=== PATIENT | male | born 1950 | race Caucasian/White ===

== ENCOUNTER 2019-06-19 12:19 | Emergency (ER) | payer OTHER, SELFPAY ==
--- NOTE | ~2019-06-19 | CT_ITS ---
EXAMINATION: CT abdomen pelvis w con EXAM DATE: 06/19/2019 13:40 INDICATION: Abdominal pain and distention. TECHNIQUE: Spiral CT of the abdomen and pelvis was performed following intravenous injection of 100 m L Omnipaque 350. Axial, coronal and sagittal images were reviewed. The dose-length product (DLP) fo r this examination was 519.70 mGy-cm. The exposure was tailored according to patient size (auto mA e xposure control), and iterative reconstruction (ASIR) was used as additional dose reduction technique . Comparison is made to prior examination from 12/04/2014. FINDINGS: The liver, spleen, adrenal glands and pancreas are unremarkable. Gallbladder is unremarkab le. No biliary obstruction. Portal and splenic veins are patent. Kidneys enhance symmetrically. T here is no hydronephrosis. The prostate is unremarkable. The bladder is unremarkable. There is no retroperitoneal or pelvic lymphadenopathy. Left inguinal reservoir for corpora implants. There is mild to moderate scattered arteriosclerotic disease. Ascending colon has relatively small amount of stool compared to the more moderate amount of stool th roughout the rest of the colon, which may account for the apparent mild colonic wall thickening. Has patient had any recent colonoscopy? The appendix is normal. The stomach and small bowel are unremark able. There is mild scattered colonic diverticulosis. There is no adjacent inflammatory change to s uggest diverticulitis. The heart is normal in size. There are no pericardial or pleural effusions. There are bibasilar linear opacities, subsegmental atelectasis. There are no osteoblastic or osteoly tic lesions identified. IMPRESSION: 1. Moderate amount of colonic stool, consider constipation. 2. Relatively undistended and ascending colon, with apparent wall thickening which could be from the under distention but difficult to exclude underlying adenocarcinoma. If patient has not had recent c olonoscopy or enema, consider referral. 3. No acute intra-abdominal findings. Reviewed, dictated and finalized at location A. 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 Moderate amount of colonic stool, consider constipation. 2. Relatively undistended and ascending colon, with apparent wall thickening w hich could be from the under distention but difficult to exclude underlying maria del carmen nocarcinoma. If patient has not had recent colonoscopy or enema, consider refer ral. 3. No acute intra-abdominal findings.
[2019-06-19 12:45] VITALS: BP 152/67; PULSE 71; RESP 16; TEMP 36.9; O2SAT 99
--- NOTE | 2019-06-19 12:49 | ED.ABDPAIN ---
HPI - Abdominal Pain General Chief Complaint: Abdominal Pain Stated Complaint: Abd Pain Time Seen by Provider: 06/19/19 12:44 Source: patient Mode of arrival: ambulatory Limitations: no limitations History of Present Illness HPI narrative: The pt is a 68 y/o male who presents to the ED with c/o diffuse ABD pain that began 5 days ago and has been worsening since. The pt states that he was able to have a small bowel movement this morning but, before this, he has not had one in the past 5 days. He states that his ABD feels very hard and sore. The pt reports constipation, but denies CP, fever, or N/V/D. He states he has had pain with constipation before, but never this bad. The pt has a SHx of TKR and shoulder surgery, but denies any ABD surgery history. He has a PMHx of DM. MD elicited complaint: abdominal pain Onset (ago): day(s) (5) Pain Consistency: other (worsening) Location: diffuse Associated symptoms: constipation Related Data Home Medications Medication Instructions Recorded Confirmed allopurinol 06/19/19 alprazolam 06/19/19 glipizide mg 06/19/19 hydrocodone-acetaminophen 06/19/19 metformin mg 06/19/19 prednisone 06/19/19 tamsulosin mg PO 06/19/19 Allergies Allergy/AdvReac Type Severity Reaction Status Date / Time No Known Allergies Allergy Unverified 01/20/15 12:33 Review of Systems Review of Systems: Narrative: CONSTITUTIONAL: Denies fever. CARDIOVASCULAR: Denies chest pain. GASTROINTESTINAL: Reports abdominal pain and constipation. Denies N/V/D. : Denies dysuria or hematuria SKIN: No redness or rash All systems reviewed & are unremarkable except as noted in HPI and below PMFSH Past Medical History Medical History (Updated 06/19/19 @ 14:08 by Jessica Mckeon MD) A-fib Arthritis Diabetes Gout Herpes Type 2 History of rectal polyps Hyperlipidemia Hypertension Kidney stones Shingles Ureteral stone Surgical History Surgical History (Updated 06/19/19 @ 14:03 by Kady Durham) H/O arthroscopy lt shoulder H/O cystoscopy H/O repair of rotator cuff bilateral History of bilateral carpal tunnel release History of penile implant History of renal stent History of total knee replacement (TKR) rt Hx of tonsillectomy Social History Social History (Updated 06/19/19 @ 14:03 by Kady Durham) Years smoked: 28 Smoking status: Current every day smoker Exam Narrative: Exam Narrative: GENERAL: Well-appearing, well-nourished, and in no acute distress. HEAD: Normocephalic, atraumatic. EYES: PERRLA and EOMI. ENT: Nares clear, no rhinorrhea or epistaxis. Mucous membranes moist. NECK: Supple. CHEST: Clear to auscultation. No respiratory distress. HEART: Regular rate and rhythm. No murmur heard. Normal peripheral pulses. ABDOMEN: ABD mildly distended. Diffuse mild ABD tenderness. Normoactive bowel sounds. No guarding and not rigid. EXTREMITIES: Normal range of motion. No edema. SKIN: Warm, dry, no rash. NEURO: No focal deficits. Alert and oriented X3. Course Course Emergency Course: The patient presented for evaluation of abdominal pain and distention. At the time of initial assessment, ABCs are intact and vital signs are stable. Physical exam is notable for a mildly distended abdomen which is tender throughout without rebound or rigidity. Differential includes partial versus complete bowel obstruction, volvulus, mass, perforation. Patient without urinary symptoms. Laboratory results are largely unremarkable; he has a mild leukocytosis. No severe electrolyte derangement or acute kidney injury. Patient has elevated glucose readings consistent with his history of diabetes. CT scan is concerning for constipation. There is no extra intestinal mass, but there is concern for inflammation and wall thickening in the ascending colon, and radiology is recommending a repeat colonoscopy. 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
[2019-06-19 13:21] LABS: Basophils Absolute Auto 0.1 K/mm3 (0.0-0.1); Basophils Percent Auto 0.6 % (0.2-1.2); Eosinophils Absolute Auto 0.3 K/mm3 (0-0.3); Eosinophils Percent Auto 1.9 % (0-4.4); Hematocrit 45.8 % (42.0-52.0); Immature Granulocyte Absolute 0.23 K/mm3 (0.00-0.031); Immature Granulocyte Percent A 1.8 % (0-0.5); Lymphocytes Absolute Auto 1.17 K/mm3 (0.9-3.2); Lymphocytes Percent Auto 9.1 % (18.3-44.2); Mean Corpuscular HGB Conc 34.9 g/dl (32-36); Mean Corpuscular Hemoglobin 31.1 pg (26-34); Mean Corpuscular Volume 89.1 fl (80-100); Monocytes Absolute Auto 1.4 K/mm3 (0.1-0.6); Monocytes Percent Auto 10.5 % (2.6-8.5); Neutrophils Absolute Auto 9.8 K/mm3 (1.3-6.7); Neutrophils Percent Auto 76.1 % (45.5-73.1); Platelet Count Result 216 k/mm3 (150-375); Red Blood Count 5.14 M/mm3 (4.6-6.20); Red Cell Distribution Width 13.2 % (11.5-14.5); White Blood Count 12.8 K/mm3 (4.5-10.0)
[2019-06-19 13:33] LABS: Add Urine Microscopic? YES; Appearance Urine Clear (Clear); Bilirubin Urine Negative (Negative); Blood Urine Negative (Negative); Color Urine Yellow (Yellow); Glucose Urine UA 3+ mg/dL (Negative); Ketones Urine Trace mg/dL (Negative); Leukocyte Esterase Ur Negative LEU/UL (Negative); Nitrate Urine Negative (Negative); Protein Urine 1+ mg/dL (Negative); Specific Grav Ur 1.027 (1.001-1.035)
[2019-06-19 13:34] LABS: Blood Urea Nitrogen 19 mg/dL (8-26); Estimated CRCL calculation 87 ml/min; Estimated Glomerular Filt Rate > 60
[2019-06-19 13:35] LABS: Alanine Aminotransferase 16 U/L (4-50); Albumin Level 3.9 g/dL (3.5-5.1); Alkaline Phosphatase 75 U/L (38-126); Aspartate Amino Transferase 20 U/L (17-59); Bilirubin,Total 0.8 mg/dL (0.2-1.3); Blood Urea Nitrogen 21 mg/dL (9-20); Calcium 9.5 mg/dL (8.4-10.2); Carbon Dioxide 27 mmol/L (22-30); Chloride 93 mmol/L (98-107); Estimated CRCL calculation 98 ml/min; Estimated Glomerular Filt Rate > 60; Glucose 271 mg/dL (75-110); Lipase 97 U/L (23-300); Potassium 4.1 mmol/L (3.4-5.0); Sodium 132 mmol/L (137-145)
[2019-06-19] MEDS: SODIUM CHLORIDE 0.9% IV 1,000 ML 999 ML IV CONT (13:52)
[2019-06-19] MEDS: ONDANSETRON INJ 4 MG/2 ML VIAL IV PUSH (13:53)
[2019-06-19] MEDS: MORPHINE SULFATE 4 MG/ML INJ IV PUSH (13:53)
[2019-06-19 14:17] VITALS: BP 130/61; PULSE 73; RESP 16; O2SAT 98
--- NOTE | 2019-06-24 08:04 | PC.NURSE ---
LATE ENTRY This note is being entered to document information to the patient's record. The following information was omitted on [06/19/2019], by [Tarun Ewing]. IV Ofirmev infused at 1321, Normal Saline infused at 1407
--- NOTE | 2019-09-11 15:47 | CONS_ITS ---
DATE OF CONSULTATION: 06/19/2019 REASON FOR CONSULTATION: Bacteremia. HISTORY OF PRESENT ILLNESS: The patient is a 68-year-old male who was in his usual state of good health until 2 weeks prior to admission. At that time, he developed diffuse abdominal pain, all 4 quadrants, without aggravating or relieving factors, rapidly progressive to a plateau and persistent at same level in the subsequent 2 weeks. However, he reported to other physicians that the pain was left-sided only. Beginning on the day of admission, he had new onset of confusion, decreased level of consciousness, inability to have a bowel movement as well as fever over 39. He presented to the emergency room on the evening of the and was admitted. He was started on piperacillin early yesterday and remains on that now. He had a CT scan performed yesterday and underwent a short time ago percutaneous drainage and CT scan of a fluid collection. His pain persists unfortunately despite drainage. He now feels he is able to urinate well. He has been on no antibiotics for any purpose in the last 6 weeks for any reason and on no immunosuppressants. He denies any previous such episodes. There is no radiation nor aggravating factors. He has been nauseated today. ALLERGIES: NONE KNOWN. PRESENT MEDICATIONS: List reviewed. No immunosuppressants. HABITS: Ex-smoker, ex alcohol. PAST MEDICAL HISTORY: Type 2 diabetes mellitus. No other chronic illnesses. FAMILY HISTORY: Not pertinent to his present illness. SOCIAL HISTORY: He is single. Does not work outside the home. He lives locally. REVIEW OF SYSTEMS: Poor appetite, 12 pounds weight loss in 2 weeks. 14-point review otherwise negative. PHYSICAL EXAMINATION: GENERAL: This is a middle-aged male who appears younger than his actual age, in discomfort, no respiratory distress. VITAL SIGNS: Temperature on admission was 39.4 and has since defervesced 3 or 6 hours +, 115/62, 67, 16, 98% room air. SKIN: Warm and dry. No generalized rashes. EENT: The conjunctivae are normal. Pupils equal, round. The oral mucosa is dry, otherwise normal. No paranasal sinus erythema, edema, tenderness. NECK: Without mass, tenderness, distention. LUNGS: Clear to auscultation and percussion. CHEST: Equal expansion with normal AP diameter. CARDIAC: Regular rate and rhythm. No murmur, gallop, or rub. ABDOMEN: Quite bowel sounds. Abdomen is distended, diffusely tender. No guarding. No masses. No bruits. He has no flank tenderness. Straight leg test is negative. No fluid wave. EXTREMITIES: Well perfused. No clubbing, cyanosis, edema. IV catheter is without phlebitis. LABORATORY DATA: Blood cultures 1 of 2 sets Streptococcus constellatus. Fluid was sent from his aspirate today, results pending. White blood cell count normal on admission, 17.0 yesterday, 13.9 today, hemoglobin 12.0, platelets are 295. He has a left shift seen on differential yesterday, not repeated today. He has mild hyponatremia. Accu-Cheks variable, 183 up to 336. Lactate initially 2.9, normal. Liver function tests normal. Albumin 3.2. His urinalysis, multiple abnormalities, not suggestive of infection. Urine drug screen positive for opiates. His COVID was nonreactive. RADIOLOGY DATA: CT of the abdomen and pelvis, 7 cm left mid abdomen, suspected small bowel origin, penile implant, atherosclerosis, otherwise no abnormalities. Chest x-ray, degenerative changes, otherwise normal. ASSESSMENT: 1. Streptococcus species bacteremia with infection, suspected abscess source. This is normal jg of the GI and oral mucosa. 2. Fever because of the above. Other sources are unlikely including primary bloodstream infection like endocarditis as well as upper lower respiratory tract,
== END 2019-06-19 14:25 | disposition home or self-care (01) ==
PROVIDERS: Emergency Provider Emergency Medicine; PCP Internal Medicine Geriatric Medicine
DX: K59.09 Other constipation (principal); R10.84 Generalized abdominal pain; I48.91 Unspecified atrial fibrillation; M19.90 Unspecified osteoarthritis, unspecified site; E11.9 Type 2 diabetes mellitus without complications; Z79.84 Long term (current) use of oral hypoglycemic drugs; E78.5 Hyperlipidemia, unspecified; I10 Essential (primary) hypertension; M10.9 Gout, unspecified; Z87.442 Personal history of urinary calculi; Z96.651 Presence of right artificial knee joint; F17.200 Nicotine dependence, unspecified, uncomplicated
CPT/HCPCS: 36415; 74177; 80053; 81001; 83690; 85025; 96374; 96375; 99284; J0131; J2270; J2405; J7030; Q9967

== ENCOUNTER 2019-09-09 20:16 | Inpatient (IN) | payer OTHER, MEDICARE, SELFPAY ==
--- NOTE | 2019-06-19 15:07 | CONS_ITS ---
This report was moved to the correct visit, [id number], on October 02, 2019. Original report was signed by Dr. Manfred English on September 12, 2019 at 1336. DATE OF CONSULTATION: 06/19/2019 REASON FOR CONSULTATION: Bacteremia. HISTORY OF PRESENT ILLNESS: The patient is a 68-year-old male who was in his usual state of good health until 2 weeks prior to admission. At that time, he developed diffuse abdominal pain, all 4 quadrants, without aggravating or relieving factors, rapidly progressive to a plateau and persistent at same level in the subsequent 2 weeks. However, he reported to other physicians that the pain was left-sided only. Beginning on the day of admission, he had new onset of confusion, decreased level of consciousness, inability to have a bowel movement as well as fever over 39. He presented to the emergency room on the evening of the and was admitted. He was started on piperacillin early yesterday and remains on that now. He had a CT scan performed yesterday and underwent a short time ago percutaneous drainage and CT scan of a fluid collection. His pain persists unfortunately despite drainage. He now feels he is able to urinate well. He has been on no antibiotics for any purpose in the last 6 weeks for any reason and on no immunosuppressants. He denies any previous such episodes. There is no radiation nor aggravating factors. He has been nauseated today. ALLERGIES: NONE KNOWN. PRESENT MEDICATIONS: List reviewed. No immunosuppressants. HABITS: Ex-smoker, ex alcohol. PAST MEDICAL HISTORY: Type 2 diabetes mellitus. No other chronic illnesses. FAMILY HISTORY: Not pertinent to his present illness. SOCIAL HISTORY: He is single. Does not work outside the home. He lives locally. REVIEW OF SYSTEMS: Poor appetite, 12 pounds weight loss in 2 weeks. 14-point review otherwise negative. PHYSICAL EXAMINATION: GENERAL: This is a middle-aged male who appears younger than his actual age, in discomfort, no respiratory distress. VITAL SIGNS: Temperature on admission was 39.4 and has since defervesced 3 or 6 hours +, 115/62, 67, 16, 98% room air. SKIN: Warm and dry. No generalized rashes. EENT: The conjunctivae are normal. Pupils equal, round. The oral mucosa is dry, otherwise normal. No paranasal sinus erythema, edema, tenderness. NECK: Without mass, tenderness, distention. LUNGS: Clear to auscultation and percussion. CHEST: Equal expansion with normal AP diameter. CARDIAC: Regular rate and rhythm. No murmur, gallop, or rub. ABDOMEN: Quite bowel sounds. Abdomen is distended, diffusely tender. No guarding. No masses. No bruits. He has no flank tenderness. Straight leg test is negative. No fluid wave. EXTREMITIES: Well perfused. No clubbing, cyanosis, edema. IV catheter is without phlebitis. LABORATORY DATA: Blood cultures 1 of 2 sets Streptococcus constellatus. Fluid was sent from his aspirate today, results pending. White blood cell count normal on admission, 17.0 yesterday, 13.9 today, hemoglobin 12.0, platelets are 295. He has a left shift seen on differential yesterday, not repeated today. He has mild hyponatremia. Accu-Cheks variable, 183 up to 336. Lactate initially 2.9, normal. Liver function tests normal. Albumin 3.2. His urinalysis, multiple abnormalities, not suggestive of infection. Urine drug screen positive for opiates. His COVID was nonreactive. RADIOLOGY DATA: CT of the abdomen and pelvis, 7 cm left mid abdomen, suspected small bowel origin, penile implant, atherosclerosis, otherwise no abnormalities. Chest x-ray, degenerative changes, otherwise normal. ASSESSMENT: 1. Streptococcus species bacteremia with infection, suspected abscess source. This is normal jg of the GI and oral mucosa. 2.
--- NOTE | 2019-09-09 | ECG_ITS ---
Measurements Intervals Hilliard Rate: 81 P: 60 LA: 146 QRS: 1 QRSD: 86 T: 32 QT: 343 QTc: 400 Interpretive Statements SINUS RHYTHM ATRIAL PREMATURE COMPLEXES DELAYED PRECORDIAL R/S TRANSITION NONSPECIFIC T-WAVE ABNORMALITY- INF/LAT LEADS BASELINE ARTIFACT- I, II, AVR BORDERLINE ECG Electronically Signed On 09-10-2019 7:02:50 CDT by Scot Armenta D.O.
--- NOTE | ~2019-09-09 | CT_ITS ---
EXAMINATION: CT brain wo con EXAM DATE: 09/09/2019 21:00 INDICATION: Confusion. Fever. Transient alteration of awareness. TECHNIQUE: Spiral CT of the head was performed without contrast. Axial, coronal and sagittal images were reviewed. The dose-length product (DLP) for this examination was 605.33 mGy-cm. The exposure w as tailored according to patient size, and iterative reconstruction (ASIR) was used as additional dos e reduction technique. There is no prior study for comparison. FINDINGS: There is no acute intraparenchymal hemorrhage. No evidence of intraparenchymal brain mass lesion. No evidence of acute infarction. Please note that initial head CT has limited sensitivity f or small or acute infarctions. There is mild periventricular and subcortical hypodensity, nonspecific but probably related to small vessel ischemic disease. There is mild prominence of the sulci and v entricles related to cerebral atrophy. There is intracranial carotid arteriosclerosis. There are n o extra-axial collections. There is no mass effect or midline shift. The orbits are unremarkable. Soft tissue is unremarkable. The visualized sinuses and mastoid air cells are well aerated. IMPRESSION: 1. No acute intracranial findings. 2. Chronic age related findings. Reviewed, dictated and finalized at location A.
--- NOTE | ~2019-09-09 | CT_ITS ---
EXAMINATION: CT abdomen pelvis w con DATE: 09/17/2019 08:44 INDICATION: Intra-abdominal abscess TECHNIQUE: Computed tomography (CT) of the abdomen and pelvis was performed with 100 cc Omnipaque 350 intravenous contrast. The dose-length product was 568.57 mGy-cm. Automated exposure control and iter ative reconstruction technique were employed. COMPARISON: CT dated 09/10/2019 FINDINGS: There is bibasilar atelectasis. No significant pleural or pericardial effusion. Small amoun t of free air noted anterior to the liver, likely secondary to previous percutaneous drain placement. There has been resolution of large abscess in the left upper abdomen where the percutaneous drain is present. There has been interval development of multiple loculated walled off fluid collections in t he pelvis anterior and medial to the psoas muscle and centered in the pelvis posterior to the bladder . The largest posterior to the bladder measures 9.3 x 5.5 cm. There is a penile prosthesis with reser voir in the left inguinal region. There is mild thickening of the small bowel and the left mid abdomen adjacent to the drain, suspiciou s for enteritis. There is mild bladder wall thickening. Normal appendix. No bowel obstruction. Fatty infiltration of the liver. The spleen is enlarged. Gallbladder is present. There are mildly enl arged mesenteric lymph nodes, largest measuring 2.2 cm, axial image 107, likely reactive. There is at herosclerosis of the aorta. Colonic diverticulosis. There is mild thickening of the descending and si gmoid colon. Cannot exclude colitis. IMPRESSION: 1. Interval resolution of abscess in the left upper abdominal mesentery status post drain placement. Interval development of multiple walled off fluid collections in the pelvis, likely abscesses. 2: Small amount of free air in the upper abdomen, likely related to previous drain placement. 3: Mild thickening of the small bowel left mid abdomen and the distal colon, suspicious for enteroco litis. 4: Mild bladder wall thickening. Consider correlation with urinalysis if there is clinical concern f or cystitis. Reviewed, dictated and finalized at location A. IMPRESSION: 1. Interval resolution of abscess in the left upper abdominal mesentery status post drain placement. Interval development of multiple walled off fluid collect ions in the pelvis, likely abscesses. 2: Small amount of free air in the upper abdomen, likely related to previous d rain placement. 3: Mild thickening of the small bowel left mid abdomen and the distal colon, s uspicious for enterocolitis. 4: Mild bladder wall thickening. Consider correlation with urinalysis if there is clinical concern for cystitis.
--- NOTE | ~2019-09-09 | CT_ITS ---
EXAMINATION: CT guide absc cath placement DATE: 09/17/2019 15:11 INDICATION: Pelvic abscess TECHNIQUE: The procedure including the risks and benefits was discussed with the patient. Risks discu ssed included bleeding, infection, injury to adjacent organs or nerves and allergic reaction. The pat ient understood the risks and benefits and agreed to proceed. The patient was confirmed to be receivi ng appropriate antibiotic coverage. The skin overlying the posterior left parasacral pelvis was prep ped and draped in usual sterile fashion. Anesthetic was administered with 1% lidocaine subcutaneousl y. The patient also received 50 mcg fentanyl for conscious sedation. A 18-gauge trocar needle was ins erted into the deep pelvic fluid collection via transgluteal approach utilizing CT guidance. The inne r stylette was removed with spontaneous reflux of slightly turbid yellowish fluid. A wire is advanced through the needle into the fluid collection with positioning confirmed by CT. Utilizing Seldinger t echnique the needle was removed and the tract serially dilated over the wire to 9 Marshallese. Subsequentl y an 8.5 Marshallese drainage catheter was advanced over the wire into the fluid collection, positioning c onfirmed by CT and the pigtail tip was locked. The catheter was stitched to the skin with suture. Ant ibiotic appointment and a sterile dressing were applied. There were no immediate complications. 10 mm of fluid was aspirated and sent to the lab for Gram stain and cultures. The catheter was then attach ed to suction drainage and was draining additional fluid at the conclusion of the procedure. There ar e no immediate competitions. The dose-length product was 158.74 mGy-cm. FINDINGS: CT images demonstrate the catheter within the pelvic abscess cavity situated between the re ctum and the bladder which is opacified with contrast from an earlier contrast-enhanced CT. 10 mL flu id was aspirated for testing. IMPRESSION: 1. Successful CT-guided transgluteal percutaneous drainage catheter placement into a deep pelvic absc ess. 2. 10 mL fluid was sent for aerobic and anaerobic cultures. 3. The catheter will be managed by Dr. Khalil. Reviewed, dictated and finalized at location A. IMPRESSION: 1. Successful CT-guided transgluteal percutaneous drainage catheter placement i nto a deep pelvic abscess. 2. 10 mL fluid was sent for aerobic and anaerobic cultures. 3. The catheter will be managed by Dr. Khalil.
--- NOTE | ~2019-09-09 | XR_ITS ---
EXAMINATION: XR chest 1V portable EXAM DATE: 09/09/2019 21:07 INDICATION: Fever, transient alteration of awareness. TECHNIQUE: Portable AP frontal chest x-ray was obtained. There is no prior study for comparison. FINDINGS: The lungs are clear. There are no pleural effusions. Cardiac silhouette is prominent but magnified on this AP technique. There is no pneumothorax suspected. There are mild bony degenerati ve changes. IMPRESSION: No acute cardiopulmonary findings. Reviewed, dictated and finalized at location A.
--- NOTE | ~2019-09-09 | XR_ITS ---
EXAMINATION: XR sm bowel follow through DATE: 09/13/2019 11:52 INDICATION: Abdominal abscess. Fever. TECHNIQUE: Razor Sharpener radiograph(s) of the abdomen was/were obtained. Oral contrast was administered, and sequential radiographs of the abdomen were obtained until oral contrast was noted to be in the proxi mal colon. Spot fluoroscopic images of the small bowel were obtained. Fluoroscopy exposure time was 2 .3 minutes. Total of 131 fluoroscopic images and 8 radiographs were obtained. COMPARISON: CT dated 09/10/2019 FINDINGS: Razor Sharpener image demonstrates a percutaneous abscess drain with formed loop projecting over the left abdom en. No dilated bowel to suggest obstruction. Transit time from the stomach to proximal colon was appr oximately 5 minutes. There is normal caliber and mucosal fold pattern throughout the small bowel. Inc identally noted is gas and intermittent contrast filling of a prominent jejunal diverticulum in the l eft upper quadrant. There is no mass effect upon the bowel surrounding the abscess drain suggesting i nterval decompression of the abscess cavity. No evident extraluminal leakage of contrast with no accu mulation of contrast either surrounding or within the drainage catheter tube. On crosstable lateral i mages at the conclusion of the procedure, there is a persistent small amount of free intraperitoneal gas or peripheral to the gas-filled bowel along the anterior abdominal wall. IMPRESSION: 1. Persistent small amount of free intraperitoneal gas along the anterior abdominal wall with no evid ent extraluminal leakage of contrast to suggest a site of the suspected perforated viscus. 2. Left percutaneous abscess drain with no residual mass effect upon the surrounding bowel suggesting interval decompression. Reviewed, dictated and finalized at location A. IMPRESSION: 1. Persistent small amount of free intraperitoneal gas along the anterior abdom inal wall with no evident extraluminal leakage of contrast to suggest a site of the suspected perforated viscus. 2. Left percutaneous abscess drain with no residual mass effect upon the surrou nding bowel suggesting interval decompression.
--- NOTE | ~2019-09-09 | US_ITS ---
EXAMINATION: US venous doppler LE EXAM DATE: 09/10/2019 16:21 INDICATION: Elevated d-dimer. Fever, transient alteration of awareness. TECHNIQUE: Multiple grayscale, color flow and Doppler images of the lower extremity deep venous syste ms bilaterally were obtained and reviewed. There is no prior study for comparison. FINDINGS: Right side: The right common femoral, femoral and profunda veins demonstrate normal color flow, respi ratory variation, augmentation and compressibility. Compressibility, color flow confirmed within the right popliteal, posterior tibial, peroneal, and greater saphenous veins. Left side: The left common femoral, femoral and profunda veins demonstrate normal color flow, respira tory variation, augmentation and compressibility. Compressibility, color flow confirmed within the l eft popliteal, posterior tibial, peroneal, and greater saphenous veins. IMPRESSION: 1. No lower extremity deep venous thrombosis bilaterally. Reviewed, dictated and finalized at location A.
--- NOTE | ~2019-09-09 | CT_ITS ---
EXAMINATION: CT guide absc cath placement DATE: 09/11/2019 13:22 INDICATION: Intra-abdominal abscess. TECHNIQUE: The procedure including the risks, benefits, and alternatives was discussed with the patie nt. Risks discussed included bleeding and infection. The patient understood the risks and benefits an d agreed to proceed. The patient was confirmed to be receiving appropriate antibiotic coverage. The skin overlying the abdomen was prepped and draped in usual sterile fashion. Anesthetic was administe red with 1% lidocaine subcutaneously. An 18 gauge trochar needle was inserted into the left upper salvatore drant abscess with CT guidance. The needle was exchanged over a wire for 6 Ukrainian, 8 Ukrainian, and 10 F rench dilators and then for a 10 Ukrainian pigtail catheter. The catheter was stitched to the skin, and a sterile dressing was applied. The mA was adjusted according to patient size. Iterative reconstructi on technique was employed. The dose-length product was 140.79 mGy-cm. There were no immediate complic ations. FINDINGS: CT images demonstrate the catheter within the fluid collection. 20 mL fluid was aspirated f or testing. IMPRESSION: 1. Successful CT-guided left upper quadrant abscess drainage. 2. 20 mL opaque, faust, foul-smelling fluid was sent for aerobic and anaerobic cultures. Reviewed, dictated and finalized at location A. IMPRESSION: 1. Successful CT-guided left upper quadrant abscess drainage. 2. 20 mL opaque, faust, foul-smelling fluid was sent for aerobic and anaerobic cu ltures.
--- NOTE | ~2019-09-09 | CT_ITS ---
EXAMINATION: CT abdomen pelvis wo con EXAM DATE: 09/10/2019 16:25 INDICATION: Weight loss, chronic nausea, anorexia. TECHNIQUE: Spiral CT of the abdomen and pelvis was performed without contrast. Axial, coronal and s agittal images were reviewed. The dose-length product (DLP) for this examination was 523.75 mGy-cm. The exposure was tailored according to patient size (auto mA exposure control), and iterative recons truction (ASIR) was used as additional dose reduction technique. Comparison is made to prior examinat ion from 06/19/2019. FINDINGS: There is an abscess with air-fluid level in the left mid abdomen measuring about 7 cm in di ameter. There are several loops of small bowel contiguous to this. Probably from underlying small rupinder wel pathology given central mesenteric location and contiguous small bowel loops. Would be amenable to percutaneous drainage with pigtail catheter. Several reactive mesenteric lymph nodes. No free int raperitoneal air. Colonic fluid, correlate for diarrhea. Normal appendix. The liver, spleen, adrenal glands and pancreas are unremarkable. Gallbladder is unremarkable. No bi liary obstruction. There is no nephrolithiasis or hydronephrosis. The prostate is unremarkable. Th ere is penile implant with left inguinal reservoir. The bladder is unremarkable. There is no retrop eritoneal or pelvic lymphadenopathy. There is mild to moderate scattered arteriosclerotic disease. There are no osteoblastic or osteolytic lesions identified. IMPRESSION: Large abscess in mid mesentery left of midline, probably from underlying small bowel path ology given location. Would be amenable to CT-guided percutaneous drainage. Reviewed, dictated and finalized at location A. IMPRESSION: Large abscess in mid mesentery left of midline, probably from under lying small bowel pathology given location. Would be amenable to CT-guided perc utaneous drainage.
[2019-09-09 20:17] VITALS: BP 141/78; PULSE 54; RESP 18; TEMP 39.4
--- NOTE | 2019-09-09 20:23 | ED.FEVER ---
HPI - Fever General Chief Complaint: Fever Stated Complaint: fever Time Seen by Provider: 09/09/19 20:17 History of Present Illness HPI Narrative: Patient presents via EMS from home. We do not have his name, he was not obtained when he was picked up. He is confused and does not give accurate information. He does deny pain, but does not know why he is here. He is diaphoretic with a temperature of 103. His family would not come because they think it is COVID. elicited complaint: fever Related Data Home Medications Medication Instructions Recorded Confirmed glipizide 10 mg PO BID 09/09/19 09/09/19 metformin 2,000 mg PO DAILY 09/09/19 09/09/19 metformin 3,000 mg PO DAILY 09/09/19 09/09/19 Allergies Allergy/AdvReac Type Severity Reaction Status Date / Time No Known Allergies Allergy Verified 09/09/19 21:24 Review of Systems Review of Systems: ROS unobtainable: Yes unobtainable due to mental status Exam Narrative: Exam Narrative: GENERAL: Well-nourished elderly man, completely diaphoretic, and confused. HEAD: Normocephalic, atraumatic. EYES: PERRLA and EOMI. ENT: Nares clear, no rhinorrhea or epistaxis. Mucous membranes moist. NECK: Supple. CHEST: Clear to auscultation. No respiratory distress. HEART: Regular rate and rhythm. No murmur heard. Normal peripheral pulses. ABDOMEN: Soft, nontender, nondistended, normal active bowel sounds. EXTREMITIES: Normal range of motion. No edema. SKIN: Warm, dry, no rash. NEURO: No focal deficits. Alert . PSYCH: Flat affect and poor eye contact Course Reevaluation(s) Reevaluation #1: Taken to check on the patient, and he is sitting up in much more lucid. I asked him how he felt and he said not so good. Still waiting for his urine results before admission. Date: 09/09/19 Time: 22:20 Consultations Consultation #1: The patient's brother Brenden Chawla called. Told him he thought it was COVID, but the test will not be done until tomorrow. We will be admitting him here at [facility]. The brother would like to leave his phone number. It is [phone]. He will call again for an update tomorrow Date: 09/09/19 Time: 21:57 Consultation #2: Call Dr. Anne at 11:30 PM, and he accepts the patient for observation. The patient is much improved since his IV fluids, and Tylenol, but was still confused he did not even know his name when he arrived. I suspect he has COVID. Date: 09/09/19 Time: 23:33 Vital Signs Vital signs: Vital Signs Temperature 103.0 F H 09/09/19 20:17 Pulse Rate 54 L 09/09/19 20:17 Respiratory Rate 18 09/09/19 20:17 Blood Pressure 141/78 H 09/09/19 20:17 Temperature 99.8 F H 09/09/19 21:22 Pulse Rate 69 09/09/19 23:02 Respiratory Rate 18 09/09/19 23:02 Blood Pressure 117/70 09/09/19 23:02 Pulse Oximetry 94 09/09/19 23:02 MDM - Fever Differential Diagnosis Differential diagnosis: Likely fever of unknown origin, community acquired pneumonia, pyelonephritis, viral infection, sepsis and influenza Lab Data Attestation: I reviewed the patient's lab results. Result diagrams: 09/09/19 20:36 09/09/19 20:36 Labs: Lab Results 09/09/19 09/09/19 09/09/19 Range/Units 20:36 20:36 20:36 WBC 9.5 (4.5-10.0) K/mm3 RBC 4.92 (4.6-6.20) M/mm3 Hgb 14.8 (14.0-18.0) g/dL Hct 42.9 (42.0-52.0) % MCV 87.2 (80-100) fl MCH 30.1 (26-34) pg MCHC 34.5 (32-36) g/dl RDW 12.9 (11.5-14.5) % Plt Count 317 (150-375) k/mm3 MPV 10.9 H (7.4-10.4) fl Immature Gran % (Auto) Not Reportable Neut % (Auto) Not Reportable Lymph % (Auto) Not Reportable Tompkins % (Auto) Not Reportable Eos % (Auto) Not Reportable Baso % (Auto) Not Reportable Lymph # (Auto) Not Reportable Tompkins # (Auto) Not Reportable Eos # (Auto) Not Reportable Baso # (Auto) Not Reportable Abs Immat Gran (auto) Not Reportable Absolute Neuts (auto) Not Reportable
[2019-09-09] MEDS: SODIUM CHLORIDE 0.9% IV 1,000 ML 999 ML IV CONT ×2 (20:47→22:12)
[2019-09-09 21:07] LABS: Hematocrit 42.9 % (42.0-52.0); Hemoglobin 14.8 g/dL (14.0-18.0); Mean Corpuscular HGB Conc 34.5 g/dl (32-36); Mean Corpuscular Hemoglobin 30.1 pg (26-34); Mean Corpuscular Volume 87.2 fl (80-100); Mean Platelet Volume 10.9 fl (7.4-10.4); Platelet Count Result 317 k/mm3 (150-375); Red Blood Count 4.92 M/mm3 (4.6-6.20); Red Cell Distribution Width 12.9 % (11.5-14.5); White Blood Count 9.5 K/mm3 (4.5-10.0)
[2019-09-09 21:15] LABS: Lactic Acid Reflex 2.9 mmol/L (0.7-2.1)
[2019-09-09 21:16] LABS: Ethanol < 10 mg/dL (<10)
[2019-09-09 21:22] VITALS: BP 147/56; PULSE 80; RESP 18; TEMP 37.7; O2SAT 96
[2019-09-09 21:22] LABS: Band Neutrophils Percent 15 % (0-6); Lymphocytes Absolute Manual 1.23 K/mm3 (1.1-4.5); Lymphocytes Percent Manual 13 % (18-44); Metamyelocytes Percent 1 %; Monocytes Absolute Manual 0.09 K/mm3 (0.1-0.90); Monocytes Percent Manual 1 % (3-9); Neutrophils Absolute Manual 8.07 K/mm3 (1.3-6.7); Neutrophils Percent Manual 70 % (46-73); Total Cells Counted 100
[2019-09-09 21:23] LABS: Ovalocytes 1+ (NORMAL); Platelet Estimate Adequate (Adequate)
[2019-09-09 21:24] LABS: Burr Cells 1+ (NORMAL)
[2019-09-09 21:27] LABS: Alanine Aminotransferase 21 U/L (4-50); Albumin Level 4.1 g/dL (3.5-5.1); Alkaline Phosphatase 160 U/L (38-126); Aspartate Amino Transferase 26 U/L (17-59); Bilirubin,Total 1.2 mg/dL (0.2-1.3); Blood Urea Nitrogen 17 mg/dL (9-20); Calcium 9.6 mg/dL (8.4-10.2); Carbon Dioxide 20 mmol/L (22-30); Chloride 99 mmol/L (98-107); Estimated CRCL calculation 70 ml/min; Estimated Glomerular Filt Rate > 60; Glucose 211 mg/dL (75-110); Potassium 3.7 mmol/L (3.4-5.0); Sodium 133 mmol/L (137-145)
[2019-09-09 21:32] LABS: INR 1.1; Prothrombin Time 13.9 Seconds (11.1-14.7)
[2019-09-09 22:07] LABS: CRP 20.4 mg/dL (<1.0)
[2019-09-09 22:31] LABS: Add Urine Microscopic? YES; Appearance Urine Clear (Clear); Bacteria Urine 1+ /hpf; Bilirubin Urine Negative (Negative); Blood Urine Negative (Negative); Color Urine Yellow (Yellow); Glucose Urine UA 2+ mg/dL (Negative); Ketones Urine 1+ mg/dL (Negative); Leukocyte Esterase Ur Negative LEU/UL (Negative); Mucus Urine Rare /lpf; Nitrate Urine Negative (Negative); Protein Urine 3+ mg/dL (Negative); RBC Urine 0-2 /hpf (0-2); Specific Grav Ur 1.027 (1.001-1.035); WBC Urine 0-3 /hpf
[2019-09-09 22:48] LABS: Amphetamine Screen Urine Negative (Negative); Barbiturate Screen Urine Negative (Negative); Benzodiazepines Screen Urine Negative (Negative); Cannabinoid Screen Urine Negative (Negative); Cocaine Screen Urine Negative (Negative); Methadone Screen Urine Negative (Negative); Opiate Screen Urine Positive (Negative); Phencyclidine Screen Urine Negative (Negative)
[2019-09-09 23:02] VITALS: BP 117/70; PULSE 69; RESP 18; O2SAT 94
--- NOTE | 2019-09-09 23:11 | PC.NURSE ---
REPORT TAKEN FROM KAILA CHARLTON AT THIS TIME .
[2019-09-09] MEDS: ACETAMINOPHEN 325 MG TABLET 650 MG PO (23:38)
[2019-09-09 23:58] LABS: Reflex Lactic Acid Yes or No Add Lactic
[2019-09-10] VITALS (10 sets, daily range): BP systolic 100–132; BP diastolic 50–76; PULSE 48–65; RESP 18–20; TEMP 36.3–37.6; O2SAT 95–100; BMI 24.7
[2019-09-10 00:52] LABS: Lactic Acid 1.2 mmol/L (0.7-2.1)
--- NOTE | 2019-09-10 01:12 | ADMGEN ---
This patient, Houston Chawla, was admitted to [facility] Surg Room 332-01. Patient/family oriented to hospital policies and general routines including ID bracelet, bed and alarms, visiting hours, pain management, procedures, bathroom and other care routines, personal items, smoking policy, room service/diet, and visiting hours. Valuables list has been completed. Information on how to activate the Rapid Response Team has been discussed. Patient/Family are encouraged to report perceived risks to care and to ask questions if they do not understand what they are told or what they should do.
--- NOTE | 2019-09-10 03:13 | PM.IMHP ---
H&P: HPI History of Present Illness Chief complaint: fever, covid Narrative: This is a 69 year old Diabetic male who presented to the hospital health system with complaints of generalized weakness and confusion. He was found to have a fever of 103 degrees F. The patient was initially disoriented in the ER although his mental status improved significantly with IV fluids and after his fever subsided. He was also initially found to have an elevated lactic acid of 2.9. ER provider reported to me that the patient appears to be back to his baseline but wanted to admit the patient for observation since he had weakness and his lactic acid was elevated. The patient was tested for novel COVID-19 viral infection in the ER and placed on contact isolation. On my encounter with the patient estrella he is alert and oriented and answering all my questions appropriately. 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 He has not been feeling well over the past few days and reports about a 10 pound weight loss. He also reports poor PO intake recently. He denies any previous fevers, chills. He has not had any coughing, sore throat, chest pain, wheezing, difficulty breathing, abdominal pain, dysuria, hematuria, diarrhea, nausea, vomiting, headache, neck stiffness, or rectal bleeding. Nursing alerted me that the patient is getting up on his own and ambulating to the bathroom without any difficulty. He has no other complaints. Review of Systems Review of Systems: All systems reviewed & are unremarkable except as noted in HPI and below PMFSH Past Medical History Medical History Diabetes mellitus Social History Social History Smoking status: Former smoker Tobacco type: cigarettes Alcohol intake: never Substance use: never Gender identity (if verbalized by the patient): Male Spiritual care concerns: No Agree to blood products: Yes Comments Surgical and family history is unknown to the patient. Meds Home Medications and Allergies Home Medications Medication Instructions Recorded Confirmed Type glipizide 10 mg PO BID 09/09/19 09/09/19 History allopurinol 80 mg PO DAILY 09/10/19 09/10/19 History aspirin [Adult Aspirin Regimen] 81 mg PO DAILY 09/10/19 09/10/19 History cholecalciferol (vitamin D3) 25 mcg PO DAILY 09/10/19 09/10/19 History [Vitamin D3] metformin 500 mg PO BID 09/10/19 09/10/19 History pantoprazole 40 mg PO QAM 09/10/19 09/10/19 History Allergies Allergy/AdvReac Type Severity Reaction Status Date / Time No Known Allergies Allergy Verified 09/09/19 21:24 Vital Signs Vital Signs - 24 hr 09/09/19 20:17 09/09/19 21:22 09/09/19 23:02 Temperature 39.4 C H 37.7 C H Pulse Rate 54 L 80 69 Respiratory Rate 18 18 18 Blood Pressure 141/78 H 147/56 H 117/70 Pulse Oximetry 96 94 09/10/19 00:13 09/10/19 00:48 Temperature 37.2 C 37.1 C Pulse Rate 63 61 Respiratory Rate 19 18 Blood Pressure 121/76 105/71 Pulse Oximetry 95 100 Exam Const: General: cooperative, no acute distress, alert and awake Nutritional Appearance: well nourished Orientation/consciousness: patient oriented x3 HENMT: Head: normal to inspection General nose exam: Normal external nose present Face and sinus: normal facial exam Mouth: Yes Normal oral and palatal mucosa present and Yes oropharynx normal Eyes: Pupils: Equal, round and reactive pupils present EOM: EOMs intact bilaterally Neck: Neck: supple and no JVD Thyroid: thyroid normal Lymphatic: lymphadenopathy not noted Resp: Effort & Inspection: normal respiratory effort Auscultation: clear to auscultation bilaterally Cardio: Rate: regular rate Rhythm: regular rhythm Heart sounds: no murmurs GI: Inspection: normal to inspection Auscultation: normal bowel sounds Skin: General skin exam: normal color and no rashes or lesions noted Neuro
[2019-09-10] MEDS: SODIUM CHLORIDE 0.9% IV 1,000 ML 100 ML IV CONT (03:33)
--- NOTE | 2019-09-10 04:32 | PC.NURSE ---
pt was unable to provide a complete medication record. I will call son/POA morning of 09/09 to obtain medication list.
[2019-09-10 06:06] LABS: Hematocrit 37.3 % (42.0-52.0); Hemoglobin 12.3 g/dL (14.0-18.0); Mean Corpuscular Hemoglobin 29.7 pg (26-34); Mean Corpuscular Volume 90.1 fl (80-100); Mean Platelet Volume 10.3 fl (7.4-10.4); Platelet Count Result 275 k/mm3 (150-375); Red Blood Count 4.14 M/mm3 (4.6-6.20); White Blood Count 16.7 K/mm3 (4.5-10.0)
[2019-09-10 06:24] LABS: Blood Urea Nitrogen 13 mg/dL (9-20); Calcium 8.3 mg/dL (8.4-10.2); Carbon Dioxide 25 mmol/L (22-30); Chloride 103 mmol/L (98-107); Estimated CRCL calculation 86 ml/min; Estimated Glomerular Filt Rate > 60; Glucose 185 mg/dL (75-110); Sodium 135 mmol/L (137-145)
[2019-09-10 06:48] LABS: Band Neutrophils Percent 9 % (0-6); Basophils Absolute Manual 0.33 K/mm3 (0.0-0.1); Basophils Percent Manual 2 % (0-1); Monocytes Absolute Manual 0.66 K/mm3 (0.1-0.90); Monocytes Percent Manual 4 % (3-9); Neutrophils Absolute Manual 14.69 K/mm3 (1.3-6.7); Neutrophils Percent Manual 79 % (46-73); Platelet Estimate Adequate (Adequate); Total Cells Counted 100
[2019-09-10] MEDS: glipiZIDE 5 MG TABLET 10 MG PO ×2 (08:52→17:09)
[2019-09-10] MEDS: metFORMIN HCL 500 MG TABLET PO ×2 (08:52→17:09)
[2019-09-10 09:22] LABS: Glucose Point of Care 124 (65-105)
[2019-09-10 09:35] LABS: Hematocrit 40.8 % (42.0-52.0); Hemoglobin 13.7 g/dL (14.0-18.0); Mean Corpuscular HGB Conc 33.6 g/dl (32-36); Mean Corpuscular Hemoglobin 30.1 pg (26-34); Mean Corpuscular Volume 89.7 fl (80-100); Mean Platelet Volume 10.8 fl (7.4-10.4); Platelet Count Result 308 k/mm3 (150-375); Red Blood Count 4.55 M/mm3 (4.6-6.20); Red Cell Distribution Width 13.2 % (11.5-14.5)
[2019-09-10 09:45] LABS: Lactate Dehydrogenase 311 U/L (313-618)
[2019-09-10 10:02] LABS: D Dimer 4.01 ug/mL (<0.48)
[2019-09-10] MEDS: ASPIRIN 81 MG ENTERIC TABLET PO (10:21)
[2019-09-10] MEDS: PANTOPRAZOLE 40 MG TABLET PO (10:21)
[2019-09-10 12:38] LABS: Glucose Point of Care 153 (65-105)
[2019-09-10 14:31] LABS: SARS-CoV-2 RNA PCR Negative
--- NOTE | 2019-09-10 14:46 | PM.IMPN ---
Progress Note: A&P Assessment and Plan (1) Acute encephalopathy: Code(s): G93.40 - Encephalopathy, unspecified Status: Resolved Assessment and Plan: -----Likely secondary to fever and febrile illness. The patient appears to be back to his baseline. CT brain was unremarkable. He had significant rigors and now leukocytosis of 17.0 so we will await his blood cultures. He has a long history of abdominal pain causing him to lose 10 lb so I will get an abdominal pelvis CT and a GI consult. (2) Febrile illness: Code(s): R50.9 - Fever, unspecified Status: Acute Assessment and Plan: -----See above. UA and CXR normal. (3) Acidosis, lactic: Code(s): E87.2 - Acidosis Status: Acute Assessment and Plan: -----Resolved. Likely secondary to dehydration. Lactic acidosis has resolved w/ IV fluids. Monitor acid-base status. (4) Suspected 2019 novel coronavirus infection: Code(s): R68.89 - Other general symptoms and signs Status: Acute Assessment and Plan: -----COVID negative. (5) Diabetes mellitus: Qualifiers: Diabetes mellitus complication status: without complication Diabetes mellitus assisted insulin use: without terminal press operator use Diabetes mellitus type: type 2 Qualified Code(s): E11.9 - Type 2 diabetes mellitus without complications Code(s): E11.9 - Type 2 diabetes mellitus without complications Status: Chronic Assessment and Plan: -----Last glucose 153. Continue. Accuchecks, SSI Coverage, Hypoglycemic protocol. Continue home metformin. Time Spent With Patient Time with patient: 25 - 35 minutes Subjective Date/time seen: 09/10/19 14:46 Interval history: Pt is a 69-year-old male here for chronic abdominal pain and shaking chills. Patient states that he has lost 10 lb in the last few weeks because he is unable to eat. He says that as soon as he eats anything, his stomach turns any becomes very nauseated and has some pain. He denies any diarrhea with this. He actually said he was constipated recently and his primary care physician started him on MiraLax which is helping him. He has never had a EGD but had a colonoscopy a few years ago. He does not describe any heartburn or GERD like burning. His primary care physician is Dr. Meyer and [facility] and he has been seeing him for this problem. This has been an ongoing chronic issue but yesterday he said that he started to get very confused and had shaking chills. He had not been taking his temperature but had a temp on admission. He denies cough, chest pain, leg swelling, dysuria, black stool, or vomiting. He has not been around any sick contacts that he knows of. Review of Systems Review of Systems: All systems reviewed & are unremarkable except as noted in HPI and below Exam Narrative: Exam Narrative: General: Well-developed well-nourished patient resting comfortably in bed in no acute distress HEENT: normocephalic Neck: supple Neuro: Alert and oriented x4 CV:RRR Resp:CTA--no crackles or rhonchi Abd: Soft, non distended. Pain to palpation to the epigastric area. No ecchymosis to the flanks or umbilicus. Positive bowel sounds Extremities: No swelling, erythema, or pain to palpation. Objective Data Vital Signs Vital Signs: Vital Signs - 24 hr 09/09/19 20:17 09/09/19 21:22 09/09/19 23:02 Temperature 103.0 F H 99.8 F H Pulse Rate 54 L 80 69 Respiratory Rate 18 18 18 Blood Pressure 141/78 H 147/56 H 117/70 Pulse Oximetry 96 94 09/10/19 00:13 09/10/19 00:48 09/10/19 01:30 Temperature 98.9 F 98.8 F 97.8 F Pulse Rate 63 61 58 L Respiratory Rate 19 18 20 Blood Pressure 121/76 105/71 106/63 Pulse Oximetry 95 100 96 09/10/19 02:00 09/10/19 06:00 09/10/19 06:30 Temperature 97.8 F Pulse Rate 48 L Respiratory Rate 20 Blood Pressure 106/63 Pulse Oximetry 96 96 96 09/10/19 08:57 09/10/19 10:00 T
--- NOTE | 2019-09-10 14:54 | PC.NURSE ---
Notified Cristal HERNÁNDEZ that patient is negative. No new orders were obtained.
[2019-09-10 17:22] LABS: Glucose Point of Care 160 (65-105)
[2019-09-10 22:37] LABS: Glucose Point of Care 336 (65-105)
[2019-09-11] VITALS (16 sets, daily range): BP systolic 115–157; BP diastolic 55–82; PULSE 64–104; RESP 16–18; TEMP 36.4–38.9; O2SAT 92–100
[2019-09-11 06:07] LABS: Hematocrit 35.4 % (42.0-52.0); Mean Corpuscular HGB Conc 33.9 g/dl (32-36); Mean Corpuscular Hemoglobin 30.1 pg (26-34); Mean Corpuscular Volume 88.7 fl (80-100); Mean Platelet Volume 10.7 fl (7.4-10.4); Platelet Count Result 295 k/mm3 (150-375); Red Blood Count 3.99 M/mm3 (4.6-6.20); White Blood Count 13.9 K/mm3 (4.5-10.0)
[2019-09-11 06:09] LABS: Alanine Aminotransferase 19 U/L (4-50); Albumin Level 3.2 g/dL (3.5-5.1); Alkaline Phosphatase 104 U/L (38-126); Aspartate Amino Transferase 26 U/L (17-59); Bilirubin,Total 0.4 mg/dL (0.2-1.3); Blood Urea Nitrogen 12 mg/dL (9-20); Calcium 8.6 mg/dL (8.4-10.2); Carbon Dioxide 26 mmol/L (22-30); Chloride 101 mmol/L (98-107); Estimated CRCL calculation 86 ml/min; Estimated Glomerular Filt Rate > 60; Glucose 192 mg/dL (75-110); Lipase 27 U/L (23-300); Potassium 3.6 mmol/L (3.4-5.0); Sodium 133 mmol/L (137-145)
[2019-09-11] MEDS: PANTOPRAZOLE 40 MG TABLET PO (07:59)
[2019-09-11 08:21] LABS: Glucose Point of Care 195 (65-105)
--- NOTE | 2019-09-11 10:56 | PC.NURSE ---
spoke w/ dr buchanan about holding morning meds, agreed. dr buchanan states ok for pt to have clear liquids post procedure today and advance as tolerated.
--- NOTE | 2019-09-11 11:17 | WPDGICN ---
Assessment and Plan Assessment and plan (1) Fever: Qualifiers: Fever type: unspecified Qualified Code(s): R50.9 - Fever, unspecified Code(s): R50.9 - Fever, unspecified Status: Acute (2) Diabetes mellitus: Qualifiers: Diabetes mellitus type: type 2 Diabetes mellitus half-way insulin use: without master automotive technician use Diabetes mellitus complication status: without complication Qualified Code(s): E11.9 - Type 2 diabetes mellitus without complications Code(s): E11.9 - Type 2 diabetes mellitus without complications Status: Chronic (3) Intra-abdominal abscess: Code(s): K65.1 - Peritoneal abscess Status: Acute Assessment and Plan: Intra-abdominal abscess appears to account for patient's fever. Infectious process is felt likely. Agree with broad-spectrum antibiotic coverage surgery but has been consulted to consider surgical drainage. Alternatively CT-guided drainage should be accomplished. Given no prior history of abdominal surgery suspect this may be secondary to perforated ulceration plan is to keep patient on proton pump inhibitor. Consider evaluation with [facility] series after abscesses drained. We will follow with you during this process. GI Consult Note Consult date/time: 09/11/19 11:17 HPI: Houston Chawla is a 69 year old male seen in evaluation at the request of the hospitalist service. Patient admitted to the hospital because of fever and mental status changes. He was felt to have encephalopathy on the basis of his fever. Patient is a difficult historian today, the gives a history over the last several months of constipation. He apparently presented to his attending physician Dr. Meyer for therapy. Two weeks ago was given a trial of MiraLax which seemed to help to some degree. Because of fever and increasing confusion was admitted to the hospital. CT scan of the abdomen confirms an intra-abdominal abscess. Patient denies prior abdominal surgery. He reports having an unremarkable colonoscopy 1-1/[address] Chu. [facility] Past Medical History Medical History Diabetes mellitus Social History Social History Smoking status: Former smoker Tobacco type: cigarettes Alcohol intake: never Substance use: never Gender identity (if verbalized by the patient): Male Spiritual care concerns: No Agree to blood products: Yes Meds Home Medications and Allergies Home Medications Medication Instructions Recorded Confirmed Type glipizide 10 mg PO BID 09/09/19 09/09/19 History allopurinol 80 mg PO DAILY 09/10/19 09/10/19 History aspirin [Adult Aspirin Regimen] 81 mg PO DAILY 09/10/19 09/10/19 History cholecalciferol (vitamin D3) 25 mcg PO DAILY 09/10/19 09/10/19 History [Vitamin D3] hydrocodone-acetaminophen 1 tablet PO Q6H PRN 09/10/19 09/10/19 History metformin 500 mg PO BID 09/10/19 09/10/19 History pantoprazole 40 mg PO QAM 09/10/19 09/10/19 History Allergies Allergy/AdvReac Type Severity Reaction Status Date / Time No Known Allergies Allergy Verified 09/09/19 21:24 Vital Signs Vital Signs - 24 hr 09/10/19 14:00 09/10/19 22:00 09/11/19 02:00 Temperature 36.8 C 37.6 C 37.1 C Pulse Rate 63 65 78 Respiratory Rate 18 18 18 Blood Pressure 132/64 113/63 115/55 L Pulse Oximetry 98 96 92 09/11/19 06:00 09/11/19 08:00 Temperature 36.8 C 37.3 C Pulse Rate 64 67 Respiratory Rate 18 16 Blood Pressure 125/72 115/62 Pulse Oximetry 96 98 Exam Narrative: Exam Narrative: Physical exam reveals patient to be alert. He is anicteric. Lungs are clear. Heart is without murmur or extra sounds. Abdominal exam bowel sounds are present soft he has epigastric fullness in the left mid epigastric area. Extremities are without clubbing cyanosis or edema. Results Labs CBC & Chem 7: 09/11/19 05:23 0
--- NOTE | 2019-09-11 11:54 | PM.CNGS ---
Assessment and Plan Assessment and plan (1) Intra-abdominal abscess: Code(s): K65.1 - Peritoneal abscess Status: Acute Assessment and Plan: cont IV abx, blood cx noted, will setup for perc drainage today (2) Acute encephalopathy: Code(s): G93.40 - Encephalopathy, unspecified Status: Resolved Assessment and Plan: seems to be improved, all imaging negative (3) Diabetes mellitus: Qualifiers: Diabetes mellitus type: type 2 Diabetes mellitus longterm insulin use: without ocean transportation intermediary use Diabetes mellitus complication status: without complication Qualified Code(s): E11.9 - Type 2 diabetes mellitus without complications Code(s): E11.9 - Type 2 diabetes mellitus without complications Status: Chronic Assessment and Plan: cont mgmt per primary team History of Present Illness Consult details Consult date: 09/11/19 Reason for consult: abdominal pain Narrative: Pt is a 69 y/o M presenting to hospital c encephalopathy, fevers, abd pain. Pt has improved and MS seems to be close to baseline at this time. Pt reports he has had severe L side abd pain over last 2 wks. Pt reports a fullness in his L mid abdomen. Pt reports very poor appetite since this started. Pt reports f/c, n/v, diarrhea. Pt denies previous episodes. Review of Systems Constitutional: Constitutional: Reports chills, Reports fatigue, Reports lethargy and Reports weakness Eyes: Eyes: Reports no additional eye complaints and Denies loss of vision ENT: Reports Normal hearing present, Denies dysphagia, Denies headache(s), Denies hearing loss and Denies sore throat Cardiovascular: Cardiovascular: Denies chest pain, Denies syncope, Denies irregular heart rhythm, Denies leg edema, Denies palpitations and Denies dyspnea Respiratory: Respiratory: Denies cough and Denies dyspnea Gastrointestinal: Gastrointestinal: Reports abdominal pain, Reports bloating, Denies change in bowel habits, Denies change in stool character, Reports constipation, Denies dysphagia, Reports heartburn, Reports diarrhea, Reports nausea and Reports vomiting Genitourinary: Genitourinary: Denies dysuria, Denies urinary frequency and Denies urinary urgency Musculoskeletal: Musculoskeletal: Denies myalgias, Denies arthralgias and Denies muscle cramps Integumentary/Breasts: Skin/Breast: Denies non-healing lesions and Denies rash Neurologic: Denies syncope, Denies headache(s) and Denies loss of vision Endocrine: Endocrine: Denies change in body appearance and Denies fatigue Hematologic/Lymphatic: Hematologic/Lymphatic: Denies easy bleeding, Denies easy bruising and Denies lymphadenopathy PMFSH Past Medical History Medical History Diabetes mellitus Social History Social History Smoking status: Former smoker Tobacco type: cigarettes Alcohol intake: never Substance use: never Gender identity (if verbalized by the patient): Male Spiritual care concerns: No Agree to blood products: Yes Meds Home Medications and Allergies Home Medications Medication Instructions Recorded Confirmed Type glipizide 10 mg PO BID 09/09/19 09/09/19 History allopurinol 80 mg PO DAILY 09/10/19 09/10/19 History aspirin [Adult Aspirin Regimen] 81 mg PO DAILY 09/10/19 09/10/19 History cholecalciferol (vitamin D3) 25 mcg PO DAILY 09/10/19 09/10/19 History [Vitamin D3] hydrocodone-acetaminophen 1 tablet PO Q6H PRN 09/10/19 09/10/19 History metformin 500 mg PO BID 09/10/19 09/10/19 History pantoprazole 40 mg PO QAM 09/10/19 09/10/19 History Allergies Allergy/AdvReac Type Severity Reaction Status Date / Time No Known Allergies Allergy Verified 09/09/19 21:24 Vital Signs Vital Signs - 24 hr 09/10/19 14:00 09/10/19 22:00 09/11/19 02:00 Temperature 36.8 C 37.6 C 37.1 C Pulse Rate 63 65 78 Respiratory Rate 18 18 18 Blood
[2019-09-11 12:10] LABS: Glucose Point of Care 183 (65-105)
--- NOTE | 2019-09-11 13:10 | PM.IMPN ---
Progress Note: A&P Assessment and Plan (1) Intra-abdominal abscess: Code(s): K65.1 - Peritoneal abscess Status: Acute Assessment and Plan: -----CT shows a large abscess which is likely the cause of his rigors and abdominal pain. Plan to do a CT-guided drain today to send for sensitivities and cultures. Patient's blood cultures positive for strep constellatus and 1 bottle. I will ask Dr. dunne to consult on the case and I appreciate his recommendations. (2) Acute encephalopathy: Code(s): G93.40 - Encephalopathy, unspecified Status: Resolved Assessment and Plan: -----Likely secondary to fever and febrile illness. The patient appears to be back to his baseline. CT brain was unremarkable. (3) Acidosis, lactic: Code(s): E87.2 - Acidosis Status: Acute Assessment and Plan: -----Resolved. Likely secondary to infection as stated above. 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 Continue. Accuchecks, SSI Coverage, Hypoglycemic protocol. Continue home metformin. (5) Bacteremia: Code(s): R78.81 - Bacteremia Status: Acute Assessment and Plan: -----secondary to abscess. Continue Zosyn at this time and await sensitivities and further recommendations by Infectious Disease. Patient's white blood cell count is improving. Additional Plan Date of service was 09/10/2019 at 2 am. Subjective Date/time seen: 09/11/19 13:10 Interval history: Pt is a 69-year-old male here for abdominal abscess. Patient was seen today and states his fever and chills have improved. He says he still has abdominal pain but has not been able to eat or drink anything today due to his procedure. He is still having some soft stool. He denies chest pain, shortness of breath, vomiting, or leg swelling. Exam Narrative: Exam Narrative: General: Well-developed well-nourished patient resting comfortably in bed in no acute distress HEENT: normocephalic Neck: supple Neuro: Alert and oriented x4 CV:RRR Resp:CTA--no crackles or rhonchi Abd: Soft, non distended. Pain to palpation to the umbilicus area. Mass felt in the left lower quadrant. Extremities: No swelling, erythema, or pain to palpation. Objective Data Vital Signs Vital Signs: Vital Signs - 24 hr 09/10/19 14:00 09/10/19 22:00 09/11/19 02:00 Temperature 98.3 F 99.6 F 98.8 F Pulse Rate 63 65 78 Respiratory Rate 18 18 18 Blood Pressure 132/64 113/63 115/55 L Pulse Oximetry 98 96 92 09/11/19 06:00 09/11/19 08:00 Temperature 98.3 F 99.1 F Pulse Rate 64 67 Respiratory Rate 18 16 Blood Pressure 125/72 115/62 Pulse Oximetry 96 98 Intake/Output Intake/Output: Intake & Output 09/08/19 09/09/19 09/10/19 09/11/19 23:59 23:59 23:59 23:59 Intake Total 2100 1780 740 Balance 2100 1780 740 Meds/Results Medications: Active Medications Generic Name Dose Route Start Last Admin Trade Name Freq PRN Reason Stop Dose Admin Acetaminophen 650 mg 09/09/19 23:29 Tylenol Tablet PO QID PRN Fever Hydrocodone Bitart/Acetaminophen 1 tab 09/10/19 15:18 09/11/19 02:13 [place] 7.5-325 Mg PO 1 tab Q6H PRN Administration pain not Relieved by Tylenol Allopurinol 100 mg 09/11/19 08:00 09/11/19 10:15 Zyloprim PO Not Given DAILY@0800 BALTAZAR Aspirin 81 mg 09/10/19 09:00 09/10/19 10:21 Aspirin Ec PO 81 mg DAILY BALTAZAR Administration Dextrose 12.5 gm 09/10/19 03:11 Dextrose 50% Syringe IV PUSH PRN PRN Hypoglycemia Protocol Glipizide 10 mg 09/10/19 06:30
[2019-09-11] MEDS: MORPHINE SULFATE 2 MG/ML INJ IV PUSH (14:24)
--- NOTE | 2019-09-11 14:51 | WPDINFPN2 ---
Progress Note: A&P Assessment and Plan (1) Bacteremia: Code(s): R78.81 - Bacteremia Status: Acute Assessment and Plan: 1. Strep constellatus bacteremia with infection 2. Intra-abdominal abscess, GI source 3. DM REC A1C. PipTazo # 2. Will need investigation (per other MDs) into the specific anatomic abnormality prior to antibiotic completion. Subjective Date/time seen: 09/11/19 14:51 Objective Data Vital Signs Vital Signs: Vital Signs - 24 hr 09/10/19 22:00 09/11/19 02:00 09/11/19 06:00 Temperature 37.6 C 37.1 C 36.8 C Pulse Rate 65 78 64 Respiratory Rate 18 18 18 Blood Pressure 113/63 115/55 L 125/72 Pulse Oximetry 96 92 96 09/11/19 08:00 Temperature 37.3 C Pulse Rate 67 Respiratory Rate 16 Blood Pressure 115/62 Pulse Oximetry 98 Intake/Output Intake/Output: Intake & Output 09/08/19 09/09/19 09/10/19 09/11/19 23:59 23:59 23:59 23:59 Intake Total 2100 1780 790 Balance 2100 1780 790 Meds/Results Medications: Active Medications Generic Name Dose Route Start Last Admin Trade Name Freq PRN Reason Stop Dose Admin Acetaminophen 650 mg 09/09/19 23:29 Tylenol Tablet PO QID PRN Fever Hydrocodone Bitart/Acetaminophen 1 tab 09/10/19 15:18 09/11/19 13:20 [place] 7.5-325 Mg PO 1 tab Q6H PRN Administration pain not Relieved by Tylenol Allopurinol 100 mg 09/11/19 08:00 09/11/19 10:15 Zyloprim PO Not Given DAILY@0800 BALTAZAR Aspirin 81 mg 09/10/19 09:00 09/10/19 10:21 Aspirin Ec PO 81 mg DAILY BALTAZAR Administration Dextrose 12.5 gm 09/10/19 03:11 Dextrose 50% Syringe IV PUSH PRN PRN Hypoglycemia Protocol Glipizide 10 mg 09/10/19 06:30 09/11/19 10:14 Glucotrol PO Not Given BIDAC BALTAZAR Glucagon 1 mg 09/10/19 03:11 Glucagon For Inj IM PRN PRN Hypoglycemia Protocol Glucose 15 gm 09/10/19 03:11 Glutose 15 PO PRN PRN Hypoglycemia Protocol Dextrose 1,000 mls @ 100 mls/hr 09/10/19 03:11 Dextrose 5% 1,000 Ml IVPB PRN PRN Hypoglycemia Protocol Piperacillin/Tazobactam/Dextrose 3.375 gm in 50 mls @ 100 mls/hr 09/10/19 21:00 09/11/19 09:56 Zosyn 3.375 Gm/D5w 50ml Pm IVPB Infused Q6H BALTAZAR Infusion Insulin Aspart 3 - 6 units 09/10/19 08:00 09/11/19 12:02 Novolog SUB-Q Not Given TIDWM [facility] Protocol Metformin HCl 500 mg 09/10/19 08:00 09/11/19 10:16 Glucophage PO Not Given BIDWM BALTAZAR Morphine Sulfate 2 mg 09/11/19 14:18 09/11/19 14:24 Morphine Sulfate Inj IV PUSH 2 mg Q4H PRN Administration Breakthrough Pain Pantoprazole Sodium 40 mg 09/10/19 09:00 09/11/19 07:59 Protonix PO 40 mg QAM BALTAZAR Administration Radiology Results: ITS Impressions Head CT 09/09/19 21:09 IMPRESSION: 1. No acute intracranial findings. 2. Chronic age related findings. Chest X-Ray 09/09/19 21:12 IMPRESSION: No acute cardiopulmonary findings. Venous Doppler Study 09/10/19 16:24 IMPRESSION: 1. No lower extremity deep venous thrombosis bilaterally. Abdomen/Pelvis CT 09/10/19 16:31 IMPRESSION: Large abscess in mid mesentery left of midline, probably from underlying small bowel pathology given location. Would be amenable to CT-guided percutaneous drainage. Catheter Placement CT 09/11/19 13:30 IMPRESSION: 1. Successful CT-guided left upper quadrant abscess drainage. 2. 20 mL opaque, faust, foul-smelling fluid was sent for aerobic and anaerobic cultures. Labs Labs: Laboratory Results - last 24 hr 09/09/19 09/10/19 09/10/19 20:36 17:07 21:29 WBC RBC Hgb Hct MCV MCH MCHC RDW Plt Count MPV Sodium Potassium Chloride Carbon Dioxide BUN Creatinine Estim Creat Clear Calc Estimated GFR Glucose POC Capillary Glucose 160 H 336 H Calcium Total Bilirubin Direct Bilirubin AST
[2019-09-11] MEDS: ONDANSETRON INJ 4 MG/2 ML VIAL IV PUSH (15:47)
[2019-09-11 16:17] LABS: Hematocrit 42.6 % (42.0-52.0); Hemoglobin 14.3 g/dL (14.0-18.0); Mean Corpuscular HGB Conc 33.6 g/dl (32-36); Mean Corpuscular Hemoglobin 29.5 pg (26-34); Mean Corpuscular Volume 87.8 fl (80-100); Mean Platelet Volume 10.1 fl (7.4-10.4); Platelet Count Result 315 k/mm3 (150-375); Red Blood Count 4.85 M/mm3 (4.6-6.20); Red Cell Distribution Width 13.1 % (11.5-14.5); White Blood Count 4.7 K/mm3 (4.5-10.0)
[2019-09-11 16:28] LABS: Lactic Acid Reflex 1.8 mmol/L (0.7-2.1)
[2019-09-11 16:29] LABS: Alanine Aminotransferase 19 U/L (4-50); Albumin Level 3.4 g/dL (3.5-5.1); Alkaline Phosphatase 113 U/L (38-126); Aspartate Amino Transferase 21 U/L (17-59); Bilirubin,Total 0.9 mg/dL (0.2-1.3); Blood Urea Nitrogen 10 mg/dL (9-20); Calcium 8.8 mg/dL (8.4-10.2); Carbon Dioxide 23 mmol/L (22-30); Chloride 99 mmol/L (98-107); Estimated CRCL calculation 77 ml/min; Estimated Glomerular Filt Rate > 60; Glucose 246 mg/dL (75-110); Potassium 3.8 mmol/L (3.4-5.0); Sodium 132 mmol/L (137-145)
--- NOTE | 2019-09-11 16:54 | PC.NURSE ---
09/11/19 1530 THIS RN TO ROOM ON ROUNDS, PT SHAKING W/ CHILLS AND HAD APPROX 200 CC DARK GREEN EMESE. PT VERY CONFUSED, ORIENTED ONLY TO SELF AND UNABLE TO ORIENT PT AT THIS TIME. HOSPITALIST NOTIFIED AND ARRIVES TO ROOM, NEW ORDERS RECEIVED AND CARRIED OUT. SEE V/S AND MAR.
--- NOTE | 2019-09-11 16:58 | PC.NURSE ---
PT NOW AFEBRILE AND NO A/O X 3 CALM AND COOPERATIVE.
--- NOTE | 2019-09-11 17:11 | PC.NURSE ---
REPORT GIVEN TO AMARILYS CHARLTON, PT IS READY FOR TRANSPORT.
--- NOTE | 2019-09-11 17:26 | PC.NURSE ---
This patient, Houston Chawla, was transferred to [ ] on 09/11/19 at 1726. Personal belongings sent with patient. Belongings list checked and signed with receiving [ Y]. Report given to [ AMARILYS CHARLTON]. Appropriate documentation sent with patient.
[2019-09-11 17:48] LABS: Glucose Point of Care 228 (65-105)
[2019-09-11 18:07] LABS: Glucose Point of Care 273 (65-105)
[2019-09-11] MEDS: INSULIN ASPART (*BKC) 100 UNITS/ML SUB-Q (18:25)
[2019-09-11] MEDS: LACTATED RINGERS 1,000 ML 100 ML IV CONT (19:12)
[2019-09-11 21:21] LABS: Glucose Point of Care 345 (65-105)
[2019-09-12] VITALS (16 sets, daily range): BP systolic 102–121; BP diastolic 55–80; PULSE 67–91; RESP 16–22; TEMP 36.3–37.6; O2SAT 92–97
[2019-09-12] MEDS: LACTATED RINGERS 1,000 ML 100 ML IV CONT ×2 (04:00→18:10)
[2019-09-12 04:47] LABS: Hematocrit 40.4 % (42.0-52.0); Hemoglobin 13.6 g/dL (14.0-18.0); Mean Corpuscular HGB Conc 33.7 g/dl (32-36); Mean Corpuscular Hemoglobin 29.6 pg (26-34); Mean Platelet Volume 10.3 fl (7.4-10.4); Platelet Count Result 344 k/mm3 (150-375); Red Blood Count 4.59 M/mm3 (4.6-6.20); Red Cell Distribution Width 13.1 % (11.5-14.5); White Blood Count 10.9 K/mm3 (4.5-10.0)
[2019-09-12 05:03] LABS: Blood Urea Nitrogen 8 mg/dL (9-20); Calcium 8.6 mg/dL (8.4-10.2); Carbon Dioxide 28 mmol/L (22-30); Chloride 98 mmol/L (98-107); Estimated CRCL calculation 86 ml/min; Estimated Glomerular Filt Rate > 60; Glucose 226 mg/dL (75-110); Potassium 3.9 mmol/L (3.4-5.0); Sodium 132 mmol/L (137-145)
[2019-09-12 07:44] LABS: Hemoglobin A1C 8.5 % (<5.7)
[2019-09-12 07:57] LABS: Glucose Point of Care 219 (65-105)
[2019-09-12] MEDS: allopurinoL 100 MG TABLET PO (09:10)
[2019-09-12] MEDS: PANTOPRAZOLE 40 MG TABLET PO (09:10)
[2019-09-12] MEDS: INSULIN ASPART (*BKC) 100 UNITS/ML SUB-Q ×2 (09:11→14:34)
--- NOTE | 2019-09-12 09:22 | PM.PNGS ---
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 Pt reports moderate improvement since drain placed yesterday. Pt nahum clears s issue since drain placement. Review of Systems Constitutional: Constitutional: Denies chills, Reports fatigue and Reports weakness Cardiovascular: Cardiovascular: Denies chest pain and Denies palpitations Respiratory: Respiratory: Denies dyspnea Gastrointestinal: Gastrointestinal: Reports abdominal pain, Reports bloating, Denies nausea and Denies vomiting Exam Const: General: no acute distress Resp: Auscultation: clear to auscultation bilaterally Cardio: Rate: regular rate Rhythm: regular rhythm GI: Other: S, sl dist, timur TTP around drain, drain c purulent discharge Objective Data Vital Signs Vital Signs: Vital Signs - 24 hr 09/11/19 14:39 09/11/19 15:08 09/11/19 15:11 Temperature Pulse Rate 67 71 71 Respiratory Rate 16 17 16 Blood Pressure 131/73 132/82 131/73 Pulse Oximetry 100 100 100 09/11/19 15:12 09/11/19 15:20 09/11/19 15:23 Temperature Pulse Rate 67 71 67 Respiratory Rate 16 17 16 Blood Pressure 131/73 132/82 131/73 Pulse Oximetry 100 100 100 09/11/19 15:30 09/11/19 15:50 09/11/19 15:53 Temperature 37.9 C H 38.2 C H 38.2 C H Pulse Rate 77 75 Respiratory Rate 18 18 Blood Pressure 156/77 H 157/63 H Pulse Oximetry 96 98 04/29/20 16:00 09/11/19 16:23 09/11/19 17:47 Temperature 38.9 C H 38.2 C H 36.4 C Pulse Rate 79 104 H Respiratory Rate 18 18 Blood Pressure 146/59 H 142/71 H Pulse Oximetry 100 98 09/11/19 20:00 09/12/19 00:00 09/12/19 02:00 Temperature 36.8 C 36.6 C Pulse Rate 75 73 67 Respiratory Rate 18 18 Blood Pressure 116/63 102/80 Pulse Oximetry 96 95 09/12/19 04:00 09/12/19 05:00 09/12/19 06:00 Temperature 36.7 C Pulse Rate 76 73 69 Respiratory Rate 18 Blood Pressure 115/63 Pulse Oximetry 92 09/12/19 08:02 Temperature 36.4 C L Pulse Rate 67 Respiratory Rate 20 Blood Pressure 115/65 Pulse Oximetry 94 Intake/Output Intake/Output: Intake & Output 09/09/19 09/10/19 09/11/19 09/12/19 23:59 23:59 23:59 23:59 Intake Total 2100 1780 1230 1050 Output Total 200 825 Balance 2100 1780 1030 225 Meds/Results Medications: Active Medications Generic Name Dose Route Start Last Admin Trade Name Freq PRN Reason Stop Dose Admin Acetaminophen 650 mg 09/09/19 23:29 Tylenol Tablet PO QID PRN Fever Hydrocodone Bitart/Acetaminophen 1 tab 09/10/19 15:18 09/12/19 05:02 [place] 7.5-325 Mg PO 1 tab Q6H PRN Administration pain not Relieved by Tylenol Allopurinol 100 mg 09/11/19 08:00 09/12/19 09:10 Zyloprim PO 100 mg DAILY@0800 BALTAZAR Administration Aspirin 81 mg 09/10/19 09:00 09/10/19 10:21 Aspirin Ec PO 81 mg DAILY BALTAZAR Administration Dextrose 12.5 gm 09/10/19 03:11 Dextrose 50% Syringe IV PUSH PRN PRN Hypoglycemia Protocol Glucagon 1 mg 09/10/19 03:11 Glucagon For Inj IM PRN PRN Hypoglycemia Protocol Glu
--- NOTE | 2019-09-12 09:28 | WPDGIPROGNO ---
Progress Note: A&P Additional Plan Patient alert. Still modest confusion. More oriented than previous. Notes some discomfort at drainage site. Status post CT-guided drainage of left upper quadrant abdominal abscess. Yesterday. Physical exam reveals him to be alert. He is anicteric. Lungs are clear. Heart without murmur. Abdomen is soft. Percutaneous drain in left upper quadrant of the abdomen. Fall smelling drainage material noted. Impression 1. Intra-abdominal abscess. Now status post percutaneous drainage. Etiology unclear. Suspect perforated ulcer versus diverticulitis. Consider contrast GI evaluation with Gastrografin studies if surgery is agreeable. Continue antibiotics. Surgery following for ultimate drainage. I would defer and invasive testing such as endoscopy for a month. Subjective Date/time seen: 09/12/19 09:28 Objective Data Vital Signs Vital Signs: Vital Signs - 24 hr 09/11/19 14:39 09/11/19 15:08 09/11/19 15:11 Temperature Pulse Rate 67 71 71 Respiratory Rate 16 17 16 Blood Pressure 131/73 132/82 131/73 Pulse Oximetry 100 100 100 09/11/19 15:12 09/11/19 15:20 09/11/19 15:23 Temperature Pulse Rate 67 71 67 Respiratory Rate 16 17 16 Blood Pressure 131/73 132/82 131/73 Pulse Oximetry 100 100 100 09/11/19 15:30 09/11/19 15:50 09/11/19 15:53 Temperature 37.9 C H 38.2 C H 38.2 C H Pulse Rate 77 75 Respiratory Rate 18 18 Blood Pressure 156/77 H 157/63 H Pulse Oximetry 96 98 09/11/19 16:00 09/11/19 16:23 09/11/19 17:47 Temperature 38.9 C H 38.2 C H 36.4 C Pulse Rate 79 104 H Respiratory Rate 18 18 Blood Pressure 146/59 H 142/71 H Pulse Oximetry 100 98 09/11/19 20:00 09/12/19 00:00 09/12/19 02:00 Temperature 36.8 C 36.6 C Pulse Rate 75 73 67 Respiratory Rate 18 18 Blood Pressure 116/63 102/80 Pulse Oximetry 96 95 09/12/19 04:00 09/12/19 05:00 09/12/19 06:00 Temperature 36.7 C Pulse Rate 76 73 69 Respiratory Rate 18 Blood Pressure 115/63 Pulse Oximetry 92 04/30/20 08:02 Temperature 36.4 C L Pulse Rate 67 Respiratory Rate 20 Blood Pressure 115/65 Pulse Oximetry 94 Intake/Output Intake/Output: Intake & Output 09/09/19 09/10/19 09/11/19 09/12/19 23:59 23:59 23:59 23:59 Intake Total 2100 1780 1230 1050 Output Total 200 825 Balance 2100 1780 1030 225 Meds/Results Medications: Active Medications Generic Name Dose Route Start Last Admin Trade Name Freq PRN Reason Stop Dose Admin Acetaminophen 650 mg 09/09/19 23:29 Tylenol Tablet PO QID PRN Fever Hydrocodone Bitart/Acetaminophen 1 tab 09/10/19 15:18 09/12/19 05:02 [place] 7.5-325 Mg PO 1 tab Q6H PRN Administration pain not Relieved by Tylenol Allopurinol 100 mg 09/11/19 08:00 09/12/19 09:10 Zyloprim PO 100 mg DAILY@0800 BALTAZAR Administration Aspirin 81 mg 09/10/19 09:00 09/10/19 10:21 Aspirin Ec PO 81 mg DAILY BALTAZAR Administration Dextrose 12.5 gm 09/10/19 03:11 Dextrose 50% Syringe IV PUSH PRN PRN Hypoglycemia Protocol Glucagon 1 mg 09/10/19 03:11 Glucagon For Inj IM PRN PRN Hypoglycemia Protocol Glucose 15 gm 09/10/19 03:11 Glutose 15 PO PRN PRN Hypoglycemia Protocol Hydromorphone HCl 1 mg 09/11/19 15:31 Dilaudid Inj IV PUSH Q3H PRN Breakthrough Pain Dextrose 1,000 mls @ 100 mls/hr 09/10/19 03:11 Dextrose 5% 1,000 Ml IVPB PRN PRN Hypoglycemia Protocol Piperacillin/Tazobactam/Dextrose 3.375 gm in 50 mls @ 100 mls/hr 09/10/19 21:00 09/12/19 09:12 Zosyn 3.375 Gm/D5w 50ml Pm IVPB 100 mls/hr Q6H BALTAZAR Administration Lactated Ringer's 1,000 mls @ 100 mls/hr 09/11/19 16:10 09/12/19 04:00 Lr - Lactated Ringers Iv IV CONT 100 mls/hr .Q10H BALTAZAR Administration Insulin Aspart 3 - 6 units 09/10/19 08:00 09/12/19 09:11 Novolog SUB-Q 3 units TIDWM BALTAZAR Administration Protocol [place]
[2019-09-12 12:17] LABS: Glucose Point of Care 301 (65-105)
--- NOTE | 2019-09-12 15:06 | PM.IMPN ---
Progress Note: A&P Assessment and Plan (1) Intra-abdominal abscess: Code(s): K65.1 - Peritoneal abscess Status: Acute Assessment and Plan: -----CT shows a large abscess which is likely the cause of his rigors and abdominal pain. Drain placed 09/10. Patient's blood cultures positive for strep constellatus and we are awaiting sensativities. Dr. dunne consulted. Pt had some AMS yesterday likely d/t fevers and infection. Cannot rule out morphine as the cause. Will avoid this medication at this time. His WBC is near normal and he has not had a fever today. Okay to move out of IMU. Plan for small bowel follow through to assess the etiology of this abscess. (2) Acute encephalopathy: Code(s): G93.40 - Encephalopathy, unspecified Status: Resolved Assessment and Plan: -----Likely secondary to fever and febrile illness. The patient appears to be back to his baseline. CT brain was unremarkable. (3) Acidosis, lactic: Code(s): E87.2 - Acidosis Status: Acute Assessment and Plan: -----Resolved. Likely secondary to infection as stated above. 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 Will resume glipizide 5mg BID (since he is just on clears) and continue to hold metformin. Continue mod dose SSI. May consider lantus if glucose continues to be uncontrolled. (5) Bacteremia: Code(s): R78.81 - Bacteremia Status: Acute Assessment and Plan: -----secondary to abscess. Continue Zosyn at this time and await sensitivities and further recommendations by Infectious Disease. Patient's white blood cell count is improving. Additional Plan Date of service was 09/10/2019 at 2 am. Subjective Date/time seen: 09/12/19 15:06 Interval history: Pt is a 69-year-old male here for abdominal abscess. Patient was seen today and is still having abdominal pain. He does not remember much of yesterday at all. He has not had much to eat today as his stomach still hurts. he denies vomiting, CP, SOB, fevers, chills, diarrhea, constipation, or leg swelling. Exam Narrative: Exam Narrative: General: Well-developed well-nourished patient resting comfortably in bed in no acute distress HEENT: normocephalic Neck: supple Neuro: Alert and oriented x4 CV:RRR Resp:CTA--no crackles or rhonchi Abd: Soft, non distended. Pain to palpation to the umbilicus area. Mass felt in the left lower quadrant. Drain intact with kaur/brown scanty discharge. Extremities: No swelling, erythema, or pain to palpation. Objective Data Vital Signs Vital Signs: Vital Signs - 24 hr 09/11/19 15:08 09/11/19 15:11 09/11/19 15:12 Temperature Pulse Rate 71 71 67 Respiratory Rate 17 16 16 Blood Pressure 132/82 131/73 131/73 Pulse Oximetry 100 100 100 09/11/19 15:20 09/11/19 15:23 09/11/19 15:30 Temperature 100.3 F H Pulse Rate 71 67 77 Respiratory Rate 17 16 18 Blood Pressure 132/82 131/73 156/77 H Pulse Oximetry 100 100 96 09/11/19 15:50 09/11/19 15:53 09/11/19 16:00 Temperature 100.8 F H 100.8 F H 102.0 F H Pulse Rate 75 79 Respiratory Rate 18 18 Blood Pressure 157/63 H 146/59 H Pulse Oximetry 98 100 09/11/19 16:23 09/11/19 17:47 09/11/19 20:00 Temperature 100.7 F H 97.6 F 98.2 F Pulse Rate 104 H 75 Respiratory Rate 18 18 Blood Pressure 142/71 H 116/63 Pulse Oximetry 98 96 09/12/19 00:00 09/12/19 02:00 09/12/19 04:00 Temperature 97.8 F Pulse Rate 73 67 76 Respiratory Rate 18 Blood Pressure 102/80 Pulse Oximetry 95 09/12/19 05:00 09/12/19 06:00 09/12/19 08
--- NOTE | 2019-09-12 15:55 | WPDINFPN2 ---
Progress Note: A&P Assessment and Plan (1) Bacteremia: Code(s): R78.81 - Bacteremia Status: Acute Assessment and Plan: 1. Strep constellatus bacteremia with infection, source is #2 2. Intra-abdominal abscess, GI source, POD #1 drain perc. 3. DM, A1C 8.5%, indicative of fair control REC Glycemic control. PipTazo # 3. Xray investigation planned as to source. Subjective Date/time seen: 09/12/19 15:55 Exam Narrative: Exam Narrative: t max 38.9. Appears more comfortable Const: General: no acute distress Resp: Effort & Inspection: normal respiratory effort Auscultation: clear to auscultation bilaterally Cardio: Rate: regular rate Rhythm: regular rhythm Heart sounds: no murmurs GI: Inspection: non-distended GI Palp: Yes Soft to palpation, No Tenderness to palpation present (GI) and No Guarding due to palpation present (GI) Percussion: Yes normal to percussion Auscultation: normal bowel sounds Skin: General skin exam: normal color and no rashes or lesions noted Objective Data Vital Signs Vital Signs: Vital Signs - 24 hr 09/11/19 16:00 09/11/19 16:23 09/11/19 17:47 Temperature 38.9 C H 38.2 C H 36.4 C Pulse Rate 79 104 H Respiratory Rate 18 18 Blood Pressure 146/59 H 142/71 H Pulse Oximetry 100 98 09/11/19 20:00 09/12/19 00:00 09/12/19 02:00 Temperature 36.8 C 36.6 C Pulse Rate 75 73 67 Respiratory Rate 18 18 Blood Pressure 116/63 102/80 Pulse Oximetry 96 95 09/12/19 04:00 09/12/19 05:00 09/12/19 06:00 Temperature 36.7 C Pulse Rate 76 73 69 Respiratory Rate 18 Blood Pressure 115/63 Pulse Oximetry 92 09/12/19 08:00 09/12/19 08:02 09/12/19 10:00 Temperature 36.4 C L Pulse Rate 71 67 83 Respiratory Rate 20 Blood Pressure 115/65 Pulse Oximetry 94 09/12/19 12:22 09/12/19 14:08 Temperature 36.9 C Pulse Rate 79 Respiratory Rate 22 H Blood Pressure 121/64 Pulse Oximetry 97 97 Intake/Output Intake/Output: Intake & Output 09/09/19 09/10/19 09/11/19 09/12/19 23:59 23:59 23:59 23:59 Intake Total 2100 1780 1230 1100 Output Total 200 975 Balance 2100 1780 1030 125 Meds/Results Medications: Active Medications Generic Name Dose Route Start Last Admin Trade Name Freq PRN Reason Stop Dose Admin Acetaminophen 650 mg 09/09/19 23:29 Tylenol Tablet PO QID PRN Fever Hydrocodone Bitart/Acetaminophen 1 tab 09/10/19 15:18 09/12/19 14:55 [place] 7.5-325 Mg PO 1 tab Q6H PRN Administration pain not Relieved by Tylenol Allopurinol 100 mg 09/11/19 08:00 09/12/19 09:10 Zyloprim PO 100 mg DAILY@0800 [facility] Administration Aspirin 81 mg 09/10/19 09:00 09/10/19 10:21 Aspirin Ec PO 81 mg DAILY [facility] Administration Dextrose 12.5 gm 09/10/19 03:11 Dextrose 50% Syringe IV PUSH PRN PRN Hypoglycemia Protocol Glipizide 5 mg 09/12/19 16:30 Glucotrol PO BIDAC [facility] Glucagon 1 mg 09/10/19 03:11 Glucagon For Inj IM PRN PRN Hypoglycemia Protocol Glucose 15 gm 09/10/19 03:11 Glutose 15 PO PRN PRN Hypoglycemia Protocol Hydromorphone HCl 1 mg 09/11/19 15:31 Dilaudid Inj IV PUSH Q3H PRN Breakthrough Pain Dextrose 1,000 mls @ 100 mls/hr 09/10/19 03:11 Dextrose 5% 1,000 Ml IVPB PRN PRN Hypoglycemia Protocol Piperacillin/Tazobactam/Dextrose 3.375 gm in 50 mls @ 100 mls/hr 09/10/19 21:00 09/12/19 14:29 Zosyn 3.375 Gm/D5w 50ml Pm IVPB 100 mls/hr Q6H [facility] Administration Lactated Ringer's 1,000 mls @ 100 mls/hr 09/11/19 16:10 09/12/19 04:00 Lr - Lactated Ringers Iv IV CONT 100 mls/hr .Q10H [facility] Administration Insulin Aspart 3 - 6 units 09/10/19 08:00 09/12/19 14:34 Novolog SUB-Q 5 units TIDWM [facility] Administration Protocol Ondansetron HCl 4 mg 09/11/19 15:31 09/11/19 15:47 Zofran Inj IV PUSH 4 mg Q6H PRN Administration Nausea And Vomiting Pant
[2019-09-12 16:49] LABS: Glucose Point of Care 192 (65-105)
--- NOTE | 2019-09-12 17:51 | PC.NURSE ---
This patient, Houston Chawla, was transferred to [[id number] ] on 09/12/19 at 1708. Personal belongings sent with patient. Belongings list checked and signed with receiving [ ]. Report given to [Jose De Jesus ]. Appropriate documentation sent with patient.
[2019-09-12] MEDS: glipiZIDE 5 MG TABLET PO (18:07)
[2019-09-12] MEDS: HYDROMORPHONE HCL 1 MG/ML INJ IV PUSH (18:29)
[2019-09-12 20:25] LABS: Glucose Point of Care 264 (65-105)
[2019-09-13] MEDS: HYDROMORPHONE HCL 1 MG/ML INJ IV PUSH ×2 (00:10→11:51)
[2019-09-13 02:00] VITALS: BP 131/73; PULSE 72; RESP 16; TEMP 36.9; O2SAT 92
[2019-09-13] MEDS: LACTATED RINGERS 1,000 ML 100 ML IV CONT (05:08)
[2019-09-13 06:00] VITALS: BP 112/62; PULSE 68; RESP 16; TEMP 37; O2SAT 94
[2019-09-13 06:05] LABS: Hematocrit 36.1 % (42.0-52.0); Hemoglobin 12.3 g/dL (14.0-18.0); Mean Corpuscular HGB Conc 34.1 g/dl (32-36); Mean Corpuscular Hemoglobin 30.7 pg (26-34); Mean Platelet Volume 10.6 fl (7.4-10.4); Platelet Count Result 330 k/mm3 (150-375); Red Blood Count 4.01 M/mm3 (4.6-6.20); Red Cell Distribution Width 13.3 % (11.5-14.5); White Blood Count 18.1 K/mm3 (4.5-10.0)
[2019-09-13 06:06] LABS: Blood Urea Nitrogen 9 mg/dL (9-20); Calcium 8.8 mg/dL (8.4-10.2); Carbon Dioxide 30 mmol/L (22-30); Chloride 97 mmol/L (98-107); Estimated CRCL calculation 70 ml/min; Estimated Glomerular Filt Rate > 60; Glucose 189 mg/dL (75-110); Potassium 3.8 mmol/L (3.4-5.0); Sodium 131 mmol/L (137-145)
[2019-09-13 08:29] LABS: Glucose Point of Care 194 (65-105)
--- NOTE | 2019-09-13 09:19 | WPDGIPROGNO ---
Progress Note: A&P Additional Plan Patient appears more alert this morning. Denies significant pain. States he is having bowel movements. Physical exam patient is alert. He is afebrile. Anicteric. Lungs are clear to auscultation and percussion. Heart without murmur. Abdomen is somewhat distended. Bowel sounds are diminished. Tympany noted diffusely throughout abdomen. Percutaneous drain remains in left upper quadrant with significant drainage identified. Labs reveal WBC 18.1 K, hemoglobin 12.3. Hematocrit 36.1, Impression 1. Intra-abdominal abscess. Etiology unclear. GI series pending to evaluate for source of the abscess. Will continue treat empirically for peptic ulcer disease. Diverticulitis cannot definitively be excluded either. Will continue broad-spectrum antibiotic coverage. Surgery following closely. Elevation in white count today is of some concern. 2. Encephalopathy. Patient's mental status appears to be altered presumably because of sepsis. Subjective Date/time seen: 09/13/19 09:19 Objective Data Vital Signs Vital Signs: Vital Signs - 24 hr 09/12/19 10:00 09/12/19 12:00 09/12/19 12:22 Temperature 36.9 C Pulse Rate 83 77 79 Respiratory Rate 22 H Blood Pressure 121/64 Pulse Oximetry 97 09/12/19 14:00 09/12/19 14:08 09/12/19 16:00 Temperature Pulse Rate 81 82 Respiratory Rate Blood Pressure Pulse Oximetry 97 09/12/19 16:32 09/12/19 17:00 09/12/19 21:42 Temperature 36.3 C L 37.6 C H 36.8 C Pulse Rate 78 91 88 Respiratory Rate 20 18 16 Blood Pressure 115/66 103/55 L 121/64 Pulse Oximetry 96 96 96 09/13/19 02:00 09/13/19 06:00 Temperature 36.9 C 37.0 C Pulse Rate 72 68 Respiratory Rate 16 16 Blood Pressure 131/73 112/62 Pulse Oximetry 92 94 Intake/Output Intake/Output: Intake & Output 09/10/19 09/11/19 09/12/19 09/13/19 23:59 23:59 23:59 23:59 Intake Total 1780 1230 2400 1150 Output Total 200 1310 150 Balance 1780 1030 1090 1000 Meds/Results Medications: Active Medications Generic Name Dose Route Start Last Admin Trade Name Freq PRN Reason Stop Dose Admin Acetaminophen 650 mg 09/09/19 23:29 Tylenol Tablet PO QID PRN Fever Hydrocodone Bitart/Acetaminophen 1 tab 09/10/19 15:18 09/12/19 14:55 [place] 7.5-325 Mg PO 1 tab Q6H PRN Administration pain not Relieved by Tylenol Allopurinol 100 mg 09/11/19 08:00 09/12/19 09:10 Zyloprim PO 100 mg DAILY@0800 [facility] Administration Aspirin 81 mg 09/10/19 09:00 09/10/19 10:21 Aspirin Ec PO 81 mg DAILY [facility] Administration Dextrose 12.5 gm 09/10/19 03:11 Dextrose 50% Syringe IV PUSH PRN PRN Hypoglycemia Protocol Glipizide 5 mg 09/12/19 16:30 09/13/19 02:07 Glucotrol PO Not Given BIDAC [facility] Glucagon 1 mg 09/10/19 03:11 Glucagon For Inj IM PRN PRN Hypoglycemia Protocol Glucose 15 gm 09/10/19 03:11 Glutose 15 PO PRN PRN Hypoglycemia Protocol Hydromorphone HCl 1 mg 09/11/19 15:31 09/13/19 00:10 Dilaudid Inj IV PUSH 1 mg Q3H PRN Administration Breakthrough Pain Dextrose 1,000 mls @ 100 mls/hr 09/10/19 03:11 Dextrose 5% 1,000 Ml IVPB PRN PRN Hypoglycemia Protocol Piperacillin/Tazobactam/Dextrose 3.375 gm in 50 mls @ 100 mls/hr 09/10/19 21:00 09/13/19 08:17 Zosyn 3.375 Gm/D5w 50ml Pm IVPB 100 mls/hr Q6H [facility] Administration Lactated Ringer's 1,000 mls @ 100 mls/hr 09/11/19 16:10 09/13/19 05:08 Lr - Lactated Ringers Iv IV CONT 100 mls/hr .Q10H [facility] Administration Insulin Aspart 3 - 6 units 09/10/19 08:00 09/13/19 08:17 Novolog SUB-Q Not Given TIDWM [facility] Protocol Ondansetron HCl 4 mg 09/11/19 15:31 09/11/19 15:47 Zofran Inj IV PUSH 4 mg Q6H PRN Administration Nausea And Vomiting Pantoprazole Sodium 40 mg 09/10/19 09:00 09/12/19 09:10 Protonix PO 40 mg QAM [facility] Administration
--- NOTE | 2019-09-13 09:52 | PM.PNGS ---
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 Pt nahum clears yest s issue. Pt currently NPO for upcoming UGI c SBS study. Review of Systems Constitutional: Constitutional: Denies chills and Reports fatigue Cardiovascular: Cardiovascular: Denies chest pain and Denies palpitations Respiratory: Respiratory: Denies dyspnea Gastrointestinal: Gastrointestinal: Reports abdominal pain, Denies constipation, Denies diarrhea, Denies nausea and Denies vomiting Exam Const: General: no acute distress Resp: Auscultation: clear to auscultation bilaterally Cardio: Rate: regular rate Rhythm: regular rhythm GI: Other: S, sl dist, decreased TTP L abd, drain c mod purulent drainage Objective Data Vital Signs Vital Signs: Vital Signs - 24 hr 09/12/19 10:00 09/12/19 12:00 09/12/19 12:22 Temperature 36.9 C Pulse Rate 83 77 79 Respiratory Rate 22 H Blood Pressure 121/64 Pulse Oximetry 97 09/12/19 14:00 09/12/19 14:08 09/12/19 16:00 Temperature Pulse Rate 81 82 Respiratory Rate Blood Pressure Pulse Oximetry 97 09/12/19 16:32 09/12/19 17:00 09/12/19 21:42 Temperature 36.3 C L 37.6 C H 36.8 C Pulse Rate 78 91 88 Respiratory Rate 20 18 16 Blood Pressure 115/66 103/55 L 121/64 Pulse Oximetry 96 96 96 05/01/20 02:00 09/13/19 06:00 Temperature 36.9 C 37.0 C Pulse Rate 72 68 Respiratory Rate 16 16 Blood Pressure 131/73 112/62 Pulse Oximetry 92 94 Intake/Output Intake/Output: Intake & Output 09/10/19 09/11/19 09/12/19 09/13/19 23:59 23:59 23:59 23:59 Intake Total 1780 1230 2400 1200 Output Total 200 1310 150 Balance 1780 1030 1090 1050 Meds/Results Medications: Active Medications Generic Name Dose Route Start Last Admin Trade Name Freq PRN Reason Stop Dose Admin Acetaminophen 650 mg 09/09/19 23:29 Tylenol Tablet PO QID PRN Fever Hydrocodone Bitart/Acetaminophen 1 tab 09/10/19 15:18 09/12/19 14:55 [place] 7.5-325 Mg PO 1 tab Q6H PRN Administration pain not Relieved by Tylenol Allopurinol 100 mg 09/11/19 08:00 09/12/19 09:10 Zyloprim PO 100 mg DAILY@0800 [facility] Administration Aspirin 81 mg 09/10/19 09:00 09/10/19 10:21 Aspirin Ec PO 81 mg DAILY [facility] Administration Dextrose 12.5 gm 09/10/19 03:11 Dextrose 50% Syringe IV PUSH PRN PRN Hypoglycemia Protocol Glipizide 5 mg 09/12/19 16:30 09/13/19 02:07 Glucotrol PO Not Given BIDAC [facility] Glucagon 1 mg 09/10/19 03:11 Glucagon For Inj IM PRN PRN Hypoglycemia Protocol Glucose 15 gm 09/10/19 03:11 Glutose 15 PO PRN PRN Hypoglycemia Protocol Hydromorphone HCl 1 mg 09/11/19 15:31 09/13/19 00:10 Dilaudid Inj IV PUSH 1 mg Q3H PRN Administration Breakthrough Pain Dextrose 1,000 mls @ 100 mls/hr 09/10/19 03:11 Dextrose 5% 1,000 Ml IVPB PRN PRN Hypoglycemia Protocol Piperacillin/Tazobactam/Dextrose 3.375 gm
[2019-09-13 10:00] VITALS: BP 127/63; PULSE 70; RESP 16; TEMP 36.8; O2SAT 97
[2019-09-13] MEDS: allopurinoL 100 MG TABLET PO (11:48)
[2019-09-13] MEDS: PANTOPRAZOLE 40 MG TABLET PO (11:48)
[2019-09-13] MEDS: ASPIRIN 81 MG ENTERIC TABLET PO (11:48)
[2019-09-13 12:38] LABS: Glucose Point of Care 177 (65-105)
[2019-09-13 14:00] VITALS: BP 130/61; PULSE 68; RESP 18; TEMP 36.7; O2SAT 100
--- NOTE | 2019-09-13 15:13 | PM.IMPN ---
Progress Note: A&P Assessment and Plan (1) Intra-abdominal abscess: Code(s): K65.1 - Peritoneal abscess Status: Acute Assessment and Plan: -----CT shows a large abscess which was likely the cause of his rigors and abdominal pain. Drain placed 09/10. Patient's blood cultures positive for strep constellatus but abscess culture + for strep millieri group. Dr. dunne consulted. WBC increased today, but pt is feeling and looking better. Will redraw again tomorrow. (2) Acute encephalopathy: Code(s): G93.40 - Encephalopathy, unspecified Status: Resolved Assessment and Plan: -----Resolved with no reoccurance. Likely secondary to fever and febrile illness. The patient appears to be back to his baseline. CT brain was unremarkable. (3) Acidosis, lactic: Code(s): E87.2 - Acidosis Status: Acute Assessment and Plan: -----Resolved. Likely secondary to infection as stated above. 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 glipizide 5mg BID started (since he is just on clears) and continue to hold metformin. Continue mod dose SSI. May consider lantus if glucose is uncontrolled. (5) Bacteremia: Code(s): R78.81 - Bacteremia Status: Acute Assessment and Plan: -----secondary to abscess. Continue Zosyn at this time and await further recommendations by Infectious Disease (since bacteremia and abscess organism is different). Additional Plan Date of service was 09/10/2019 at 2 am. Subjective Date/time seen: 09/13/19 15:13 Interval history: Pt is a 69-year-old male here for abdominal abscess. Patient was seen today and is still having abdominal pain. He has not been able to eat or drink anything because of the test. He denies any more fevers or shaking chills. No CP or SOB currently. Exam Narrative: Exam Narrative: General: Well-developed well-nourished patient resting comfortably in bed in no acute distress HEENT: normocephalic Neck: supple Neuro: Alert and oriented x4 CV:RRR Resp:CTA--no crackles or rhonchi Abd: Soft, non distended. Pain to palpation to the umbilicus area. Mass felt in the left lower quadrant. Drain intact with kaur/brown scanty discharge. Extremities: No swelling, erythema, or pain to palpation. Objective Data Vital Signs Vital Signs: Vital Signs - 24 hr 09/12/19 16:00 09/12/19 16:32 09/12/19 17:00 Temperature 97.4 F L 99.7 F H Pulse Rate 82 78 91 Respiratory Rate 20 18 Blood Pressure 115/66 103/55 L Pulse Oximetry 96 96 09/12/19 21:42 09/13/19 02:00 09/13/19 06:00 Temperature 98.3 F 98.5 F 98.6 F Pulse Rate 88 72 68 Respiratory Rate 16 16 16 Blood Pressure 121/64 131/73 112/62 Pulse Oximetry 96 92 94 Intake/Output Intake/Output: Intake & Output 09/10/19 09/11/19 09/12/19 09/13/19 23:59 23:59 23:59 23:59 Intake Total 1780 1230 2400 1250 Output Total 200 1310 150 Balance 1780 1030 1090 1100 Meds/Results Medications: Active Medications Generic Name Dose Route Start Last Admin Trade Name Freq PRN Reason Stop Dose Admin Acetaminophen 650 mg 09/09/19 23:29 Tylenol Tablet PO QID PRN Fever Hydrocodone Bitart/Acetaminophen 1 tab 09/10/19 15:18 09/13/19 12:39 [place] 7.5-325 Mg PO 1 tab Q6H PRN Administration pain not Relieved by Tylenol Allopurinol 100 mg 09/11/19 08:00 09/13/19 11:48 Zyloprim PO 100 mg DAILY@0800 [facility] Administration Aspirin 81 mg 09/10/19 09:00 09/13/19 11:48 Aspirin Ec PO 81 mg DAILY [facility]TA[facility] Administration Dextrose 12.5 gm 04
--- NOTE | 2019-09-13 15:54 | PCDIET ---
Nutrition Follow-Up Complete: Inadequate Oral Intake as related to Fever/COVID pending as evidenced by weight loss of 10 ibs and poor po intake. adequate Intake of at least 75% of meals/supplements Goal:Goal met. Continue current goal. Pt current nutrition is Clear Liquids. Nutrition recommendation: agree Last recorded weight is 82.9 kg ( Need new wt) Bowel Motility: Labs Reviewed:A1c 8.5, Na 131 Meds Noted:Insulin, Zofran, Protonix, Zosyn Additional Notes: Pt on clears today. CT shows abscess per GI notes. Drain placed. Pt was eating well, 83% over last three meals. Recommend ADAT to [facility] when medically appropriate. We will continue to monitor for adequate intake every five days.
--- NOTE | 2019-09-13 16:39 | WPDINFPN2 ---
Progress Note: A&P Assessment and Plan (1) Bacteremia: Code(s): R78.81 - Bacteremia Status: Acute Assessment and Plan: 1. Strep constellatus bacteremia with infection, source is #2 2. Intra-abdominal abscess, GI source, POD #2 drain perc. Small bowel series no extravasation. WBC unfortunately higher. 3. DM, A1C 8.5%, indicative of fair control REC Glycemic control. PipTazo # 4. Assuming that this is a perforated viscus, if no other interventions, then he should receive another 6 days IV rx, then oral for 7 additional days. Following WBC. Subjective Date/time seen: 09/13/19 16:39 Interval history: pain under control. No n/v. Very little appetite Exam Narrative: Exam Narrative: t max 37.6 Const: General: no acute distress Eyes: General: appearance normal, both eyes and all related structures Resp: Effort & Inspection: normal respiratory effort Auscultation: clear to auscultation bilaterally Cardio: Rate: regular rate Rhythm: regular rhythm Heart sounds: no murmurs GI: GI Palp: Yes Soft to palpation, No Tenderness to palpation present (GI) and No Guarding due to palpation present (GI) Auscultation: normal bowel sounds Skin: General skin exam: normal color and no rashes or lesions noted Objective Data Vital Signs Vital Signs: Vital Signs - 24 hr 09/12/19 17:00 09/12/19 21:42 09/13/19 02:00 Temperature 37.6 C H 36.8 C 36.9 C Pulse Rate 91 88 72 Respiratory Rate 18 16 16 Blood Pressure 103/55 L 121/64 131/73 Pulse Oximetry 96 96 92 09/13/19 06:00 Temperature 37.0 C Pulse Rate 68 Respiratory Rate 16 Blood Pressure 112/62 Pulse Oximetry 94 Intake/Output Intake/Output: Intake & Output 09/10/19 09/11/19 09/12/19 09/13/19 23:59 23:59 23:59 23:59 Intake Total 1780 1230 2400 1250 Output Total 200 1310 150 Balance 1780 1030 1090 1100 Meds/Results Medications: Active Medications Generic Name Dose Route Start Last Admin Trade Name Freq PRN Reason Stop Dose Admin Acetaminophen 650 mg 09/09/19 23:29 Tylenol Tablet PO QID PRN Fever Hydrocodone Bitart/Acetaminophen 1 tab 09/10/19 15:18 09/13/19 12:39 [place] 7.5-325 Mg PO 1 tab Q6H PRN Administration pain not Relieved by Tylenol Allopurinol 100 mg 09/11/19 08:00 09/13/19 11:48 Zyloprim PO 100 mg DAILY@0800 [facility] Administration Aspirin 81 mg 09/10/19 09:00 09/13/19 11:48 Aspirin Ec PO 81 mg DAILY [facility] Administration Dextrose 12.5 gm 09/10/19 03:11 Dextrose 50% Syringe IV PUSH PRN PRN Hypoglycemia Protocol Glipizide 5 mg 09/12/19 16:30 09/13/19 02:07 Glucotrol PO Not Given BIDAC [facility] Glucagon 1 mg 09/10/19 03:11 Glucagon For Inj IM PRN PRN Hypoglycemia Protocol Glucose 15 gm 09/10/19 03:11 Glutose 15 PO PRN PRN Hypoglycemia Protocol Hydromorphone HCl 1 mg 09/11/19 15:31 09/13/19 11:51 Dilaudid Inj IV PUSH 1 mg Q3H PRN Administration Breakthrough Pain Dextrose 1,000 mls @ 100 mls/hr 09/10/19 03:11 Dextrose 5% 1,000 Ml IVPB PRN PRN Hypoglycemia Protocol Piperacillin/Tazobactam/Dextrose 3.375 gm in 50 mls @ 100 mls/hr 09/10/19 21:00 09/13/19 14:51 Zosyn 3.375 Gm/D5w 50ml Pm IVPB Infused Q6H [facility] Infusion Insulin Aspart 3 - 6 units 09/10/19 08:00 09/13/19 12:38 Novolog SUB-Q Not Given TIDWM [facility] Protocol Ondansetron HCl 4 mg 09/11/19 15:31 09/11/19 15:47 Zofran Inj IV PUSH 4 mg Q6H PRN Administration Nausea And Vomiting Pantoprazole Sodium 40 mg 09/10/19 09:00 09/13/19 11:48 Protonix PO 40 mg QAM [facility] Administration Radiology Results: ITS Impressions Head CT 09/09/19 21:09 IMPRESSION: 1. No acute intracranial findings. 2. Chronic age related findings. Chest X-Ray 09/09/19 21:12 IMPRESSION: No acute cardiopulmonary findings. Venous Doppler Study 09/10/19 16:24 IMP
[2019-09-13] MEDS: glipiZIDE 5 MG TABLET PO (17:10)
[2019-09-13 17:31] LABS: Glucose Point of Care 189 (65-105)
[2019-09-13 18:00] VITALS: BP 120/68; PULSE 81; RESP 16; TEMP 36.7; O2SAT 98
[2019-09-13 21:33] LABS: Glucose Point of Care 215 (65-105)
[2019-09-13 22:00] VITALS: BP 113/70; PULSE 64; RESP 16; TEMP 36.9; O2SAT 95
[2019-09-14 02:00] VITALS: BP 111/67; PULSE 84; RESP 18; TEMP 36.6; O2SAT 95
[2019-09-14 06:00] VITALS: BP 111/70; PULSE 68; RESP 16; TEMP 36.6; O2SAT 98
--- NOTE | 2019-09-14 06:55 | WPDGIPROGNO ---
Progress Note: A&P Additional Plan Patient alert and comfortable this morning. Tolerating diet. Physical exam reveals him to be alert. Afebrile. He is anicteric. Lungs are clear. Heart without murmur. Abdomen is soft. Left upper quadrant drain remains in place. Upper GI and small-bowel series reveals no obvious deformity or lesions. Impression 1. Abdominal abscess. Etiology undetermined. Presumably from GI source. No obvious perforated viscus by exam. Differential diagnosis includes ulcer and diverticulitis. I would plan to continue antibiotics. Consider GI endoscopy after 3-4 weeks if surgery not necessary. Surgery continues to follow patient at this time. Subjective Date/time seen: 09/14/19 06:55 Objective Data Vital Signs Vital Signs: Vital Signs - 24 hr 09/13/19 10:00 09/13/19 14:00 09/13/19 18:00 Temperature 36.8 C 36.7 C 36.7 C Pulse Rate 70 68 81 Respiratory Rate 16 18 16 Blood Pressure 127/63 130/61 120/68 Pulse Oximetry 97 100 98 09/13/19 22:00 09/14/19 02:00 09/14/19 06:00 Temperature 36.9 C 36.6 C 36.6 C Pulse Rate 64 84 68 Respiratory Rate 16 18 16 Blood Pressure 113/70 111/67 111/70 Pulse Oximetry 95 95 98 Intake/Output Intake/Output: Intake & Output 09/11/19 09/12/19 09/13/19 09/14/19 23:59 23:59 23:59 23:59 Intake Total 1230 2400 2690 400 Output Total 200 1310 480 13 Balance 1030 1090 2210 387 Meds/Results Medications: Active Medications Generic Name Dose Route Start Last Admin Trade Name Freq PRN Reason Stop Dose Admin Acetaminophen 650 mg 09/09/19 23:29 Tylenol Tablet PO QID PRN Fever Hydrocodone Bitart/Acetaminophen 1 tab 09/10/19 15:18 09/13/19 18:18 [place] 7.5-325 Mg PO 1 tab Q6H PRN Administration pain not Relieved by Tylenol Allopurinol 100 mg 09/11/19 08:00 09/13/19 11:48 Zyloprim PO 100 mg DAILY@0800 [facility] Administration Aspirin 81 mg 09/10/19 09:00 09/13/19 11:48 Aspirin Ec PO 81 mg DAILY [facility] Administration Dextrose 12.5 gm 09/10/19 03:11 Dextrose 50% Syringe IV PUSH PRN PRN Hypoglycemia Protocol Glipizide 5 mg 09/12/19 16:30 09/13/19 17:10 Glucotrol PO 5 mg BIDAC [facility] Administration Glucagon 1 mg 09/10/19 03:11 Glucagon For Inj IM PRN PRN Hypoglycemia Protocol Glucose 15 gm 09/10/19 03:11 Glutose 15 PO PRN PRN Hypoglycemia Protocol Hydromorphone HCl 1 mg 09/11/19 15:31 09/13/19 11:51 Dilaudid Inj IV PUSH 1 mg Q3H PRN Administration Breakthrough Pain Dextrose 1,000 mls @ 100 mls/hr 09/10/19 03:11 Dextrose 5% 1,000 Ml IVPB PRN PRN Hypoglycemia Protocol Piperacillin/Tazobactam/Dextrose 3.375 gm in 50 mls @ 100 mls/hr 09/10/19 21:00 09/14/19 03:30 Zosyn 3.375 Gm/D5w 50ml Pm IVPB Infused Q6H [facility] Infusion Insulin Aspart 3 - 6 units 09/10/19 08:00 09/13/19 17:09 Novolog SUB-Q Not Given TIDWM [facility] Protocol Ondansetron HCl 4 mg 09/11/19 15:31 09/11/19 15:47 Zofran Inj IV PUSH 4 mg Q6H PRN Administration Nausea And Vomiting Pantoprazole Sodium 40 mg 09/10/19 09:00 09/13/19 11:48 Protonix PO 40 mg QAM [facility] Administration Radiology Results: ITS Impressions Head CT 09/09/19 21:09 IMPRESSION: 1. No acute intracranial findings. 2. Chronic age related findings. Chest X-Ray 09/09/19 21:12 IMPRESSION: No acute cardiopulmonary findings. Venous Doppler Study 09/10/19 16:24 IMPRESSION: 1. No lower extremity deep venous thrombosis bilaterally. Abdomen/Pelvis CT 09/10/19 16:31 IMPRESSION: Large abscess in mid mesentery left of midline, probably from underlying small bowel pathology given location. Would be amenable to CT-guided percutaneous drainage. Catheter Placement CT 09/11/19 13:30 IMPRESSION: 1. Successful CT-guided left upper quadrant abscess drainage. 2. 20 mL opaque, faust, foul-smel
[2019-09-14 07:04] LABS: Glucose Point of Care 195 (65-105)
[2019-09-14] MEDS: glipiZIDE 5 MG TABLET PO (07:09)
[2019-09-14 07:11] LABS: Hematocrit 37.3 % (42.0-52.0); Hemoglobin 12.5 g/dL (14.0-18.0); Mean Corpuscular HGB Conc 33.5 g/dl (32-36); Mean Corpuscular Hemoglobin 29.9 pg (26-34); Mean Corpuscular Volume 89.2 fl (80-100); Mean Platelet Volume 10.6 fl (7.4-10.4); Platelet Count Result 365 k/mm3 (150-375); Red Blood Count 4.18 M/mm3 (4.6-6.20); Red Cell Distribution Width 13.2 % (11.5-14.5); White Blood Count 15.4 K/mm3 (4.5-10.0)
[2019-09-14 07:24] LABS: Blood Urea Nitrogen 11 mg/dL (9-20); Calcium 8.7 mg/dL (8.4-10.2); Carbon Dioxide 28 mmol/L (22-30); Chloride 101 mmol/L (98-107); Estimated CRCL calculation 86 ml/min; Estimated Glomerular Filt Rate > 60; Glucose 203 mg/dL (75-110); Potassium 3.6 mmol/L (3.4-5.0); Sodium 136 mmol/L (137-145)
[2019-09-14 08:46] LABS: Glucose Point of Care 242 (65-105)
[2019-09-14] MEDS: INSULIN ASPART (*BKC) 100 UNITS/ML SUB-Q ×2 (08:48→13:03)
[2019-09-14] MEDS: allopurinoL 100 MG TABLET PO (08:53)
[2019-09-14] MEDS: ASPIRIN 81 MG ENTERIC TABLET PO (08:54)
[2019-09-14] MEDS: PANTOPRAZOLE 40 MG TABLET PO (08:54)
[2019-09-14 12:33] LABS: Glucose Point of Care 243 (65-105)
[2019-09-14 12:36] VITALS: BP 115/71; PULSE 68; RESP 16; TEMP 36.6; O2SAT 99
[2019-09-14] MEDS: ACETAMINOPHEN 325 MG TABLET 650 MG PO (13:05)
--- NOTE | 2019-09-14 13:38 | PM.IMPN ---
Progress Note: A&P Assessment and Plan (1) Intra-abdominal abscess: Code(s): K65.1 - Peritoneal abscess Status: Acute Assessment and Plan: -----CT shows a large abscess which was likely the cause of his rigors and abdominal pain. Drain placed 09/10. Patient's blood cultures positive for strep constellatus but abscess culture + for strep millieri group. Dr. dunne consulted. WBC 15.4 (slight improvement), but pt is feeling and looking better. Will ask sx recommendations on advancing diet. (2) Acute encephalopathy: Code(s): G93.40 - Encephalopathy, unspecified Status: Resolved Assessment and Plan: -----Resolved with no reoccurance. Likely secondary to fever and febrile illness. The patient appears to be back to his baseline. CT brain was unremarkable. (3) Acidosis, lactic: Code(s): E87.2 - Acidosis Status: Acute Assessment and Plan: -----Resolved. Likely secondary to infection as stated above. (4) Diabetes mellitus: Qualifiers: Diabetes mellitus type: type 2 Diabetes mellitus fpc insulin use: without medical terminologist use Diabetes mellitus complication status: without complication Qualified Code(s): E11.9 - Type 2 diabetes mellitus without complications Code(s): E11.9 - Type 2 diabetes mellitus without complications Status: Chronic Assessment and Plan: -----Last glucose 243 . glipizide 10mg BID started and continue to hold metformin. Continue mod dose SSI. May consider lantus if glucose is uncontrolled. (5) Bacteremia: Code(s): R78.81 - Bacteremia Status: Acute Assessment and Plan: -----secondary to abscess. Continue Zosyn at this time and await further recommendations by Infectious Disease (since bacteremia and abscess organism is different). Additional Plan Date of service was 09/10/2019 at 2 am. Subjective Date/time seen: 09/14/19 13:38 Interval history: Pt is a 69-year-old male here for abdominal abscess. Patient was seen today and is still having abdominal pain. He is still having trouble eating d/t his abdominal pain. He denies any more fevers or shaking chills. No CP or SOB currently. Exam Narrative: Exam Narrative: General: Well-developed well-nourished patient resting comfortably in bed in no acute distress HEENT: normocephalic Neck: supple Neuro: Alert and oriented x4 CV:RRR Resp:CTA--no crackles or rhonchi Abd: Soft, non distended. Pain to palpation to the umbilicus area. Drain intact with kaur/brown scanty discharge. Extremities: No swelling, erythema, or pain to palpation. Objective Data Vital Signs Vital Signs: Vital Signs - 24 hr 09/13/19 14:00 09/13/19 18:00 09/13/19 22:00 Temperature 98.1 F 98.1 F 98.4 F Pulse Rate 68 81 64 Respiratory Rate 18 16 16 Blood Pressure 130/61 120/68 113/70 Pulse Oximetry 100 98 95 09/14/19 02:00 09/14/19 06:00 09/14/19 12:36 Temperature 97.9 F 97.8 F 97.8 F Pulse Rate 84 68 68 Respiratory Rate 18 16 16 Blood Pressure 111/67 111/70 115/71 Pulse Oximetry 95 98 99 Intake/Output Intake/Output: Intake & Output 09/11/19 09/12/19 09/13/19 09/14/19 23:59 23:59 23:59 23:59 Intake Total 1230 2400 2690 640 Output Total 200 1310 480 13 Balance 1030 1090 2210 627 Meds/Results Medications: Active Medications Generic Name Dose Route Start Last Admin Trade Name Freq PRN Reason Stop Dose Admin Acetaminophen 650 mg 09/09/19 23:29 09/14/19 13:05 Tylenol Tablet PO 650 mg QID PRN Administration Fever Hydrocodone Bitart/Acetaminophen 1 tab 09/10/19 15:18 09/13/19 18:18 [place] 7.5-325 Mg PO 1 tab Q6H PRN Administration pain not Relieved by Tylenol Allopurinol 100 mg 09/11/19 08:00 09/14/19 08:53 Zyloprim PO 100 mg DAILY@0800 BALTAZAR Administration Aspirin 81 mg 09/10/19 09:00 09/14/19 08:54 Aspirin Ec PO 81 mg DAILY BALTAZAR Administration Dextrose 12.5 gm
[2019-09-14 14:00] VITALS: BP 113/55; PULSE 91; RESP 16; TEMP 36.6; O2SAT 98
--- NOTE | 2019-09-14 14:25 | PM.PNGS ---
Progress Note: A&P Assessment and Plan (1) Bacteremia: Onset Date: ~09/04/19 Code(s): R78.81 - Bacteremia Status: Acute Assessment and Plan: Bacteria in this is different than that from the drain. (2) Intra-abdominal abscess: Onset Date: ~09/04/19 Code(s): K65.1 - Peritoneal abscess Status: Acute Assessment and Plan: Streptococcus from the cultures after percutaneous drainage. Yesterday's small-bowel follow-through shows a fairly large jejunal diverticulum near this abscess site which may have been the source. (3) Febrile illness: Onset Date: Unknown Code(s): R50.9 - Fever, unspecified Status: Acute Assessment and Plan: Probably related to his intra-abdominal abscess (4) Diabetes mellitus: Onset Date: Unknown Qualifiers: Diabetes mellitus complication status: without complication Diabetes mellitus truck terminal manager insulin use: without chcf use Diabetes mellitus type: type 2 Qualified Code(s): E11.9 - Type 2 diabetes mellitus without complications Code(s): E11.9 - Type 2 diabetes mellitus without complications Status: Chronic (5) Diverticulosis of jejunum without diverticulitis: Onset Date: Unknown Code(s): K57.10 - Diverticulosis of small intestine without perforation or abscess without bleeding Status: Acute Assessment and Plan: Seen on yesterday's upper GI study. (See report). Additional Plan Will advance patient's diet is he seems to be doing okay Repeat CBC in the mid a.m.. Advance dietary supplements to improve nutrition Encourage patient to walk and open rim Shutters in the room to let in sunlight because of his possible on hospital related depression. Subjective Subjective Date/Time Seen: 09/14/19 14:25 Patient is sleeping comfortably when I entered the room. Denies much appetite. States he is not walking in the halls because he somewhat depressed. Concerned about not having a bowel movement today. He is apparently taking narcotics periodically for pain. Does not like the clear Ensure so will change supplements as we advance his diet. Review of Systems Constitutional: Constitutional: Reports no additional constitutional complaints ENT: Reports other (Mucous Membranes moist.) Cardiovascular: Cardiovascular: Denies dyspnea Respiratory: Respiratory: Denies pain on inspiration and Denies dyspnea Musculoskeletal: Musculoskeletal: Reports other (No calf swelling or edema) Integumentary/Breasts: Skin/Breast: Reports system reviewed and no additional complaints, except as docu Psychiatric: Psychiatric: Reports depression (Mild, because he is in the hospital) Exam Const: General: cooperative, no acute distress, alert and awake Orientation/consciousness: patient oriented x3 HENMT: Mouth: Yes moist mucous membranes Neck: Neck: normal visual inspection Chest: Chest palpation & inspection: normal inspection of the chest Resp: Effort & Inspection: normal respiratory effort Auscultation: clear to auscultation bilaterally Cardio: Jugular venous distension: no JVD Rate: regular rate Rhythm: regular rhythm GI: Inspection: other (Drain, exiting left upper abdomen) GI Palp: No abdominal tenderness and No Ascites present Auscultation: normal bowel sounds Rectal Exam: deferred Other: Drainage from percutaneous drain is grayish cloudy in character. Neuro: General: patient oriented x3 and moves all extremities Speech: normal speech Extrem: General: normal exam except as noted Psych: Mental Status: mental status grossly normal Speech and movement: Normal speech and movement present Affect: normal affect Thought content: Yes Normal thought content present Objective Data Vital Signs Vital Signs: Vital Signs - 24 hr 09/13/19 18:00 09/13/19 22:00 09/14/19 02:00 Temperature 36.7 C 36.9 C 36.6 C Pulse Rate 81 64 84 Respiratory Rate 16 16 18 Blood Pressure 120/68 113/70 1
[2019-09-14] MEDS: glipiZIDE 5 MG TABLET 10 MG PO (17:32)
[2019-09-14] MEDS: polyethylene glycoL 3350 17 GM POWD.PACK PO (17:36)
[2019-09-14 17:53] LABS: Glucose Point of Care 179 (65-105)
[2019-09-14 18:00] VITALS: BP 111/52; PULSE 87; RESP 18; TEMP 36.7; O2SAT 98
[2019-09-14 21:53] VITALS: BP 116/67; PULSE 71; RESP 18; TEMP 36.9; O2SAT 95
[2019-09-14 23:26] LABS: Glucose Point of Care 318 (65-105)
[2019-09-15 02:00] VITALS: BP 118/68; PULSE 88; RESP 16; TEMP 36.9; O2SAT 97
[2019-09-15 05:48] VITALS: BP 120/65; PULSE 80; RESP 18; TEMP 37; O2SAT 98
[2019-09-15] MEDS: glipiZIDE 5 MG TABLET 10 MG PO ×2 (06:14→17:30)
[2019-09-15 06:15] LABS: Hematocrit 39.4 % (42.0-52.0); Hemoglobin 13.2 g/dL (14.0-18.0); Mean Corpuscular HGB Conc 33.5 g/dl (32-36); Mean Corpuscular Hemoglobin 29.5 pg (26-34); Mean Corpuscular Volume 88.1 fl (80-100); Mean Platelet Volume 10.5 fl (7.4-10.4); Platelet Count Result 428 k/mm3 (150-375); Red Blood Count 4.47 M/mm3 (4.6-6.20); Red Cell Distribution Width 13.2 % (11.5-14.5); White Blood Count 11.1 K/mm3 (4.5-10.0)
[2019-09-15 06:21] LABS: Glucose Point of Care 258 (65-105)
[2019-09-15 06:39] LABS: Blood Urea Nitrogen 12 mg/dL (9-20); Calcium 8.6 mg/dL (8.4-10.2); Carbon Dioxide 27 mmol/L (22-30); Chloride 100 mmol/L (98-107); Estimated CRCL calculation 77 ml/min; Estimated Glomerular Filt Rate > 60; Glucose 269 mg/dL (75-110); Potassium 3.5 mmol/L (3.4-5.0); Sodium 136 mmol/L (137-145)
--- NOTE | 2019-09-15 07:55 | WPDGIPROGNO ---
Progress Note: A&P Time Spent With Patient Time: Patient alert this morning. He denies abdominal pain. Tolerating diet. Physical exam reveals patient be alert. Abdomen is soft and nontender with no organomegaly. External drain in the left upper quadrant continues to drain pus. Small-bowel series unremarkable. Incidental jejunal diverticulum identified. Impression 1 intra intra-abdominal abscess. The etiology remains on certain. Plan at the present is to continue external drain. To continue antibiotics. If surgery not felt necessary then colonoscopy an EGD in 1 month is advised. We will continue him empirically on PPI for potential ulcer. Subjective Date/time seen: 09/15/19 07:55 Objective Data Vital Signs Vital Signs: Vital Signs - 24 hr 09/14/19 12:36 09/14/19 14:00 09/14/19 18:00 Temperature 36.6 C 36.6 C 36.7 C Pulse Rate 68 91 87 Respiratory Rate 16 16 18 Blood Pressure 115/71 113/55 L 111/52 L Pulse Oximetry 99 98 98 09/14/19 21:53 09/15/19 02:00 09/15/19 05:48 Temperature 36.9 C 36.9 C 37.0 C Pulse Rate 71 88 80 Respiratory Rate 18 16 18 Blood Pressure 116/67 118/68 120/65 Pulse Oximetry 95 97 98 Intake/Output Intake/Output: Intake & Output 09/12/19 09/13/19 09/14/19 09/15/19 23:59 23:59 23:59 23:59 Intake Total 2400 2690 1989 900 Output Total 1310 480 13 Balance 1090 2210 1976 900 Meds/Results Medications: Active Medications Generic Name Dose Route Start Last Admin Trade Name Freq PRN Reason Stop Dose Admin Acetaminophen 650 mg 09/09/19 23:29 09/14/19 13:05 Tylenol Tablet PO 650 mg QID PRN Administration Fever Hydrocodone Bitart/Acetaminophen 1 tab 09/10/19 15:18 09/13/19 18:18 [place] 7.5-325 Mg PO 1 tab Q6H PRN Administration pain not Relieved by Tylenol Allopurinol 100 mg 09/11/19 08:00 09/14/19 08:53 Zyloprim PO 100 mg DAILY@0800 BALTAZAR Administration Aspirin 81 mg 09/10/19 09:00 09/14/19 08:54 Aspirin Ec PO 81 mg DAILY BALTAZAR Administration Dextrose 12.5 gm 09/10/19 03:11 Dextrose 50% Syringe IV PUSH PRN PRN Hypoglycemia Protocol Glipizide 10 mg 09/14/19 16:30 09/15/19 06:14 Glucotrol PO 10 mg BIDAC BALTAZAR Administration Glucagon 1 mg 09/10/19 03:11 Glucagon For Inj IM PRN PRN Hypoglycemia Protocol Glucose 15 gm 09/10/19 03:11 Glutose 15 PO PRN PRN Hypoglycemia Protocol Dextrose 1,000 mls @ 100 mls/hr 09/10/19 03:11 Dextrose 5% 1,000 Ml IVPB PRN PRN Hypoglycemia Protocol Piperacillin/Tazobactam/Dextrose 3.375 gm in 50 mls @ 100 mls/hr 09/10/19 21:00 09/15/19 03:18 Zosyn 3.375 Gm/D5w 50ml Pm IVPB Infused Q6H BALTAZAR Infusion Ibuprofen 600 mg 09/14/19 14:23 Motrin PO Q6H PRN Cramping Insulin Aspart 3 - 6 units 09/10/19 08:00 09/14/19 17:36 Novolog SUB-Q Not Given TIDWM ON LICENSE OF [facility] Protocol Ondansetron HCl 4 mg 09/11/19 15:31 09/11/19 15:47 Zofran Inj IV PUSH 4 mg Q6H PRN Administration Nausea And Vomiting Pantoprazole Sodium 40 mg 09/10/19 09:00 09/14/19 08:54 Protonix PO 40 mg QAM BALTAZAR Administration Polyethylene Glycol 17 gm 09/14/19 17:00 09/14/19 17:36 Miralax PO 17 gm BID BALTAZAR Administration Psyllium Hydrophilic Mucilloid 1 packet 09/15/19 09:00 Metamucil Packet PO QAM ON LICENSE OF [facility] Radiology Results: ITS Impressions Head CT 09/09/19 21:09 IMPRESSION: 1. No acute intracranial findings. 2. Chronic age related findings. Chest X-Ray 09/09/19 21:12 IMPRESSION: No acute cardiopulmonary findings. Venous Doppler Study 09/10/19 16:24 IMPRESSION: 1. No lower extremity deep venous thrombosis bilaterally. Abdomen/Pelvis CT 09/10/19 16:31 IMPRESSION: Large abscess in mid mesentery left of midline, probably from underlying small bowel pathology given location. Would be amenable to CT-guided percutaneous rodriguez
[2019-09-15] MEDS: INSULIN ASPART (*BKC) 100 UNITS/ML SUB-Q ×3 (09:04→17:37)
[2019-09-15] MEDS: ASPIRIN 81 MG ENTERIC TABLET PO (09:07)
[2019-09-15] MEDS: allopurinoL 100 MG TABLET PO (09:07)
[2019-09-15] MEDS: PSYLLIUM POWDER PACKET 1 PACKET PO (09:08)
[2019-09-15] MEDS: PANTOPRAZOLE 40 MG TABLET PO (09:08)
[2019-09-15] MEDS: polyethylene glycoL 3350 17 GM POWD.PACK PO ×2 (09:08→17:29)
--- NOTE | 2019-09-15 12:24 | PM.PNGS ---
Progress Note: A&P Assessment and Plan (1) Bacteremia: Onset Date: ~09/04/19 Code(s): R78.81 - Bacteremia Status: Acute Assessment and Plan: Bacteria in this is different than that from the drain. (2) Intra-abdominal abscess: Onset Date: ~09/04/19 Code(s): K65.1 - Peritoneal abscess Status: Acute Assessment and Plan: Streptococcus from the cultures after percutaneous drainage. Monday's small-bowel follow-through shows a fairly large jejunal diverticulum near this abscess site which may have been the source. Plan will be to continue current drainage and perhaps re-image prior to drain removal. Encouraged patient to advance diet and mobilize. (3) Febrile illness: Onset Date: Unknown Code(s): R50.9 - Fever, unspecified Status: Acute Assessment and Plan: Probably related to his intra-abdominal abscess (4) Diabetes mellitus: Onset Date: Unknown Qualifiers: Diabetes mellitus type: type 2 Diabetes mellitus detention insulin use: without power lineworker use Diabetes mellitus complication status: without complication Qualified Code(s): E11.9 - Type 2 diabetes mellitus without complications Code(s): E11.9 - Type 2 diabetes mellitus without complications Status: Chronic (5) Diverticulosis of jejunum without diverticulitis: Onset Date: Unknown Code(s): K57.10 - Diverticulosis of small intestine without perforation or abscess without bleeding Status: Acute Assessment and Plan: Seen on yesterday's upper GI study. (See report). Additional Plan Repeat CBC in a.m.. Advance dietary supplements to improve nutrition, ( patient states he he liked the chocolate gluderna) Encourage patient to walk and open the Shutters in the room to let in sunlight because of his possible on hospital related depression. Patient using Tylenol for abdominal cramping. Subjective Subjective Date/Time Seen: 09/15/19 08:44 Patient standing up walking in the room. Complains of some abdominal cramping. Nurse reports drainage continuing to come from the drain without problems. Blood sugar up some today. Patient tolerating diet fairly well. Positive stools overnight. Review of Systems Constitutional: Constitutional: Reports no additional constitutional complaints, Denies chills, Reports fatigue, Denies headache(s), Reports lethargy and Reports weakness Eyes: Eyes: Reports no additional eye complaints and Denies loss of vision ENT: Reports Normal hearing present, Denies dysphagia, Denies headache(s), Denies hearing loss, Denies sore throat and Reports other (Mucous Membranes moist.) Cardiovascular: Cardiovascular: Denies chest pain, Denies syncope, Denies irregular heart rhythm, Denies leg edema, Denies palpitations and Denies dyspnea Respiratory: Respiratory: Denies cough, Denies pain on inspiration and Denies dyspnea Gastrointestinal: Gastrointestinal: Reports abdominal pain, Reports bloating, Denies change in bowel habits, Denies change in stool character, Denies constipation, Denies dysphagia, Reports heartburn, Denies diarrhea, Denies nausea and Denies vomiting Genitourinary: Genitourinary: Denies dysuria, Denies urinary frequency and Denies urinary urgency Musculoskeletal: Musculoskeletal: Denies myalgias, Denies arthralgias, Denies muscle cramps and Reports other (No calf swelling or edema) Integumentary/Breasts: Skin/Breast: Reports system reviewed and no additional complaints, except as docu, Denies non-healing lesions and Denies rash Neurologic: Reports Normal hearing present, Denies syncope, Denies headache(s), Denies loss of vision and Reports weakness Psychiatric: Psychiatric: Reports depression (Mild, because he is in the hospital) Endocrine: Endocrine: Denies change in body appearance, Reports fatigue and Denies palpitations Hematologic/Lymphatic: Hematologic/Lymphatic: Denies easy bleeding, Denies easy bruising and
[2019-09-15 12:35] LABS: Glucose Point of Care 307 (65-105)
[2019-09-15 12:35] LABS: Glucose Point of Care 300 (65-105)
[2019-09-15 14:00] VITALS: BP 118/69; PULSE 68; RESP 18; TEMP 36.6; O2SAT 93
--- NOTE | 2019-09-15 15:02 | PM.IMPN ---
Progress Note: A&P Assessment and Plan (1) Intra-abdominal abscess: Onset Date: ~09/04/19 Code(s): K65.1 - Peritoneal abscess Status: Acute Assessment and Plan: -----CT shows a large abscess which was likely the cause of his rigors and abdominal pain. Drain placed 09/10. Patient's blood cultures positive for strep constellatus but abscess culture + for strep millieri group. Dr. dunne consulted, awaiting for his recs with the blood culture and wound cx. WBC improved 11.1 today. Pt now on a solid diet. (2) Acute encephalopathy: Code(s): G93.40 - Encephalopathy, unspecified Status: Resolved Assessment and Plan: -----Resolved with no reoccurance. Likely secondary to fever and febrile illness. The patient appears to be back to his baseline. CT brain was unremarkable. (3) Acidosis, lactic: Code(s): E87.2 - Acidosis Status: Acute Assessment and Plan: -----Resolved. Likely secondary to infection as stated above. (4) Diabetes mellitus: Onset Date: Unknown Qualifiers: Diabetes mellitus type: type 2 Diabetes mellitus assisted insulin use: without terminal operations manager use Diabetes mellitus complication status: without complication Qualified Code(s): E11.9 - Type 2 diabetes mellitus without complications Code(s): E11.9 - Type 2 diabetes mellitus without complications Status: Chronic Assessment and Plan: -----Glucose more uncontrolled now that he is on a solid diet. Will continue to hold metformin and his home glipizide was restarted at full dose yesterday. I will go ahead and start lantus tonight as well. Continue SSI. (5) Bacteremia: Onset Date: ~09/04/19 Code(s): R78.81 - Bacteremia Status: Acute Assessment and Plan: -----secondary to abscess. Continue Zosyn at this time and await further recommendations by Infectious Disease (since bacteremia and abscess organism is different). (6) HSV (herpes simplex virus) infection: Code(s): B00.9 - Herpesviral infection, unspecified Status: Acute Assessment and Plan: -----acute on chronic. Pt has had issues for over 10 years on and off. acyclovir prescribed. Additional Plan Date of service was 09/10/2019 at 2 am. Subjective Date/time seen: 09/15/19 15:02 Interval history: Pt is a 69-year-old male here for abdominal abscess. Patient was seen today and is still having abdominal pain but it is improving. He was able to have a solid lunch and so far has done okay with it. He had a soft BM yesterday. Pt denies nausea, vomiting, fevers, chills,chest pain, or SOB. He does have complaints of an HSV outbreak on his backside that is causing him some discomfort. Exam Narrative: Exam Narrative: General: Well-developed well-nourished patient resting comfortably in bed in no acute distress HEENT: normocephalic Neck: supple Neuro: Alert and oriented x4 CV:RRR Resp:CTA--no crackles or rhonchi Abd: Soft, non distended. Pain to palpation to the umbilicus area. Drain intact with kaur/brown scanty discharge. Extremities: No swelling, erythema, or pain to palpation. Objective Data Vital Signs Vital Signs: Vital Signs - 24 hr 09/14/19 18:00 09/14/19 21:53 09/15/19 02:00 Temperature 98.0 F 98.4 F 98.5 F Pulse Rate 87 71 88 Respiratory Rate 18 18 16 Blood Pressure 111/52 L 116/67 118/68 Pulse Oximetry 98 95 97 09/15/19 05:48 Temperature 98.6 F Pulse Rate 80 Respiratory Rate 18 Blood Pressure 120/65 Pulse Oximetry 98 Intake/Output Intake/Output: Intake & Output 09/12/19 09/13/19 09/14/19 09/15/19 23:59 23:59 23:59 23:59 Intake Total 2400 2690 1989 107 Output Total 1310 480 13 Balance 1090 2210 1976 1070 Meds/Results Medications: Active Medications Generic Name Dose Route Start Last Admin Trade Name Freq PRN Reason Stop Dose Admin Acetaminophen 650 mg 09/09/19 23:29 09/14/19 13:05 Tylenol
[2019-09-15 18:00] VITALS: BP 120/73; PULSE 70; RESP 16; TEMP 36.7; O2SAT 95
[2019-09-15 18:01] LABS: Glucose Point of Care 313 (65-105)
[2019-09-15] MEDS: ACYCLOVIR 400 MG TABLET 800 MG PO (18:50)
[2019-09-15] MEDS: INSULIN GLARGINE (*BKC) 100 UNITS/ML 8 UNITS SUB-Q (20:32)
[2019-09-15 21:01] LABS: Glucose Point of Care 281 (65-105)
[2019-09-15 22:00] VITALS: BP 129/75; PULSE 59; RESP 16; TEMP 36.7; O2SAT 98
[2019-09-16 02:00] VITALS: BP 134/81; PULSE 58; RESP 16; TEMP 36.3; O2SAT 95
[2019-09-16] MEDS: IBUPROFEN 600 MG TABLET PO ×2 (02:39→08:59)
[2019-09-16 05:54] LABS: Hematocrit 36.7 % (42.0-52.0); Hemoglobin 12.4 g/dL (14.0-18.0); Mean Corpuscular HGB Conc 33.8 g/dl (32-36); Mean Corpuscular Hemoglobin 29.8 pg (26-34); Mean Corpuscular Volume 88.2 fl (80-100); Mean Platelet Volume 10.1 fl (7.4-10.4); Platelet Count Result 436 k/mm3 (150-375); Red Blood Count 4.16 M/mm3 (4.6-6.20); White Blood Count 10.5 K/mm3 (4.5-10.0)
[2019-09-16 06:00] VITALS: BP 153/78; PULSE 54; RESP 16; TEMP 36.6; O2SAT 99
[2019-09-16 06:01] LABS: Blood Urea Nitrogen 13 mg/dL (9-20); Calcium 8.5 mg/dL (8.4-10.2); Carbon Dioxide 30 mmol/L (22-30); Chloride 101 mmol/L (98-107); Estimated CRCL calculation 77 ml/min; Estimated Glomerular Filt Rate > 60; Glucose 248 mg/dL (75-110); Potassium 3.7 mmol/L (3.4-5.0); Sodium 136 mmol/L (137-145)
[2019-09-16 07:57] LABS: Glucose Point of Care 248 (65-105)
--- NOTE | 2019-09-16 08:49 | WPDGIPROGNO ---
Progress Note: A&P Additional Plan Patient more alert and comfortable this morning. Tolerating diet. Minimal abdominal pain no bleeding evident. Physical exam reveals patient to be alert and oriented today. Abdomen is soft. Bowel sounds are present. Percutaneous drain in left upper quadrant persists. Impression 1. Intra-abdominal abscess. Etiology for abscess on clear. Plan to continue antibiotics. Drain management per surgical service. If no surgery anticipated GI endoscopy suggested in 1 month. Subjective Date/time seen: 09/16/19 08:49 Objective Data Vital Signs Vital Signs: Vital Signs - 24 hr 09/15/19 14:00 09/15/19 18:00 09/15/19 22:00 Temperature 36.6 C 36.7 C 36.7 C Pulse Rate 68 70 59 L Respiratory Rate 18 16 16 Blood Pressure 118/69 120/73 129/75 Pulse Oximetry 93 95 98 09/16/19 02:00 09/16/19 06:00 Temperature 36.3 C L 36.6 C Pulse Rate 58 L 54 L Respiratory Rate 16 16 Blood Pressure 134/81 153/78 H Pulse Oximetry 95 99 Intake/Output Intake/Output: Intake & Output 09/13/19 09/14/19 09/15/19 09/16/19 23:59 23:59 23:59 23:59 Intake Total 2690 1989 1860 550 Output Total 480 13 Balance 2210 1976 1860 550 Meds/Results Medications: Active Medications Generic Name Dose Route Start Last Admin Trade Name Freq PRN Reason Stop Dose Admin Acetaminophen 650 mg 09/09/19 23:29 09/14/19 13:05 Tylenol Tablet PO 650 mg QID PRN Administration Fever Hydrocodone Bitart/Acetaminophen 1 tab 09/10/19 15:18 09/13/19 18:18 [place] 7.5-325 Mg PO 1 tab Q6H PRN Administration pain not Relieved by Tylenol Acyclovir 800 mg 09/15/19 17:00 09/15/19 18:50 Zovirax Po PO 800 mg TID BALTAZAR Administration Allopurinol 100 mg 09/11/19 08:00 09/15/19 09:07 Zyloprim PO 100 mg DAILY@0800 BALTAZAR Administration Aspirin 81 mg 09/10/19 09:00 09/15/19 09:07 Aspirin Ec PO 81 mg DAILY BALTAZAR Administration Dextrose 12.5 gm 09/10/19 03:11 Dextrose 50% Syringe IV PUSH PRN PRN Hypoglycemia Protocol Glipizide 10 mg 09/14/19 16:30 09/15/19 17:30 Glucotrol PO 10 mg BIDAC BALTAZAR Administration Glucagon 1 mg 09/10/19 03:11 Glucagon For Inj IM PRN PRN Hypoglycemia Protocol Glucose 15 gm 09/10/19 03:11 Glutose 15 PO PRN PRN Hypoglycemia Protocol Dextrose 1,000 mls @ 100 mls/hr 09/10/19 03:11 Dextrose 5% 1,000 Ml IVPB PRN PRN Hypoglycemia Protocol Piperacillin/Tazobactam/Dextrose 3.375 gm in 50 mls @ 100 mls/hr 09/10/19 21:00 09/16/19 02:35 Zosyn 3.375 Gm/D5w 50ml Pm IVPB 100 mls/hr Q6H BALTAZAR Administration Ibuprofen 600 mg 09/14/19 14:23 09/16/19 02:39 Motrin PO 600 mg Q6H PRN Administration Cramping Insulin Aspart 3 - 6 units 09/10/19 08:00 09/15/19 17:37 Novolog SUB-Q 5 units TIDWM BALTAZAR Administration Protocol Insulin Glargine 8 units 09/15/19 21:00 09/15/19 20:32 Lantus SUB-Q 8 units HS BALTAZAR Administration Ondansetron HCl 4 mg 09/11/19 15:31 09/11/19 15:47 Zofran Inj IV PUSH 4 mg Q6H PRN Administration Nausea And Vomiting Pantoprazole Sodium 40 mg 09/10/19 09:00 09/15/19 09:08 Protonix PO 40 mg QAM BALTAZAR Administration Polyethylene Glycol 17 gm 09/14/19 17:00 09/15/19 17:29 Miralax PO 17 gm BID BALTAZAR Administration Psyllium Hydrophilic Mucilloid 1 packet 09/15/19 09:00 09/15/19 09:08 Metamucil Packet PO 1 packet QAM BALTAZAR Administration Radiology Results: ITS Impressions Head CT 09/09/19 21:09 IMPRESSION: 1. No acute intracranial findings. 2. Chronic age related findings. Chest X-Ray 09/09/19 21:12 IMPRESSION: No acute cardiopulmonary findings. Venous Doppler Study 09/10/19 16:24 IMPRESSION: 1. No lower extremity deep venous thrombosis bilaterally. Abdomen/Pelvis CT 09/10/19 16:31 IMPRESSION: Large abscess in mid m
[2019-09-16] MEDS: glipiZIDE 5 MG TABLET 10 MG PO ×2 (08:52→16:49)
[2019-09-16] MEDS: ACYCLOVIR 400 MG TABLET 800 MG PO ×3 (08:54→16:50)
[2019-09-16] MEDS: allopurinoL 100 MG TABLET PO (08:54)
[2019-09-16] MEDS: PSYLLIUM POWDER PACKET 1 PACKET PO (08:55)
[2019-09-16] MEDS: ASPIRIN 81 MG ENTERIC TABLET PO (08:55)
[2019-09-16] MEDS: PANTOPRAZOLE 40 MG TABLET PO (08:55)
[2019-09-16] MEDS: polyethylene glycoL 3350 17 GM POWD.PACK PO ×2 (08:56→16:51)
[2019-09-16] MEDS: INSULIN ASPART (*BKC) 100 UNITS/ML SUB-Q ×3 (09:07→16:57)
--- NOTE | 2019-09-16 10:26 | PM.PNGS ---
Progress Note: A&P Assessment and Plan (1) Intra-abdominal abscess: Onset Date: ~09/04/19 Code(s): K65.1 - Peritoneal abscess Status: Acute Assessment and Plan: Patient continues to clinically improve. WBC normal today and he is afebrile. Tolerating a soft diet and abdominal exam is benign, bowels are moving. Perc. drain output diminishing. SBFT on 09/13/19 showed no extravasation, jejunal diverticulum noted near the abscess which could be a possible source. GI also following and appreciate their recommendations. Will continue monitoring perc. drain output on suction and plan to repeat a CT scan abd/pelvis tomorrow. Growth of strep. milleri group from the cultures after percutaneous drainage. Continue IV abx per ID. (2) Bacteremia: Onset Date: ~09/04/19 Code(s): R78.81 - Bacteremia Status: Acute Assessment and Plan: Blood cultures showed growth of 2/2 strep constellatus. Continue IV Zosyn per ID. (3) Febrile illness: Onset Date: Unknown Code(s): R50.9 - Fever, unspecified Status: Acute Assessment and Plan: Now afebrile - resolved. Probably related to his intra-abdominal abscess (4) Diabetes mellitus: Onset Date: Unknown Qualifiers: Diabetes mellitus type: type 2 Diabetes mellitus credit compliance officer insulin use: without credit compliance officer use Diabetes mellitus complication status: without complication Qualified Code(s): E11.9 - Type 2 diabetes mellitus without complications Code(s): E11.9 - Type 2 diabetes mellitus without complications Status: Chronic (5) Diverticulosis of jejunum without diverticulitis: Onset Date: Unknown Code(s): K57.10 - Diverticulosis of small intestine without perforation or abscess without bleeding Status: Acute Additional Plan Formulated plan of care with Dr. Perez today. Subjective Subjective Date/Time Seen: 09/16/19 10:26 Patient reports: no new complaints, feels better, pain is less and bowel movement Interval history: Patient reports feeling better today with less abdominal pain. Denies any abd pain on my exam. Tolerating a soft diet without complaints. Reports he still feels bloated, but this has improved. Reports having a BM either last night or early this morning. No other complaints at this time. Review of Systems Review of Systems: All systems reviewed & are unremarkable except as noted in HPI and below Constitutional: Constitutional: Denies chills Gastrointestinal: Gastrointestinal: Reports bloating, Denies constipation, Denies diarrhea, Denies nausea and Denies vomiting Genitourinary: Genitourinary: Denies dysuria Exam Const: General: no acute distress, alert and awake Orientation/consciousness: patient oriented x3 GI: Inspection: non-distended GI Palp: Yes Soft to palpation, No Tenderness to palpation present (GI), No Guarding due to palpation present (GI) and No Rebound tenderness present Auscultation: normal bowel sounds Other: LLQ perc drain with light brown-cloudy output Skin: General skin exam: normal color Neuro: General: moves all extremities and no focal motor deficits Extrem: General: no calf tenderness and no edema Psych: Mental Status: mental status grossly normal Speech and movement: Normal speech and movement present Affect: normal affect Objective Data Vital Signs Vital Signs: Vital Signs - 24 hr 09/15/19 14:00 09/15/19 18:00 09/15/19 22:00 Temperature 36.6 C 36.7 C 36.7 C Pulse Rate 68 70 59 L Respiratory Rate 18 16 16 Blood Pressure 118/69 120/73 129/75 Pulse Oximetry 93 95 98 09/16/19 02:00 09/16/19 06:00 Temperature 36.3 C L 36.6 C Pulse Rate 58 L 54 L Respiratory Rate 16 16 Blood Pressure 134/81 153/78 H Pulse Oximetry 95 99 Intake/Output Intake/Output: Intake & Output 09/13/19 09/14/19 09/15/19 09/16/19 23:59 23:59 23:59 23:59 Intake Total 2689 1989 1860 840 Output Total 480 13 Balance 2209 1976 1860 840 Meds/Re
[2019-09-16 10:41] VITALS: BP 120/71; PULSE 59; RESP 16; TEMP 36.4; O2SAT 99
[2019-09-16 11:58] LABS: Glucose Point of Care 252 (65-105)
--- NOTE | 2019-09-16 13:03 | WPDINFPN2 ---
Progress Note: A&P Assessment and Plan (1) Bacteremia: Onset Date: ~09/04/19 Code(s): R78.81 - Bacteremia Status: Acute Assessment and Plan: 1. Strep constellatus bacteremia with infection, source is #2 2. Intra-abdominal abscess, GI source, POD #5 drain perc. Small bowel series no extravasation. WBC back down and 24 hour drain output zero. 3. DM, A1C 8.5%, indicative of fair control REC Glycemic control. PipTazo # 7 / 10 days (until 09/18), assuming that this is a perforated viscus. For repeat CT. Oral therapy anticipated thereafter. Subjective Date/time seen: 09/16/19 13:03 Interval history: no complaints, sleepy Exam Narrative: Exam Narrative: afebrile Const: General: no acute distress Resp: Effort & Inspection: normal respiratory effort Auscultation: clear to auscultation bilaterally Cardio: Rate: regular rate Rhythm: regular rhythm Heart sounds: no murmurs GI: Inspection: non-distended GI Palp: Yes Soft to palpation Percussion: Yes normal to percussion Skin: General skin exam: normal color and no rashes or lesions noted Objective Data Vital Signs Vital Signs: Vital Signs - 24 hr 09/15/19 14:00 09/15/19 18:00 09/15/19 22:00 Temperature 36.6 C 36.7 C 36.7 C Pulse Rate 68 70 59 L Respiratory Rate 18 16 16 Blood Pressure 118/69 120/73 129/75 Pulse Oximetry 93 95 98 09/16/19 02:00 09/16/19 06:00 09/16/19 10:41 Temperature 36.3 C L 36.6 C 36.4 C L Pulse Rate 58 L 54 L 59 L Respiratory Rate 16 16 16 Blood Pressure 134/81 153/78 H 120/71 Pulse Oximetry 95 99 99 Intake/Output Intake/Output: Intake & Output 09/13/19 09/14/19 09/15/19 09/16/19 23:59 23:59 23:59 23:59 Intake Total 0 1989 1860 890 Output Total 480 13 Balance 2209 1976 1860 890 Meds/Results Medications: Active Medications Generic Name Dose Route Start Last Admin Trade Name Freq PRN Reason Stop Dose Admin Acetaminophen 650 mg 09/09/19 23:29 09/14/19 13:05 Tylenol Tablet PO 650 mg QID PRN Administration Fever Hydrocodone Bitart/Acetaminophen 1 tab 09/10/19 15:18 09/13/19 18:18 [place] 7.5-325 Mg PO 1 tab Q6H PRN Administration pain not Relieved by Tylenol Acyclovir 800 mg 09/15/19 17:00 09/16/19 12:43 Zovirax Po PO 800 mg TID BALTAZAR Administration Allopurinol 100 mg 09/11/19 08:00 09/16/19 08:54 Zyloprim PO 100 mg DAILY@0800 BALTAZAR Administration Aspirin 81 mg 09/10/19 09:00 09/16/19 08:55 Aspirin Ec PO 81 mg DAILY BALTAZAR Administration Dextrose 12.5 gm 09/10/19 03:11 Dextrose 50% Syringe IV PUSH PRN PRN Hypoglycemia Protocol Glipizide 10 mg 09/14/19 16:30 09/16/19 08:52 Glucotrol PO 10 mg BIDAC BALTAZAR Administration Glucagon 1 mg 09/10/19 03:11 Glucagon For Inj IM PRN PRN Hypoglycemia Protocol Glucose 15 gm 09/10/19 03:11 Glutose 15 PO PRN PRN Hypoglycemia Protocol Dextrose 1,000 mls @ 100 mls/hr 09/10/19 03:11 Dextrose 5% 1,000 Ml IVPB PRN PRN Hypoglycemia Protocol Piperacillin/Tazobactam/Dextrose 3.375 gm in 50 mls @ 100 mls/hr 09/10/19 21:00 09/16/19 12:36 Zosyn 3.375 Gm/D5w 50ml Pm IVPB Infused Q6H BALTAZAR Infusion Ibuprofen 600 mg 09/14/19 14:23 09/16/19 08:59 Motrin PO 600 mg Q6H PRN Administration Cramping Insulin Aspart 3 - 6 units 09/10/19 08:00 09/16/19 12:39 Novolog SUB-Q 4 units TIDWM BALTAZAR Administration Protocol Insulin Glargine 8 units 09/15/19 21:00 09/15/19 20:32 Lantus SUB-Q 8 units HS BALTAZAR Administration Ondansetron HCl 4 mg 09/11/19 15:31 09/11/19 15:47 Zofran Inj IV PUSH 4 mg Q6H PRN Administration Nausea And Vomiting Pantoprazole Sodium 40 mg 09/10/19 09:00 09/16/19 08:55 Protonix PO 40 mg QAM BALTAZAR Administration Polyethylene Glycol 17 gm 09/14/19 17:00 09/16/19 08:56 Miralax PO 17 gm BID [facility] Administratio
[2019-09-16 13:40] VITALS: BP 150/91; PULSE 57; RESP 18; O2SAT 97
--- NOTE | 2019-09-16 13:54 | PM.IMPN ---
Progress Note: A&P Assessment and Plan (1) Intra-abdominal abscess: Onset Date: ~09/04/19 Code(s): K65.1 - Peritoneal abscess Status: Acute Assessment and Plan: -----CT shows a large abscess which was likely the cause of his rigors and abdominal pain. Drain placed 09/10. Patient's blood cultures positive for strep constellatus but abscess culture + for strep millieri group. Dr. dunne consulted and recommends antibiotics through 09/12. . WBC improved 10.5. Plan for GI scope outpatient (2) Acute encephalopathy: Code(s): G93.40 - Encephalopathy, unspecified Status: Resolved Assessment and Plan: -----Resolved with no reoccurance. Likely secondary to fever and febrile illness. The patient appears to be back to his baseline. CT brain was unremarkable. (3) Acidosis, lactic: Code(s): E87.2 - Acidosis Status: Acute Assessment and Plan: -----Resolved. Likely secondary to infection as stated above. (4) Diabetes mellitus: Onset Date: Unknown Qualifiers: Diabetes mellitus type: type 2 Diabetes mellitus usp insulin use: without exterminator helper termite use Diabetes mellitus complication status: without complication Qualified Code(s): E11.9 - Type 2 diabetes mellitus without complications Code(s): E11.9 - Type 2 diabetes mellitus without complications Status: Chronic Assessment and Plan: -----last glucose 252. Continue glipizide and continue to hold metformin. Lantus started last night to help with his glycemic control while hospitalized. Continue sliding scale insulin. (5) Bacteremia: Onset Date: ~09/04/19 Code(s): R78.81 - Bacteremia Status: Acute Assessment and Plan: -----secondary to abscess. Continue Zosyn through 09/18 and transition to oral antibiotics thereafter. Patient is feeling much better (6) HSV (herpes simplex virus) infection: Code(s): B00.9 - Herpesviral infection, unspecified Status: Acute Assessment and Plan: -----acute on chronic. Pt has had issues for over 10 years on and off. acyclovir started Subjective Date/time seen: 09/16/19 13:54 Interval history: Pt is a 69-year-old male here for abdominal abscess. Patient was seen today and is having less pain today and feels better than he has in a while. He is eating and drinking without intense abdominal pain. He has had a bowel movement without any issue. He denies nausea, vomiting, fevers, chills, chest pain, shortness of breath, or leg swelling. Exam Narrative: Exam Narrative: General: Well-developed well-nourished patient resting comfortably in bed in no acute distress HEENT: normocephalic Neck: supple Neuro: Alert and oriented x4 CV:RRR Resp:CTA--no crackles or rhonchi Abd: Soft, non distended. Pain to palpation to the umbilicus area. Drain intact with kaur/brown scanty discharge. Extremities: No swelling, erythema, or pain to palpation. Skin: HSV outbreak at the gluteal cleft Objective Data Vital Signs Vital Signs: Vital Signs - 24 hr 09/15/19 14:00 09/15/19 18:00 09/15/19 22:00 Temperature 97.8 F 98.0 F 98.1 F Pulse Rate 68 70 59 L Respiratory Rate 18 16 16 Blood Pressure 118/69 120/73 129/75 Pulse Oximetry 93 95 98 09/16/19 02:00 09/16/19 06:00 09/16/19 10:41 Temperature 97.4 F L 97.9 F 97.5 F L Pulse Rate 58 L 54 L 59 L Respiratory Rate 16 16 16 Blood Pressure 134/81 153/78 H 120/71 Pulse Oximetry 95 99 99 Intake/Output Intake/Output: Intake & Output 09/13/19 09/14/19 09/15/19 09/16/19 23:59 23:59 23:59 23:59 Intake Total 0 1989 186 1130 Output Total 480 13 Balance 2210 1976 1860 1130 Meds/Results Medications: Active Medications Generic Name Dose Route Start Last Admin Trade Name Freq PRN Reason Stop Dose Admin Acetaminophen 650 mg 09/09/19 23:29 09/14/19 13:05 Tylenol Tablet PO 650 mg QID PRN Administration
[2019-09-16 20:29] LABS: Glucose Point of Care 281 (65-105)
[2019-09-16 22:00] VITALS: BP 134/74; PULSE 56; RESP 20; TEMP 36.3; O2SAT 99
[2019-09-16] MEDS: INSULIN GLARGINE (*BKC) 100 UNITS/ML 8 UNITS SUB-Q (22:27)
[2019-09-16 23:14] LABS: Glucose Point of Care 219 (65-105)
[2019-09-17] VITALS (14 sets, daily range): BP systolic 138–161; BP diastolic 71–118; PULSE 52–60; RESP 16–20; TEMP 36.5–36.9; O2SAT 96–100
[2019-09-17] MEDS: IBUPROFEN 600 MG TABLET PO ×2 (01:00→23:11)
[2019-09-17 05:26] LABS: Basophils Absolute Auto 0.1 K/mm3 (0.0-0.1); Basophils Percent Auto 0.8 % (0.2-1.2); Eosinophils Absolute Auto 0.2 K/mm3 (0-0.3); Hematocrit 35.7 % (42.0-52.0); Immature Granulocyte Absolute 0.54 K/mm3 (0.00-0.031); Immature Granulocyte Percent A 5.1 % (0-0.5); Lymphocytes Absolute Auto 1.47 K/mm3 (0.9-3.2); Lymphocytes Percent Auto 13.8 % (18.3-44.2); Mean Corpuscular HGB Conc 33.6 g/dl (32-36); Mean Corpuscular Hemoglobin 29.5 pg (26-34); Mean Corpuscular Volume 87.7 fl (80-100); Mean Platelet Volume 9.8 fl (7.4-10.4); Monocytes Absolute Auto 0.7 K/mm3 (0.1-0.6); Monocytes Percent Auto 6.5 % (2.6-8.5); Neutrophils Absolute Auto 7.6 K/mm3 (1.3-6.7); Neutrophils Percent Auto 71.8 % (45.5-73.1); Platelet Count Result 477 k/mm3 (150-375); Red Blood Count 4.07 M/mm3 (4.6-6.20); White Blood Count 10.6 K/mm3 (4.5-10.0)
[2019-09-17 05:50] LABS: Alanine Aminotransferase 31 U/L (4-50); Alkaline Phosphatase 90 U/L (38-126); Aspartate Amino Transferase 27 U/L (17-59); Bilirubin,Total 0.3 mg/dL (0.2-1.3); Blood Urea Nitrogen 11 mg/dL (9-20); Calcium 8.7 mg/dL (8.4-10.2); Carbon Dioxide 30 mmol/L (22-30); Chloride 101 mmol/L (98-107); Estimated CRCL calculation 86 ml/min; Estimated Glomerular Filt Rate > 60; Glucose 229 mg/dL (75-110); Potassium 3.7 mmol/L (3.4-5.0); Sodium 135 mmol/L (137-145)
[2019-09-17 06:15] LABS: CRP 2.3 mg/dL (<1.0)
--- NOTE | 2019-09-17 07:46 | WPDGIPROGNO ---
Progress Note: A&P Additional Plan Patient alert and unchanged today. His abdomen remains soft and nontender. Patient tolerating diet at this time. Physical exam reveals patient to be alert. Vital signs stable. He is afebrile. Anicteric. Abdomen is soft and nontender. Drain in left upper quadrant remains. Impression 1. Intra-abdominal abscess. Etiology remains unclear. Improving on antibiotics with percutaneous drain. Plan is for follow-up CT scan anticipated today. Continue antibiotics. Surgical follow-up. Subjective Date/time seen: 09/17/19 07:46 Objective Data Vital Signs Vital Signs: Vital Signs - 24 hr 09/16/19 10:41 09/16/19 22:00 09/17/19 02:00 Temperature 36.4 C L 36.3 C L 36.7 C Pulse Rate 59 L 56 L 58 L Respiratory Rate 16 20 20 Blood Pressure 120/71 134/74 138/72 Pulse Oximetry 99 99 96 09/17/19 06:00 Temperature 36.5 C Pulse Rate 20 L Respiratory Rate 52 H Blood Pressure 152/74 H Pulse Oximetry 98 Intake/Output Intake/Output: Intake & Output 09/14/19 09/15/19 09/16/19 09/17/19 23:59 23:59 23:59 23:59 Intake Total 1989 1860 1780 300 Output Total 13 280 200 Balance 1976 1860 1500 100 Meds/Results Medications: Active Medications Generic Name Dose Route Start Last Admin Trade Name Freq PRN Reason Stop Dose Admin Acetaminophen 650 mg 09/09/19 23:29 09/14/19 13:05 Tylenol Tablet PO 650 mg QID PRN Administration Fever Hydrocodone Bitart/Acetaminophen 1 tab 09/10/19 15:18 09/13/19 18:18 [place] 7.5-325 Mg PO 1 tab Q6H PRN Administration pain not Relieved by Tylenol Acyclovir 800 mg 09/15/19 17:00 09/16/19 16:50 Zovirax Po PO 800 mg TID BALTAZAR Administration Allopurinol 100 mg 09/11/19 08:00 09/16/19 08:54 Zyloprim PO 100 mg DAILY@0800 BALTAZAR Administration Aspirin 81 mg 09/10/19 09:00 09/16/19 08:55 Aspirin Ec PO 81 mg DAILY BALTAZAR Administration Dextrose 12.5 gm 09/10/19 03:11 Dextrose 50% Syringe IV PUSH PRN PRN Hypoglycemia Protocol Glipizide 10 mg 09/14/19 16:30 09/16/19 16:49 Glucotrol PO 10 mg BIDAC BALTAZAR Administration Glucagon 1 mg 09/10/19 03:11 Glucagon For Inj IM PRN PRN Hypoglycemia Protocol Glucose 15 gm 09/10/19 03:11 Glutose 15 PO PRN PRN Hypoglycemia Protocol Dextrose 1,000 mls @ 100 mls/hr 09/10/19 03:11 Dextrose 5% 1,000 Ml IVPB PRN PRN Hypoglycemia Protocol Piperacillin/Tazobactam/Dextrose 3.375 gm in 50 mls @ 100 mls/hr 09/10/19 21:00 09/17/19 03:45 Zosyn 3.375 Gm/D5w 50ml Pm IVPB 100 mls/hr Q6H BALTAZAR Administration Ibuprofen 600 mg 09/14/19 14:23 09/17/19 01:00 Motrin PO 600 mg Q6H PRN Administration Cramping Insulin Aspart 3 - 6 units 09/10/19 08:00 09/16/19 16:57 Novolog SUB-Q 4 units TIDWM BALTAZAR Administration Protocol Insulin Glargine 8 units 09/15/19 21:00 09/16/19 22:27 Lantus SUB-Q 8 units HS BALTAZAR Administration Ondansetron HCl 4 mg 09/11/19 15:31 09/11/19 15:47 Zofran Inj IV PUSH 4 mg Q6H PRN Administration Nausea And Vomiting Pantoprazole Sodium 40 mg 09/10/19 09:00 09/16/19 08:55 Protonix PO 40 mg QAM BALTAZAR Administration Polyethylene Glycol 17 gm 09/14/19 17:00 09/16/19 16:51 Miralax PO 17 gm BID BALTAZAR Administration Psyllium Hydrophilic Mucilloid 1 packet 09/15/19 09:00 09/16/19 08:55 Metamucil Packet PO 1 packet QAM BALTAZAR Administration Radiology Results: ITS Impressions Head CT 09/09/19 21:09 IMPRESSION: 1. No acute intracranial findings. 2. Chronic age related findings. Chest X-Ray 09/09/19 21:12 IMPRESSION: No acute cardiopulmonary findings. Venous Doppler Study 09/10/19 16:24 IMPRESSION: 1. No lower extremity deep venous thrombosis bilaterally. Abdomen/Pelvis CT 09/10/19 16:31 IMPRESSION: Large abscess in mid mesentery lef
[2019-09-17 09:29] LABS: Glucose Point of Care 217 (65-105)
--- NOTE | 2019-09-17 10:20 | PM.PNGS ---
Progress Note: A&P Assessment and Plan (1) Pelvic abscess in male: Code(s): K65.1 - Peritoneal abscess Status: Acute Assessment and Plan: cont abx, will setup for perc drainage (2) Intra-abdominal abscess: Onset Date: ~09/04/19 Code(s): K65.1 - Peritoneal abscess Status: Acute Assessment and Plan: largely resolved, cont drain, abx (3) Diabetes mellitus: Onset Date: Unknown Qualifiers: Diabetes mellitus type: type 2 Diabetes mellitus senior living insulin use: without senior living use Diabetes mellitus complication status: without complication Qualified Code(s): E11.9 - Type 2 diabetes mellitus without complications Code(s): E11.9 - Type 2 diabetes mellitus without complications Status: Chronic Assessment and Plan: cont mgmt per primary team Subjective Subjective Date/Time Seen: 09/17/19 10:20 Pt feels ok, reports currently he has no pain. Pt reports intermittent episodes of sharp pain/pressure in lower abdomen. Pt nahum diet and having bowel fxn. Review of Systems Constitutional: Constitutional: Denies chills and Reports fatigue Cardiovascular: Cardiovascular: Denies chest pain and Denies palpitations Respiratory: Respiratory: Denies dyspnea Gastrointestinal: Gastrointestinal: Reports abdominal pain, Denies bloating, Denies constipation, Denies diarrhea, Denies nausea and Denies vomiting Exam Const: General: no acute distress Resp: Auscultation: clear to auscultation bilaterally Cardio: Rate: regular rate Rhythm: regular rhythm GI: Other: S, sl dist, mild TTP suprapubic Objective Data Vital Signs Vital Signs: Vital Signs - 24 hr 09/16/19 10:41 09/16/19 22:00 09/17/19 02:00 Temperature 36.4 C L 36.3 C L 36.7 C Pulse Rate 59 L 56 L 58 L Respiratory Rate 16 20 20 Blood Pressure 120/71 134/74 138/72 Pulse Oximetry 99 99 96 09/17/19 06:00 Temperature 36.5 C Pulse Rate 52 L Respiratory Rate 20 Blood Pressure 152/74 H Pulse Oximetry 98 Intake/Output Intake/Output: Intake & Output 09/14/19 09/15/19 09/16/19 09/17/19 23:59 23:59 23:59 23:59 Intake Total 19890 1780 388 Output Total 13 280 455 Balance 1976 1859 1500 -67 Meds/Results Medications: Active Medications Generic Name Dose Route Start Last Admin Trade Name Freq PRN Reason Stop Dose Admin Acetaminophen 650 mg 09/09/19 23:29 09/14/19 13:05 Tylenol Tablet PO 650 mg QID PRN Administration Fever Hydrocodone Bitart/Acetaminophen 1 tab 09/10/19 15:18 09/13/19 18:18 [place] 7.5-325 Mg PO 1 tab Q6H PRN Administration pain not Relieved by Tylenol Acyclovir 800 mg 09/15/19 17:00 09/16/19 16:50 Zovirax Po PO 800 mg TID BALTAZAR Administration Allopurinol 100 mg 09/11/19 08:00 09/16/19 08:54 Zyloprim PO 100 mg DAILY@0800 BALTAZAR Administration Aspirin 81 mg 09/10/19 09:00 09/16/19 08:55 Aspirin Ec PO 81 mg DAILY BALTAZAR Administration Dextrose 12.5 gm 09/10/19 03:11 Dextrose 50% Syringe IV PUSH PRN PRN Hypoglycemia Protocol Glipizide 10 mg 09/14/19 16:30 09/16/19 16:49 Glucotrol PO 10 mg BIDAC BALTAZAR Administration Glucagon 1 mg 09/10/19 03:11 Glucagon For Inj IM PRN PRN Hypoglycemia Protocol Glucose 15 gm 09/10/19 03:11 Glutose 15 PO PRN PRN Hypoglycemia Protocol Dextrose 1,000 mls @ 100 mls/hr 09/10/19 03:11 Dextrose 5% 1,000 Ml IVPB PRN PRN Hypoglycemia Protocol Piperacillin/Tazobactam/Dextrose 3.375 gm in 50 mls @ 100 mls/hr 09/10/19 21:00 09/17/19 09:15 Zosyn 3.375 Gm/D5w 50ml Pm IVPB Infused Q6H BALTAZAR Infusion Ibuprofen 600 mg 09/14/19 14:23 09/17/19 01:00 Motrin PO 600 mg Q6H PRN Administration Cramping Insulin Aspart 3 - 6 units 09/10/19 08:00 09/16/19 16:57 Novolog SUB-Q 4 units TIDWM BALTAZAR Administration Protocol Insulin Glargine 8 units 09/14
--- NOTE | 2019-09-17 12:39 | PM.IMPN ---
Progress Note: A&P Assessment and Plan (1) Intra-abdominal abscess: Onset Date: ~09/04/19 Code(s): K65.1 - Peritoneal abscess Status: Acute Assessment and Plan: Perc drain placed in intra-abdominal abscess 09/10. Unfortunately repeat CT this AM shows interval development of a new 9cm pelvic abscess. General surgery following - appreciate further recommendations. Noted plan for additional perc drain today for the new abscess. Dr English following as well - appreciate input. Currently he continues on Zosyn (day 8 ). (2) Acute encephalopathy: Code(s): G93.40 - Encephalopathy, unspecified Status: Resolved Assessment and Plan: Resolved with no reoccurrence. Likely secondary to febrile illness. The patient appears to be back to his baseline. CT brain with no acute findings. (3) Acidosis, lactic: Code(s): E87.2 - Acidosis Status: Resolved Assessment and Plan: Resolved. Likely secondary to infection as stated above. (4) Diabetes mellitus: Onset Date: Unknown Qualifiers: Diabetes mellitus complication status: without complication Diabetes mellitus intermediate insulin use: without buttermaker continuous churn use Diabetes mellitus type: type 2 Qualified Code(s): E11.9 - Type 2 diabetes mellitus without complications Code(s): E11.9 - Type 2 diabetes mellitus without complications Status: Chronic Assessment and Plan: Glucoses still in 200s. He remains on his home glipizide and his home metformin is held. He was started on Lantus here, increase this tonight for tighter glycemic control. Continue to monitor with accu-cheks and cover with SSI. (5) Bacteremia: Onset Date: ~09/04/19 Code(s): R78.81 - Bacteremia Status: Acute Assessment and Plan: Secondary to above. Blood cultures grew Strep constellatus, abscess #1 culture grew Strep milleri. Recommend sending today's new abscess fluid for gram stain and culture as well. Appreciate Dr English's recommendations - Continue IV Zosyn (day 8 of 10) through 09/19/19. (6) HSV (herpes simplex virus) infection: Code(s): B00.9 - Herpesviral infection, unspecified Status: Acute Assessment and Plan: Current flare. Acute on chronic, for over 10 years. Acyclovir started 09/14. Subjective Date/time seen: 09/17/19 12:15 Interval history: Mr. Chawla is a 69yo M admitted for abdominal abscesses. Unfortunately his repeat CT scan this morning shows interval development of a new pelvic abscess and will be going down for a second perc drain this afternoon. He feels well. He describes some sharp mid abdominal pain last evening that would last a few minutes then go away. He reports he is not having any of that pain this morning; no nausea or vomiting. He denies chest pain, shortness of breath, or calf tenderness. Review of Systems Review of Systems: Narrative: Twelve systems were reviewed with pertinent positives and negatives as per HPI. Exam Narrative: Exam Narrative: General: Male resting supine in bed in no acute distress. HEENT: Normocephalic, EOMI, oral mucosa moist. Cardiovascular: Rate and rhythm are regular. Respiratory: Lungs clear to auscultation all croft. Respirations even and nonlabored. Abdomen: Soft, non-distended, perc drain to left lower abdomen in place, non-tender, bowel sounds present. Extremities: Peripheral pulses intact. No edema. Neuro: No focal neurological deficits. Speech is clear. Objective Data Vital Signs Vital Signs: Last Vital Signs Temp 97.9 F 09/17/19 10:00 Pulse 60 09/17/19 10:00 Resp 18 09/17/19 10:00 BP 147/71 H 09/17/19 10:00 Pulse Ox 98 09/17/19 10:00 Intake/Output Intake/Output: Intake & Output 09/14/19 09/15/19 09/16/19 0
[2019-09-17 12:48] LABS: Glucose Point of Care 220 (65-105)
--- NOTE | 2019-09-17 12:50 | WPDINFPN2 ---
Progress Note: A&P Assessment and Plan (1) Bacteremia: Onset Date: ~09/04/19 Code(s): R78.81 - Bacteremia Status: Acute Assessment and Plan: 1. Strep constellatus bacteremia with infection, source is #2 2. Intra-abdominal abscess, GI source, POD #6 drain perc. WBC back up. CT shows new developement pelvic fluid collections. 3. DM, A1C 8.5%, indicative of fair control REC Glycemic control. PipTazo # 8 / 10 days (until 09/18), assuming that this is a perforated viscus. General Surgery to decide on any additional drains or surgical intervention. Subjective Date/time seen: 09/17/19 12:50 Interval history: sharp periumbilical pain last pM, lasting 1 1/2 minutes at a time, no aggravating nor relieving factors. Appetite ok Exam Narrative: Exam Narrative: afebrile Const: General: no acute distress Resp: Effort & Inspection: normal respiratory effort Auscultation: clear to auscultation bilaterally Cardio: Rate: regular rate Rhythm: regular rhythm Heart sounds: no gallops and no murmurs GI: Inspection: non-distended GI Palp: Yes Soft to palpation and No Tenderness to palpation present (GI) Auscultation: normal bowel sounds Objective Data Vital Signs Vital Signs: Vital Signs - 24 hr 09/16/19 22:00 09/17/19 02:00 09/17/19 06:00 Temperature 36.3 C L 36.7 C 36.5 C Pulse Rate 56 L 58 L 52 L Respiratory Rate 20 20 20 Blood Pressure 134/74 138/72 152/74 H Pulse Oximetry 99 96 98 09/17/19 10:00 Temperature 36.6 C Pulse Rate 60 Respiratory Rate 18 Blood Pressure 147/71 H Pulse Oximetry 98 Intake/Output Intake/Output: Intake & Output 09/14/19 09/15/19 09/16/19 09/17/19 23:59 23:59 23:59 23:59 Intake Total 1989 1859 1780 388 Output Total 13 280 455 Balance 1976 1859 1500 -67 Meds/Results Medications: Active Medications Generic Name Dose Route Start Last Admin Trade Name Freq PRN Reason Stop Dose Admin Acetaminophen 650 mg 09/09/19 23:29 09/14/19 13:05 Tylenol Tablet PO 650 mg QID PRN Administration Fever Hydrocodone Bitart/Acetaminophen 1 tab 09/10/19 15:18 09/13/19 18:18 [place] 7.5-325 Mg PO 1 tab Q6H PRN Administration pain not Relieved by Tylenol Acyclovir 800 mg 09/15/19 17:00 09/16/19 16:50 Zovirax Po PO 800 mg TID BALTAZAR Administration Allopurinol 100 mg 09/11/19 08:00 09/16/19 08:54 Zyloprim PO 100 mg DAILY@0800 BALTAZAR Administration Aspirin 81 mg 09/10/19 09:00 09/16/19 08:55 Aspirin Ec PO 81 mg DAILY BALTAZAR Administration Dextrose 12.5 gm 09/10/19 03:11 Dextrose 50% Syringe IV PUSH PRN PRN Hypoglycemia Protocol Glipizide 10 mg 09/14/19 16:30 09/17/19 12:38 Glucotrol PO Not Given BIDAC BALTAZAR Glucagon 1 mg 09/10/19 03:11 Glucagon For Inj IM PRN PRN Hypoglycemia Protocol Glucose 15 gm 09/10/19 03:11 Glutose 15 PO PRN PRN Hypoglycemia Protocol Dextrose 1,000 mls @ 100 mls/hr 09/10/19 03:11 Dextrose 5% 1,000 Ml IVPB PRN PRN Hypoglycemia Protocol Piperacillin/Tazobactam/Dextrose 3.375 gm in 50 mls @ 100 mls/hr 09/10/19 21:00 09/17/19 09:15 Zosyn 3.375 Gm/D5w 50ml Pm IVPB Infused Q6H [facility] Infusion Ibuprofen 600 mg 09/14/19 14:23 09/17/19 01:00 Motrin PO 600 mg Q6H PRN Administration Cramping Insulin Aspart 3 - 6 units 09/10/19 08:00 09/17/19 08:44 Novolog SUB-Q Not Given TIDWM [facility] Protocol Insulin Glargine 8 units 09/15/19 21:00 09/16/19 22:27 Lantus SUB-Q 8 units HS BALTAZAR Administration Ondansetron HCl 4 mg 09/11/19 15:31 09/11/19 15:47 Zofran Inj IV PUSH 4 mg Q6H PRN Administration Nausea And Vomiting Pantoprazole Sodium 40 mg 09/10/19 09:00 05/04/20 08:55 Protonix PO 40 mg QAM BALTAZAR Administration Polyethylene Glycol 17 gm 09/14/19 17:00 09/16/19 16:51 Miralax PO 17 gm BID BALTAZAR Administration Psyllium H
[2019-09-17] MEDS: ACYCLOVIR 400 MG TABLET 800 MG PO ×3 (15:15→23:19)
--- NOTE | 2019-09-17 15:30 | PCDIET ---
Nutrition Follow-Up Complete: Inadequate Oral Intake as related to Fever/COVID pending as evidenced by weight loss of 10 ibs and poor po intake. adequate Intake of at least 75% of meals/supplements Goal:Goal met. Continue with current goal. Pt current nutrition is NPO. Nutrition recommendation: Agree. Recommend ADAT to CC when medically appropriate Last recorded weight is 82.9 kg (recommend new wt/ unchanged since admission) Bowel Motility: 5/5 BM+ Labs Reviewed:Glucose 220, C reactive 2.3, Protein 6.0, Na 135 Meds Noted:Zosyn, Miralax, metamucil, Protonix Additional Notes: Pt states his appetite is fair. Currently NPO as he just got back from surgery. POD#6 of drain placement for abscess. Additional abscess found. Pt has been eating at average of 78% of meals. No new wt to access if PO intake sufficient. Recommend new wt. Pt would like Glucerna BID. Order placed to start when diet advances. Glucerna includes low glycemic carbohydrates to help minimize blood sugar spikes and provides 180 kcal, 10g protein, 16g CHO, and 26 vitamins and minerals per 8oz serving. We will continue to monitor intake, labs, and weight every five days.
[2019-09-17] MEDS: glipiZIDE 5 MG TABLET 10 MG PO (16:49)
[2019-09-17] MEDS: allopurinoL 100 MG TABLET PO (17:12)
[2019-09-17] MEDS: PANTOPRAZOLE 40 MG TABLET PO (17:12)
[2019-09-17] MEDS: ASPIRIN 81 MG ENTERIC TABLET PO (17:12)
[2019-09-17 17:20] LABS: Glucose Point of Care 173 (65-105)
[2019-09-17] MEDS: polyethylene glycoL 3350 17 GM POWD.PACK PO (18:04)
[2019-09-17] MEDS: INSULIN GLARGINE (*BKC) 100 UNITS/ML 12 UNITS SUB-Q (22:01)
[2019-09-17 23:21] LABS: Glucose Point of Care 285 (65-105)
[2019-09-18 02:00] VITALS: BP 149/78; PULSE 47; RESP 16; TEMP 36.6; O2SAT 99
[2019-09-18 05:30] LABS: Basophils Absolute Auto 0.1 K/mm3 (0.0-0.1); Eosinophils Absolute Auto 0.2 K/mm3 (0-0.3); Eosinophils Percent Auto 1.7 % (0-4.4); Hematocrit 38.6 % (42.0-52.0); Hemoglobin 13.1 g/dL (14.0-18.0); Immature Granulocyte Absolute 0.41 K/mm3 (0.00-0.031); Lymphocytes Percent Auto 16.4 % (18.3-44.2); Mean Corpuscular HGB Conc 33.9 g/dl (32-36); Mean Corpuscular Hemoglobin 29.8 pg (26-34); Mean Corpuscular Volume 87.9 fl (80-100); Mean Platelet Volume 9.7 fl (7.4-10.4); Monocytes Absolute Auto 0.8 K/mm3 (0.1-0.6); Monocytes Percent Auto 8.1 % (2.6-8.5); Neutrophils Absolute Auto 7.1 K/mm3 (1.3-6.7); Neutrophils Percent Auto 68.8 % (45.5-73.1); Platelet Count Result 524 k/mm3 (150-375); Red Blood Count 4.39 M/mm3 (4.6-6.20); White Blood Count 10.4 K/mm3 (4.5-10.0)
[2019-09-18 05:37] VITALS: BP 133/71; PULSE 47; RESP 18; TEMP 36.5; O2SAT 98
[2019-09-18 05:37] LABS: Alanine Aminotransferase 29 U/L (4-50); Albumin Level 3.1 g/dL (3.5-5.1); Alkaline Phosphatase 90 U/L (38-126); Aspartate Amino Transferase 27 U/L (17-59); Bilirubin,Total 0.3 mg/dL (0.2-1.3); Blood Urea Nitrogen 10 mg/dL (9-20); Calcium 8.6 mg/dL (8.4-10.2); Carbon Dioxide 29 mmol/L (22-30); Chloride 102 mmol/L (98-107); Estimated CRCL calculation 86 ml/min; Estimated Glomerular Filt Rate > 60; Glucose 181 mg/dL (75-110); Magnesium 1.8 mg/dL (1.6-2.3); Phosphorus 3.6 mg/dL (2.5-4.5); Potassium 3.9 mmol/L (3.4-5.0); Sodium 137 mmol/L (137-145)
[2019-09-18] MEDS: glipiZIDE 5 MG TABLET 10 MG PO ×2 (06:51→16:48)
[2019-09-18 08:01] LABS: Glucose Point of Care 169 (65-105)
[2019-09-18] MEDS: PSYLLIUM POWDER PACKET 1 PACKET PO (08:49)
[2019-09-18] MEDS: polyethylene glycoL 3350 17 GM POWD.PACK PO (08:49)
[2019-09-18] MEDS: ACYCLOVIR 400 MG TABLET 800 MG PO ×3 (08:50→17:38)
[2019-09-18] MEDS: ASPIRIN 81 MG ENTERIC TABLET PO (08:50)
[2019-09-18] MEDS: PANTOPRAZOLE 40 MG TABLET PO (08:50)
[2019-09-18] MEDS: allopurinoL 100 MG TABLET PO (08:50)
--- NOTE | 2019-09-18 10:10 | WPDGIPROGNO ---
Progress Note: A&P Additional Plan Patient remains comfortable. Tolerating diet. Denies significant abdominal pain. Additional CT-guided drains were placed yesterday. Physical exam reveals him to be alert. Afebrile. HEENT exam is anicteric. Lungs are clear. Heart without murmur. Abdomen is soft nontender. Several percutaneous drains are noted in place. CT scan suggest additional abscesses within the abdominal cavity. And mesentery. Some in the pelvis. Impression 1. Intra-abdominal abscesses. Additional abscesses identified by CT scan. Additional drains were placed. Etiology unclear but diverticulitis and ulcer disease are on the list of possible is. Plan is to continue antibiotics per ID service. Intra-abdominal percutaneous drains will be followed by surgery. I would suggest follow-up GI endoscopy in a month if no surgery planned. Subjective Date/time seen: 09/18/19 10:10 Objective Data Vital Signs Vital Signs: Vital Signs - 24 hr 09/17/19 13:50 09/17/19 13:55 09/17/19 14:00 Temperature 36.6 C Pulse Rate 57 L 58 L 57 L Respiratory Rate 16 18 17 Blood Pressure 142/82 H 150/78 H 149/79 H Pulse Oximetry 98 100 100 09/17/19 14:05 09/17/19 14:10 09/17/19 14:15 Temperature Pulse Rate 56 L 59 L 59 L Respiratory Rate 18 19 18 Blood Pressure 149/77 H 152/118 H 161/86 H Pulse Oximetry 100 100 100 09/17/19 14:20 09/17/19 14:25 09/17/19 14:40 Temperature Pulse Rate 59 L 58 L 59 L Respiratory Rate 16 18 16 Blood Pressure 148/81 H 151/84 H 148/88 H Pulse Oximetry 100 100 99 09/17/19 15:05 09/17/19 21:49 09/18/19 02:00 Temperature 36.7 C 36.9 C 36.6 C Pulse Rate 56 L 56 L 47 L Respiratory Rate 16 18 16 Blood Pressure 146/73 H 145/78 H 149/78 H Pulse Oximetry 99 98 99 09/18/19 05:37 Temperature 36.5 C Pulse Rate 47 L Respiratory Rate 18 Blood Pressure 133/71 Pulse Oximetry 98 Intake/Output Intake/Output: Intake & Output 09/15/19 09/16/19 09/17/19 09/18/19 23:59 23:59 23:59 23:59 Intake Total 1860 1780 1078 540 Output Total 280 750 365 Balance 1860 1500 328 175 Meds/Results Medications: Active Medications Generic Name Dose Route Start Last Admin Trade Name Freq PRN Reason Stop Dose Admin Acetaminophen 650 mg 09/09/19 23:29 09/14/19 13:05 Tylenol Tablet PO 650 mg QID PRN Administration Fever Hydrocodone Bitart/Acetaminophen 1 tab 09/10/19 15:18 09/13/19 18:18 [place] 7.5-325 Mg PO 1 tab Q6H PRN Administration pain not Relieved by Tylenol Acyclovir 800 mg 09/15/19 17:00 09/18/19 08:50 Zovirax Po PO 800 mg TID BALTAZAR Administration Allopurinol 100 mg 09/11/19 08:00 09/18/19 08:50 Zyloprim PO 100 mg DAILY@0800 BALTAZAR Administration Aspirin 81 mg 09/10/19 09:00 09/18/19 08:50 Aspirin Ec PO 81 mg DAILY BALTAZAR Administration Dextrose 12.5 gm 09/10/19 03:11 Dextrose 50% Syringe IV PUSH PRN PRN Hypoglycemia Protocol Glipizide 10 mg 09/14/19 16:30 09/18/19 06:51 Glucotrol PO 10 mg BIDAC BALTAZAR Administration Glucagon 1 mg 09/10/19 03:11 Glucagon For Inj IM PRN PRN Hypoglycemia Protocol Glucose 15 gm 09/10/19 03:11 Glutose 15 PO PRN PRN Hypoglycemia Protocol Dextrose 1,000 mls @ 100 mls/hr 09/10/19 03:11 Dextrose 5% 1,000 Ml IVPB PRN PRN Hypoglycemia Protocol Piperacillin/Tazobactam/Dextrose 3.375 gm in 50 mls @ 100 mls/hr 09/10/19 21:00 09/18/19 08:49 Zosyn 3.375 Gm/D5w 50ml Pm IVPB 100 mls/hr Q6H BALTAZAR Administration Ibuprofen 600 mg 09/14/19 14:23 09/17/19 23:11 Motrin PO 600 mg Q6H PRN Administration Cramping Insulin Aspart 3 - 6 units 09/10/19 08:00 09/18/19 08:50 Novolog SUB-Q Not Given TIDWM [facility] Protocol Insulin Glargine 12 units 09/17/19 13:24 09/17/19 22:01 Lantus SUB-Q 12 units HS BALTAZAR Administration Ondansetron HCl 4 mg 09/11/19 15:31 09/11/19 15:47
--- NOTE | 2019-09-18 10:21 | PM.IMPN ---
Progress Note: A&P Assessment and Plan (1) Intra-abdominal abscess: Onset Date: ~09/04/19 Code(s): K65.1 - Peritoneal abscess Status: Acute Assessment and Plan: Perc drain placed in intra-abdominal abscess 09/10; another 9cm pelvic abscess developed in the interim and a 2nd perc drain placed 09/16. General surgery following - appreciate further recommendations. Dr Engilsh following as well - appreciate input. Currently he continues on Zosyn (day 9 10). Anticipate possible discharge in 1 to 2 days depending on abx recommendations. At this point tentative plan is to discharge with both perc drains intact, order repeat CT abd/pel outpatient to be obtained just prior to short-interval follow up with Dr Perez's office. (2) Bacteremia: Onset Date: ~09/04/19 Code(s): R78.81 - Bacteremia Status: Acute Assessment and Plan: Secondary to above. Blood cultures grew Strep constellatus, abscess #1 culture grew Strep milleri. New abscess #[address] Apprec[address] Dr English's recommendations - Continue IV Zosyn (day 9 10) through 09/19/19. 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 He remains on his home glipizide, resume metformin. He was started on Lantus here for tighter glycemic control. Continue to monitor with accu-cheks and cover with SSI. (4) HSV (herpes simplex virus) infection: Code(s): B00.9 - Herpesviral infection, unspecified Status: Acute Assessment and Plan: Current flare. Acute on chronic, for over 10 years. Acyclovir started 09/14. Subjective Date/time seen: 09/18/19 10:15 Interval history: Mr. Chawla is a 69yo M admitted for abdominal abscesses. He is feeling well today and offers no complaints, notes that he is feeling much better . Last BM was earlier this AM and he denies any abdominal pain. He is tolerating oral intake without nausea and vomiting. He denies chest pain, shortness of breath, or calf tenderness. Review of Systems Review of Systems: Narrative: Twelve systems were reviewed with pertinent positives and negatives as per HPI. Exam Narrative: Exam Narrative: General: Male resting comfortably in bed in no acute distress. HEENT: Normocephalic, EOMI, oral mucosa moist. Cardiovascular: Rate and rhythm are regular. Respiratory: Lungs clear to auscultation all croft. Respirations even and nonlabored. Abdomen: Soft, non-distended, perc drains to left lower abdomen and left gluteal in place with scant drainage, non-tender abdomen, bowel sounds present. Extremities: Peripheral pulses intact. No edema. or erythema. Neuro: No focal neurological deficits. Speech is clear. Objective Data Vital Signs Vital Signs: Last Vital Signs Temp 97.7 F 09/18/19 05:37 Pulse 47 L 09/18/19 05:37 Resp 18 09/18/19 05:37 BP 133/71 09/18/19 05:37 Pulse Ox 98 09/18/19 05:37 Intake/Output Intake/Output: Intake & Output 09/15/19 09/16/19 09/17/19 09/18/19 23:59 23:59 23:59 23:59 Intake Total 1860 1780 1078 578 Output Total 280 750 365 Balance 1860 1500 328 213 Meds/Results Medications: Active Medications Generic Name Dose Route Start Last Admin Trade Name Freq PRN Reason Stop Dose Admin Acetaminophen 650 mg 09/09/19 23:29 09/14/19 13:05 Tylenol Tablet PO 650 mg QID PRN Administration Fever Hydrocodone Bitart/Acetaminophen 1 tab 09/10/19 15:18 09/13/19 18:18 [place] 7.5-325 M
[2019-09-18 10:45] VITALS: BP 127/69; PULSE 56; RESP 18; TEMP 36.4; O2SAT 100
--- NOTE | 2019-09-18 10:52 | PM.PNGS ---
Progress Note: A&P Assessment and Plan (1) Pelvic abscess in male: Code(s): K65.1 - Peritoneal abscess Status: Acute Assessment and Plan: WBC 10,600 today and remains afebrile. Percutaneous drainage in Radiology on 09/16. Will await culture results. Continue abx per ID recommendations and monitor drain output. No plan for surgical intervention at this time. Agree with GI endoscopy as an outpatient in the future. (2) Intra-abdominal abscess: Onset Date: ~09/04/19 Code(s): K65.1 - Peritoneal abscess Status: Acute Assessment and Plan: Largely resolved with initial perc drainage. Continue to monitor drain output and continue abx per ID. 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 (4) Bacteremia: Onset Date: ~09/04/19 Code(s): R78.81 - Bacteremia Status: Acute Additional Plan Discussed plan of care with Dr. Perez today. Subjective Subjective Date/Time Seen: 09/18/19 10:00 Patient reports: no new complaints, feels better, flatus and bowel movement Interval history: Patient feeling well today without any new complaints. Denies any abdominal pain, nausea, vomiting, or bloating. Reports bowel movement this morning and two yesterday. Review of Systems Review of Systems: All systems reviewed & are unremarkable except as noted in HPI and below Exam Const: General: no acute distress, alert and awake Orientation/consciousness: patient oriented x3 GI: Inspection: non-distended GI Palp: Yes Soft to palpation, No Tenderness to palpation present (GI) and No Guarding due to palpation present (GI) Auscultation: normal bowel sounds Other: LLQ perc drain with brown cloudy output. Left posterior lateral perc drain with minimal yellow slightly cloudy output. Dressings c/d/i. Skin: General skin exam: normal color Neuro: General: moves all extremities and no focal motor deficits Extrem: General: no calf tenderness and no edema Psych: Mental Status: mental status grossly normal Speech and movement: Normal speech and movement present Objective Data Vital Signs Vital Signs: Vital Signs - 24 hr 09/17/19 13:50 09/17/19 13:55 09/17/19 14:00 Temperature 36.6 C Pulse Rate 57 L 58 L 57 L Respiratory Rate 16 18 17 Blood Pressure 142/82 H 150/78 H 149/79 H Pulse Oximetry 98 100 100 09/17/19 14:05 09/17/19 14:10 09/17/19 14:15 Temperature Pulse Rate 56 L 59 L 59 L Respiratory Rate 18 19 18 Blood Pressure 149/77 H 152/118 H 161/86 H Pulse Oximetry 100 100 100 09/17/19 14:20 09/17/19 14:25 09/17/19 14:40 Temperature Pulse Rate 59 L 58 L 59 L Respiratory Rate 16 18 16 Blood Pressure 148/81 H 151/84 H 148/88 H Pulse Oximetry 100 100 99 09/17/19 15:05 09/17/19 21:49 09/18/19 02:00 Temperature 36.7 C 36.9 C 36.6 C Pulse Rate 56 L 56 L 47 L Respiratory Rate 16 18 16 Blood Pressure 146/73 H 145/78 H 149/78 H Pulse Oximetry 99 98 99 09/18/19 05:37 09/18/19 10:45 Temperature 36.5 C 36.4 C Pulse Rate 47 L 56 L Respiratory Rate 18 18 Blood Pressure 133/71 127/69 Pulse Oximetry 98 100 Intake/Output Intake/Output: Intake & Output 09/15/19 09/16/19 09/17/19 09/18/19 23:59 23:59 23:59 23:59 Intake Total 1860 1780 1078 578 Output Total 280 750 365 Balance 1860 1500 328 213 Meds/Results Medications: Active Medications Generic Name Dose Route Start Last Admin Trade Name Freq PRN Reason Stop Dose Admin Acetaminophen 650 mg 09/09/19 23:29 09/14/19 13:05 Tylenol Tablet PO 650 mg QID PRN Administration Fever
[2019-09-18 12:14] LABS: Glucose Point of Care 240 (65-105)
[2019-09-18] MEDS: INSULIN ASPART (*BKC) 100 UNITS/ML SUB-Q ×2 (12:48→17:38)
[2019-09-18 14:00] VITALS: BP 129/72; PULSE 58; RESP 18; TEMP 36.6; O2SAT 100
--- NOTE | 2019-09-18 15:38 | WPDINFPN2 ---
Progress Note: A&P Assessment and Plan (1) Bacteremia: Onset Date: ~09/04/19 Code(s): R78.81 - Bacteremia Status: Acute Assessment and Plan: 1. Strep constellatus bacteremia with infection, source is #2 2. Intra-abdominal abscess, GI source, polymicrobial S milleri and prevotella, POD #7/1 drain perc. WBC back down. 3. DM, A1C 8.5%, indicative of fair control REC Glycemic control. PipTazo # 9, re-assess tomorrow re need for ongoing IV therapy, assuming that this is a perforated viscus. Subjective Date/time seen: 09/18/19 15:38 Interval history: no new complaints, new drain in place Exam Narrative: Exam Narrative: afebrile Const: General: no acute distress Neck: Neck: supple Resp: Effort & Inspection: normal respiratory effort Auscultation: clear to auscultation bilaterally Cardio: Rate: regular rate Rhythm: regular rhythm Heart sounds: no gallops and no murmurs GI: Inspection: non-distended GI Palp: Yes Soft to palpation, No Tenderness to palpation present (GI) and No Guarding due to palpation present (GI) Objective Data Vital Signs Vital Signs: Vital Signs - 24 hr 09/17/19 21:49 09/18/19 02:00 09/18/19 05:37 Temperature 36.9 C 36.6 C 36.5 C Pulse Rate 56 L 47 L 47 L Respiratory Rate 18 16 18 Blood Pressure 145/78 H 149/78 H 133/71 Pulse Oximetry 98 99 98 09/18/19 10:45 09/18/19 14:00 Temperature 36.4 C 36.6 C Pulse Rate 56 L 58 L Respiratory Rate 18 18 Blood Pressure 127/69 129/72 Pulse Oximetry 100 100 Intake/Output Intake/Output: Intake & Output 09/15/19 09/16/19 09/17/19 09/18/19 23:59 23:59 23:59 23:59 Intake Total 1860 1780 1078 818 Output Total 280 750 365 Balance 1860 1500 328 453 Meds/Results Medications: Active Medications Generic Name Dose Route Start Last Admin Trade Name Freq PRN Reason Stop Dose Admin Acetaminophen 650 mg 09/09/19 23:29 09/14/19 13:05 Tylenol Tablet PO 650 mg QID PRN Administration Fever Hydrocodone Bitart/Acetaminophen 1 tab 09/10/19 15:18 09/13/19 18:18 [place] 7.5-325 Mg PO 1 tab Q6H PRN Administration pain not Relieved by Tylenol Acyclovir 800 mg 09/15/19 17:00 09/18/19 12:48 Zovirax Po PO 800 mg TID BALTAZAR Administration Allopurinol 100 mg 09/11/19 08:00 09/18/19 08:50 Zyloprim PO 100 mg DAILY@0800 BALTAZAR Administration Aspirin 81 mg 09/10/19 09:00 09/18/19 08:50 Aspirin Ec PO 81 mg DAILY BALTAZAR Administration Dextrose 12.5 gm 09/10/19 03:11 Dextrose 50% Syringe IV PUSH PRN PRN Hypoglycemia Protocol Glipizide 10 mg 09/14/19 16:30 09/18/19 06:51 Glucotrol PO 10 mg BIDAC BALTAZAR Administration Glucagon 1 mg 09/10/19 03:11 Glucagon For Inj IM PRN PRN Hypoglycemia Protocol Glucose 15 gm 09/10/19 03:11 Glutose 15 PO PRN PRN Hypoglycemia Protocol Dextrose 1,000 mls @ 100 mls/hr 09/10/19 03:11 Dextrose 5% 1,000 Ml IVPB PRN PRN Hypoglycemia Protocol Piperacillin/Tazobactam/Dextrose 3.375 gm in 50 mls @ 100 mls/hr 09/10/19 21:00 09/18/19 14:56 Zosyn 3.375 Gm/D5w 50ml Pm IVPB 100 mls/hr Q6H BALTAZAR Administration Ibuprofen 600 mg 09/14/19 14:23 09/17/19 23:11 Motrin PO 600 mg Q6H PRN Administration Cramping Insulin Aspart 3 - 6 units 09/10/19 08:00 09/18/19 12:48 Novolog SUB-Q 3 units TIDWM [facility] Administration Protocol Insulin Glargine 12 units 09/17/19 13:24 09/17/19 22:01 Lantus SUB-Q 12 units HS BALTAZAR Administration Metformin HCl 500 mg 09/18/19 17:00 Glucophage PO BIDWM BALTAZAR Ondansetron HCl 4 mg 09/11/19 15:31 09/11/19 15:47 Zofran Inj IV PUSH 4 mg Q6H PRN Administration Nausea And Vomiting Pantoprazole Sodium 40 mg 09/10/19 09:00 09/18/19 08:50 Protonix PO 40 mg QAM BALTAZAR Administration Polyethylene Glycol 17 gm 09/14/19 17:00 09/18/19 08:49 Miralax PO 17 gm
[2019-09-18 17:32] LABS: Glucose Point of Care 226 (65-105)
[2019-09-18] MEDS: metFORMIN HCL 500 MG TABLET PO (17:39)
[2019-09-18 19:43] VITALS: BP 130/70; PULSE 58; RESP 18; TEMP 36.6; O2SAT 100
[2019-09-18] MEDS: INSULIN GLARGINE (*BKC) 100 UNITS/ML 12 UNITS SUB-Q (20:52)
[2019-09-18 21:31] VITALS: BP 132/65; PULSE 51; RESP 16; TEMP 36.5; O2SAT 100
[2019-09-18 21:57] LABS: Glucose Point of Care 234 (65-105)
[2019-09-19 01:48] VITALS: BP 152/76; PULSE 57; RESP 20; TEMP 36.7; O2SAT 95
[2019-09-19 06:00] VITALS: BP 137/73; PULSE 51; RESP 20; TEMP 36.3; O2SAT 94
[2019-09-19 06:24] LABS: Basophils Absolute Auto 0.1 K/mm3 (0.0-0.1); Basophils Percent Auto 1.2 % (0.2-1.2); Eosinophils Absolute Auto 0.2 K/mm3 (0-0.3); Hematocrit 41.2 % (42.0-52.0); Hemoglobin 13.9 g/dL (14.0-18.0); Immature Granulocyte Absolute 0.41 K/mm3 (0.00-0.031); Immature Granulocyte Percent A 4.6 % (0-0.5); Lymphocytes Absolute Auto 1.53 K/mm3 (0.9-3.2); Lymphocytes Percent Auto 17.3 % (18.3-44.2); Mean Corpuscular HGB Conc 33.7 g/dl (32-36); Mean Corpuscular Volume 88.8 fl (80-100); Monocytes Absolute Auto 0.7 K/mm3 (0.1-0.6); Monocytes Percent Auto 7.6 % (2.6-8.5); Neutrophils Absolute Auto 5.9 K/mm3 (1.3-6.7); Neutrophils Percent Auto 67.3 % (45.5-73.1); Platelet Count Result 526 k/mm3 (150-375); Red Blood Count 4.64 M/mm3 (4.6-6.20); Red Cell Distribution Width 13.3 % (11.5-14.5); White Blood Count 8.8 K/mm3 (4.5-10.0)
[2019-09-19] MEDS: glipiZIDE 5 MG TABLET 10 MG PO (06:30)
[2019-09-19 06:40] LABS: Blood Urea Nitrogen 11 mg/dL (9-20); Carbon Dioxide 31 mmol/L (22-30); Chloride 102 mmol/L (98-107); Estimated CRCL calculation 77 ml/min; Estimated Glomerular Filt Rate > 60; Glucose 187 mg/dL (75-110); Magnesium 1.8 mg/dL (1.6-2.3); Potassium 4.4 mmol/L (3.4-5.0); Sodium 135 mmol/L (137-145)
--- NOTE | 2019-09-19 08:06 | WPDGIPROGNO ---
Progress Note: A&P Additional Plan Patient alert and comfortable today. Remains afebrile. Physical exam reveals abdomen soft and nontender. Percutaneous external drains in place. Labs reveal WBC 8.8, hemoglobin 13.9, Impression intra-abdominal abscesses. Etiology unclear. Suspect perforated viscus. Upper GI study was unremarkable. Perforated ulcer versus diverticulitis are considerations. Plan is for continued antibiotics per ID service. Surgery following and managing drain access. I would suggest colonoscopy and EGD in a month or so if no surgery. Subjective Date/time seen: 09/19/19 08:06 Objective Data Vital Signs Vital Signs: Vital Signs - 24 hr 09/18/19 10:45 09/18/19 14:00 09/18/19 19:43 Temperature 36.4 C 36.6 C 36.6 C Pulse Rate 56 L 58 L 58 L Respiratory Rate 18 18 18 Blood Pressure 127/69 129/72 130/70 Pulse Oximetry 100 100 100 09/18/19 21:31 09/19/19 01:48 09/19/19 06:00 Temperature 36.5 C 36.7 C 36.3 C L Pulse Rate 51 L 57 L 51 L Respiratory Rate 16 20 20 Blood Pressure 132/65 152/76 H 137/73 Pulse Oximetry 100 95 94 Intake/Output Intake/Output: Intake & Output 09/16/19 09/17/19 09/18/19 09/19/19 23:59 23:59 23:59 23:59 Intake Total 1780 1078 1668 410 Output Total 280 750 925 7 Balance 1500 328 743 403 Meds/Results Medications: Active Medications Generic Name Dose Route Start Last Admin Trade Name Freq PRN Reason Stop Dose Admin Acetaminophen 650 mg 09/09/19 23:29 09/14/19 13:05 Tylenol Tablet PO 650 mg QID PRN Administration Fever Hydrocodone Bitart/Acetaminophen 1 tab 09/10/19 15:18 09/13/19 18:18 [place] 7.5-325 Mg PO 1 tab Q6H PRN Administration pain not Relieved by Tylenol Acyclovir 800 mg 09/15/19 17:00 09/18/19 17:38 Zovirax Po PO 800 mg TID BALTAZAR Administration Allopurinol 100 mg 09/11/19 08:00 09/18/19 08:50 Zyloprim PO 100 mg DAILY@0800 BALTAZAR Administration Aspirin 81 mg 09/10/19 09:00 09/18/19 08:50 Aspirin Ec PO 81 mg DAILY BALTAZAR Administration Dextrose 12.5 gm 09/10/19 03:11 Dextrose 50% Syringe IV PUSH PRN PRN Hypoglycemia Protocol Glipizide 10 mg 09/14/19 16:30 09/19/19 06:30 Glucotrol PO 10 mg BIDAC BAL[facility]ZAR Administration Glucagon 1 mg 09/10/19 03:11 Glucagon For Inj IM PRN PRN Hypoglycemia Protocol Glucose 15 gm 09/10/19 03:11 Glutose 15 PO PRN PRN Hypoglycemia Protocol Dextrose 1,000 mls @ 100 mls/hr 09/10/19 03:11 Dextrose 5% 1,000 Ml IVPB PRN PRN Hypoglycemia Protocol Piperacillin/Tazobactam/Dextrose 3.375 gm in 50 mls @ 100 mls/hr 09/10/19 21:00 09/19/19 03:43 Zosyn 3.375 Gm/D5w 50ml Pm IVPB Infused Q6H BALTAZAR Infusion Ibuprofen 600 mg 09/14/19 14:23 09/17/19 23:11 Motrin PO 600 mg Q6H PRN Administration Cramping Insulin Aspart 3 - 6 units 09/10/19 08:00 09/18/19 17:38 Novolog SUB-Q 3 units TIDWM BALTAZAR Administration Protocol Insulin Glargine 12 units 09/17/19 13:24 09/18/19 20:52 Lantus SUB-Q 12 units HS BALTAZAR Administration Metformin HCl 500 mg 09/18/19 17:00 09/18/19 17:39 Glucophage PO 500 mg BIDWM [facility]AR Administration Ondansetron HCl 4 mg 09/11/19 15:31 09/11/19 15:47 Zofran Inj IV PUSH 4 mg Q6H PRN Administration Nausea And Vomiting Pantoprazole Sodium 40 mg 09/10/19 09:00 09/18/19 08:50 Protonix PO 40 mg QAM BALTAZAR Administration Polyethylene Glycol 17 gm 09/14/19 17:00 09/18/19 17:56 Miralax PO Not Given BID [facility] Radiology Results: ITS Impressions Head CT 09/09/19 21:09 IMPRESSION: 1. No acute intracranial findings. 2. Chronic age related findings. Chest X-Ray 09/09/19 21:12 IMPRESSION: No acute cardiopulmonary findings. Venous Doppler Study 09/10/19 16:24 IMPRESSION: 1. No lower extremity deep venous thrombosis bilaterally. Small B
[2019-09-19 08:41] LABS: Glucose Point of Care 169 (65-105)
[2019-09-19] MEDS: allopurinoL 100 MG TABLET PO (09:51)
[2019-09-19] MEDS: ASPIRIN 81 MG ENTERIC TABLET PO (09:51)
[2019-09-19] MEDS: metFORMIN HCL 500 MG TABLET PO (09:51)
[2019-09-19] MEDS: polyethylene glycoL 3350 17 GM POWD.PACK PO (09:51)
[2019-09-19] MEDS: PANTOPRAZOLE 40 MG TABLET PO (09:51)
[2019-09-19 10:00] VITALS: BP 124/67; PULSE 56; RESP 16; TEMP 37.1; O2SAT 100
[2019-09-19 12:07] LABS: Glucose Point of Care 215 (65-105)
[2019-09-19] MEDS: INSULIN ASPART (*BKC) 100 UNITS/ML SUB-Q (12:22)
--- NOTE | 2019-09-19 12:58 | PM.IMPN ---
Subjective Date/time seen: 09/19/19 12:45 Objective Data Vital Signs Vital Signs: Vital Signs - 24 hr 09/18/19 14:00 09/18/19 19:43 09/18/19 21:31 Temperature 97.8 F 97.8 F 97.7 F Pulse Rate 58 L 58 L 51 L Respiratory Rate 18 18 16 Blood Pressure 129/72 130/70 132/65 Pulse Oximetry 100 100 100 09/19/19 01:48 09/19/19 06:00 09/19/19 10:00 Temperature 98.1 F 97.3 F L 98.8 F Pulse Rate 57 L 51 L 56 L Respiratory Rate 20 20 16 Blood Pressure 152/76 H 137/73 124/67 Pulse Oximetry 95 94 100 Intake/Output Intake/Output: Intake & Output 09/16/19 09/17/19 09/18/19 09/19/19 23:59 23:59 23:59 23:59 Intake Total 1780 1078 1668 700 Output Total 280 750 925 7 Balance 1500 328 743 693 Meds/Results Medications: Active Medications Generic Name Dose Route Start Last Admin Trade Name Freq PRN Reason Stop Dose Admin Acetaminophen 650 mg 09/09/19 23:29 09/14/19 13:05 Tylenol Tablet PO 650 mg QID PRN Administration Fever Hydrocodone Bitart/Acetaminophen 1 tab 09/10/19 15:18 09/13/19 18:18 Sparkman 7.5-325 Mg PO 1 tab Q6H PRN Administration pain not Relieved by Tylenol Allopurinol 100 mg 09/11/19 08:00 09/19/19 09:51 Zyloprim PO 100 mg DAILY@0800 BALTAZAR Administration Aspirin 81 mg 09/10/19 09:00 09/19/19 09:51 Aspirin Ec PO 81 mg DAILY BALTAZAR Administration Dextrose 12.5 gm 09/10/19 03:11 Dextrose 50% Syringe IV PUSH PRN PRN Hypoglycemia Protocol Glipizide 10 mg 09/14/19 16:30 09/19/19 06:30 Glucotrol PO 10 mg BIDAC BALTAZAR Administration Glucagon 1 mg 09/10/19 03:11 Glucagon For Inj IM PRN PRN Hypoglycemia Protocol Glucose 15 gm 09/10/19 03:11 Glutose 15 PO PRN PRN Hypoglycemia Protocol Dextrose 1,000 mls @ 100 mls/hr 09/10/19 03:11 Dextrose 5% 1,000 Ml IVPB PRN PRN Hypoglycemia Protocol Piperacillin/Tazobactam/Dextrose 3.375 gm in 50 mls @ 100 mls/hr 09/10/19 21:00 09/19/19 10:18 Zosyn 3.375 Gm/D5w 50ml Pm IVPB Infused Q6H BALTAZAR Infusion Ibuprofen 600 mg 09/14/19 14:23 09/17/19 23:11 Motrin PO 600 mg Q6H PRN Administration Cramping Insulin Aspart 3 - 6 units 09/10/19 08:00 09/19/19 12:22 Novolog SUB-Q 3 units TIDWM BALTAZAR Administration Protocol Insulin Glargine 12 units 09/17/19 13:24 09/18/19 20:52 Lantus SUB-Q 12 units HS BALTAZAR Administration Metformin HCl 500 mg 09/18/19 17:00 09/19/19 09:51 Glucophage PO 500 mg BIDWM BALTAZAR Administration Ondansetron HCl 4 mg 09/11/19 15:31 09/11/19 15:47 Zofran Inj IV PUSH 4 mg Q6H PRN Administration Nausea And Vomiting Pantoprazole Sodium 40 mg 09/10/19 09:00 09/19/19 09:51 Protonix PO 40 mg QAM BALTAZAR Administration Polyethylene Glycol 17 gm 09/14/19 17:00 09/19/19 09:51 Miralax PO 17 gm BID BALTAZAR Administration Radiology Results: ITS Impressions Head CT 09/09/19 21:09 IMPRESSION: 1. No acute intracranial findings. 2. Chronic age related findings. Chest X-Ray 09/09/19 21:12 IMPRESSION: No acute cardiopulmonary findings. Venous Doppler Study 09/10/19 16:24 IMPRESSION: 1. No lower extremity deep venous thrombosis bilaterally. Small Bowel X-Ray 09/13/19 15:06 IMPRESSION: 1. Persistent small amount of free intraperitoneal gas along the anterior abdominal wall with no evident extraluminal leakage of contrast to suggest a site of the suspected perforated viscus. 2. Left percutaneous abscess drain with no residual mass effect upon the surrounding bowel suggesting interval decompression. Abdomen/Pelvis CT 09/17/19 08:56 IMPRESSION: 1. Interval resolution of abscess in the left upper abdominal mesentery status post drain placement. Interval development of multiple walled off fluid collections in the pelvis, likely abscesses. 2: Small amount of free air in the upper abdomen, likely rela
[2019-09-19 14:00] VITALS: BP 134/62; PULSE 57; RESP 16; TEMP 36.6; O2SAT 100
--- NOTE | 2019-09-19 15:15 | PM.PNGS ---
Progress Note: A&P Assessment and Plan (1) Pelvic abscess in male: Code(s): K65.1 - Peritoneal abscess Status: Acute Assessment and Plan: WBC normal today and patient afebrile. LLQ abdominal perc. drain with no output for 2 days, discussed with Dr. Perez, removed this drain at the bedside today. Will continue to monitor output of the more recent transgluteal perc. drain. Continue abx per ID recommendations. Okay from a surgical standpoint to discharge the patient today. Follow-up with Dr. Perez when the perc. drain output is minimal to have this removed. Discussed drain instructions with the patient and reasons to return or call. (2) Intra-abdominal abscess: Onset Date: ~09/04/19 Code(s): K65.1 - Peritoneal abscess Status: Acute Assessment and Plan: Resolved with percutaneous drainage/abx - see plan above. Etiology still unclear, will require outpatient work-up. No plans for surgery at this time. Agree with GI endoscopy as an outpatient. Will continue to follow the patient on an outpatient basis. If etiology is found and indicates surgical intervention, then we can discuss this as an outpatient in the future. (3) Diabetes mellitus: Onset Date: Unknown Qualifiers: Diabetes mellitus type: type 2 Diabetes mellitus jail insulin use: without ferry terminal agent use Diabetes mellitus complication status: without complication Qualified Code(s): E11.9 - Type 2 diabetes mellitus without complications Code(s): E11.9 - Type 2 diabetes mellitus without complications Status: Chronic Assessment and Plan: Continue management per Hospitalist. (4) Bacteremia: Onset Date: ~09/04/19 Code(s): R78.81 - Bacteremia Status: Acute Additional Plan Discussed plan of care with Dr. Perez today. Subjective Subjective Date/Time Seen: 09/19/19 15:15 Patient reports: no new complaints, feels better, tolerating a regular diet, flatus and bowel movement Interval history: Patient reports feeling well today. Denies any abdominal pain, nausea, vomiting, or bloating. Tolerating a diet and has already had one bowel movement this morning. No other complaints at this time. Review of Systems Review of Systems: All systems reviewed & are unremarkable except as noted in HPI and below Exam Const: General: no acute distress, alert and awake Orientation/consciousness: patient oriented x3 GI: Inspection: non-distended GI Palp: Yes Soft to palpation, No Tenderness to palpation present (GI), No Guarding due to palpation present (GI), No Rigid due to palpation and No Rebound tenderness present Auscultation: normal bowel sounds Other: LLQ perc drain with no output in the drainage bag, minimal brown cloudy output in tubing same as yesterday -- this drain was removed at the bedside, after discussing with Dr. Perez, without any complications. Left transgluteal perc drain with minimal serosanguineous output. Dressings c/d/i. Skin: General skin exam: normal color Neuro: General: moves all extremities and no focal motor deficits Extrem: General: no calf tenderness and no edema Psych: Mental Status: mental status grossly normal Speech and movement: Normal speech and movement present Affect: normal affect Objective Data Vital Signs Vital Signs: Vital Signs - 24 hr 09/18/19 19:43 09/18/19 21:31 09/19/19 01:48 Temperature 36.6 C 36.5 C 36.7 C Pulse Rate 58 L 51 L 57 L Respiratory Rate 18 16 20 Blood Pressure 130/70 132/65 152/76 H Pulse Oximetry 100 100 95 09/19/19 06:00 09/19/19 10:00 Temperature 36.3 C L 37.1 C Pulse Rate 51 L 56 L Respiratory Rate 20 16 Blood Pressure 137/73 124/67 Pulse Oximetry 94 100 Intake/Output Intake/Output: Intake & Output 09/16/19 09/17/19 09/18/19 09/19/19 23:59 23:59 23:59 23:59 Intake Total 1780 1078 1668 700 Output Total 280 750 925 7 Balance 1500 328 743 693 Meds/Results Medications: Active Medications Generic Name D
--- NOTE | 2019-09-19 16:40 | PM.DS ---
DS: Diagnosis Admitting Diagnosis Admitting Diagnosis: Encephalopathy, unspecified Discharge Diagnosis (1) Intra-abdominal abscess: Onset Date: ~09/04/19 Code(s): K65.1 - Peritoneal abscess Status: Acute Assessment and Plan: Date of Service 09/19/19 Mr. Chawla is a 69yo M with history of type 2 diabetes mellitus who presented to the ED for evaluation of weakness and confusion, found to have 103F fever on arrival. He described abdominal pain and unintentional [address] lb weight loss recently. CT abdomen pelvis revealed an intra-abdominal abscess. General surgery and GI were consulted. He was started on broad-spectrum IV antibiotics with Zosyn and a percutaneous drain was placed 09/11/19 by Interventional Radiology. Unfortunately, a follow-up CT abdomen a few days later showed interval development of a new abscess in his pelvis, leading to a 2nd percutaneous drain to be placed 09/17/19. Blood culture and abscess culture grew Streptococcus and the patient was also evaluated by Infectious Disease, Dr English, who recommended #10 days of IV Zosyn prior to discharge, and he was discharged with oral augmentin to complete the course. Perc drain #1 was removed prior to discharge, but he discharged with perc drain #2 intact with instructions for short-interval follow up with general surgery. He was also instructed to follow up with Dr Montes for colonoscopy in about 1 month. He was feeling improved prior to discharge, tolerating a diet without nausea, vomiting, or abdominal pain and having regular bowel movements. He was hemodynamically stable for discharge 09/19/19. Consultations: -- General Surgery - Dr Perez -- GI - Dr Montes -- Infectious Disease - Dr English (2) Bacteremia: Onset Date: ~09/04/19 Code(s): R78.81 - Bacteremia Status: Acute Assessment and Plan: Secondary to above. Blood cultures grew Strep constellatus, abscess #1 culture grew Strep milleri. Completed 10 days of IV Zosyn, discharged with oral augmentin to complete the course. 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 Follow up with PCP for glycemic control. (4) HSV (herpes simplex virus) infection: Code(s): B00.9 - Herpesviral infection, unspecified Status: Acute Assessment and Plan: Current flare. Acute on chronic, for over 10 years. Receieved a 4-day course of Acyclovir. DS: Summary Time Spent with Patient Time attestation: Total time spent providing and/or coordinating discharge services: 40 minutes Exam Narrative: Exam Narrative: Last Vital Signs Temp 97.9 F 09/19/19 14:00 Pulse 57 L 09/19/19 14:00 Resp 16 09/19/19 14:00 BP 134/62 09/19/19 14:00 Pulse Ox 100 09/19/19 14:00 General: Male resting comfortably in bed in no acute distress. HEENT: Normocephalic, EOMI, oral mucosa moist. Cardiovascular: Rate and rhythm are regular. Respiratory: Lungs clear to auscultation all croft. Respirations even and nonlabored. Abdomen: Soft, non-distended, perc drains to left gluteal in place with scant drainage, non-tender abdomen, bowel sounds present. Extremities: Peripheral pulses intact. No edema. or erythema. Neuro: No focal neurological deficits. Speech is clear. DS: Data Data Completed and Pending Labs on
--- NOTE | 2019-09-19 16:47 | PC.NURSE ---
Patients 1500 dose of Zosyn was not given. Per Dr English it was to be D/c'd and switched to oral augmentin. Computer system was down at that time and we were not able to input orders.
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
== END 2019-09-19 16:55 | disposition home or self-care (01) | DRG 372 ==
LOC: ANHED 23:38 → ANH3MEDSUR 09-10 00:38 → ANHIMU 09-20 10:48
PROVIDERS: Family Medicine; Internal Medicine Infectious Disease; Physician Assistant; Radiology Diagnostic Radiology; Admitting Provider Family Medicine; Emergency Provider Emergency Medicine; PCP Internal Medicine Geriatric Medicine; Visit Provider Physician Assistant
PROC: 0W9J30Z Drainage of Pelvic Cavity with Drainage Device, Percutaneous Approach (ICD-10-PCS; principal; 2019-09-17 13:30)
DX: K65.1 Peritoneal abscess (principal); G93.40 Encephalopathy, unspecified; R78.81 Bacteremia; E87.2 Acidosis; E87.1 Hypo-osmolality and hyponatremia; B95.4 Other streptococcus as the cause of diseases classified elsewhere; B96.89 Other specified bacterial agents as the cause of diseases classified elsewhere; K57.10 Diverticulosis of small intestine without perforation or abscess without bleeding; Z20.828 Contact with and (suspected) exposure to other viral communicable diseases; E11.9 Type 2 diabetes mellitus without complications; E86.0 Dehydration; R50.9 Fever, unspecified; B00.9 Herpesviral infection, unspecified; Z87.891 Personal history of nicotine dependence
CPT/HCPCS: 36415; 51701; 70450; 71045; 74176; 74177; 74250; 75989; 80048; 80053; 80076; 80307; 81001; 82728; 83036; 83605; 83615; 83690; 83735; 84100; 85025; 85027; 85380; 85610; 85730; 86140; 87040; 87070; 87075; 87076; 87077; 87185; 87186; 87205; 87635; 87804; 93005; 93970; 96361; 96365; 99285; A9270; C1729; C1769; J0131; J1170; J1815; J2270; J2405; J2543; J3010; J7030; J7120; Q9967; U0003

== ENCOUNTER 2019-09-27 10:44 | Outpatient (CLI) | payer OTHER, SELFPAY ==
[2019-09-27 11:44] LABS: Basophils Absolute Auto 0.2 K/mm3 (0.0-0.1); Basophils Percent Auto 1.9 % (0.2-1.2); Eosinophils Absolute Auto 0.1 K/mm3 (0-0.3); Eosinophils Percent Auto 1.5 % (0-4.4); Hematocrit 45.9 % (42.0-52.0); Hemoglobin 15.3 g/dL (14.0-18.0); Immature Granulocyte Absolute 0.11 K/mm3 (0.00-0.031); Immature Granulocyte Percent A 1.4 % (0-0.5); Lymphocytes Absolute Auto 1.78 K/mm3 (0.9-3.2); Lymphocytes Percent Auto 22.6 % (18.3-44.2); Mean Corpuscular HGB Conc 33.3 g/dl (32-36); Mean Corpuscular Hemoglobin 29.8 pg (26-34); Mean Corpuscular Volume 89.3 fl (80-100); Mean Platelet Volume 10.5 fl (7.4-10.4); Monocytes Absolute Auto 0.7 K/mm3 (0.1-0.6); Monocytes Percent Auto 8.9 % (2.6-8.5); Neutrophils Percent Auto 63.7 % (45.5-73.1); Platelet Count Result 436 k/mm3 (150-375); Red Blood Count 5.14 M/mm3 (4.6-6.20); Red Cell Distribution Width 13.7 % (11.5-14.5); White Blood Count 7.9 K/mm3 (4.5-10.0)
== END 2019-09-27 10:45 | disposition home or self-care (01) ==
PROVIDERS: Visit Provider Nurse Practitioner Family
DX: K65.1 Peritoneal abscess (principal)
CPT/HCPCS: 36415; 85025

== ENCOUNTER 2019-10-09 00:14 | Outpatient (CLI) | payer OTHER, SELFPAY ==
[2019-10-09 18:07] LABS: SARS-CoV-2 RNA PCR Negative
== END 2019-10-09 00:15 | disposition home or self-care (01) ==
LOC: ANHCOVIDDT 00:14
PROVIDERS: Visit Provider Internal Medicine Gastroenterology
DX: Z01.812 Encounter for preprocedural laboratory examination (principal); Z20.828 Contact with and (suspected) exposure to other viral communicable diseases
CPT/HCPCS: 87635; C9803; U0003

== ENCOUNTER 2019-10-11 01:34 | Day surgery (SDC) | payer OTHER, SELFPAY ==
[2019-10-04 13:29] VITALS: BMI 23.9
[2019-10-11] MEDS: LACTATED RINGERS 1,000 ML 150 ML IV CONT (07:20)
[2019-10-11 07:28] LABS: Glucose Point of Care 143 (65-105)
[2019-10-11 07:29] VITALS: BP 144/87; PULSE 60; RESP 12; TEMP 37.3; O2SAT 99; BMI 23.7
--- NOTE | 2019-10-11 07:40 | WPDANESEPPF ---
Anes - Initial Pre Proc Eval Procedure: Operation Date: 10/11/19 08:00 Proposed Procedures p Esophagogastroduodenoscopy & Colonoscopy - Melo Montes MD Date/Time: 10/11/19 07:40 Surgeon: Melo Montes MD Pre Op Diagnosis: change in bowel habits, peritoneal abcess Patient Data Age: 69 Gender: M Height: 1.83 m Weight: 79.3 kg Last Vital Signs Temp 37.3 C 10/11/19 07:29 Pulse 60 10/11/19 07:29 Resp 12 10/11/19 07:29 BP 144/87 H 10/11/19 07:29 Pulse Ox 99 10/11/19 07:29 Allergies Allergy/AdvReac Type Severity Reaction Status Date / Time No Known Allergies Allergy Verified 10/09/19 08:31 Home Medications Medication Instructions Recorded Confirmed Type alprazolam 1 mg PO BID 06/19/19 10/04/19 History polyethylene glycol 3350 [Miralax] 17 gm PO BID #119 gm 06/19/19 09/27/19 Rx allopurinol 300 mg PO DAILY #0 09/10/19 10/04/19 History aspirin [Adult Aspirin Regimen] 81 mg PO DAILY 09/10/19 10/04/19 History cholecalciferol (vitamin D3) 25 mcg PO DAILY 09/10/19 10/04/19 History [Vitamin D3] hydrocodone-acetaminophen 1 tablet PO Q6H PRN 09/10/19 10/04/19 History metformin See Rx Instructions .ROUTE .COMPLEX 09/10/19 10/11/19 History pantoprazole 40 mg PO QAM 09/10/19 10/04/19 History glipizide 10 mg PO BID 10/11/19 10/11/19 History Laboratory Tests 10/11/19 07:25 POC Capillary Glucose 143 mg/dl H mg/dl (65-105) Patient hx anesthesia problems: none Family hx anesthesia problems: none PMFSH Social History Social History Years smoked: 28 Smoking status: Current every day smoker Tobacco type: cigarettes Alcohol intake: never Substance use: never Gender identity (if verbalized by the patient): Male Spiritual care concerns: No Agree to blood products: Yes Anes - Eval Final PreProcedure Day of Procedure 10/11/19 07:40 Patient weight: normal Heart: regular rate and rhythm Lungs: clear to auscultation and normal air movement Airway: Mallampati scale class 1 Neurological: alert and oriented Last oral intake: >/= 8 hours ASA classification: III Emergent: no Anesthetic plan: proceed Anesthesia type and monitoring: general GIVS and standard monitoring Informed Consent: The patient's anesthetic plan and its attendant risks and benefits were discussed with the patient/family/POA. Questions were solicited and answers provided to the satisfaction of the patient/family/POA.
--- NOTE | 2019-10-11 08:05 | WPDGICN ---
Assessment and Plan Assessment and plan (1) Intra-abdominal abscess: Onset Date: ~09/04/19 Code(s): K65.1 - Peritoneal abscess Status: Acute Assessment and Plan: Etiology a recent intra-abdominal abscess of unclear origin. Now resolved. He was hospitalized required percutaneous drain for quite some time. Differential diagnosis includes possible perforated ulcer and/or perforated diverticular disease. Plan is for colonoscopy an EGD at this time as he has been resolved for approximately 1 month. (2) History of rectal polyps: Code(s): Z87.19 - Personal history of other diseases of the digestive system Status: Acute Assessment and Plan: Follow-up colonoscopy also performed at this time because of his distant history of colon polyps. Further recommendations will be given after endoscopy. 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 Meyer. Patient recently hospitalized was found to have intra-abdominal abscess. This was treated with percutaneous external drainage and with good results. External drain was recently removed. Patient we current we states his weight appetite bowel movements are normal. He reports a distant history of colon polyps last exam was more than 5 years ago. Current bowel habits are normal. Several months ago present emergency room with constipation. Was treated conservatively. It was advised he consider an outpatient colonoscopy. He denies any prior history of ulcer disease. He was treated empirically in remains on pantoprazole since recent hospital stay. Review of Systems Review of Systems: All systems reviewed & are unremarkable except as noted in HPI and below PMFSH Past Medical History Medical History A-fib Arthritis Diabetes Diabetes mellitus (Unknown) Gout Herpes Type 2 History of rectal polyps Hyperlipidemia Hypertension Kidney stones Shingles Ureteral stone Surgical History Surgical History H/O arthroscopy lt shoulder H/O cystoscopy H/O repair of rotator cuff bilateral History of bilateral carpal tunnel release History of penile implant History of renal stent History of total knee replacement (TKR) rt Hx of tonsillectomy Social History Social History Years smoked: 28 Smoking status: Current every day smoker Tobacco type: cigarettes Alcohol intake: never Substance use: never Gender identity (if verbalized by the patient): Male Spiritual care concerns: No Agree to blood products: Yes Meds Home Medications and Allergies Home Medications Medication Instructions Recorded Confirmed Type alprazolam 1 mg PO BID 06/19/19 10/04/19 History polyethylene glycol 3350 [Miralax] 17 gm PO BID #119 gm 06/19/19 09/27/19 Rx allopurinol 300 mg PO DAILY #0 09/10/19 10/04/19 History aspirin [Adult Aspirin Regimen] 81 mg PO DAILY 09/10/19 10/04/19 History cholecalciferol (vitamin D3) 25 mcg PO DAILY 09/10/19 10/04/19 History [Vitamin D3] hydrocodone-acetaminophen 1 tablet PO Q6H PRN 09/10/19 10/04/19 History metformin See Rx Instructions .ROUTE .COMPLEX 09/10/19 10/11/19 History pantoprazole 40 mg PO QAM 09/10/19 10/04/19 History glipizide 10 mg PO BID 10/11/19 10/11/19 History Allergies Allergy/AdvReac Type Severity Reaction Status Date / Time No Known Allergies Allergy Verified 0
--- NOTE | 2019-10-11 08:28 | SUR.OPER ---
EGD ENDED 818, COLONOSCOPY STARTED 825
[2019-10-11] MEDS: SIMETHICONE ORAL SUSPENSION 20 MG/0.3 ML 30 ML BOTTLE 0.6 ML IRRIGATION (08:31)
[2019-10-11 08:40] VITALS: BP 123/78; PULSE 53; RESP 16; O2SAT 98
[2019-10-11 08:50] VITALS: BP 126/79; PULSE 56; RESP 18; O2SAT 99
[2019-10-11 09:00] VITALS: BP 134/82; PULSE 56; RESP 17; O2SAT 98
== END 2019-10-11 09:15 | disposition home or self-care (01) ==
PROVIDERS: Visit Provider Internal Medicine Gastroenterology
PROC: 0DJ08ZZ Inspection of Upper Intestinal Tract, Via Natural or Artificial Opening Endoscopic (ICD-10-PCS; CPT 43235; principal; 2019-10-11 08:00)
DX: Z09 Encounter for follow-up examination after completed treatment for conditions other than malignant neoplasm (principal); K64.8 Other hemorrhoids; Z86.010 Personal history of colon polyps; Z87.898 Personal history of other specified conditions; E11.9 Type 2 diabetes mellitus without complications; I10 Essential (primary) hypertension; E78.5 Hyperlipidemia, unspecified; Z79.84 Long term (current) use of oral hypoglycemic drugs; Z79.82 Long term (current) use of aspirin; F17.210 Nicotine dependence, cigarettes, uncomplicated
CPT/HCPCS: 45378; 43235; J2704; J7120

== ENCOUNTER 2020-02-22 10:02 | Outpatient (CLI) | payer OTHER, SELFPAY ==
--- NOTE | ~2020-02-22 | CT_ITS ---
EXAMINATION: CT chest abdomen pelvis w con DATE: 02/22/2020 11:08 CDT INDICATION: Chest and left upper abdominal TECHNIQUE: Computed tomography (CT) of the chest, abdomen, and pelvis was performed with 100 cc Omnip aque 350 intravenous contrast. The dose-length product was 712.28 mGy-cm. Automated exposure control and iterative reconstruction technique were employed. COMPARISON: CT dated 09/17/2019 FINDINGS: CHEST CT: 6 mm right lower lobe nodule adjacent to the fissure. There is a 5 mm no endobronchial lesions. Cardi omegaly. No significant pleural or pericardial effusion. There is atherosclerosis. ABDOMEN/PELVIS CT: Bladder is moderately distended. Mild bladder wall thickening. There is a reservoir for penile prosth etic device in the left inguinal location. There is atherosclerosis of the aorta without aneurysm. The liver, spleen, pancreas, adrenal glands are unremarkable. There are bilateral renal cysts. Gallbl adder is present. Prostate gland is enlarged. Nonobstructive bowel gas pattern. Colonic diverticulosi s without evidence for diverticulitis. Normal appendix. No free air or free fluid. IMPRESSION: 1. Right lower lobe nodules, largest measuring 6 mm. These are likely benign. Follow-up low dose CT c hest in 6 months recommended. 2: Mild bladder wall thickening which may be due to outlet obstruction from enlarged prostate gland o r cystitis. Correlate clinically. Reviewed, dictated and finalized at location A. IMPRESSION: 1. Right lower lobe nodules, largest measuring 6 mm. These are likely benign. F ollow-up low dose CT chest in 6 months recommended. 2: Mild bladder wall thickening which may be due to outlet obstruction from enl arged prostate gland or cystitis. Correlate clinically.
[2020-02-22 11:01] LABS: Estimated Glomerular Filt Rate > 60
== END 2020-02-22 10:03 | disposition home or self-care (01) ==
PROVIDERS: PCP Internal Medicine Geriatric Medicine; Visit Provider Surgery
DX: R10.12 Left upper quadrant pain (principal); R91.8 Other nonspecific abnormal finding of lung field; R93.41 Abnormal radiologic findings on diagnostic imaging of renal pelvis, ureter, or bladder
CPT/HCPCS: 71260; 74177; Q9967

== ENCOUNTER 2020-04-11 01:10 | Outpatient (CLI) | payer OTHER, SELFPAY ==
[2020-04-11 18:32] LABS: SARS-CoV-2 RNA PCR Negative
== END 2020-04-11 01:11 | disposition home or self-care (01) ==
LOC: ANHCOVIDDT 01:10
PROVIDERS: PCP Internal Medicine Geriatric Medicine; Visit Provider Internal Medicine Cardiovascular Disease
DX: Z01.812 Encounter for preprocedural laboratory examination (principal); Z20.828 Contact with and (suspected) exposure to other viral communicable diseases
CPT/HCPCS: 87635; C9803; U0003

== ENCOUNTER 2020-04-14 05:22 | Day surgery (SDC) | payer OTHER, SELFPAY ==
[2020-04-13 16:18] VITALS: BMI 25.0
[2020-04-14] VITALS (11 sets, daily range): BP systolic 111–165; BP diastolic 89–141; PULSE 66–128; RESP 14–21; TEMP 36.6; O2SAT 96–100; BMI 25.6
--- NOTE | 2020-04-14 07:10 | ECG_ITS ---
Measurements Intervals [place] Rate: 66 P: 64 DC: 175 QRS: 7 QRSD: 98 T: 42 QT: 392 QTc: 413 Interpretive Statements SINUS RHYTHM LEFT ATRIAL ENLARGEMENT INCOMPLETE RIGHT BUNDLE BRANCH BLOCK CANNOT RULE OUT SEPTAL INFARCT, AGE INDETERMINATE ABNORMAL ECG Electronically Signed On 04-14-2020 10:30:44 [employer] by Scot Armenta D.O.
[2020-04-14 08:04] LABS: Anion Gap 8 mmol/L (8-16); Blood Urea Nitrogen 23 mg/dL (9-20); Calcium 9.3 mg/dL (8.4-10.2); Carbon Dioxide 27 mmol/L (22-30); Chloride 103 mmol/L (98-107); Estimated CRCL calculation 86 ml/min; Estimated Glomerular Filt Rate > 60; Glucose 221 mg/dL (75-110); Magnesium 1.5 mg/dL (1.6-2.3); Potassium 4.3 mmol/L (3.4-5.0); Sodium 138 mmol/L (137-145)
--- NOTE | 2020-04-14 09:06 | WPDMODSED ---
Moderate Sedation Note-Pt Data Patient Data Allergies Allergy/AdvReac Type Severity Reaction Status Date / Time No Known Allergies Allergy Verified 02/05/20 09:23 Home Medications Medication Instructions Recorded Confirmed Type alprazolam 1 mg PO BID 06/19/19 04/13/20 History allopurinol 300 mg PO DAILY #0 09/10/19 04/13/20 History aspirin [Adult Aspirin Regimen] 81 mg PO DAILY 09/10/19 04/13/20 History cholecalciferol (vitamin D3) 25 mcg PO DAILY 09/10/19 04/13/20 History [Vitamin D3] metformin See Rx Instructions .ROUTE .COMPLEX 09/10/19 04/13/20 History glipizide 10 mg PO BID 10/11/19 04/13/20 History Current Medications: Active Medications Sodium Chloride (Normal Saline Iv) 1,000 mls @ 30 mls/hr IV CONT .Q24H BALTAZAR Sedation/Anesthesia: No previous sedation/anesthesia problems (including family history). PMF Past Medical History Medical History A-fib Arthritis Diabetes Diabetes mellitus (Unknown) Gout Herpes Type 2 History of rectal polyps Hyperlipidemia Hypertension Kidney stones Shingles Ureteral stone Surgical History Surgical History H/O arthroscopy lt shoulder H/O cystoscopy H/O repair of rotator cuff bilateral History of bilateral carpal tunnel release History of penile implant History of renal stent History of total knee replacement (TKR) rt Hx of tonsillectomy Social History Social History Years smoked: 28 Smoking status: Current every day smoker Tobacco type: cigarettes Alcohol intake: never Substance use: never Substance use type: does not use Living arrangements: alone Gender identity (if verbalized by the patient): Male Spiritual care concerns: No Agree to blood products: Yes Mod Sed Physical Exam Physical Exam Pre Procedural Exam: Normal: Appearance, Eyes, Ears, Nose, Neck (Supple, normal range of motion), Throat (Posterior hypopharynx clear, nonerythematous), Airway (Normal anatomy, no obstruction), Lungs (Clear to auscultation bilaterally), Heart Size, Heart Rhythm (Regular), Neuro Exam, Abdomen, Liver, Extremities and Skin and Variation: Heart Rate ( tachycardic) Hours since solid foods: 12 Hours since liquid intake: 12 Internal Medicine - PN: Obj Da Vital Signs Vital Signs: Vital Signs - 24 hr 04/14/20 07:45 Temperature 36.6 C Pulse Rate 112 H Respiratory Rate 21 H Blood Pressure 144/120 H Pulse Oximetry 100 Meds/Results Medications: Active Medications Generic Name Dose Route Start Last Admin Trade Name Freq PRN Reason Stop Dose Admin Sodium Chloride 1,000 mls @ 30 mls/hr 04/14/20 07:10 Normal Saline Iv IV CONT .Q24H BALTAZAR Labs CBC & Chem 7: 04/14/20 07:44 04/14/20 07:44 Labs: Laboratory Results - last 24 hr 04/14/20 07:44 Sodium 138 Potassium 4.3 Chloride 103 Carbon Dioxide 27 Anion Gap 8 BUN 23 H D Creatinine 0.80 Estim Creat Clear Calc 86 Estimated GFR > 60 Glucose 221 H Calcium 9.3 Magnesium 1.5 L ASA Classification/Sedation ASA Classification/Sedation ASA Class: III Emergent: No Risks: Risks, benefits and alternatives explained and patient/family accepted plan for sedation. Patient re-evaluated immediately prior to sedation.
--- NOTE | 2020-04-14 09:06 | WPDHPUPDATE1 ---
History and Physical Update Update Date/Time: 04/14/20 09:06 History and Physical has been reviewed, including an updated exam of the patient. There are NO changes in the patient's condition. Risks, benefits, and alternatives have been discussed and questions answered. Patient agrees to proceed with procedure.
[2020-04-14] MEDS: MAGNESIUM SULF 2 GM/WATER 50ML 2 GM/50 ML BAG IVPB (09:21)
--- NOTE | 2020-04-14 09:35 | ECG_ITS ---
Measurements Intervals [place] Rate: 117 P: IN: 0 QRS: 4 QRSD: 88 T: 68 QT: 309 QTc: 432 Interpretive Statements ATRIAL FLUTTER/TACHYCARDIA WITH RAPID VENTRICULAR RESPONSE ANTEROSEPTAL INFARCT, AGE INDETERMINATE ABNORMAL ECG Electronically Signed On 04-14-2020 10:29:30 BODY MECHANIC APPRENTICE by Scot Armenta D.O.
--- NOTE | 2020-04-14 10:01 | WPDTECDV ---
[facility] with Cardioversion Date of procedure: 04/14/20 Procedure Type: Transesophageal echocardiogram guided elective electrical cardioversion Diagnosis: Atrial flutter with rapid ventricular response Indications: Atrial flutter with rapid ventricular response Description of Procedure: Brief history present illness: Patient is a pleasant 69-year-old male with history of hypertension, diabetes mellitus, history of paroxysmal atrial fibrillation, tachycardia bradycardia syndrome, and recent diagnosis atrial flutter with rapid ventricular response with LV dysfunction EF 45% by surface echo initiated on systemic anticoagulation and referred for transesophageal echocardiogram-guided elective electrical cardioversion in attempt to restore sinus rhythm. Procedure in detail: After verbal and written informed consent was obtained the patient risks, benefits, and alternatives explained in detail the patient agreed to proceed with the plan of care as outlined above. Patient was evaluated at bedside in the [facility] procedure room. On examination, neck was supple with normal range of motion, no restrictions to opening of the oral cavity, jaw angle and posterior hypopharynx was clear. Lungs were clear to auscultation. Patient was placed in appropriate 30 to 45 degree angle in a supine, slight left lateral decubitus position. Patient was monitored throughout the study with telemetry, oxygen saturation, end-tidal CO2 monitoring, blood pressure, heart rate, and respirations. Anterior and posterior defibrillator pads placed in the appropriate positions. The posterior hypopharynx was then locally anesthetized using repeated administration of Hurricaine spray as well as gargled viscous lidocaine. After local anesthetic of the posterior hypopharynx was achieved and the oral bite block placed, moderate sedation was administered. Through the oral bite block, the transesophageal echocardiogram probe was advanced into the posterior hypopharynx and into the esophagus easily and without complication. Multiple, multiplanar echocardiographic images were obtained in multiple standard re-projections. Pulsed wave, continuous-wave, and color-flow Doppler were utilized in conjunction with this study. At the conclusion of the study, the transesophageal echocardiogram probe was removed easily and without complication. Patient tolerated the procedure well without difficulty. Patient was in atrial flutter with rapid ventricular response throughout the study. Preprocedural labs revealed a slightly low magnesium at 1.5 for which 2 g magnesium sulfate IV were ordered and infusion started at beginning of procedure. Sedation: Moderate Sedation/Anesthesia administration: Patient denied previous intolerance or complications with anesthesia/sedation. Please see sedation note for documentation of the pre-procedure physical examination. As noted above, after adequate local anesthesia of the posterior hypopharynx was achieved, a total of 3mg intravenous Versed and a total of 75 mcg intravenous Fentanyl in multiple divided doses was utilized for moderate sedation. Sedation start time was 0919 and end time was 0938 for a total of 19 minutes [id number] intra-procedure time. Sedation was administered by a qualified observer Ramila Abad RN under my supervision with intra-procedure [id number] observation and management throughout the entirety of the procedure. There were no other issues or complications and patient tolerated the procedure well and sedation protocol well and I was present for the entirety. Findings: Findings: Left ventricle was mild enlarged with moderate systolic dysfunction EF visually estimated at 35%, mild LVH. Right ventricular size and systolic function within normal limits. Moderate enalrgement of left enlargement with mild right atrial enlargement. Interatrial septum anatomically normal without evidence of shunt with color-flow Doppler nor with injection of agitated sali
== END 2020-04-14 12:00 | disposition home or self-care (01) ==
PROVIDERS: PCP Internal Medicine Geriatric Medicine; Visit Provider Internal Medicine Cardiovascular Disease
PROC: (CPT 93312; principal; 2020-04-14 08:30)
PROC: 5A2204Z Restoration of Cardiac Rhythm, Single (ICD-10-PCS; 2020-04-14 08:30)
DX: I48.92 Unspecified atrial flutter (principal); I10 Essential (primary) hypertension; E11.9 Type 2 diabetes mellitus without complications; I49.5 Sick sinus syndrome; E78.5 Hyperlipidemia, unspecified; M10.9 Gout, unspecified; Z79.84 Long term (current) use of oral hypoglycemic drugs; Z79.82 Long term (current) use of aspirin; F17.210 Nicotine dependence, cigarettes, uncomplicated
CPT/HCPCS: 36415; 80048; 83735; 87635; 93005; 93312; 93320; 93325; C9803; J2250; J3010; J3475; J7030; U0003

== ENCOUNTER 2020-08-18 12:54 | Outpatient (CLI) | payer OTHER, SELFPAY ==
--- NOTE | 2020-08-18 | ECG_ITS ---
Measurements Intervals [place] Rate: 38 P: 55 GA: 180 QRS: 10 QRSD: 90 T: 71 QT: 469 QTc: 377 Interpretive Statements SINUS BRADYCARDIA POSSIBLE LEFT ATRIAL ENLARGEMENT LOW QRS VOLTAGE IN LIMB LEADS BORDERLINE R WAVE PROGRESSION, ANTERIOR LEADS BORDERLINE ST-T WAVE ABNORMALITY- HIGH LATERAL LEADS ABNORMAL ECG Electronically Signed On 08-18-2020 13:43:40 CDT by Scot Armenta D.O.
== END 2020-08-18 12:55 | disposition home or self-care (01) ==
LOC: ANHCARD 12:58
PROVIDERS: PCP Internal Medicine Geriatric Medicine
DX: I48.19 Other persistent atrial fibrillation (principal); R00.1 Bradycardia, unspecified
CPT/HCPCS: 93005

== ENCOUNTER 2020-10-08 13:34 | Outpatient (CLI) | payer OTHER, SELFPAY ==
--- NOTE | 2020-10-08 | ECHO_ITS ---
Patient Info Name: Houston Chawla Age: 70 years : 1950 Gender: Male Ht: 72 in Wt: 170 lbs BSA: 1.98 m2 HR: 51 bpm BP: 137 / 79 mmHg Heart Rhythm: Sinus Rhythm Technical Quality: Good Exam Date: 10/08/2020 2:03 PM Exam Location: [facility] Patient Status: Outpatient Admit Date: 10/08/2020 Staff Ordering Physician: Danny Blanco M.D., MD Product Development Consultant: Flori Moore RDCS Attending Provider: Danny Blanco M.D., MD Referring Physician: Bella UMANZOR; Exam Type: CA echo doppler color flow Study Info Indications - AFIB Complete two-dimensional, color flow and Doppler transthoracic echocardiogram is performed. Summary 1. Complete two-dimensional, color flow and Doppler transthoracic echocardiogram is performed. 2. Normal left ventricular size with moderate concentric hypertrophy. Left ventricular systolic function at the lower limit of normal, 50-55%, with hypokinesis of the basal inferoseptal segment. Diastolic dysfunction is present. 3. Left atrial chamber dimension is moderately enlarged. 4. Right atrial chamber dimension is moderately enlarged. 5. There is mild mitral valve regurgitation. 6. There is mild tricuspid valve regurgitation. 7. No pulmonary hypertension, estimated pulmonary arterial systolic pressure is 28 mmHg. 8. Normal sinus rhythm. Left Ventricle Left ventricular chamber dimension is normal. Left ventricular systolic function is normal, estimated at 50-55%. There is moderately increased left ventricular wall thickness. Left ventricular septal wall motion is normal. The left ventricular diastolic function is abnormal. Right Ventricle Right ventricular chamber dimension is normal. Right ventricular systolic function is normal. Left Atria Left atrial chamber dimension is moderately enlarged. Right Atria Right atrial chamber dimension is moderately enlarged. Aortic Valve The aortic valve is trileaflet. There is moderate aortic valve sclerosis. There is no aortic valve stenosis. There is no aortic valve regurgitation. Pulmonic Valve The pulmonic valve is normal. There is no pulmonic valve stenosis. There is no pulmonic regurgitation. Mitral Valve The mitral valve has normal leaflets. There is no mitral valve stenosis. There is mild mitral valve regurgitation. Tricuspid Valve The tricuspid valve leaflets are normal. There is no significant tricuspid valve stenosis. There is mild tricuspid valve regurgitation. No pulmonary hypertension, estimated pulmonary arterial systolic pressure is 28 mmHg. Pericardium/Pleural The pericardium appears normal. There is no pericardial effusion. Inferior Vena Cava Normal inferior vena cava with >50% collapse upon inspiration consistent with Empty right atrial pressure, 10 mmHg. Aorta The aortic root size at the sinus of Valsalva is normal. The prox ascending aorta size is normal. Left Ventricular Outflow Tract Name Value Normal LVOT 2D LVOT Diameter 2.1 cm LVOT Doppler LVOT Peak Gradient 3 mmHg LVOT Mean Gradient 2 mmHg
== END 2020-10-08 13:35 | disposition home or self-care (01) ==
PROVIDERS: PCP Internal Medicine Geriatric Medicine
DX: I48.19 Other persistent atrial fibrillation (principal); I34.0 Nonrheumatic mitral (valve) insufficiency; I36.1 Nonrheumatic tricuspid (valve) insufficiency
CPT/HCPCS: 93306

== ENCOUNTER 2020-12-21 17:30 | Inpatient (IN) | payer OTHER, SELFPAY ==
[2020-12-18 13:22] VITALS: BMI 23.1
[2020-12-21] VITALS (23 sets, daily range): BP systolic 116–141; BP diastolic 76–95; PULSE 66–76; RESP 12–19; TEMP 36.2–36.4; O2SAT 95–100; BMI 22.7
[2020-12-21 07:42] LABS: Basophils Absolute Auto 0.1 K/mm3 (0.0-0.1); Basophils Percent Auto 0.9 % (0.2-1.2); Eosinophils Absolute Auto 0.2 K/mm3 (0-0.3); Eosinophils Percent Auto 1.2 % (0-4.4); Hemoglobin 17.2 g/dL (14.0-18.0); Immature Granulocyte Absolute 0.41 K/mm3 (0.00-0.031); Lymphocytes Absolute Auto 2.81 K/mm3 (0.9-3.2); Lymphocytes Percent Auto 20.8 % (18.3-44.2); Mean Corpuscular HGB Conc 34.4 g/dl (32-36); Mean Corpuscular Hemoglobin 31.4 pg (26-34); Mean Corpuscular Volume 91.2 fl (80-100); Monocytes Absolute Auto 1.4 K/mm3 (0.1-0.6); Monocytes Percent Auto 10.1 % (2.6-8.5); Neutrophils Absolute Auto 8.7 K/mm3 (1.3-6.7); Platelet Count Result 346 k/mm3 (150-375); Red Blood Count 5.48 M/mm3 (4.6-6.20); Red Cell Distribution Width 13.5 % (11.5-14.5); White Blood Count 13.5 K/mm3 (4.5-10.0)
[2020-12-21 07:51] LABS: Anion Gap 9 mmol/L (8-16); Blood Urea Nitrogen 21 mg/dL (9-20); Calcium 10.1 mg/dL (8.4-10.2); Carbon Dioxide 29 mmol/L (22-30); Chloride 97 mmol/L (98-107); Estimated CRCL calculation 84 ml/min; Estimated Glomerular Filt Rate > 60; Glucose 117 mg/dL (65-110); Sodium 135 mmol/L (137-145)
--- NOTE | 2020-12-21 08:58 | WPDHPUPDATE1 ---
History and Physical Update Update Date/Time: 12/21/20 08:58 History and Physical has been reviewed, including an updated exam of the patient. There are NO changes in the patient's condition. Risks, benefits, and alternatives have been discussed and questions answered. Patient agrees to proceed with procedure.
--- NOTE | 2020-12-21 08:58 | WPDMODSED ---
Moderate Sedation Note-Pt Data Patient Data Diagnosis: Cardiomyopathy, stable angina, abnormal stress test Present Complaint: none Procedure to be performed/Plan: left heart catheterization with selective left and right coronary angiography with left ventriculography and hemodynamics and possible percutaneous intervention and stent implantation. Allergies Allergy/AdvReac Type Severity Reaction Status Date / Time oxycodone Allergy Unknown Other Verified 12/21/20 08:03 Home Medications Medication Instructions Recorded Confirmed Type alprazolam 1 mg PO BID PRN 06/19/19 12/18/20 History allopurinol 300 mg PO DAILY #0 09/10/19 12/18/20 History cholecalciferol (vitamin D3) 25 mcg PO DAILY 09/10/19 12/18/20 History [Vitamin D3] metformin See Rx Instructions .ROUTE .COMPLEX 09/10/19 12/18/20 History glipizide 10 mg PO BID 10/11/19 12/18/20 History Eliquis 5 mg PO BID 04/14/20 12/18/20 History lisinopril 2.5 mg PO DAILY 12/18/20 12/18/20 History semaglutide [Ozempic] 0.25 mg SUBCUT WEEKLY 12/18/20 12/18/20 History Current Medications: Active Medications Sodium Chloride (Normal Saline Iv) 500 mls @ 100 mls/hr IV CONT .Q5H BALTAZAR Sedation/Anesthesia: No previous sedation/anesthesia problems (including family history). [facility] Past Medical History Medical History A-fib Arthritis Diabetes Diabetes mellitus (Unknown) Gout Herpes Type 2 History of rectal polyps Hyperlipidemia Hypertension Kidney stones Shingles Ureteral stone Surgical History Surgical History H/O arthroscopy lt shoulder H/O cystoscopy H/O repair of rotator cuff bilateral History of bilateral carpal tunnel release History of penile implant History of renal stent History of total knee replacement (TKR) rt Hx of tonsillectomy Social History Social History Years smoked: 28 Smoking status: Current every day smoker Tobacco type: cigarettes Alcohol intake: never Substance use: never Substance use type: does not use Gender identity (if verbalized by the patient): Male Spiritual care concerns: No Agree to blood products: Yes Mod Sed Physical Exam Physical Exam Pre Procedural Exam: Normal: Appearance, Eyes, Ears, Nose, Neck ( supple, normal range of motion), Throat ( posterior hypopharynx clear, nonerythematous), Airway ( normal anatomy, no obstruction), Lungs ( Clear to auscultation bilaterally), Heart Size, Heart Rate, Heart Rhythm, Neuro Exam, Abdomen, Liver, Extremities and Skin Hours since solid foods: 12 Hours since liquid intake: 12 Mallampati Classification: class III Internal Medicine - PN: Obj Da Vital Signs Vital Signs: Vital Signs - 24 hr 12/21/20 07:50 Temperature 36.2 C L Pulse Rate 76 Respiratory Rate 14 Blood Pressure 125/87 Pulse Oximetry 100 Meds/Results Medications: Active Medications Generic Name Dose Route Start Last Admin Trade Name Freq PRN Reason Stop Dose Admin Sodium Chloride 500 mls @ 100 mls/hr 12/21/20 07:00 Normal Saline Iv IV CONT .Q5H BALTAZAR Labs CBC & Chem 7: 12/21/20 07:35 12/21/20 07:35 Labs: Laboratory Results - last 24 hr 12/21/20 12/21/20 07:35 07:35 WBC 13.5 H RBC 5.48 Hgb 17.2 Hct 50.0 MCV 91.2 MCH 31.4 MCHC 34.4 RDW 13.5 Plt Count 346 MPV 10.0 Immature Gran % (Auto) 3.0 H Neut % (Auto) 64.0 Lymph % (Auto) 20.8 [place] % (Auto) 10.1 H Eos % (Auto) 1.2 Baso % (Auto) 0.9 Lymph # (Auto) 2.81 [place] # (Auto) 1.4 H Eos # (Auto) 0.2 Baso # (Auto) 0.1 Abs Immat Gran (auto) 0.41 H Absolute Neuts (auto) 8.7 H Absolute Nucleated RBC 0.0 Nucleated RBC % 0.0 Sodium 135 L Potassium 4.0 Chloride 97 L Carbon Dioxide 29 Anion Gap 9 BUN 21 H Creatinine 0.80 Estim Creat Clear Calc 84 Estimated
--- NOTE | 2020-12-21 09:00 | WPDCARDPROC ---
Cardiac Cath Procedure Note Date of procedure:: 12/21/20 Performing physician:: Abelino Porter MD Indication:: abnormal stress test, stable angina Procedure Procedure performed:: PROCEDURES PERFORMED: 1. Left heart catheterization 2. Selective left and right coronary angiography 3. Left ventriculography and hemodynamics 4. Moderate/conscious sedation administration CATHETERS UTILIZED: Left coronary system- 5 Japanese JL4 catheter Right coronary system- 5 Japanese JR4 catheter Left ventriculography and hemodynamics- 5 Japanese angled pigtail catheter PROCEDURE IN DETAIL: After verbal and written informed consent was obtained the patient, risks, benefits, and alternatives explained in detail the patient agreed to proceed with the plan of care as outlined above. The patient was subsequently brought to the cardiac catheterization lab, placed on the cardiac catheterization table, and prepped and draped in the usual sterile fashion. Utilizing approximately cc of 1% subcutaneous Lidocaine, the right groin was then locally anesthetized. Utilizing the modified Seldinger technique, a 5 Japanese arterial vascular access sheath was inserted in the right common femoral artery easily and without complications. Through this access, coronary angiography was subsequently obtained in multiple standard re-projections. Following this, a 5 Japanese angled pigtail catheter was advanced retrograde across aortic valve into the cavity of the left ventricle. Left ventriculography was performed and pullback across aortic valve was subsequently recorded. The vascular access sheath and angiographic catheters were flushed before and after catheter exchanges. At the conclusion of the diagnostic portion of the procedure, all angiographic guidewires and catheters were removed and the 5 Japanese arterial vascular access sheath was then pulled and satisfactory hemostasis was achieved using manual compression. There no complications noted at the conclusion of the diagnostic portion of the study. Sedation/Medication given:: MODERATE SEDATION/ANESTHESIA ADMINISTRATION: Patient reports no prior problems with sedation/anesthesia. Please see pre-sedation noted for physical examination documentation. Sedation start time was 0907 and end time was 0945 for a total intra-service/procedure face-face time of 38 minutes. A total of 2 mg intravenous Versed and a total of 50 mcg intravenous Fentanyl was administered for moderate sedation. Moderate sedation was administered by qualified/certified observer Corby Solorzano RN under my supervision with intra-procedure [id number] observation and management throughout the entirety of the procedure. There were no other issues or complications and patient tolerated the procedure well. See post-anesthesia documentation. Findings:: BRIEF HISTORY OF PRESENT ILLNESS: Patient is a pleasant 70-year-old white male with a history diabetes mellitus, hypertension, LV dysfunction, history of alcohol abuse, atrial flutter status post cardioversion on systemic anticoagulation, dyslipidemia with progressive exertional angina and shortness of breath with abnormal stress test referred for coronary angiography for delineation of his coronary anatomy. CORONARY ANGIOGRAPHY: The LEFT MAIN arose from the left coronary cusp and revealed 20-30% midvessel stenosis. The left main then bifurcated into the left anterior descending artery and circumflex coronary artery. LEFT ANTERIOR DESCENDING ARTERY: larger vessel extending to and wrapping around the LV apex with diffuse, dense calcification throughout the proximal and mid segments with 50% proximal stenosis just at the bifurcation of a small diagonal branch and a 99% mid LAD stenosis. There is mild luminal irregularities throughout remainder of the LAD with JACY 1 flow. Evidence of left to right collaterals extending from septal perforators off the LAD to the right posterolateral branch. CIRCUMFLEX CORONARY ARTERY: Moderate c
[2020-12-21 13:15] LABS: Glucose Point of Care 107 mg/dl (65-105)
--- NOTE | 2020-12-21 14:13 | SUR.PHASEII ---
1410 Up to chair with one assist, tolerated well. Groin site without signs of bleeding.
--- NOTE | 2020-12-21 17:22 | SUR.PHASEII ---
Pt waiting bed assignment to go to [facility] for high risk PCI. Pt converted to Extended Recovery. Transferred to IMU room 203. Report called to Tod IMU RN. Pt up in chair post procedure after ordered bedrest. Tolerated well. Appetite good. Voiding without difficulty. right groin site without hematoma or bleeding. Transferred via wheelchair.
[2020-12-22] VITALS (12 sets, daily range): BP systolic 103–135; BP diastolic 61–86; PULSE 68–100; RESP 12–20; TEMP 36.3–37.1; O2SAT 96–100
--- NOTE | 2020-12-22 09:58 | PM.PNCARD ---
Progress Note: A&P Assessment and Plan (1) Paroxysmal atrial flutter: Code(s): I48.92 - Unspecified atrial flutter Status: Acute Assessment and Plan: Maintaining sinus rhythm. Eliquis on hold in anticipation for coronary angiography at [facility] for high risk PCI. (2) Ischemic cardiomyopathy: Code(s): I25.5 - Ischemic cardiomyopathy Status: Acute Assessment and Plan: Compensated, EF 45%. (3) Progressive angina: Code(s): I20.0 - Unstable angina Status: Acute Assessment and Plan: Stable at this time although at rest. Patient was not comfortable being discharged home to follow as an outpatient with high-risk PCI which reasonable with very tight 99% mid LAD stenosis. Telemetry. Okay to shower today. Still waiting on bed to transferred to [facility]. If no bed by the end of the day discussed other options although our understanding is that bed availability at outside hospital is very limited at this time during unfortunate COVID surge. (4) CAD (coronary artery disease): Code(s): I25.10 - Atherosclerotic heart disease of [place] coronary artery without angina pectoris Status: Acute Assessment and Plan: New diagnosis on left heart catheterization 12/21/2020. Aspirin, statin. Toprol XL 12.5 mg daily. Discussed increased bleeding risk with antiplatelet and anticoagulation therapy. He will require dual antiplatelet therapy post intervention for least 1 month with anticipated discontinuation of aspirin in conjunction with anticoagulation and clopidogrel. (5) Diabetes mellitus: Onset Date: Unknown Qualifiers: Diabetes mellitus type: type 2 Diabetes mellitus care home insulin use: without care home use Diabetes mellitus complication status: without complication Qualified Code(s): E11.9 - Type 2 diabetes mellitus without complications Code(s): E11.9 - Type 2 diabetes mellitus without complications Status: Chronic Assessment and Plan: Sliding scale insulin. Will hold metformin for the time being. He is on Ozempic 0.25 mg weekly. (6) Hypertension associated with type 2 diabetes mellitus: Code(s): E11.59 - Type 2 diabetes mellitus with other circulatory complications; I15.2 - Hypertension secondary to endocrine disorders Status: Acute Assessment and Plan: BP reasonably controlled. Continue home medications. (7) Dyslipidemia associated with type 2 diabetes mellitus: Code(s): E11.69 - Type 2 diabetes mellitus with other specified complication; E78.5 - Hyperlipidemia, unspecified Status: Acute Assessment and Plan: Initiate statin therapy. Subjective Date/time seen: Date of service: 12/22/20 09:58 Follow-up for escalating angina, high risk PCI highly calcified 99% mid LAD stenosis with LV dysfunction Patient denies chest pain or shortness of breath overnight. Patient still waiting on a bed in transferred to [facility] for high risk PCI, rotational atherectomy with interventional techniques not available at this institution nor deemed optimal at [facility]. No new issues overnight. No nausea, vomiting or groin pain. No complications post catheterization. Patient states he still not comfortable being discharged home given severity of the symptoms. Review of Systems Review of Systems: All systems reviewed & are unremarkable except as noted in HPI and below Constitutional: Constitutional: Reports as per HPI and Reports no additional constitutional complaints Eyes: Eyes: Reports as per HPI and Reports no additional eye complaints ENT: Reports system reviewed and no additional complaints, except as documented and Reports as per HPI Cardiovascular: Cardiovascular: Reports as per HPI, Reports no additional cardiovascular complaints, Denies chest pain and Denies palpitations Respiratory: Respiratory: Reports as per HPI, Reports no additional respiratory complaints,
[2020-12-22 10:31] LABS: Cholesterol 255 mg/dL (0-200); HDL Direct 44 mg/dL; Triglycerides 328 mg/dL (<150)
[2020-12-22 10:41] LABS: LDL Cholesterol Direct 140 mg/dL
[2020-12-22 12:39] LABS: Glucose Point of Care 263 mg/dl (65-105)
[2020-12-22] MEDS: CHOLECALCIFEROL 1,000 UNITS TABLET 1000 UNITS PO (13:07)
[2020-12-22] MEDS: allopurinoL 300 MG TABLET PO (13:07)
[2020-12-22] MEDS: ASPIRIN 81 MG ENTERIC TABLET PO (13:07)
[2020-12-22] MEDS: ATORVASTATIN 40 MG TABLET PO (13:07)
[2020-12-22] MEDS: INSULIN ASPART (*BKC) 100 UNITS/ML SUB-Q (13:07)
[2020-12-22] MEDS: glipiZIDE 5 MG TABLET 10 MG PO (16:16)
[2020-12-22 17:29] LABS: Glucose Point of Care 172 mg/dl (65-105)
[2020-12-22 21:30] LABS: Glucose Point of Care 158 mg/dl (65-105)
[2020-12-23] VITALS (7 sets, daily range): BP systolic 116–156; BP diastolic 64–88; PULSE 70–97; RESP 16–18; TEMP 36.2–36.4; O2SAT 97–100
--- NOTE | 2020-12-23 07:27 | PC.NURSE ---
[facility] flyer was given to patient.
[2020-12-23] MEDS: CHOLECALCIFEROL 1,000 UNITS TABLET 1000 UNITS PO (08:06)
[2020-12-23] MEDS: ASPIRIN 81 MG ENTERIC TABLET PO (08:06)
[2020-12-23] MEDS: allopurinoL 300 MG TABLET PO (08:06)
[2020-12-23] MEDS: ATORVASTATIN 40 MG TABLET PO (08:06)
--- NOTE | 2020-12-23 09:10 | PM.PNCARD ---
Progress Note: A&P Assessment and Plan (1) Paroxysmal atrial flutter: Code(s): I48.92 - Unspecified atrial flutter Status: Acute Assessment and Plan: Maintaining sinus rhythm. Eliquis on hold in anticipation for coronary angiography at [facility] for high risk PCI. DVT prophylaxis (2) Ischemic cardiomyopathy: Code(s): I25.5 - Ischemic cardiomyopathy Status: Acute Assessment and Plan: Compensated, EF 45%. (3) Progressive angina: Code(s): I20.0 - Unstable angina Status: Acute Assessment and Plan: Stable at this time although at rest. Patient was not comfortable being discharged home to follow as an outpatient with high-risk PCI which reasonable with very tight 99% mid LAD stenosis. Telemetry. -bed secured [facility] with transfer this morning. Discussed anticipate intervention on . (4) CAD (coronary artery disease): Code(s): I25.10 - Atherosclerotic heart disease of [place] coronary artery without angina pectoris Status: Acute Assessment and Plan: New diagnosis on left heart catheterization 12/21/2020. Aspirin, statin. Toprol XL 12.5 mg daily. Discussed increased bleeding risk with antiplatelet and anticoagulation therapy. He will require dual antiplatelet therapy post intervention for least 1 month with anticipated discontinuation of aspirin in conjunction with anticoagulation and clopidogrel. Defer to details of intervention for further guidance in this regard. 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 Will hold metformin for the time being. He is on Ozempic 0.25 mg weekly. (6) Hypertension associated with type 2 diabetes mellitus: Code(s): E11.59 - Type 2 diabetes mellitus with other circulatory complications; I15.2 - Hypertension secondary to endocrine disorders Status: Acute Assessment and Plan: BP reasonably controlled. Continue home medications. (7) Dyslipidemia associated with type 2 diabetes mellitus: Code(s): E11.69 - Type 2 diabetes mellitus with other specified complication; E78.5 - Hyperlipidemia, unspecified Status: Acute Assessment and Plan: Continue statin therapy. Goal LDL less than 70. LDL 140. Increase atorvastatin to 80 mg at bedtime. Subjective Date/time seen: Date of service: 12/23/20 09:10 Follow-up for progressive angina, 9% mid LAD calcified stenosis No significant dyspnea overnight. Denies chest pain. No ventricular arrhythmias on telemetry. Patient only now has a bed at [facility] with transfer this morning, awaiting ambulance transportation. Review of Systems Review of Systems: All systems reviewed & are unremarkable except as noted in HPI and below Constitutional: Constitutional: Reports as per HPI and Reports no additional constitutional complaints Eyes: Eyes: Reports as per HPI and Reports no additional eye complaints ENT: Reports system reviewed and no additional complaints, except as documented and Reports as per HPI Cardiovascular: Cardiovascular: Reports as per HPI, Reports no additional cardiovascular complaints, Denies chest pain, Denies palpitations, Denies dyspnea and Denies dyspnea on exertion Respiratory: Respiratory: Reports as per HPI, Reports no additional respiratory complaints, Denies dyspnea and Denies dyspnea on exertion Gastrointestinal: Gastrointestinal: Reports as per HPI and Reports no additional gastrointestinal complaints Genitourinary: Genitourinary: Reports no additional male genitourinary complaints and Reports as
--- NOTE | 2020-12-23 09:14 | PM.TDS ---
Transfer Discharge Sum: Prov Provider Date of admission: Date of service: 12/22/20 11:21 Primary care physician: Lenin Justice, Admitting clinician: Abelino Porter MD DS: Admitting Diagnosis Admitting Diagnosis Progressive angina Abnormal stress test Cardiomyopathy Paroxysmal atrial flutter Diabetes Mellitus DS: Discharge Diagnosis Discharge Diagnosis (1) Dyslipidemia associated with type 2 diabetes mellitus: Code(s): E11.69 - Type 2 diabetes mellitus with other specified complication; E78.5 - Hyperlipidemia, unspecified Status: Acute Assessment and Plan: Continue statin therapy. Goal LDL less than 70. LDL 140. Increase atorvastatin to 80 mg at bedtime. (2) Hypertension associated with type 2 diabetes mellitus: Code(s): E11.59 - Type 2 diabetes mellitus with other circulatory complications; I15.2 - Hypertension secondary to endocrine disorders Status: Acute Assessment and Plan: BP reasonably controlled. Continue home medications. (3) CAD (coronary artery disease): Code(s): I25.10 - Atherosclerotic heart disease of [place] coronary artery without angina pectoris Status: Acute Assessment and Plan: New diagnosis on left heart catheterization 12/21/2020. Aspirin, statin. Toprol XL 12.5 mg daily. Discussed increased bleeding risk with antiplatelet and anticoagulation therapy. He will require dual antiplatelet therapy post intervention for least 1 month with anticipated discontinuation of aspirin in conjunction with anticoagulation and clopidogrel. Defer to details of intervention for further guidance in this regard. (4) Ischemic cardiomyopathy: Code(s): I25.5 - Ischemic cardiomyopathy Status: Acute Assessment and Plan: Compensated, EF 45%. (5) Progressive angina: Code(s): I20.0 - Unstable angina Status: Acute Assessment and Plan: Stable at this time although at rest. Patient was not comfortable being discharged home to follow as an outpatient with high-risk PCI which reasonable with very tight 99% mid LAD stenosis. Telemetry. -bed secured [facility] with transfer this morning. Discussed anticipate intervention on . (6) Paroxysmal atrial flutter: Code(s): I48.92 - Unspecified atrial flutter Status: Acute Assessment and Plan: Maintaining sinus rhythm. Eliquis on hold in anticipation for coronary angiography at [facility] for high risk PCI. 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 Will hold metformin for the time being. He is on Ozempic 0.25 mg weekly. Transfer Discharge Sum: Med Medications Active and Home Medications: Home Medications alprazolam 1 mg PO BID PRN 06/19/19 [History Confirmed 12/18/20] allopurinol 300 mg PO DAILY #0 09/10/19 [History Confirmed 12/18/20] cholecalciferol (vitamin D3) [Vitamin D3] 25 mcg PO DAILY 09/10/19 [History Confirmed 12/18/20] metformin See Rx Instructions .ROUTE .COMPLEX 09/10/19 [History Confirmed 12/18/20] glipizide 10 mg PO BID 10/11/19 [History Confirmed 12/18/20] Eliquis 5 mg PO BID 04/14/20 [History Confirmed 12/18/20] lisinopril 2.5 mg PO DAILY 12/18/20 [History Confirmed 12/18/20] semaglutide [Ozempic] 0.25 mg SUBCUT WEEKLY 12/18/20 [History Confirmed 12/18/20] Active Medications Allopurinol (Allopurinol 300 Mg Tablet) 300 mg PO DAILY BALTAZAR Last Admin: 12/23/20 08:06 Dose: 300 mg Documented by: Alprazolam (Alprazolam (*Crx) 0.5 Mg Tablet) 1 mg PO BID PRN PRN Reason: Anxiety Aspirin (Aspirin 81 Mg
[2020-12-23 09:39] LABS: Glucose Point of Care 175 mg/dl (65-105)
[2020-12-23 18:15] LABS: Glucose Point of Care 177 mg/dl (65-105)
== END 2020-12-23 13:08 | disposition short-term general hospital (02) | DRG 287 ==
LOC: ANHCATHLAB 12-22 06:15 → ANHIMU 12-22 08:58
PROVIDERS: Admitting Provider Internal Medicine Cardiovascular Disease; PCP Internal Medicine Geriatric Medicine; Visit Provider Internal Medicine Cardiovascular Disease
PROC: 4A023N7 Measurement of Cardiac Sampling and Pressure, Left Heart, Percutaneous Approach (ICD-10-PCS; CPT 93452; principal; 2020-12-21 08:30)
DX: I25.118 Atherosclerotic heart disease of native coronary artery with other forms of angina pectoris (principal); I48.92 Unspecified atrial flutter; I48.20 Chronic atrial fibrillation, unspecified; I25.5 Ischemic cardiomyopathy; E11.69 Type 2 diabetes mellitus with other specified complication; E78.5 Hyperlipidemia, unspecified; E11.59 Type 2 diabetes mellitus with other circulatory complications; I15.2 Hypertension secondary to endocrine disorders; M19.90 Unspecified osteoarthritis, unspecified site; F17.210 Nicotine dependence, cigarettes, uncomplicated; Z96.651 Presence of right artificial knee joint; Z79.01 Long term (current) use of anticoagulants
CPT/HCPCS: 36415; 80048; 80061; 82948; 85025; 93458; A9270; C1887; C1894; J0461; J1644; J1815; J2250; J3010; J7030; J7040

== ENCOUNTER 2021-02-04 09:45 | Outpatient (RCR) | payer OTHER, SELFPAY ==
[2021-01-29 08:39] VITALS: BP 130/76; PULSE 79; RESP 16; O2SAT 99
[2021-01-29 08:52] VITALS: PULSE 82
--- NOTE | 2021-03-25 13:31 | PCCPR ---
LM to follow up on plans to return and new ins #s.
== END 2021-04-22 11:12 | disposition home or self-care (01) ==
LOC: ANHCPREHAB 09:45
PROVIDERS: PCP Internal Medicine Geriatric Medicine; Visit Provider Nurse Practitioner Adult Health
DX: Z95.5 Presence of coronary angioplasty implant and graft (principal)
CPT/HCPCS: 93798

== ENCOUNTER 2021-03-15 08:14 | Outpatient (CLI) | payer OTHER, MEDICARE, SELFPAY ==
--- NOTE | ~2021-03-15 | US_ITS ---
EXAMINATION: US art doppler w press LE BI DATE: 03/15/2021 09:45 INDICATION: Claudication. Coronary artery disease. TECHNIQUE: Segmental pressures and plethysmographic and Doppler waveforms of the brachial and lower e xtremity arteries were obtained. COMPARISON: None. FINDINGS: Right and left brachial artery pressures of 127 mm Hg and 139 mm Hg, respectively, are concordant (no rmal difference <= 30 mmHg). The right high-thigh pressure index is 1.27 (normal > 1.2). The left hig h thigh pressure index is unable to be obtained due to inability to occlude the vessel. The right ankle-brachial index (JONI) is 1.22 (normal >= 0.9-1). The right great toe-brachial index (T BI) is 0.61 (normal >= 0.6-0.8). The right lower extremity segmental pressure gradients are increased between the right dorsalis pedis artery and both the [id number]-dzk-[id number] right popliteal artery and the r ight posterior tibial artery (normal gradients <= 20-30 mmHg between adjacent levels on the same leg or the same levels on the two legs). Amplitude of the right dorsalis pedis artery waveform insufficie nt for assessment. Arterial waveforms are biphasic with brisk systolic upstrokes throughout the remai josé luis arteries of the right lower limb. The left JONI is 0.75. The left TBI is 0.54. The left lower extremity segmental pressure gradients are normal. Arterial waveforms are similarly insufficient for assessment at the left dorsalis pedis kendell ry and biphasic with brisk systolic upstrokes at the remaining arteries. IMPRESSION: 1. Mild arterial occlusive disease to the left lower limb with mildly decreased left JONI and TBI. 2. No significant arterial occlusive disease to the right lower limb with normal right JONI and TBI. Reviewed, dictated and finalized at location A. IMPRESSION: 1. Mild arterial occlusive disease to the left lower limb with mildly decreased left JONI and TBI. 2. No significant arterial occlusive disease to the right lower limb with renard l right JONI and TBI.
== END 2021-03-15 08:15 | disposition home or self-care (01) ==
LOC: ANHIMG 08:18
PROVIDERS: PCP Internal Medicine Geriatric Medicine; Visit Provider Internal Medicine Cardiovascular Disease
DX: I25.10 Atherosclerotic heart disease of native coronary artery without angina pectoris (principal); I73.9 Peripheral vascular disease, unspecified
CPT/HCPCS: 93923

== ENCOUNTER 2021-09-23 08:12 | Outpatient (CLI) | payer MEDICARE, SELFPAY ==
--- NOTE | ~2021-09-23 | US_ITS ---
EXAMINATION: US art doppler w press LE BI DATE: 09/23/2021 10:36 INDICATION: Peripheral vascular disease with risk factors of diabetes and prior smoking. Coronary [place] disease involving [place] coronary arteries. TECHNIQUE: Segmental pressures and plethysmographic and Doppler waveforms of the brachial and lower e xtremity arteries were obtained. COMPARISON: 03/15/2021 FINDINGS: Right and left brachial artery pressures of 116 mm Hg and 119 mm Hg, respectively, are concordant (no rmal difference <= 30 mmHg). The right high thigh pressure index is 1.30 (normal > 1.2). The left hig h thigh pressure index was unable to be obtained due to inability to occlude the vessel. The right ankle-brachial index (JONI) is 1.47 (normal >= 0.9-1). The right great toe-brachial index (T BI) is 0.82 (normal >= 0.6-0.8). The right lower extremity segmental pressure gradients are normal (n ormal gradients <= 20-30 mmHg between adjacent levels on the same leg or the same levels on the two l egs). Arterial waveforms are triphasic at the right common femoral artery and biphasic at the more di stal arteries in the right lower limb with brisk systolic upstrokes throughout. The left JONI is 0.87. The left TBI is 0.74. The left lower extremity segmental pressure gradients are increased between the left eygff-bbn-lzqy popliteal artery, left dorsalis pedis and left posterior t ibial arteries all relative to the arteries at the contralateral right calf. Arterial waveforms are b iphasic with brisk systolic upstrokes throughout the left lower limb. IMPRESSION: 1. Mild arterial occlusive disease to the left lower limb with mildly decreased left JONI. 2. No significant arterial occlusive disease to the right lower limb with normal right JONI and TBI. Reviewed, dictated and finalized at location A. IMPRESSION: 1. Mild arterial occlusive disease to the left lower limb with mildly decreased left JONI. 2. No significant arterial occlusive disease to the right lower limb with renard l right JONI and TBI.
== END 2021-09-23 08:13 | disposition home or self-care (01) ==
PROVIDERS: PCP Internal Medicine Geriatric Medicine; Visit Provider Nurse Practitioner Adult Health
DX: I25.10 Atherosclerotic heart disease of native coronary artery without angina pectoris (principal); I73.9 Peripheral vascular disease, unspecified
CPT/HCPCS: 93923

== ENCOUNTER 2022-05-14 07:54 | Outpatient (CLI) | payer MEDICARE, SELFPAY ==
[2022-05-14 08:35] LABS: Alanine Aminotransferase 24 U/L (6-50); Albumin Level 3.9 g/dL (3.5-5.1); Alkaline Phosphatase 60 U/L (38-126); Anion Gap 2 mmol/L (8-16); Aspartate Amino Transferase 20 U/L (17-59); Bilirubin,Total 0.5 mg/dL (0.2-1.3); Blood Urea Nitrogen 18 mg/dL (9-20); Calcium 8.9 mg/dL (8.4-10.2); Carbon Dioxide 29 mmol/L (22-30); Chloride 106 mmol/L (98-107); Cholesterol 72 mg/dL (0-200); Estimated Glomerular Filt Rate > 60; Glucose 167 mg/dL (65-110); HDL Direct 35 mg/dL; Potassium 4.6 mmol/L (3.4-5.0); Sodium 137 mmol/L (137-145); Triglycerides 184 mg/dL (<150)
[2022-05-14 09:02] LABS: Hemoglobin A1C 6.7 % (<5.7)
[2022-05-14 11:15] LABS: LDL Cholesterol Direct < 30 mg/dL
== END 2022-05-14 07:55 | disposition home or self-care (01) ==
PROVIDERS: PCP Internal Medicine Geriatric Medicine; Visit Provider Internal Medicine Geriatric Medicine
DX: E11.9 Type 2 diabetes mellitus without complications (principal); I10 Essential (primary) hypertension; E78.5 Hyperlipidemia, unspecified
CPT/HCPCS: 36415; 80053; 80061; 83036

== ENCOUNTER 2022-08-15 07:07 | Outpatient (CLI) | payer MEDICARE, SELFPAY ==
[2022-08-15 08:02] LABS: Hematocrit 47.9 % (42.0-52.0); Mean Corpuscular HGB Conc 33.4 g/dl (32-36); Mean Corpuscular Volume 95.8 fl (80-100); Mean Platelet Volume 11.5 fl (7.4-10.4); Platelet Count Result 207 k/mm3 (150-375); Red Cell Distribution Width 14.2 % (11.5-14.5); White Blood Count 8.3 K/mm3 (4.5-10.0)
[2022-08-15 08:10] LABS: Appearance Urine Clear (Clear); Bacteria Urine None Seen /hpf; Bilirubin Urine Negative (Negative); Blood Urine Negative (Negative); Color Urine Yellow (Yellow); Glucose Urine UA Negative (Negative); Ketones Urine Negative (Negative); Leukocyte Esterase Ur Negative LEU/UL (Negative); Nitrate Urine Negative (Negative); Non Pathogenic Casts 0-2; Protein Urine 2+ mg/dL (Negative); RBC Urine 0-2 /hpf (0-2); Specific Grav Ur 1.022 (1.001-1.035); Squamous Epithelial Cell Urine None seen /hpf (Few); WBC Urine 0-5 /hpf
[2022-08-15 08:31] LABS: Alanine Aminotransferase 21 U/L (6-50); Albumin Level 4.1 g/dL (3.5-5.1); Alkaline Phosphatase 57 U/L (38-126); Anion Gap 7 mmol/L (8-16); Aspartate Amino Transferase 20 U/L (17-59); Bilirubin,Total 0.8 mg/dL (0.2-1.3); Blood Urea Nitrogen 21 mg/dL (9-20); Calcium 9.2 mg/dL (8.4-10.2); Carbon Dioxide 25 mmol/L (22-30); Chloride 105 mmol/L (98-107); Cholesterol 61 mg/dL (0-200); Estimated Glomerular Filt Rate > 60; Glucose 138 mg/dL (65-110); HDL Direct 30 mg/dL; Potassium 4.9 mmol/L (3.4-5.0); Sodium 137 mmol/L (137-145); Triglycerides 124 mg/dL (<150)
[2022-08-15 08:34] LABS: Add Urine Microscopic? YES
[2022-08-15 08:46] LABS: LDL Cholesterol Direct < 30 mg/dL
[2022-08-15 08:48] LABS: Vitamin D 25 Hydroxy 57.7 ng/mL
[2022-08-15 09:01] LABS: Prostate Specific Antigen 0.8 ng/mL (< OR = 4.0)
[2022-08-15 10:15] LABS: Free T4 Free Thyroxine Reflex 0.88 ng/dL (0.78-2.19)
[2022-08-15 14:43] LABS: Total Triiodothyronine (T3) 1.05 NG/ML (0.97-1.69)
[2022-08-19 12:05] LABS: Testosterone Total 678 ng/dL (250-1100)
== END 2022-08-15 07:08 | disposition home or self-care (01) ==
PROVIDERS: PCP Internal Medicine Geriatric Medicine; Visit Provider Internal Medicine Geriatric Medicine
DX: E78.5 Hyperlipidemia, unspecified (principal); I10 Essential (primary) hypertension; E11.9 Type 2 diabetes mellitus without complications; Z12.5 Encounter for screening for malignant neoplasm of prostate; E55.9 Vitamin D deficiency, unspecified
CPT/HCPCS: 36415; 80053; 80061; 81001; 82306; 83036; 84153; 84403; 84439; 84443; 84480; 85027; G0103

== ENCOUNTER 2022-11-08 09:38 | Outpatient (CLI) | payer MEDICARE, SELFPAY ==
[2022-11-08 10:18] LABS: Alanine Aminotransferase 21 U/L (6-50); Alkaline Phosphatase 54 U/L (38-126); Anion Gap 4 mmol/L (8-16); Aspartate Amino Transferase 25 U/L (17-59); Bilirubin,Total 0.7 mg/dL (0.2-1.3); Blood Urea Nitrogen 16 mg/dL (9-20); Calcium 9.2 mg/dL (8.4-10.2); Carbon Dioxide 32 mmol/L (22-30); Chloride 104 mmol/L (98-107); Estimated Glomerular Filt Rate > 60; Glucose 136 mg/dL (65-110); Potassium 5.8 mmol/L (3.4-5.0); Sodium 140 mmol/L (137-145); Uric Acid 4.6 mg/dL (3.5-8.5)
[2022-11-08 10:31] LABS: Hemoglobin A1C 6.5 % (<5.7)
== END 2022-11-08 09:39 | disposition home or self-care (01) ==
PROVIDERS: PCP Internal Medicine Geriatric Medicine; Visit Provider Internal Medicine Geriatric Medicine
DX: I48.91 Unspecified atrial fibrillation (principal); E11.9 Type 2 diabetes mellitus without complications; M10.9 Gout, unspecified
CPT/HCPCS: 36415; 80053; 83036; 84550

== ENCOUNTER 2022-12-15 08:20 | Outpatient (CLI) | payer MEDICARE, SELFPAY ==
--- NOTE | ~2022-12-15 | US_ITS ---
EXAMINATION: US art doppler w press LE BI DATE: 12/15/2022 09:36 INDICATION: Peripheral arterial disease. TECHNIQUE: Segmental pressures and plethysmographic and Doppler waveforms of the brachial and lower e xtremity arteries were obtained. COMPARISON: Arterial Doppler and segmental pressures 09/23/2021 FINDINGS: Right and left brachial artery pressures of 127 mm Hg and 127 mm Hg, respectively, are concordant (no rmal difference <= 30 mmHg). The right thigh pressures could not be measured due to inability to cuff occlude the arteries. The ri ght ankle-brachial index (JONI) is 1.34 (normal >= 0.9-1.0). The right great toe-brachial index (TBI) is 0.31 (normal >= 0.65), decreased from 0.82 on 09/23/21. Arterial Doppler waveforms are biphasic fro m common femoral artery to posterior tibial artery and monophasic in dorsalis pedis. The left thigh pressures could not be measured due to inability to cuff occlude the arteries. The lef t JONI is 0.89, stable from 0.87 on 09/23/21. The left TBI is 0.32, decreased from 0.74 on 09/23/21. Art erial Doppler waveforms are biphasic from common femoral artery to the ankle. IMPRESSION: 1. Decreased TBIs with interval worsening, stable mildly decreased left JONI, and normal right JONI, co nsistent with arterial occlusive disease. Note that ABIs may be overestimated if arteries are calcifi ed. Reviewed, dictated and finalized at location L. IMPRESSION: 1. Decreased TBIs with interval worsening, stable mildly decreased left JONI, an d normal right JONI, consistent with arterial occlusive disease. Note that ABIs may be overestimated if arteries are calcified.
== END 2022-12-15 08:21 | disposition home or self-care (01) ==
PROVIDERS: PCP Internal Medicine Geriatric Medicine; Visit Provider Internal Medicine Cardiovascular Disease
DX: I70.213 Atherosclerosis of native arteries of extremities with intermittent claudication, bilateral legs (principal)
CPT/HCPCS: 93923

== ENCOUNTER 2023-01-25 16:07 | Emergency (ER) | payer MEDICARE, SELFPAY ==
--- NOTE | ~2023-01-25 | CT_ITS ---
EXAMINATION: CT abdomen pelvis w con INDICATION: Left lower quadrant pain TECHNIQUE: Computed tomographic images of the abdomen and pelvis were obtained after the administrati on of 100 cc of Omnipaque 350 intravenous contrast. The dose-length product (DLP) was 483.87 mGy-cm. Automated exposure control and iterative reconstruction technique were employed. COMPARISON: 02/22/2020 FINDINGS: Minimal dependent atelectasis is present in the lung bases. The heart size is normal. The l iver is diffusely low in attenuation when compared with the spleen, consistent with hepatic steatosis . The spleen, pancreas, and adrenal glands are normal. There are stones and/or sludge in the nondiste nded gallbladder. Cysts of the kidneys measure up to 2.0 cm on the right. No pathologically enlarged abdominal or pelvic lymph nodes are identified. No free intraperitoneal gas or evidence of bowel obst ruction. There is a short segment of wall thickening in the jejunum with adjacent fat stranding. The prostate is enlarged. There is a reservoir for a penile implant in the left inguinal region. There is calcified atherosclerosis of the aorta and many of the other arteries. There is moderate lumbar spon dylosis. IMPRESSION: 1. Short segment of wall thickening in the jejunum with adjacent fat stranding, consistent with jejun itis or possibly small bowel diverticulitis. 2. Stones and/or sludge in the nondistended gallbladder. Reviewed, dictated and finalized at location F. IMPRESSION: 1. Short segment of wall thickening in the jejunum with adjacent fat stranding, consistent with jejunitis or possibly small bowel diverticulitis. 2. Stones and/or sludge in the nondistended gallbladder.
[2023-01-25 16:14] VITALS: BP 131/76; PULSE 60; RESP 18; TEMP 37.3; O2SAT 100
[2023-01-25 17:10] VITALS: BP 138/79; PULSE 62; RESP 18; TEMP 36.5; O2SAT 98
[2023-01-25 17:27] LABS: Basophils Absolute Auto 0.1 K/mm3 (0.0-0.1); Basophils Percent Auto 0.8 % (0.2-1.2); Eosinophils Absolute Auto 0.2 K/mm3 (0-0.3); Eosinophils Percent Auto 1.6 % (0-4.4); Hematocrit 52.5 % (42.0-52.0); Immature Granulocyte Absolute 0.08 K/mm3 (0.00-0.031); Immature Granulocyte Percent A 0.7 % (0-0.5); Lymphocytes Percent Auto 11.9 % (18.3-44.2); Mean Corpuscular HGB Conc 34.3 g/dl (32-36); Mean Corpuscular Volume 93.4 fl (80-100); Mean Platelet Volume 10.8 fl (7.4-10.4); Monocytes Percent Auto 8.3 % (2.6-8.5); Neutrophils Percent Auto 76.7 % (45.5-73.1); Platelet Count Result 215 k/mm3 (150-375); Red Blood Count 5.62 M/mm3 (4.6-6.20); Red Cell Distribution Width 13.2 % (11.5-14.5); White Blood Count 11.8 K/mm3 (4.5-10.0)
[2023-01-25 17:36] LABS: Alanine Aminotransferase 24 U/L (6-50); Albumin Level 4.2 g/dL (3.5-5.1); Alkaline Phosphatase 67 U/L (38-126); Anion Gap 5 mmol/L (8-16); Aspartate Amino Transferase 25 U/L (17-59); Bilirubin,Total 0.8 mg/dL (0.2-1.3); Blood Urea Nitrogen 22 mg/dL (9-20); Calcium 9.8 mg/dL (8.4-10.2); Carbon Dioxide 31 mmol/L (22-30); Chloride 102 mmol/L (98-107); Estimated CRCL calculation 74 ml/min; Estimated Glomerular Filt Rate > 60; Glucose 121 mg/dL (65-110); Lipase 170 U/L (23-300); Potassium 4.9 mmol/L (3.4-5.0); Sodium 138 mmol/L (137-145)
[2023-01-25 17:40] LABS: Appearance Urine Clear (Clear); Bacteria Urine None Seen /hpf; Bilirubin Urine Negative (Negative); Blood Urine Negative (Negative); Color Urine Yellow (Yellow); Glucose Urine UA Negative (Negative); Ketones Urine Negative (Negative); Leukocyte Esterase Ur Negative LEU/UL (Negative); Nitrate Urine Negative (Negative); Non Pathogenic Casts 0-2; Protein Urine 2+ mg/dL (Negative); RBC Urine 0-2 /hpf (0-2); Specific Grav Ur 1.022 (1.001-1.035); Squamous Epithelial Cell Urine None seen /hpf (Few); Urobilinogen Urine 0.2 mg/dL (<2.0); WBC Urine 0-5 /hpf
[2023-01-25 17:43] LABS: Add Urine Microscopic? YES
--- NOTE | 2023-01-25 18:02 | ED.ABDPAIN ---
HPI - Abdominal Pain General Chief Complaint: Abdominal Pain Stated Complaint: abdominal pain Time Seen by Provider: 01/25/23 17:01 History of Present Illness HPI narrative: 72-year-old male reports to the emergency department for evaluation for intermittent left lower quadrant pain for the past 4 hours. Patient states he ate a ham steak, broccoli and potatoes and shortly after developed sharp intermittent left lower quadrant abdominal pain. States the abdominal pain would occur for 30 seconds at a time isolated to his left lower quadrant and then going for 5 minutes, then come back again for 30 seconds. States when he came to the emergency department, the pain had subsided but now is starting to return, however it is not nearly as sharp. He states the pain is currently 6 out of 10. He reports taking his prescribed [place] at home prior to arrival with some relief. He denies fever, nausea or vomiting, diarrhea, dysuria or hematuria, melena or hematochezia, dysentery, back pain, chest pain or shortness of breath. Last bowel movement today was normal. Related Data Home Medications Medication Instructions Recorded Confirmed alprazolam 1 mg tablet 1 mg PO HS PRN Anxiety 06/19/19 02/01/21 allopurinol 300 mg tablet 300 mg PO DAILY ##0 09/10/19 12/18/20 cholecalciferol (vitamin D3) 25 25 mcg PO DAILY 09/10/19 12/18/20 mcg (1,000 unit) capsule (Vitamin D3) metformin 500 mg tablet See Rx Instructions .Route .COMPLEX 09/10/19 12/18/20 glipizide 10 mg tablet 10 mg PO BID 10/11/19 12/18/20 apixaban 5 mg tablet (Eliquis) 5 mg PO BID 04/14/20 12/18/20 lisinopril 5 mg tablet 12.5 mg PO DAILY 12/18/20 02/01/21 semaglutide 0.25 mg or 0.5 mg (2 0.5 mg subcut WEEKLY 12/18/20 02/01/21 mg/1.5 mL) subcutaneous pen injector (Ozempic) cyanocobalamin (vitamin B-12) 1,000 mcg PO DAILY 02/01/21 02/01/21 1,000 mcg tablet (Vitamin B-12) docusate sodium 100 mg tablet 100 mg PO BID 02/01/21 02/01/21 donepezil 10 mg tablet 10 mg PO HS 02/01/21 02/01/21 evolocumab 140 mg/mL subcutaneous 140 mg subcut 02/01/21 syringe (Repatha Syringe) hydrocodone 7.5 mg-acetaminophen 1 tablet PO Q6H PRN Pain 02/01/21 02/01/21 325 mg tablet evolocumab 420 mg/3.5 mL mg subcut 01/25/23 01/25/23 subcutaneous wearable injector (Repatha Pushtronex) prednisone 20 mg tablet mg 01/25/23 semaglutide 0.25 mg or 0.5 mg (2 mg subcut 01/25/23 mg/1.5 mL) subcutaneous pen injector Allergies Allergy/AdvReac Type Severity Reaction Status Date / Time oxycodone Allergy Unknown Other Verified 12/21/20 08:03 Review of Systems Review of Systems: CONSTITUTIONAL: Denies fever, chills EYES: Denies visual changes, redness, or discharge. ENT: Denies rhinorrhea, congestion, sore throat, or otalgia. CARDIOVASCULAR: Denies chest pain, palpitations, or edema. RESPIRATORY: Denies cough or dyspnea. GASTROINTESTINAL: See HPI GENITOURINARY: Denies dysuria or hematuria. SKIN: Denies rash or itching. MUSCULOSKELETAL: Denies back pain, joint pain, or myalgia. NEUROLOGIC: Denies headache, numbness, dizziness, or weakness. PSYCHIATRIC: Denies anxiety or depression. [facility] Past Medical History Medical History (Updated 01/25/23 @ 19:39 by Gabriella Koroma PA-C) A-fib Arthritis Diabetes Diabetes mellitus (Unknown) Gout Herpes Type 2 History of rectal polyps Hyperlipidemia Hypertension Kidney stones Shingles Ureteral stone Surgical History Surgical History H/O arthroscopy lt shoulder H/O cystoscopy H/O repair of rotator cuff bilateral History of bilateral carpal tunnel release History of penile implant History of renal stent History of total knee replacement (TKR) rt Hx of tonsillectomy Social History Social History Smoking packs per day: 1 Smoking cigarettes per day: 20.0 Years smoked: 50 Smoking pack-years: 50.00 Smoking sta
[2023-01-25] MEDS: SODIUM CHLORIDE 0.9% IV 1,000 ML 999 ML IV CONT (18:21)
[2023-01-25 18:58] VITALS: BP 136/78; PULSE 64; RESP 18; TEMP 36.5; O2SAT 98
[2023-01-25] MEDS: AMOXICILLIN/CLAVULANATE K 875-125 MG TAB 1 TABLET PO (20:07)
== END 2023-01-25 20:21 | disposition home or self-care (01) ==
PROVIDERS: Emergency Provider Physician Assistant; PCP Internal Medicine Geriatric Medicine
DX: K57.92 Diverticulitis of intestine, part unspecified, without perforation or abscess without bleeding (principal); I48.91 Unspecified atrial fibrillation; I10 Essential (primary) hypertension; E11.9 Type 2 diabetes mellitus without complications; E78.5 Hyperlipidemia, unspecified; M19.90 Unspecified osteoarthritis, unspecified site; M10.9 Gout, unspecified; Z96.651 Presence of right artificial knee joint; Z87.19 Personal history of other diseases of the digestive system; Z87.442 Personal history of urinary calculi; Z87.891 Personal history of nicotine dependence; Z79.01 Long term (current) use of anticoagulants; Z79.84 Long term (current) use of oral hypoglycemic drugs; Z79.85 Long-term (current) use of injectable non-insulin antidiabetic drugs; R93.2 Abnormal findings on diagnostic imaging of liver and biliary tract
CPT/HCPCS: 36415; 74177; 80053; 81001; 83690; 85025; 96360; 96361; 99284; A9270; J7030; Q9967

== ENCOUNTER 2023-02-13 07:10 | Outpatient (CLI) | payer MEDICARE, SELFPAY ==
[2023-02-13 08:23] LABS: Alanine Aminotransferase 36 U/L (6-50); Albumin Level 4.1 g/dL (3.5-5.1); Alkaline Phosphatase 64 U/L (38-126); Anion Gap 7 mmol/L (8-16); Aspartate Amino Transferase 32 U/L (17-59); Bilirubin,Total 0.7 mg/dL (0.2-1.3); Blood Urea Nitrogen 25 mg/dL (9-20); Calcium 9.4 mg/dL (8.4-10.2); Carbon Dioxide 28 mmol/L (22-30); Chloride 103 mmol/L (98-107); Estimated Glomerular Filt Rate > 60; Glucose 112 mg/dL (65-110); Hemoglobin A1C 6.6 % (<5.7); Potassium 4.5 mmol/L (3.4-5.0); Sodium 138 mmol/L (137-145)
== END 2023-02-13 07:11 | disposition home or self-care (01) ==
LOC: ANHLAB 07:12
PROVIDERS: PCP Internal Medicine Geriatric Medicine; Visit Provider Internal Medicine Geriatric Medicine
DX: E11.9 Type 2 diabetes mellitus without complications (principal)
CPT/HCPCS: 36415; 80053; 83036

== ENCOUNTER 2023-02-23 14:55 | Outpatient (CLI) | payer MEDICARE, SELFPAY ==
--- NOTE | ~2023-02-23 | XR_ITS ---
XR humerus LT, XR shoulder LT min 2V 02/23/2023 15:18 (accession [id number]), 02/23/2023 15:17 (accession [id number]) Indication: Left arm pain Procedure: 2 views left humerus and 4 views left shoulder Comparison: Left elbow dated 10/01/2014 Findings: There is mild-moderate left glenohumeral joint osteoarthritis. Acromioclavicular joint and anatomic alignment. No fracture or traumatic malalignment. No foreign bodies. No significant soft tis brittaney abnormality. There is chondrocalcinosis of the left elbow and shoulder. Impression: 1: Mild-moderate left glenohumeral joint osteoarthritis. Reviewed, dictated and finalized at location A. Impression: 1: Mild-moderate left glenohumeral joint osteoarthritis. Impression: 1: Mild-moderate left glenohumeral joint osteoarthritis.
== END 2023-02-23 14:56 | disposition home or self-care (01) ==
LOC: ANHIMG 14:58
PROVIDERS: PCP Internal Medicine Geriatric Medicine; Visit Provider Internal Medicine Geriatric Medicine
DX: M19.012 Primary osteoarthritis, left shoulder (principal); M25.512 Pain in left shoulder
CPT/HCPCS: 73030; 73060

== ENCOUNTER 2023-03-01 07:35 | Inpatient (IN) | payer MEDICARE, SELFPAY ==
[2023-03-01] VITALS (13 sets, daily range): BP systolic 109–141; BP diastolic 51–94; PULSE 55–68; RESP 14–25; TEMP 36.3–37.4; O2SAT 94–99; BMI 23.0
--- NOTE | ~2023-03-01 | XR_ITS ---
EXAMINATION: XR small bowel follow through DATE: 03/07/2023 12:04 INDICATION: Abnormal CT scan with small bowel wall thickening TECHNIQUE: Market Superintendent radiograph(s) of the abdomen was/were obtained. Oral contrast was administered, and sequential radiographs of the abdomen were obtained until oral contrast was noted to be in the proxi mal colon. Spot fluoroscopic images of the small bowel were obtained. Fluoroscopy exposure time was 2 .5 minutes. A total of 252 fluoroscopic images and 9 overhead radiographs were obtained. Total DAP wa s 127.011 Gycm^2 COMPARISON: None. FINDINGS: Normal bowel gas pattern with no dilated loops of gas-filled bowel on the auxiliary operator image. No evident татьяна e intraperitoneal gas underlying the diaphragm on the upright auxiliary operator image. Transit time from the stom ach to proximal colon was approximately 30 minutes. There is normal caliber and mucosal fold pattern throughout the small bowel. There are numerous diverticula in the left upper quadrant along the proxi mal small bowel. No evident stricture or obstruction. No evident extraluminal contrast extravasation. Terminal ileum is normal. No tethering or abnormal mass effect observed upon the small bowel with r eal-time fluoroscopy. IMPRESSION: 1. 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 Otherwise normal study with no mucosa l fold thickening, stricture, obstruction or extraluminal contrast extravasation. Reviewed, dictated and finalized at [facility]. IMPRESSION: 1. 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 Otherwise renard l study with no mucosal fold thickening, stricture, obstruction or extraluminal contrast extravasation.
--- NOTE | ~2023-03-01 | CT_ITS ---
EXAMINATION: CT abdomen pelvis w con DATE: 03/01/2023 08:48 INDICATION: Generalized abdominal pain since midnight TECHNIQUE: Computed tomography (CT) of the abdomen and pelvis was performed with 100 CC Omnipaque 350 intravenous contrast. Automated exposure control and iterative reconstruction technique were employe d. Exam dose: 412.89 mGy-cm total exam DLP. COMPARISON: 01/25/2023 CT abdomen pelvis FINDINGS: There are several high density nodular densities in the right lower lobe, most consistent w ith old pulmonary granulomatous disease. There is minimal atelectasis at the lung bases. There is very prominent coronary artery calcification. Heart size is within normal range. No pericard ial or pleural effusion. Small sliding hiatal hernia. There is a prominent amount of sludge and/or stones in the gallbladder. Gallbladder wall thickness me asures up to approximately 2 mm, within normal range. No pericholecystic fluid or fat stranding. No b ile duct or pancreatic duct dilatation. No hepatic, pancreatic, splenic, adrenal space-occupying mass lesion. Splenic size is within normal l imits. There is scarring at the left kidney upper pole. Approximately 9 mm left renal cyst and 1.7 cm right renal cyst. No urinary tract calculus or hydroureteronephrosis. There is prominent prostate enlargement and moderate diffuse thickening of the urinary bladder wall, likely due to to the prostatomegaly/bladder outlet obstruction. Inflatable penile prosthesis with reservoir in the left inguinal area. There is atherosclerotic calcification but normal caliber of the abdominal aorta. No intraperitoneal or retroperitoneal or pelvic mass lesion or adenopathy or ascites is detected. There is mild ascites with minimal perihepatic and perisplenic fluid, as well as some fluid in the ri ght paracolic gutter and to a greater extent in the dependent pelvis. There is scattered small bowel air-fluid levels and there is thickening of the wall of multiple small bowel segments but no abnormal dilatation of small or large bowel to suggest obstruction. Increased density and/or fluid of the mesentery particularly in the left mid and lower abdomen is noted. Consid er infectious or inflammatory enteritis, less likely ischemic etiology. There are several small bowel diverticula. Consider diverticulitis of the small bowel. No free intraperitoneal free air is detected. Normal caliber of the appendix. Bilateral hip osteoarthritis and chondrocalcinosis. IMPRESSION: Small bowel air-fluid levels and segments with small bowel wall mild thickening in addit ion to some possible stricture small bowel segments. Consider inflammatory or infectious enteritis Mild ascites Stones and/or sludge in the gallbladder Small sliding hiatal hernia Small bowel diverticula Bilateral renal cysts Prostatomegaly Severe coronary artery calcification Reviewed, dictated and finalized at [facility]. Reviewed, dictated and finalized at [facility]. IMPRESSION: Small bowel air-fluid levels and segments with small bowel wall mi ld thickening in addition to some possible stricture small bowel segments. Cons ider inflammatory or infectious enteritis Mild ascites Stones and/or sludge in the gallbladder Small sliding hiatal hernia Small bowel diverticula Bilateral renal cysts Prostatomegaly Severe coronary artery calcification
--- NOTE | 2023-03-01 08:05 | ED.ABDPAIN ---
HPI - Abdominal Pain General Chief Complaint: Abdominal Pain Stated Complaint: abd pain Time Seen by Provider: 03/01/23 07:50 History of Present Illness HPI narrative: 72-year-old male present to the emergency department for evaluation of generalized abdominal pain. Patient states he did have recent skin cancer removed from his right chest but has not been taking pain medications frequently. Patient states he started having some abdominal discomfort yesterday and did take some MiraLAX and felt that made the symptoms worse. Related Data Home Medications Medication Instructions Recorded Confirmed alprazolam 1 mg tablet 1 mg PO HS PRN Anxiety 06/19/19 03/01/23 allopurinol 300 mg tablet 300 mg PO DAILY ##0 09/10/19 03/01/23 cholecalciferol (vitamin D3) 25 25 mcg PO DAILY 09/10/19 03/01/23 mcg (1,000 unit) capsule (Vitamin D3) metformin 500 mg tablet See Rx Instructions .Route .COMPLEX 09/10/19 03/01/23 glipizide 10 mg tablet 10 mg PO BID 10/11/19 03/01/23 apixaban 5 mg tablet (Eliquis) 5 mg PO BID 04/14/20 03/01/23 lisinopril 5 mg tablet 12.5 mg PO DAILY 12/18/20 03/01/23 semaglutide 0.25 mg or 0.5 mg (2 0.5 mg subcut WEEKLY 12/18/20 03/01/23 mg/1.5 mL) subcutaneous pen injector (Ozempic) cyanocobalamin (vitamin B-12) 1,000 mcg PO DAILY 02/01/21 03/01/23 1,000 mcg tablet (Vitamin B-12) docusate sodium 100 mg tablet 100 mg PO BID 02/01/21 03/01/23 donepezil 10 mg tablet 10 mg PO HS 02/01/21 03/01/23 evolocumab 140 mg/mL subcutaneous 140 mg subcut MONTHLY 02/01/21 03/01/23 syringe (Repatha Syringe) hydrocodone 7.5 mg-acetaminophen 1 tablet PO Q6H PRN Pain 02/01/21 03/01/23 325 mg tablet Allergies Allergy/AdvReac Type Severity Reaction Status Date / Time oxycodone Allergy Unknown Other Verified 03/01/23 08:07 Review of Systems Review of Systems: All systems reviewed & are unremarkable except as noted in HPI and below PMFSH Past Medical History Medical History (Updated 03/01/23 @ 09:56 by Oscar Morrison MD) A-fib Arthritis Diabetes Diabetes mellitus (Unknown) Gout Herpes Type 2 History of rectal polyps Hyperlipidemia Hypertension Kidney stones Shingles Ureteral stone Surgical History Surgical History H/O arthroscopy lt shoulder H/O cystoscopy H/O repair of rotator cuff bilateral History of bilateral carpal tunnel release History of penile implant History of renal stent History of total knee replacement (TKR) rt Hx of tonsillectomy Social History Social History Smoking packs per day: 1 Smoking cigarettes per day: 20.0 Years smoked: 50 Smoking pack-years: 50.00 Smoking status: Former smoker Alcohol intake: former Substance use: never Substance use type: does not use Lack of Transportation: No Lack of Food: Never True Current Housing: I Have Housing Concerned About Future Housing: No Difficulty Paying Gas/Electric Bills: No Difficulty Paying for Meds: No Currently Unemployed: No Education: Don't Know Difficulty w/ Childcare or Family Care: No Living arrangements: alone Gender identity (if verbalized by the patient): Male Spiritual care concerns: No Agree to blood products: Yes Exam Narrative: APPEARANCE: Well appearing, no pain, no distress, well-nourished. HEAD: normocephalic, atraumatic. EYES: PERRLA/EOMI, conjunctivae clear. NOSE: Normal no drainage NECK: Supple. No adenopathy, no masses. RESPIRATORY: Airway patent, respirations nonlabored. Clear to auscultation bilaterally, no rales, rhonchi, wheezing. CARDIOVASCULAR: Regular rate and rhythm without murmurs rubs or gallops. ABDOMINAL: Soft, normal bowel sounds, generalized tenderness MUSCULOSKELETAL: Moves all extremities. Strength/ROM intact, No edema, No calf tenderness. NEURO: Alert. Cranial nerves II through XII intact. Good gait. Good coordination SKIN: W
[2023-03-01 08:15] LABS: Basophils Absolute Auto 0.1 K/mm3 (0.0-0.1); Basophils Percent Auto 0.4 % (0.2-1.2); Eosinophils Percent Auto 0.1 % (0-4.4); Hematocrit 48.1 % (42.0-52.0); Hemoglobin 16.5 g/dL (14.0-18.0); Immature Granulocyte Absolute 0.29 K/mm3 (0.00-0.031); Immature Granulocyte Percent A 1.3 % (0-0.5); Lymphocytes Absolute Auto 0.61 K/mm3 (0.9-3.2); Lymphocytes Percent Auto 2.8 % (18.3-44.2); Mean Corpuscular HGB Conc 34.3 g/dl (32-36); Mean Corpuscular Hemoglobin 31.1 pg (26-34); Mean Corpuscular Volume 90.8 fl (80-100); Mean Platelet Volume 10.2 fl (7.4-10.4); Monocytes Absolute Auto 0.9 K/mm3 (0.1-0.6); Neutrophils Absolute Auto 20.3 K/mm3 (1.3-6.7); Neutrophils Percent Auto 91.4 % (45.5-73.1); Platelet Count Result 402 k/mm3 (150-375); Red Cell Distribution Width 13.9 % (11.5-14.5); White Blood Count 22.2 K/mm3 (4.5-10.0)
[2023-03-01 08:26] LABS: INR 1.1; Partial Thromboplastin Time 29.5 SECONDS (22.3-36.8)
[2023-03-01 08:30] LABS: Lactic Acid Reflex 3.5 mmol/L (0.7-2.0)
[2023-03-01 08:32] LABS: Alanine Aminotransferase 31 U/L (6-50); Alkaline Phosphatase 80 U/L (38-126); Anion Gap 11 mmol/L (8-16); Aspartate Amino Transferase 29 U/L (17-59); Bilirubin,Total 0.8 mg/dL (0.2-1.3); Blood Urea Nitrogen 23 mg/dL (9-20); Calcium 9.4 mg/dL (8.4-10.2); Carbon Dioxide 20 mmol/L (22-30); Chloride 102 mmol/L (98-107); Estimated CRCL calculation 92 ml/min; Estimated Glomerular Filt Rate > 60; Glucose 331 mg/dL (65-110); Lipase 98 U/L (23-300); Potassium 4.7 mmol/L (3.4-5.0); Sodium 133 mmol/L (137-145)
[2023-03-01 08:39] LABS: Estimated CRCL calculation 92 ml/min; Estimated Glomerular Filt Rate > 60
[2023-03-01] MEDS: SODIUM CHLORIDE 0.9% IV 2,300 ML/1,000 ML BAG 999 ML IV CONT ×3 (09:07→11:07)
[2023-03-01 09:21] LABS: Appearance Urine Clear (Clear); Bacteria Urine None Seen /hpf; Bilirubin Urine Negative (Negative); Blood Urine Negative (Negative); Color Urine Yellow (Yellow); Glucose Urine UA 3+ mg/dL (Negative); Ketones Urine Trace mg/dL (Negative); Leukocyte Esterase Ur Negative LEU/UL (Negative); Nitrate Urine Negative (Negative); Non Pathogenic Casts 0-2; Protein Urine 1+ mg/dL (Negative); RBC Urine 0-2 /hpf (0-2); Squamous Epithelial Cell Urine None seen /hpf (Few); WBC Urine 0-5 /hpf
[2023-03-01 09:29] LABS: Add Urine Microscopic? YES; Specific Grav Ur 1.047 (1.001-1.035)
[2023-03-01] MEDS: metroNIDAZOLE 500 MG/ISO 100ML 500 MG/100 ML BAG 100 MG IVPB ×2 (10:27→18:32)
[2023-03-01 11:12] LABS: Reflex Lactic Acid Yes or No Add Lactic
[2023-03-01 11:51] LABS: Lactic Acid 2.9 mmol/L (0.7-2.0)
[2023-03-01 11:58] LABS: Glucose Point of Care 155 mg/dl (65-105)
[2023-03-01 16:30] LABS: Glucose Point of Care 183 mg/dl (65-105)
--- NOTE | 2023-03-01 17:52 | PM.IMHP ---
H&P: HPI History of Present Illness Date/Time: 03/01/23 17:52 Chief Complaint: Abdominal Pain Narrative: 72-year-old male presents here with lower abdominal pain and nausea with PMH of recent diverticulitis (01/25/23), atrial fibrillation, diabetes, HSV 2, HLD, HTN, kidney stones, shingles, gout, and penile implant w/reservoir near L groin. Limited history presented by patient. chart review completed. Patient presented here with generalized abdominal pain, currently endorsing lower abdominal pain more so on the left for the past 3 days. Initially pointed to genitals when asked to locate his pain. Continued to describe when a box was placed here , patient gestured to lower abdomen/pelvi, and upper thigh region, he developed pain. unable to clarify with patient what he means. Associated nausea the patient describes as mild and intermittent. Endorsing decreased urine output. Poor p.o. intake for the last 3-4 days. last bowel movement yesterday, described as several small stools in the evening. Took miralax without resolution - reports increased pain with intervention. He denies cough, chest pain, shortness of breath, URI symptoms. Currently alert and orientated to himself, year. Limited insight into situation and did not remember what hospital he was at, is from the area ([place]). Review of Systems Review of Systems: Limited ROS due to patient confusion. All systems reviewed & are unremarkable except as noted in HPI and below PMFSH Past Medical History Medical History (Updated 03/01/23 @ 22:35 by Dennise Pollock APRN) A-fib Arthritis Bacteremia (~09/04/19) CAD (coronary artery disease) dx from cath on 12/21/20. Diabetes mellitus (Unknown) Gout Herpes Type 2 History of rectal polyps Hyperlipidemia Hypertension Intra-abdominal abscess (~09/04/19) Ischemic cardiomyopathy compensated, EF 45% (12/23/22) Kidney stones Paroxysmal atrial flutter Shingles Ureteral stone Surgical History Surgical History H/O arthroscopy lt shoulder H/O cystoscopy H/O repair of rotator cuff bilateral History of bilateral carpal tunnel release History of penile implant History of renal stent History of total knee replacement (TKR) rt Hx of tonsillectomy Social History Social History (Updated 03/01/23 @ 22:22 by Dennise Pollock, OMARI) Social History: Currently lives alone in his home. Son will frequently help out around the house. Surrogate decision maker: Rajesh Chawla, son. Code Status: DNR, patient able to verbalize understanding of wishes. (03/01/23) Smoking packs per day: 1 Smoking cigarettes per day: 20.0 Years smoked: 50 Smoking pack-years: 50.00 Smoking status: Former smoker Alcohol intake: former Substance use: never Substance use type: does not use Lack of Transportation: No Lack of Food: Never True Current Housing: I Have Housing Concerned About Future Housing: No Difficulty Paying Gas/Electric Bills: No Difficulty Paying for Meds: No Currently Unemployed: No Education: Don't Know Difficulty w/ Childcare or Family Care: No Living arrangements: alone Gender identity (if verbalized by the patient): Male Spiritual care concerns: No Agree to blood products: Yes Meds Home Medications and Allergies Home Medications Medication Instructions Recorded Confirmed Type alprazolam 1 mg tablet 1 mg PO HS PRN Anxiety 06/19/19 03/01/23 History allopurinol 300 mg tablet 300 mg PO DAILY ##0 09/10/19 03/01/23 History cholecalciferol (vitamin D3) 25 25 mcg PO DAILY 09/10/19 03/01/23 History mcg (1,000 unit) capsule (Vitamin D3) metformin 500 mg tablet See Rx Instructions .Route .COMPLEX 09/10/19 03/01/23 History glipizide 10 mg tablet 10 mg PO BID 10/11/19 03/01/23 History apixaban 5 mg tablet (Eliquis) 5 mg PO BID 04/14/20 03/01/23 History lisinopril 5 mg tablet 12.5 mg PO DAILY 12/18/20 10
[2023-03-01] MEDS: SODIUM CHLORIDE 0.9% IV 1,000 ML 100 ML IV CONT (18:31)
[2023-03-01] MEDS: ONDANSETRON INJ 4 MG/2 ML VIAL IV PUSH (19:48)
[2023-03-01 19:57] LABS: Lactic Acid Reflex 1.8 mmol/L (0.7-2.0)
[2023-03-02] VITALS (7 sets, daily range): BP systolic 108–130; BP diastolic 63–70; PULSE 64–71; RESP 12–20; TEMP 36.6–37.6; O2SAT 95–97; BMI 23.0
[2023-03-02] MEDS: APIXABAN 5 MG TABLET PO ×3 (00:41→20:09)
[2023-03-02] MEDS: DONEPEZIL HCL 10 MG TABLET PO ×2 (00:41→20:09)
[2023-03-02] MEDS: metroNIDAZOLE 500 MG/ISO 100ML 500 MG/100 ML BAG 100 MG IVPB ×3 (02:43→17:55)
[2023-03-02 06:26] LABS: Basophils Absolute Auto 0.1 K/mm3 (0.0-0.1); Basophils Percent Auto 0.4 % (0.2-1.2); Eosinophils Absolute Auto 0.1 K/mm3 (0-0.3); Eosinophils Percent Auto 0.5 % (0-4.4); Hematocrit 39.9 % (42.0-52.0); Hemoglobin 13.1 g/dL (14.0-18.0); Immature Granulocyte Absolute 0.21 K/mm3 (0.00-0.031); Immature Granulocyte Percent A 1.3 % (0-0.5); Lymphocytes Absolute Auto 0.99 K/mm3 (0.9-3.2); Lymphocytes Percent Auto 6.3 % (18.3-44.2); Mean Corpuscular HGB Conc 32.8 g/dl (32-36); Mean Corpuscular Hemoglobin 30.8 pg (26-34); Mean Corpuscular Volume 93.7 fl (80-100); Mean Platelet Volume 10.2 fl (7.4-10.4); Monocytes Absolute Auto 1.1 K/mm3 (0.1-0.6); Monocytes Percent Auto 6.9 % (2.6-8.5); Neutrophils Absolute Auto 13.4 K/mm3 (1.3-6.7); Neutrophils Percent Auto 84.6 % (45.5-73.1); Platelet Count Result 291 k/mm3 (150-375); Red Blood Count 4.26 M/mm3 (4.6-6.20); Red Cell Distribution Width 14.1 % (11.5-14.5); White Blood Count 15.8 K/mm3 (4.5-10.0)
[2023-03-02 06:38] LABS: Alanine Aminotransferase 20 U/L (6-50); Albumin Level 3.1 g/dL (3.5-5.1); Alkaline Phosphatase 61 U/L (38-126); Anion Gap 4 mmol/L (8-16); Aspartate Amino Transferase 19 U/L (17-59); Bilirubin,Total 1.1 mg/dL (0.2-1.3); Blood Urea Nitrogen 14 mg/dL (9-20); Calcium 8.5 mg/dL (8.4-10.2); Carbon Dioxide 26 mmol/L (22-30); Chloride 103 mmol/L (98-107); Estimated CRCL calculation 92 ml/min; Estimated Glomerular Filt Rate > 60; Glucose 144 mg/dL (65-110); Potassium 4.1 mmol/L (3.4-5.0); Sodium 133 mmol/L (137-145)
[2023-03-02 07:39] LABS: Glucose Point of Care 141 mg/dl (65-105)
[2023-03-02] MEDS: allopurinoL 300 MG TABLET PO (08:59)
[2023-03-02] MEDS: CHOLECALCIFEROL 1,000 UNITS TABLET 1000 UNITS PO (08:59)
[2023-03-02] MEDS: lisinopriL 10 MG TABLET PO (09:00)
[2023-03-02] MEDS: metFORMIN HCL 500 MG TABLET 1500 MG PO (09:00)
[2023-03-02] MEDS: DOCUSATE SODIUM 100 MG CAPSULE PO ×2 (09:00→17:55)
[2023-03-02] MEDS: glipiZIDE 5 MG TABLET 10 MG PO ×2 (09:00→17:54)
[2023-03-02] MEDS: HYDROcodone/acetaminophen (*CRX) 7.5-325 MG TABLET 1 TAB PO ×3 (09:00→22:41)
[2023-03-02] MEDS: lisinopriL 2.5 MG TABLET PO (09:00)
[2023-03-02] MEDS: CYANOCOBALAMIN 1,000 MCG TABLET 1000 MCG PO (09:01)
[2023-03-02 11:19] LABS: Glucose Point of Care 180 mg/dl (65-105)
--- NOTE | 2023-03-02 14:41 | WPDGICN ---
Assessment and Plan Assessment and plan (1) LLQ abdominal pain: Code(s): R10.32 - Left lower quadrant pain Status: Acute Assessment and Plan: Patient with left lower quadrant abdominal pain. He has a fullness in this area. CT scan imaging suggest small-bowel stricture ring which potentially could be associated with this. I am concerned about infectious etiology. One month ago was felt to have jejunal diverticulitis. Recommend initial treatment with broad-spectrum antibiotic coverage. we should limit diet to liquids at present. At some point Follow-up colonoscopy and small-bowel follow-through would be indicated. Given his history of multiple intra-abdominal abscesses early endoscopy could potentially aggravate his problem. This will be deferred. (2) Abnormal CT scan: Code(s): R93.89 - Abnormal findings on diagnostic imaging of other specified body structures Status: Acute Assessment and Plan: Suggestion of small bowel thickening and potential stricturing suggested by CT scan imaging. This was not described on imaging 1 month ago. (3) Confusion with non-focal neuro exam: Code(s): R41.0 - Disorientation, unspecified Status: Acute Assessment and Plan: Poor memory is of some unknown etiology. Patient now on Aricept for early dementia. He may benefit from neurology evaluation at some point. GI Consult Note Consult date/time: 03/02/23 14:41 Reason for consult: Abnormal CT scan, left lower quadrant pain. HPI: [place] Chawla is a 72 year old male I am asked to see because of an abnormal CT scan. Patient's history is limited because of memory deficit. His felt to have perhaps have early dementia. Currently on Aricept. Patient seen with his cousin who is visiting today. Patient reports over last 3-4 days developed rather generalized abdominal pain. He states he continues to have pain in the left abdomen at present. He is uncertain about any change in bowel habits. He is uncertain about any fever. Patient states his memory deficit began in 2019 when he apparently had perforated diverticulitis. Add multiple intra-abdominal abscesses requiring drainage. Patient recovered from this. In January of this year 1 month ago presented to the emergency room. A CT scan suggested that he may have inflammation in the jejunum. It was felt he may have jejunal diverticulitis. He had significant left-sided abdominal pain at that time as well. Apparently this improved with broad-spectrum antibiotics until the last 3 days when symptoms recurred. Review of Systems Review of Systems: Review of systems unobtainable secondary to his memory issues. [facility] Past Medical History Medical History (Updated 03/02/23 @ 14:47 by Melo Montes MD) A-fib Arthritis Bacteremia (~09/04/19) CAD (coronary artery disease) dx from cath on 12/21/20. Diabetes mellitus (Unknown) Gout Herpes Type 2 History of rectal polyps Hyperlipidemia Hypertension Intra-abdominal abscess (~09/04/19) Ischemic cardiomyopathy compensated, EF 45% (12/23/22) Kidney stones Paroxysmal atrial flutter Shingles Ureteral stone Surgical History Surgical History H/O arthroscopy lt shoulder H/O cystoscopy H/O repair of rotator cuff bilateral History of bilateral carpal tunnel release History of penile implant History of renal stent History of total knee replacement (TKR) rt Hx of tonsillectomy Social History Social History (Updated 03/01/23 @ 22:22 by Dennise Pollock, OMARI) Social History: Currently lives alone in his home. Son will frequently help out around the house. Surrogate decision maker: Rajesh Chawla, addie. Code Status: DNR, patient able to verbalize understanding of wishes. (03/01/23) Smoking packs per day: 1 Smoking cigarettes per day: 20.0 Years smoked: 50 Smoking pack-years: 50.00 Smoking status: Former s
--- NOTE | 2023-03-02 15:06 | PM.IMPN ---
Progress Note: A&P Assessment and Plan (1) Abdominal pain: Code(s): R10.9 - Unspecified abdominal pain Status: Acute (2) Confusion with non-focal neuro exam: Code(s): R41.0 - Disorientation, unspecified Status: Acute Plan # left lower quadrant abdominal pain CT abd/pelvis w con Small bowel air-fluid levels and segments with small bowel wall mild thickening in addition to some possible stricture small bowel segments. Consider inflammatory or infectious enteritis Mild ascites Stones and/or sludge in the gallbladder Small sliding hiatal hernia Small bowel diverticula Bilateral renal cysts Prostatomegaly Severe coronary artery calcification prior CT abd/pelvis w/ con on 01/25/23 1. Short segment of wall thickening in the jejunum with adjacent fat stranding, consistent with jejunitis or possibly small bowel diverticulitis. 2. Stones and/or sludge in the nondistended gallbladder. AST/ALT, lipase WNL stool culture GI consult colonoscopy at on 10/11/19 (Dr. Montes) - showed multiple large-size internal hemorrhoids. Recommended to have repeat colonoscopy in 10 years and maintain a high fiber diet. started on Ceftriaxone 1G and Metronidazole 500 mg on 03/01 - continued. trace blood noted at urethra postvoid by PCT, none seen during initial eval. No blood on UA, no stones seen on CT. UC sent. monitor daily labs VS Q4H #. confusion with nonfocal neuro exam elevated WBC 22.2 and platelet count 402 BC (03/01) pending c/f sepsis - given 30 mL/.kg of fluids. lactic acid: 3.5 -> 2.9 -> 1.8 sodium 133, started on NS 100 ml/hr x1L. monitor. UA: High specific gravity 1.047, 1+ protein, 3+ glucose, trace ketones neurocheck Qshift currently on Aricept, no documented dementia # AFib on Eliquis rate control # history of intra-abdominal abscess # ischemic cardiomyopathy EF 45% 12/23/2022 # diabetes mellitus: SSI on metformin glipizide and Ozempic at home. A1c 6.6 on 02/13/2023 # coronary artery disease very tight 99% mid LAD stenosis # diet clear liquid # DVT prophylaxis on Eliquis # code status DNR Subjective Date/time seen: 03/02/23 15:06 Interval history: Reports left lower quadrant pain nausea no vomiting not able to keep food down no real fever and chills. Review of Systems Review of Systems: All systems reviewed & are unremarkable except as noted in HPI and below Exam Narrative: APPEARANCE: Well appearing, no pain, no distress, well-nourished. HEAD: normocephalic, atraumatic. EYES: PERRLA/EOMI, conjunctivae clear. NOSE: Normal no drainage NECK: Supple. No adenopathy, no masses. RESPIRATORY: Airway patent, respirations nonlabored. Clear to auscultation bilaterally, no rales, rhonchi, wheezing. CARDIOVASCULAR: Regular rate and rhythm without murmurs rubs or gallops. ABDOMINAL: Soft, normal bowel sounds, left lower quadrant tenderness. [place] or pump on left groin MUSCULOSKELETAL: Moves all extremities. Strength/ROM intact, No edema, No calf tenderness. NEURO: Alert. Cranial nerves II through XII intact. Good gait. Good coordination SKIN: Warm, dry. Normal Color Objective Data Vital Signs Vital Signs: Vital Signs - 24 hr 03/01/23 20:10 03/02/23 00:00 03/02/23 04:00 Temperature 98.1 F 98.1 F Pulse Rate 66 64 Respiratory Rate 14 12 Blood Pressure 116/68 130/66 Pulse Oximetry 97 96 Oxygen Delivery Room Air 03/02/23 07:53 03/02/23 08:20 03/02/23 08:00 Temperature 99.7 F H Pulse Rate 67 65 Respiratory Rate 20 Blood Pressure 120/70 Pulse Oximetry 96 97 Oxygen Delivery Room Air Room Air 03/02/23 12:00 Temperature 97.9 F Pulse Rate 67 Respiratory Rate 20 Blood Pressure 108/65 Pulse Oximetry 95 Oxygen Delivery Intake/Output Intake/Output: Intake & Output 02/27/23 02/28/23 03/01/23 03/02/23 23:59 23:59 23:59 23:59 Intake Total 2926 1382 Output Total 350 1250 Balance 2576 132 Meds/Resu
[2023-03-02 16:09] LABS: Glucose Point of Care 88 mg/dl (65-105)
[2023-03-02] MEDS: metFORMIN HCL 500 MG TABLET 1000 MG PO (17:54)
[2023-03-02 22:19] LABS: Glucose Point of Care 163 mg/dl (65-105)
[2023-03-02] MEDS: ALPRAZolam (*CRX) 0.5 MG TABLET 1 MG PO (22:41)
[2023-03-03] VITALS (7 sets, daily range): BP systolic 96–130; BP diastolic 63–74; PULSE 63–78; RESP 14–20; TEMP 36.1–37.2; O2SAT 97–99
[2023-03-03] MEDS: metroNIDAZOLE 500 MG/ISO 100ML 500 MG/100 ML BAG 100 MG IVPB ×3 (00:16→17:32)
[2023-03-03 06:33] LABS: Basophils Absolute Auto 0.1 K/mm3 (0.0-0.1); Basophils Percent Auto 0.5 % (0.2-1.2); Eosinophils Absolute Auto 0.2 K/mm3 (0-0.3); Eosinophils Percent Auto 1.6 % (0-4.4); Hematocrit 38.8 % (42.0-52.0); Hemoglobin 12.9 g/dL (14.0-18.0); Immature Granulocyte Absolute 0.15 K/mm3 (0.00-0.031); Immature Granulocyte Percent A 1.2 % (0-0.5); Lymphocytes Percent Auto 9.5 % (18.3-44.2); Mean Corpuscular HGB Conc 33.2 g/dl (32-36); Mean Corpuscular Volume 93.3 fl (80-100); Monocytes Absolute Auto 1.2 K/mm3 (0.1-0.6); Monocytes Percent Auto 9.7 % (2.6-8.5); Neutrophils Absolute Auto 9.8 K/mm3 (1.3-6.7); Neutrophils Percent Auto 77.5 % (45.5-73.1); Platelet Count Result 297 k/mm3 (150-375); Red Blood Count 4.16 M/mm3 (4.6-6.20); White Blood Count 12.6 K/mm3 (4.5-10.0)
[2023-03-03 06:48] LABS: Alanine Aminotransferase 17 U/L (6-50); Albumin Level 3.3 g/dL (3.5-5.1); Alkaline Phosphatase 64 U/L (38-126); Anion Gap 8 mmol/L (8-16); Aspartate Amino Transferase 17 U/L (17-59); Bilirubin,Total 0.8 mg/dL (0.2-1.3); Blood Urea Nitrogen 10 mg/dL (9-20); Calcium 8.7 mg/dL (8.4-10.2); Carbon Dioxide 26 mmol/L (22-30); Chloride 102 mmol/L (98-107); Estimated CRCL calculation 92 ml/min; Estimated Glomerular Filt Rate > 60; Glucose 100 mg/dL (65-110); Magnesium 1.6 mg/dL (1.6-2.3); Potassium 3.7 mmol/L (3.4-5.0); Sodium 136 mmol/L (137-145)
[2023-03-03 08:31] LABS: Glucose Point of Care 106 mg/dl (65-105)
[2023-03-03] MEDS: APIXABAN 5 MG TABLET PO ×2 (08:44→21:28)
[2023-03-03] MEDS: glipiZIDE 5 MG TABLET 10 MG PO ×2 (08:44→17:32)
[2023-03-03] MEDS: CHOLECALCIFEROL 1,000 UNITS TABLET 1000 UNITS PO (08:44)
[2023-03-03] MEDS: allopurinoL 300 MG TABLET PO (08:44)
[2023-03-03] MEDS: DOCUSATE SODIUM 100 MG CAPSULE PO ×2 (08:44→17:32)
[2023-03-03] MEDS: lisinopriL 2.5 MG TABLET PO (08:44)
[2023-03-03] MEDS: metFORMIN HCL 500 MG TABLET 1500 MG PO (08:44)
[2023-03-03] MEDS: CYANOCOBALAMIN 1,000 MCG TABLET 1000 MCG PO (08:45)
[2023-03-03] MEDS: lisinopriL 10 MG TABLET PO (08:45)
[2023-03-03] MEDS: HYDROcodone/acetaminophen (*CRX) 7.5-325 MG TABLET 1 TAB PO ×2 (08:48→18:18)
[2023-03-03 11:50] LABS: Glucose Point of Care 177 mg/dl (65-105)
--- NOTE | 2023-03-03 11:58 | PM.IMPN ---
Progress Note: A&P Assessment and Plan (1) Abdominal pain: Code(s): R10.9 - Unspecified abdominal pain Status: Acute (2) Confusion with non-focal neuro exam: Code(s): R41.0 - Disorientation, unspecified Status: Acute Plan # left lower quadrant abdominal pain CT abd/pelvis w con Small bowel air-fluid levels and segments with small bowel wall mild thickening in addition to some possible stricture small bowel segments. Consider inflammatory or infectious enteritis Mild ascites Stones and/or sludge in the gallbladder Small sliding hiatal hernia Small bowel diverticula Bilateral renal cysts Prostatomegaly Severe coronary artery calcification prior CT abd/pelvis w/ con on 01/25/23 1. Short segment of wall thickening in the jejunum with adjacent fat stranding, consistent with jejunitis or possibly small bowel diverticulitis. 2. Stones and/or sludge in the nondistended gallbladder. AST/ALT, lipase WNL stool culture GI consult colonoscopy at on 10/11/19 (Dr. Montes) - showed multiple large-size internal hemorrhoids. Recommended to have repeat colonoscopy in 10 years and maintain a high fiber diet. started on Ceftriaxone 1G and Metronidazole 500 mg on 03/01 - continued. trace blood noted at urethra postvoid by PCT, none seen during initial eval. No blood on UA, no stones seen on CT. UC sent. monitor daily labs VS Q4H May need a repeat scan again as continues to have extreme tenderness in the area. Will continue to monitor on antibiotics #. confusion with nonfocal neuro exam elevated WBC 22.2 and platelet count 402 BC (03/01) pending c/f sepsis - given 30 mL/.kg of fluids. lactic acid: 3.5 -> 2.9 -> 1.8 sodium 133, started on NS 100 ml/hr x1L. monitor. UA: High specific gravity 1.047, 1+ protein, 3+ glucose, trace ketones neurocheck Qshift currently on Aricept, no documented dementia # AFib on Eliquis rate control # history of intra-abdominal abscess # ischemic cardiomyopathy EF 45% 12/23/2022 # diabetes mellitus: SSI on metformin glipizide and Ozempic at home. A1c 6.6 on 02/13/2023 # coronary artery disease very tight 99% mid LAD stenosis # diet clear liquid # DVT prophylaxis on Eliquis # code status DNR Subjective Date/time seen: 03/03/23 11:58 Interval history: Continues to have left lower quadrant pain on nausea vomiting. Remains afebrile. Labs with improved leukocytosis. Review of Systems Review of Systems: All systems reviewed & are unremarkable except as noted in HPI and below Exam Narrative: APPEARANCE: Well appearing, no pain, no distress, well-nourished. HEAD: normocephalic, atraumatic. EYES: PERRLA/EOMI, conjunctivae clear. NOSE: Normal no drainage NECK: Supple. No adenopathy, no masses. RESPIRATORY: Airway patent, respirations nonlabored. Clear to auscultation bilaterally, no rales, rhonchi, wheezing. CARDIOVASCULAR: Regular rate and rhythm without murmurs rubs or gallops. ABDOMINAL: Soft, normal bowel sounds, left lower quadrant tenderness. [place] or pump on left groin MUSCULOSKELETAL: Moves all extremities. Strength/ROM intact, No edema, No calf tenderness. NEURO: Alert. Cranial nerves II through XII intact. Good gait. Good coordination SKIN: Warm, dry. Normal Color Objective Data Vital Signs Vital Signs: Vital Signs - 24 hr 03/02/23 12:00 03/02/23 15:59 03/02/23 20:00 Temperature 97.9 F 99.3 F 98.3 F Pulse Rate 67 71 65 Respiratory Rate 20 20 14 Blood Pressure 108/65 115/66 124/63 Pulse Oximetry 95 97 97 Oxygen Delivery 03/02/23 20:10 03/03/23 00:00 03/03/23 04:00 Temperature 97.0 F L 97.8 F Pulse Rate 63 63 Respiratory Rate 14 16 Blood Pressure 96/63 L 127/70 Pulse Oximetry 99 97 Oxygen Delivery Room Air 03/03/23 08:00 03/03/23 08:00 Temperature 97.7 F Pulse Rate 78 78 Respiratory Rate 18 18 Blood Pressure 130/74 Pulse Oximetry 98 98 Oxygen Delivery Room Air Intake/Outp
--- NOTE | 2023-03-03 15:51 | WPDGIPROGNO ---
Progress Note: A&P Assessment and Plan (1) LLQ abdominal pain: Code(s): R10.32 - Left lower quadrant pain Status: Acute Assessment and Plan: Patient with persistent left lower quadrant abdominal pain but appears to be improving clinically. WBC count has declined. Plan to continue broad-spectrum antibiotic coverage. Anticipate follow-up colonoscopy in small-bowel follow-through next week. If symptoms were to worsen then follow-up CT scan may need to be considered. But currently patient appears to be improving with antibiotics. Given his history of multiple intra-abdominal abscesses need to be certain no other abscesses or developing. (2) Abnormal CT scan: Code(s): R93.89 - Abnormal findings on diagnostic imaging of other specified body structures Status: Acute Assessment and Plan: CT scan suggests narrowing in several areas of the small bowel. This is not been present on previous exams. He does have a history of intra-abdominal abscesses suggesting this may be residual scar tissue. Doubt this represents inflammatory bowel disease but small-bowel follow-through will be performed next week. (3) Confusion with non-focal neuro exam: Code(s): R41.0 - Disorientation, unspecified Status: Acute Assessment and Plan: Patient with poor memory. mental thinking is somewhat diminished. Etiology unclear patient on Aricept but does not have a clear diagnosis of dementia. Subjective Date/time seen: 03/03/23 15:51 Interval history: Patient alert. With poor memory some confusion. He continues to report left lower quadrant abdominal pain. Significant diarrhea described denies a fever. Review of Systems Review of Systems: Review of systems noncontributory. Exam Narrative: Physical exam reveals patient be alert. Somewhat anxious. Complains of left lower quadrant abdominal pain. Vital signs stable. HEENT exam reveals no icterus. Lungs are clear. Heart without murmur. Abdomen soft. Bowel sounds are present. Tender in left lower quadrant. Appears to be much less than previous exams. Extremities without clubbing cyanosis or edema. Objective Data Vital Signs Vital Signs: Vital Signs - 24 hr 03/02/23 15:59 03/02/23 20:00 03/02/23 20:10 Temperature 99.3 F 98.3 F Pulse Rate 71 65 Respiratory Rate 20 14 Blood Pressure 115/66 124/63 Pulse Oximetry 97 97 Oxygen Delivery Room Air 03/03/23 00:00 03/03/23 04:00 03/03/23 08:00 Temperature 97.0 F L 97.8 F 97.7 F Pulse Rate 63 63 78 Respiratory Rate 14 16 18 Blood Pressure 96/63 L 127/70 130/74 Pulse Oximetry 99 97 98 Oxygen Delivery 03/03/23 08:00 03/03/23 12:00 Temperature 97.7 F Pulse Rate 78 68 Respiratory Rate 18 16 Blood Pressure 111/72 Pulse Oximetry 98 97 Oxygen Delivery Room Air Intake/Output Intake/Output: Intake & Output 02/28/23 03/01/23 03/02/23 03/03/23 23:59 23:59 23:59 23:59 Intake Total 2926 2112 622 Output Total 350 1450 400 Balance 2576 662 222 Meds/Results Medications: Active Medications Generic Name Dose Route Start Last Admin Trade Name Freq PRN Reason Stop Dose Admin Acetaminophen 650 mg 03/01/23 22:48 Acetaminophen 325 Mg Tablet PO Q4H PRN Mild Pain (1-3) or Fever Hydrocodone Bitart/Acetaminophen 1 tab 03/01/23 22:46 03/03/23 08:48 Hydrocodone/Acetaminophen (*Crx) 7.5-325 Mg Tablet PO 1 tab Q6H PRN Administration Pain Rated 4-6 Allopurinol 300 mg 03/02/23 08:00 03/03/23 08:44 Allopurinol 300 Mg Tablet PO 300 mg DAILY@0800 BALTAZAR Administration Alprazolam 1 mg 03/01/23 22:46 03/02/23 22:41 Alprazolam (*Crx) 0.5 Mg Tablet PO 1 mg HS PRN Administration Anxiety Apixaban 5 mg 03/01/23 23:00 03/03/23 08:44 Apixaban 5 Mg Tablet PO 5 mg Q12HR BALTAZAR Administration Cyanocobalamin 1,000 mcg 03/02/23 09:00 03/03/23 08:45 Cyanocobalamin 1,000 Mcg Tablet PO 1,000 m
[2023-03-03 16:34] LABS: Glucose Point of Care 113 mg/dl (65-105)
[2023-03-03] MEDS: metFORMIN HCL 500 MG TABLET 1000 MG PO (17:32)
[2023-03-03 20:40] LABS: Glucose Point of Care 113 mg/dl (65-105)
[2023-03-03] MEDS: DONEPEZIL HCL 10 MG TABLET PO (21:29)
[2023-03-04 00:16] VITALS: BP 114/61; PULSE 69; RESP 18; TEMP 36.2; O2SAT 96
[2023-03-04] MEDS: metroNIDAZOLE 500 MG/ISO 100ML 500 MG/100 ML BAG 100 MG IVPB ×3 (01:19→17:59)
[2023-03-04 04:00] VITALS: BP 144/76; PULSE 66; RESP 16; TEMP 35.7; O2SAT 96
[2023-03-04 08:00] VITALS: BP 117/87; PULSE 72; RESP 20; TEMP 36.9; O2SAT 97
[2023-03-04 08:15] LABS: Glucose Point of Care 105 mg/dl (65-105)
--- NOTE | 2023-03-04 09:00 | WPDGIPROGNO ---
Progress Note: A&P Assessment and Plan (1) LLQ abdominal pain: Code(s): R10.32 - Left lower quadrant pain Status: Acute Assessment and Plan: Left lower quadrant abdominal pain persists. This appears to be improving. His white count has diminished. Currently white count 12.6. Suspect this is infectious etiology. Plan to continue antibiotics. Anticipate colonoscopy in small-bowel follow-through next week. (2) Abnormal CT scan: Code(s): R93.89 - Abnormal findings on diagnostic imaging of other specified body structures Status: Acute Assessment and Plan: CT scan imaging suggest small-bowel strictures. Patient has a history of intra-abdominal abscesses which may have contributed to scar tissue. Strictures not seen on CT scan a month ago but diverticulitis in the jejunum was suggested at that time. Anticipate colonoscopy next week after antibiotics have lessened his infection and small-bowel follow-through subsequently. (3) Confusion with non-focal neuro exam: Code(s): R41.0 - Disorientation, unspecified Status: Acute Assessment and Plan: Patient on Aricept. Has had slow mentation and poor memory. Suspicion this could be dementia. He may benefit from neuro evaluation. Subjective Date/time seen: 03/04/23 09:00 Interval history: Patient alert this morning. Appears oriented. He does exhibit some mild confusion and anxiety. Still complains of left lower quadrant pain. Tolerating diet. No blood in stools. Review of Systems Review of Systems: Review of systems noncontributory. Exam Narrative: Physical exam reveals patient to be alert. Comfortable at rest. Is afebrile and anicteric. Lungs are clear. Heart without murmur. Abdomen is softer. Bowel sounds are present left lower quadrant tenderness noted. No obvious masses encountered. Objective Data Vital Signs Vital Signs: Vital Signs - 24 hr 03/03/23 12:00 03/03/23 15:51 03/03/23 20:00 Temperature 97.7 F 98.1 F 99 F Pulse Rate 68 72 75 Respiratory Rate 16 18 20 Blood Pressure 111/72 110/69 121/70 Pulse Oximetry 97 98 99 Oxygen Delivery 03/03/23 20:20 03/04/23 00:16 03/03/23 21:56 Temperature 97.2 F L Pulse Rate 69 Respiratory Rate 18 Blood Pressure 114/61 Pulse Oximetry 96 97 Oxygen Delivery Room Air Room Air 03/04/23 04:00 03/04/23 08:00 Temperature 96.3 F L 98.5 F Pulse Rate 66 72 Respiratory Rate 16 20 Blood Pressure 144/76 H 117/87 Pulse Oximetry 96 97 Oxygen Delivery Intake/Output Intake/Output: Intake & Output 03/01/23 03/02/23 03/03/23 03/04/23 23:59 23:59 23:59 23:59 Intake Total 2926 2112 1490 50 Output Total 350 1450 685 575 Balance 2576 662 805 -525 Meds/Results Medications: Active Medications Generic Name Dose Route Start Last Admin Trade Name Freq PRN Reason Stop Dose Admin Acetaminophen 650 mg 03/01/23 22:48 Acetaminophen 325 Mg Tablet PO Q4H PRN Mild Pain (1-3) or Fever Hydrocodone Bitart/Acetaminophen 1 tab 03/01/23 22:46 03/03/23 18:18 Hydrocodone/Acetaminophen (*Crx) 7.5-325 Mg Tablet PO 1 tab Q6H PRN Administration Pain Rated 4-6 Allopurinol 300 mg 03/02/23 08:00 03/03/23 08:44 Allopurinol 300 Mg Tablet PO 300 mg DAILY@0800 BALTAZAR Administration Alprazolam 1 mg 03/01/23 22:46 03/02/23 22:41 Alprazolam (*Crx) 0.5 Mg Tablet PO 1 mg HS PRN Administration Anxiety Apixaban 5 mg 03/01/23 23:00 03/03/23 21:28 Apixaban 5 Mg Tablet PO 5 mg Q12HR BALTAZAR Administration Cyanocobalamin 1,000 mcg 03/02/23 09:00 03/03/23 08:45 Cyanocobalamin 1,000 Mcg Tablet PO 1,000 mcg DAILY BALTAZAR Administration Dextrose 12.5 gm 03/01/23 22:53 Dextrose 50% 25 Gm/50 Ml Syringe IV PUSH PRN PRN Hypoglycemia Protocol Docusate Sodium 100 mg 03/02/23 09:00 03/03/23 17:32 Docusate Sodium 100 Mg Capsule PO 100 mg BID BALTAZAR Administra
[2023-03-04] MEDS: HYDROcodone/acetaminophen (*CRX) 7.5-325 MG TABLET 1 TAB PO ×2 (09:23→16:37)
[2023-03-04] MEDS: CHOLECALCIFEROL 1,000 UNITS TABLET 1000 UNITS PO (09:24)
[2023-03-04] MEDS: allopurinoL 300 MG TABLET PO (09:24)
[2023-03-04] MEDS: metFORMIN HCL 500 MG TABLET 1500 MG PO (09:24)
[2023-03-04] MEDS: lisinopriL 10 MG TABLET PO (09:24)
[2023-03-04] MEDS: lisinopriL 2.5 MG TABLET PO (09:25)
[2023-03-04] MEDS: glipiZIDE 5 MG TABLET 10 MG PO ×2 (09:25→16:37)
[2023-03-04] MEDS: APIXABAN 5 MG TABLET PO ×2 (09:25→20:56)
[2023-03-04] MEDS: CYANOCOBALAMIN 1,000 MCG TABLET 1000 MCG PO (09:25)
[2023-03-04] MEDS: DOCUSATE SODIUM 100 MG CAPSULE PO (09:25)
[2023-03-04 11:39] LABS: Glucose Point of Care 172 mg/dl (65-105)
[2023-03-04 12:00] VITALS: BP 120/67; PULSE 70; RESP 18; TEMP 36.6; O2SAT 98
--- NOTE | 2023-03-04 13:07 | PM.IMPN ---
Progress Note: A&P Assessment and Plan (1) Abdominal pain: Code(s): R10.9 - Unspecified abdominal pain Status: Acute (2) Confusion with non-focal neuro exam: Code(s): R41.0 - Disorientation, unspecified Status: Acute Plan # left lower quadrant abdominal pain CT abd/pelvis w con Small bowel air-fluid levels and segments with small bowel wall mild thickening in addition to some possible stricture small bowel segments. Consider inflammatory or infectious enteritis Mild ascites Stones and/or sludge in the gallbladder Small sliding hiatal hernia Small bowel diverticula Bilateral renal cysts Prostatomegaly Severe coronary artery calcification prior CT abd/pelvis w/ con on 01/25/23 1. Short segment of wall thickening in the jejunum with adjacent fat stranding, consistent with jejunitis or possibly small bowel diverticulitis. 2. Stones and/or sludge in the nondistended gallbladder. AST/ALT, lipase WNL stool culture GI consult colonoscopy at on 10/11/19 (Dr. Montes) - showed multiple large-size internal hemorrhoids. Recommended to have repeat colonoscopy in 10 years and maintain a high fiber diet. started on Ceftriaxone 1G and Metronidazole 500 mg on 03/01 - continued. trace blood noted at urethra postvoid by PCT, none seen during initial eval. No blood on UA, no stones seen on CT. UC sent. monitor daily labs VS Q4H May need a repeat scan again as continues to have extreme tenderness in the area. Will continue to monitor on antibiotics Plan for colonoscopy next week and small-bowel follow-through #. confusion with nonfocal neuro exam elevated WBC 22.2 and platelet count 402 BC (03/01) pending c/f sepsis - given 30 mL/.kg of fluids. lactic acid: 3.5 -> 2.9 -> 1.8 sodium 133, started on NS 100 ml/hr x1L. monitor. UA: High specific gravity 1.047, 1+ protein, 3+ glucose, trace ketones neurocheck Qshift currently on Aricept, no documented dementia # AFib on Eliquis rate control # history of intra-abdominal abscess # ischemic cardiomyopathy EF 45% 12/23/2022 # diabetes mellitus: SSI on metformin glipizide and Ozempic at home. A1c 6.6 on 02/13/2023 # coronary artery disease very tight 99% mid LAD stenosis # diet clear liquid # DVT prophylaxis on Eliquis # code status DNR Subjective Date/time seen: 03/04/23 13:07 Interval history: Feels a bit better on his left lower quadrant pain. No fever. No labs today. Tolerating diet. GI note reviewed. Review of Systems Review of Systems: All systems reviewed & are unremarkable except as noted in HPI and below Exam Narrative: APPEARANCE: Well appearing, no pain, no distress, well-nourished. HEAD: normocephalic, atraumatic. EYES: PERRLA/EOMI, conjunctivae clear. NOSE: Normal no drainage NECK: Supple. No adenopathy, no masses. RESPIRATORY: Airway patent, respirations nonlabored. Clear to auscultation bilaterally, no rales, rhonchi, wheezing. CARDIOVASCULAR: Regular rate and rhythm without murmurs rubs or gallops. ABDOMINAL: Soft, normal bowel sounds, left lower quadrant tenderness. [place] or pump on left groin MUSCULOSKELETAL: Moves all extremities. Strength/ROM intact, No edema, No calf tenderness. NEURO: Alert. Cranial nerves II through XII intact. Good gait. Good coordination SKIN: Warm, dry. Normal Color Objective Data Vital Signs Vital Signs: Vital Signs - 24 hr 03/03/23 15:51 03/03/23 20:00 03/03/23 20:20 Temperature 98.1 F 99 F Pulse Rate 72 75 Respiratory Rate 18 20 Blood Pressure 110/69 121/70 Pulse Oximetry 98 99 Oxygen Delivery Room Air 03/04/23 00:16 03/03/23 21:56 03/04/23 04:00 Temperature 97.2 F L 96.3 F L Pulse Rate 69 66 Respiratory Rate 18 16 Blood Pressure 114/61 144/76 H Pulse Oximetry 96 97 96 Oxygen Delivery Room Air 03/04/23 08:00 Temperature 98.5 F Pulse Rate 72 Respiratory Rate 20 Blood Pressure 117/87 Pulse Oximetry 97 Oxygen Delive
[2023-03-04 16:00] VITALS: BP 143/77; PULSE 73; RESP 18; TEMP 37.4; O2SAT 98
[2023-03-04] MEDS: metFORMIN HCL 500 MG TABLET 1000 MG PO (16:37)
[2023-03-04 17:09] LABS: Glucose Point of Care 87 mg/dl (65-105)
[2023-03-04 20:00] VITALS: BP 125/74; PULSE 67; RESP 16; TEMP 35.7; O2SAT 98
[2023-03-04] MEDS: DONEPEZIL HCL 10 MG TABLET PO (20:56)
[2023-03-04 21:24] LABS: Glucose Point of Care 131 mg/dl (65-105)
[2023-03-05] VITALS: BP 125/68; PULSE 72; RESP 20; TEMP 36.4; O2SAT 98
[2023-03-05] MEDS: metroNIDAZOLE 500 MG/ISO 100ML 500 MG/100 ML BAG 100 MG IVPB ×3 (02:29→18:13)
[2023-03-05 04:00] VITALS: BP 127/87; PULSE 63; RESP 20; TEMP 36.1; O2SAT 97
[2023-03-05] MEDS: HYDROcodone/acetaminophen (*CRX) 7.5-325 MG TABLET 1 TAB PO ×2 (08:07→16:59)
[2023-03-05 08:08] LABS: Glucose Point of Care 123 mg/dl (65-105)
[2023-03-05] MEDS: APIXABAN 5 MG TABLET PO (08:08)
[2023-03-05] MEDS: CHOLECALCIFEROL 1,000 UNITS TABLET 1000 UNITS PO (08:08)
[2023-03-05] MEDS: glipiZIDE 5 MG TABLET 10 MG PO ×2 (08:08→16:43)
[2023-03-05] MEDS: metFORMIN HCL 500 MG TABLET 1500 MG PO (08:08)
[2023-03-05] MEDS: lisinopriL 2.5 MG TABLET PO (08:08)
[2023-03-05] MEDS: allopurinoL 300 MG TABLET PO (08:08)
[2023-03-05] MEDS: lisinopriL 10 MG TABLET PO (08:08)
[2023-03-05] MEDS: CYANOCOBALAMIN 1,000 MCG TABLET 1000 MCG PO (08:08)
--- NOTE | 2023-03-05 10:49 | WPDGIPROGNO ---
Progress Note: A&P Assessment and Plan (1) LLQ abdominal pain: Code(s): R10.32 - Left lower quadrant pain Status: Acute Assessment and Plan: Patient with significant left lower quadrant pain appears to be resolving. White count had been decreasing. Not checked for a day or 2. Plan to proceed with colonoscopy. This is following this is small-bowel follow-through to assess abnormalities seen on CT scan imaging. Would continue antibiotic coverage for 7-10 days. (2) Abnormal CT scan: Code(s): R93.89 - Abnormal findings on diagnostic imaging of other specified body structures Status: Acute Assessment and Plan: CT scan suggestive of small bowel narrowing. Etiology for this unclear. Patient does have a history of intra-abdominal abscesses and scar tissue is a consideration. Small-bowel follow-through to be considered after colonoscopy accomplished. Continue to monitor WBC count. (3) Confusion with non-focal neuro exam: Code(s): R41.0 - Disorientation, unspecified Status: Acute Assessment and Plan: Patient with poor memory. Patient is felt to have dementia. Now on Aricept. He may benefit from neurological exam if yet accomplished. Subjective Date/time seen: 03/05/23 10:49 Interval history: Patient alert more comfortable today. States his lower abdominal pain has lessened. States bowel movements are normal. Review of Systems Review of Systems: Review of systems noncontributory. Exam Narrative: Physical exam reveals patient be alert. He is somewhat forgetful. Appears oriented at present. Lungs are clear. Heart without murmur. Abdomen bowel sounds present soft minimal tenderness in left lower quadrant. He had no masses appreciated. Objective Data Vital Signs Vital Signs: Vital Signs - 24 hr 03/04/23 12:00 03/04/23 16:00 03/04/23 20:00 Temperature 97.8 F 99.4 F Pulse Rate 70 73 Respiratory Rate 18 18 Blood Pressure 120/67 143/77 H Pulse Oximetry 98 98 Oxygen Delivery Room Air 03/04/23 20:00 03/05/23 00:00 03/05/23 04:00 Temperature 96.2 F L 97.5 F L 97 F L Pulse Rate 67 72 63 Respiratory Rate 16 20 20 Blood Pressure 125/74 125/68 127/87 Pulse Oximetry 98 98 97 Oxygen Delivery Intake/Output Intake/Output: Intake & Output 03/02/23 03/03/23 03/04/23 10/22/23 23:59 23:59 23:59 23:59 Intake Total 2112 1540 1762 820 Output Total 1450 685 725 150 Balance 605 304 3454 670 Meds/Results Medications: Active Medications Generic Name Dose Route Start Last Admin Trade Name Freq PRN Reason Stop Dose Admin Acetaminophen 650 mg 03/01/23 22:48 Acetaminophen 325 Mg Tablet PO Q4H PRN Mild Pain (1-3) or Fever Hydrocodone Bitart/Acetaminophen 1 tab 03/01/23 22:46 03/05/23 08:07 Hydrocodone/Acetaminophen (*Crx) 7.5-325 Mg Tablet PO 1 tab Q6H PRN Administration Pain Rated 4-6 Allopurinol 300 mg 03/02/23 08:00 03/05/23 08:08 Allopurinol 300 Mg Tablet PO 300 mg DAILY@0800 BALTAZAR Administration Alprazolam 1 mg 03/01/23 22:46 03/02/23 22:41 Alprazolam (*Crx) 0.5 Mg Tablet PO 1 mg HS PRN Administration Anxiety Apixaban 5 mg 03/01/23 23:00 03/05/23 08:08 Apixaban 5 Mg Tablet PO 5 mg Q12HR BALTAZAR Administration Cyanocobalamin 1,000 mcg 03/02/23 09:00 03/05/23 08:08 Cyanocobalamin 1,000 Mcg Tablet PO 1,000 mcg DAILY BALTAZAR Administration Dextrose 12.5 gm 03/01/23 22:53 Dextrose 50% 25 Gm/50 Ml Syringe IV PUSH PRN PRN Hypoglycemia Protocol Docusate Sodium 100 mg 03/02/23 09:00 03/05/23 08:10 Docusate Sodium 100 Mg Capsule PO Not Given BID BALTAZAR Donepezil HCl 10 mg 03/01/23 23:00 03/04/23 20:56 Donepezil Hcl 10 Mg Tablet PO 10 mg HS BALTAZAR Administration Glipizide 10 mg 03/02/23 08:00 03/05/23 08:08 Glipizide 5 Mg Tablet PO 10 mg BIDWM BALTAZAR Administration Glucagon 1 mg 03/01/23 22:53 Gluca
[2023-03-05 11:12] VITALS: BP 130/76; PULSE 64; RESP 16; TEMP 36.8; O2SAT 98
[2023-03-05 11:48] LABS: Glucose Point of Care 221 mg/dl (65-105)
[2023-03-05 11:50] LABS: Basophils Absolute Auto 0.1 K/mm3 (0.0-0.1); Eosinophils Absolute Auto 0.2 K/mm3 (0-0.3); Eosinophils Percent Auto 1.8 % (0-4.4); Hemoglobin 14.7 g/dL (14.0-18.0); Immature Granulocyte Absolute 0.15 K/mm3 (0.00-0.031); Immature Granulocyte Percent A 1.5 % (0-0.5); Lymphocytes Absolute Auto 1.08 K/mm3 (0.9-3.2); Lymphocytes Percent Auto 10.9 % (18.3-44.2); Mean Corpuscular HGB Conc 32.7 g/dl (32-36); Mean Corpuscular Hemoglobin 30.6 pg (26-34); Mean Corpuscular Volume 93.6 fl (80-100); Mean Platelet Volume 9.7 fl (7.4-10.4); Monocytes Absolute Auto 0.9 K/mm3 (0.1-0.6); Monocytes Percent Auto 9.1 % (2.6-8.5); Neutrophils Absolute Auto 7.5 K/mm3 (1.3-6.7); Neutrophils Percent Auto 75.7 % (45.5-73.1); Platelet Count Result 392 k/mm3 (150-375); Red Blood Count 4.81 M/mm3 (4.6-6.20); Red Cell Distribution Width 13.7 % (11.5-14.5); White Blood Count 9.9 K/mm3 (4.5-10.0)
[2023-03-05 12:07] LABS: Alanine Aminotransferase 19 U/L (6-50); Albumin Level 3.7 g/dL (3.5-5.1); Alkaline Phosphatase 67 U/L (38-126); Anion Gap 9 mmol/L (8-16); Aspartate Amino Transferase 24 U/L (17-59); Bilirubin,Total 0.5 mg/dL (0.2-1.3); Blood Urea Nitrogen 10 mg/dL (9-20); Calcium 9.2 mg/dL (8.4-10.2); Carbon Dioxide 26 mmol/L (22-30); Chloride 101 mmol/L (98-107); Estimated CRCL calculation 106 ml/min; Estimated Glomerular Filt Rate > 60; Glucose 212 mg/dL (65-110); Potassium 3.9 mmol/L (3.4-5.0); Sodium 136 mmol/L (137-145)
--- NOTE | 2023-03-05 12:26 | PM.IMPN ---
Progress Note: A&P Assessment and Plan (1) Abdominal pain: Code(s): R10.9 - Unspecified abdominal pain Status: Acute (2) Confusion with non-focal neuro exam: Code(s): R41.0 - Disorientation, unspecified Status: Acute Plan # left lower quadrant abdominal pain CT abd/pelvis w con Small bowel air-fluid levels and segments with small bowel wall mild thickening in addition to some possible stricture small bowel segments. Consider inflammatory or infectious enteritis Mild ascites Stones and/or sludge in the gallbladder Small sliding hiatal hernia Small bowel diverticula Bilateral renal cysts Prostatomegaly Severe coronary artery calcification prior CT abd/pelvis w/ con on 01/25/23 1. Short segment of wall thickening in the jejunum with adjacent fat stranding, consistent with jejunitis or possibly small bowel diverticulitis. 2. Stones and/or sludge in the nondistended gallbladder. AST/ALT, lipase WNL stool culture GI consult colonoscopy at on 10/11/19 (Dr. Montes) - showed multiple large-size internal hemorrhoids. Recommended to have repeat colonoscopy in 10 years and maintain a high fiber diet. started on Ceftriaxone 1G and Metronidazole 500 mg on 03/01 - continued. trace blood noted at urethra postvoid by PCT, none seen during initial eval. No blood on UA, no stones seen on CT. UC sent. monitor daily labs VS Q4H May need a repeat scan again as continues to have extreme tenderness in the area. Will continue to monitor on antibiotics WBC count normalized today Plan for colonoscopy next week and small-bowel follow-through #. confusion with nonfocal neuro exam elevated WBC 22.2 and platelet count 402 BC (03/01) pending c/f sepsis - given 30 mL/.kg of fluids. lactic acid: 3.5 -> 2.9 -> 1.8 sodium 133, started on NS 100 ml/hr x1L. monitor. UA: High specific gravity 1.047, 1+ protein, 3+ glucose, trace ketones neurocheck Qshift currently on Aricept, no documented dementia # AFib on Eliquis rate control # history of intra-abdominal abscess # ischemic cardiomyopathy EF 45% 12/23/2022 # diabetes mellitus: SSI on metformin glipizide and Ozempic at home. A1c 6.6 on 02/13/2023 # coronary artery disease very tight 99% mid LAD stenosis # diet clear liquid # DVT prophylaxis on Eliquis # code status DNR Subjective Date/time seen: 03/05/23 12:26 Interval history: Patient states his abdominal pain has improved. Having bowel movement no nausea vomiting tolerating diet. Plans for colonoscopy in a.m. noted Review of Systems Review of Systems: All systems reviewed & are unremarkable except as noted in HPI and below Exam Narrative: APPEARANCE: Well appearing, no pain, no distress, well-nourished. HEAD: normocephalic, atraumatic. EYES: PERRLA/EOMI, conjunctivae clear. NOSE: Normal no drainage NECK: Supple. No adenopathy, no masses. RESPIRATORY: Airway patent, respirations nonlabored. Clear to auscultation bilaterally, no rales, rhonchi, wheezing. CARDIOVASCULAR: Regular rate and rhythm without murmurs rubs or gallops. ABDOMINAL: Soft, normal bowel sounds, mild left lower quadrant tenderness. [place] or pump on left groin MUSCULOSKELETAL: Moves all extremities. Strength/ROM intact, No edema, No calf tenderness. NEURO: Alert. Cranial nerves II through XII intact. Good gait. Good coordination SKIN: Warm, dry. Normal Color Objective Data Vital Signs Vital Signs: Vital Signs - 24 hr 03/04/23 16:00 03/04/23 20:00 03/04/23 20:00 Temperature 99.4 F 96.2 F L Pulse Rate 73 67 Respiratory Rate 18 16 Blood Pressure 143/77 H 125/74 Pulse Oximetry 98 98 Oxygen Delivery Room Air 03/05/23 00:00 03/05/23 04:00 03/05/23 11:12 Temperature 97.5 F L 97 F L 98.2 F Pulse Rate 72 63 64 Respiratory Rate 20 20 16 Blood Pressure 125/68 127/87 130/76 Pulse Oximetry 98 97 98 Oxygen Delivery 03/05/23 08:00 Temperature Pulse Rate Respiratory Ra
[2023-03-05 14:47] VITALS: BP 123/71; PULSE 63; RESP 16; TEMP 36.8; O2SAT 97
[2023-03-05] MEDS: PEG (High)/E-LYTE SOLN 4,000 ML BTL 4000 ML PO (15:57)
[2023-03-05 16:42] LABS: Glucose Point of Care 116 mg/dl (65-105)
[2023-03-05] MEDS: metFORMIN HCL 500 MG TABLET 1000 MG PO (16:43)
[2023-03-05 17:34] VITALS: BP 144/100; PULSE 72; RESP 16; TEMP 36.1; O2SAT 99
[2023-03-05 20:00] VITALS: BP 135/84; PULSE 73; RESP 20; TEMP 36.3; O2SAT 99
[2023-03-05] MEDS: DONEPEZIL HCL 10 MG TABLET PO (20:44)
[2023-03-05 20:56] LABS: Glucose Point of Care 171 mg/dl (65-105)
[2023-03-06] VITALS (10 sets, daily range): BP systolic 87–154; BP diastolic 55–85; PULSE 60–71; RESP 16–20; TEMP 36.2–37; O2SAT 96–100
[2023-03-06] MEDS: metroNIDAZOLE 500 MG/ISO 100ML 500 MG/100 ML BAG 100 MG IVPB ×3 (02:22→17:47)
[2023-03-06 06:35] LABS: Basophils Absolute Auto 0.1 K/mm3 (0.0-0.1); Basophils Percent Auto 1.2 % (0.2-1.2); Eosinophils Absolute Auto 0.2 K/mm3 (0-0.3); Eosinophils Percent Auto 2.2 % (0-4.4); Hemoglobin 14.2 g/dL (14.0-18.0); Immature Granulocyte Absolute 0.18 K/mm3 (0.00-0.031); Lymphocytes Absolute Auto 1.13 K/mm3 (0.9-3.2); Lymphocytes Percent Auto 12.5 % (18.3-44.2); Mean Corpuscular HGB Conc 33.8 g/dl (32-36); Mean Corpuscular Volume 91.7 fl (80-100); Mean Platelet Volume 9.9 fl (7.4-10.4); Monocytes Absolute Auto 0.8 K/mm3 (0.1-0.6); Monocytes Percent Auto 9.2 % (2.6-8.5); Neutrophils Absolute Auto 6.6 K/mm3 (1.3-6.7); Neutrophils Percent Auto 72.9 % (45.5-73.1); Platelet Count Result 371 k/mm3 (150-375); Red Blood Count 4.58 M/mm3 (4.6-6.20); Red Cell Distribution Width 13.6 % (11.5-14.5)
[2023-03-06 06:49] LABS: Alanine Aminotransferase 28 U/L (6-50); Albumin Level 3.6 g/dL (3.5-5.1); Alkaline Phosphatase 71 U/L (38-126); Anion Gap 5 mmol/L (8-16); Aspartate Amino Transferase 43 U/L (17-59); Bilirubin,Total 0.5 mg/dL (0.2-1.3); Blood Urea Nitrogen 10 mg/dL (9-20); Carbon Dioxide 31 mmol/L (22-30); Chloride 101 mmol/L (98-107); Estimated CRCL calculation 106 ml/min; Estimated Glomerular Filt Rate > 60; Glucose 151 mg/dL (65-110); Magnesium 1.5 mg/dL (1.6-2.3); Potassium 3.6 mmol/L (3.4-5.0); Sodium 137 mmol/L (137-145)
[2023-03-06 07:49] LABS: Glucose Point of Care 147 mg/dl (65-105)
[2023-03-06] MEDS: metFORMIN HCL 500 MG TABLET 1500 MG PO (09:18)
[2023-03-06] MEDS: lisinopriL 2.5 MG TABLET PO (09:18)
[2023-03-06] MEDS: allopurinoL 300 MG TABLET PO (09:18)
[2023-03-06] MEDS: glipiZIDE 5 MG TABLET 10 MG PO ×2 (09:18→17:47)
[2023-03-06] MEDS: CHOLECALCIFEROL 1,000 UNITS TABLET 1000 UNITS PO (09:18)
[2023-03-06] MEDS: DOCUSATE SODIUM 100 MG CAPSULE PO ×2 (09:18→17:47)
[2023-03-06] MEDS: CYANOCOBALAMIN 1,000 MCG TABLET 1000 MCG PO (09:18)
[2023-03-06] MEDS: lisinopriL 10 MG TABLET PO (09:19)
[2023-03-06] MEDS: MAGNESIUM SULF 2 GM/WATER 50ML 2 GM/50 ML BAG IVPB (09:20)
--- NOTE | 2023-03-06 10:47 | PM.IMPN ---
Progress Note: A&P Assessment and Plan (1) Abdominal pain: Code(s): R10.9 - Unspecified abdominal pain Status: Acute (2) Confusion with non-focal neuro exam: Code(s): R41.0 - Disorientation, unspecified Status: Acute Plan # left lower quadrant abdominal pain CT abd/pelvis w con Small bowel air-fluid levels and segments with small bowel wall mild thickening in addition to some possible stricture small bowel segments. Consider inflammatory or infectious enteritis Mild ascites Stones and/or sludge in the gallbladder Small sliding hiatal hernia Small bowel diverticula Bilateral renal cysts Prostatomegaly Severe coronary artery calcification prior CT abd/pelvis w/ con on 01/25/23 1. Short segment of wall thickening in the jejunum with adjacent fat stranding, consistent with jejunitis or possibly small bowel diverticulitis. 2. Stones and/or sludge in the nondistended gallbladder. AST/ALT, lipase WNL stool culture GI consult colonoscopy at on 10/11/19 (Dr. Montes) - showed multiple large-size internal hemorrhoids. Recommended to have repeat colonoscopy in 10 years and maintain a high fiber diet. started on Ceftriaxone 1G and Metronidazole 500 mg on 03/01 - continued. trace blood noted at urethra postvoid by PCT, none seen during initial eval. No blood on UA, no stones seen on CT. UC sent. monitor daily labs VS Q4H May need a repeat scan again as continues to have extreme tenderness in the area. Will continue to monitor on antibiotics WBC count normalized today Plan for colonoscopy todya. SBFT per GI #. confusion with nonfocal neuro exam elevated WBC 22.2 and platelet count 402 BC (03/01) pending c/f sepsis - given 30 mL/.kg of fluids. lactic acid: 3.5 -> 2.9 -> 1.8 sodium 133, started on NS 100 ml/hr x1L. monitor. UA: High specific gravity 1.047, 1+ protein, 3+ glucose, trace ketones neurocheck Qshift currently on Aricept, no documented dementia # AFib on Eliquis rate control # history of intra-abdominal abscess # ischemic cardiomyopathy EF 45% 12/23/2022 # diabetes mellitus: SSI on metformin glipizide and Ozempic at home. A1c 6.6 on 02/13/2023 # coronary artery disease very tight 99% mid LAD stenosis # diet clear liquid # DVT prophylaxis on Eliquis # code status DNR Subjective Date/time seen: 03/06/23 10:47 Interval history: no new complaints. abdominal pain is better. planned colonscopy today. Review of Systems Review of Systems: All systems reviewed & are unremarkable except as noted in HPI and below Exam Narrative: APPEARANCE: Well appearing, no pain, no distress, well-nourished. HEAD: normocephalic, atraumatic. EYES: PERRLA/EOMI, conjunctivae clear. NOSE: Normal no drainage NECK: Supple. No adenopathy, no masses. RESPIRATORY: Airway patent, respirations nonlabored. Clear to auscultation bilaterally, no rales, rhonchi, wheezing. CARDIOVASCULAR: Regular rate and rhythm without murmurs rubs or gallops. ABDOMINAL: Soft, normal bowel sounds, mild left lower quadrant tenderness. [place] pump on left groin MUSCULOSKELETAL: Moves all extremities. Strength/ROM intact, No edema, No calf tenderness. NEURO: Alert. Cranial nerves II through XII intact. Good gait. Good coordination SKIN: Warm, dry. Normal Color Objective Data Vital Signs Vital Signs: Vital Signs - 24 hr 03/05/23 11:12 03/05/23 14:47 03/05/23 17:34 Temperature 98.2 F 98.2 F 97.0 F L Pulse Rate 64 63 72 Respiratory Rate 16 16 16 Blood Pressure 130/76 123/71 144/100 H Pulse Oximetry 98 97 99 03/05/23 20:00 03/06/23 00:00 03/06/23 04:00 Temperature 97.4 F L 97.5 F L 98.6 F Pulse Rate 73 71 65 Respiratory Rate 20 18 18 Blood Pressure 135/84 140/72 135/73 Pulse Oximetry 99 98 96 03/06/23 08:00 Temperature 97.2 F L Pulse Rate 64 Respiratory Rate 16 Blood Pressure 151/85 H Pulse Oximetry 100 Intake/Output Intake/Output: Intake & Output 02/13
--- NOTE | 2023-03-06 11:22 | PCNFU ---
Nutrition Follow-Up Complete: Unintentional weight loss related to altered GI function and reduced appetite as evidenced by pt report Goal:PO intake greater than 50% of meals and supplements Diet advanced Pt current nutrition is NPO, for colonoscopy today. Nutrition recommendation: resume liquid diet post procedure, advance as tolerated Last recorded weight is 77 kg. Bowel Motility: +BM 03/06 Labs Reviewed: Cr:0.6, Glu:151 Meds Noted: Eliquis, novolog Skin: no skin issues noted Additional Notes: Pt NPO for colonoscopy today, was on clear liquids and full liquids with good tolerance, noted +BMs. Recommend to resume liquids post procedure and continue to advance diet as tolerated. Monitor diet order, intake, wt, labs. Follow up in 3 days.
[2023-03-06 11:33] LABS: Glucose Point of Care 159 mg/dl (65-105)
[2023-03-06] MEDS: LACTATED RINGERS 1,000 ML 150 ML IV CONT (13:29)
[2023-03-06 13:38] LABS: Glucose Point of Care 127 mg/dl (65-105)
--- NOTE | 2023-03-06 13:53 | SUR.PREOP ---
patient received Eliquis 03/05/23. Dr. Montes aware.
--- NOTE | 2023-03-06 14:07 | WPDANESEPPF ---
Anes - Initial Pre Proc Eval Procedure: Operation Date: 03/06/23 13:30 Proposed Procedures p Colonoscopy - Melo Montes MD Date/Time: 03/06/23 14:07 Surgeon: Silvio Brink MD Pre Op Diagnosis: abdominal pain,enterities Patient Data Age: 72 Gender: M Height: 1.83 m Weight: 77 kg Last Vital Signs Temp 97.1 F L 03/06/23 13:49 Pulse 65 03/06/23 13:49 Resp 20 03/06/23 13:49 BP 143/81 H 03/06/23 13:49 Pulse Ox 100 03/06/23 13:49 O2 Del Method Room Air 03/06/23 13:49 Allergies Allergy/AdvReac Type Severity Reaction Status Date / Time oxycodone Allergy Unknown Other Verified 03/06/23 13:30 Home Medications Medication Instructions Recorded Confirmed Type alprazolam 1 mg tablet 1 mg PO HS PRN Anxiety 06/19/19 03/01/23 History allopurinol 300 mg tablet 300 mg PO DAILY ##0 09/10/19 03/01/23 History cholecalciferol (vitamin D3) 25 25 mcg PO DAILY 09/10/19 03/01/23 History mcg (1,000 unit) capsule (Vitamin D3) metformin 500 mg tablet See Rx Instructions .Route .COMPLEX 09/10/19 03/01/23 History glipizide 10 mg tablet 10 mg PO BID 10/11/19 03/01/23 History apixaban 5 mg tablet (Eliquis) 5 mg PO BID 04/14/20 03/01/23 History lisinopril 5 mg tablet 12.5 mg PO DAILY 12/18/20 03/01/23 History semaglutide 0.25 mg or 0.5 mg (2 0.5 mg subcut WEEKLY 12/18/20 03/01/23 History mg/1.5 mL) subcutaneous pen injector (Ozempic) cyanocobalamin (vitamin B-12) 1,000 mcg PO DAILY 02/01/21 03/01/23 History 1,000 mcg tablet (Vitamin B-12) docusate sodium 100 mg tablet 100 mg PO BID 02/01/21 03/01/23 History donepezil 10 mg tablet 10 mg PO HS 02/01/21 03/01/23 History evolocumab 140 mg/mL subcutaneous 140 mg subcut MONTHLY 02/01/21 03/01/23 History syringe (Repatha Syringe) hydrocodone 7.5 mg-acetaminophen 1 tablet PO Q6H PRN Pain 02/01/21 03/01/23 History 325 mg tablet Laboratory Tests 03/01/23 03/01/23 03/01/23 09:09 11:27 19:37 WBC RBC Hgb Hct MCV MCH MCHC RDW Plt Count MPV Immature Gran % (Auto) Neut % (Auto) Lymph % (Auto) [place] % (Auto) Eos % (Auto) Baso % (Auto) Lymph # (Auto) [place] # (Auto) Eos # (Auto) Baso # (Auto) Abs Immat Gran (auto) Absolute Neuts (auto) Absolute Nucleated RBC Nucleated RBC % Sodium Potassium Chloride Carbon Dioxide Anion Gap BUN Creatinine Estim Creat Clear Calc Estimated GFR Glucose POC Capillary Glucose Lactic Acid 2.9 H mmol/L 1.8 mmol/L (0.7-2.0) (0.7-2.0) Calcium Magnesium Total Bilirubin AST ALT Alkaline Phosphatase Total Protein Albumin Urine Color Yellow (Yellow) Urine Appearance Clear (Clear) Urine pH 5.0 (5.0-9.0) Ur Specific [place] 1.047 H (1.001-1.035) Urine Protein 1+ H mg/dL (Negative) Urine Glucose (UA) 3+ H mg/dL (Negative) Urine Ketones Trace H mg/dL (Negative) Ur Blood (Man) Negative (Negative) Urine Nitrate Negative (Negative) Urine Bilirubin Negative (Negative) Urine Urobilinogen 1.0 mg/dL (<2.0) Leukocyte Esterase Rfl Negative KACEY/UL (Negative) Urine RBC 0-2 /hpf (0-2) Urine WBC 0-5 /hpf Ur Squamous Epith Cells None seen /hpf (Few) Urine Bacteria None seen /hpf Urine Casts 0-2 03/05/23 03/05/23 03/06/23 16:39 20:43 06:18 WBC 9.0 K/mm3 (4.5-10.0) RBC 4.58 L
[2023-03-06 15:06] LABS: Glucose Point of Care 109 mg/dl (65-105)
[2023-03-06 16:15] LABS: Glucose Point of Care 104 mg/dl (65-105)
[2023-03-06] MEDS: metFORMIN HCL 500 MG TABLET 1000 MG PO (17:47)
[2023-03-06 20:20] LABS: Glucose Point of Care 173 mg/dl (65-105)
[2023-03-06] MEDS: DONEPEZIL HCL 10 MG TABLET PO (20:46)
[2023-03-07] VITALS: BP 147/90; PULSE 59; RESP 16; TEMP 36.1; O2SAT 98
[2023-03-07] MEDS: metroNIDAZOLE 500 MG/ISO 100ML 500 MG/100 ML BAG 100 MG IVPB ×2 (02:13→12:04)
[2023-03-07 04:00] VITALS: BP 124/79; PULSE 60; RESP 18; TEMP 35.8; O2SAT 99
[2023-03-07 06:52] LABS: Basophils Absolute Auto 0.1 K/mm3 (0.0-0.1); Basophils Percent Auto 1.3 % (0.2-1.2); Eosinophils Absolute Auto 0.2 K/mm3 (0-0.3); Eosinophils Percent Auto 2.7 % (0-4.4); Hematocrit 43.8 % (42.0-52.0); Hemoglobin 14.4 g/dL (14.0-18.0); Immature Granulocyte Absolute 0.16 K/mm3 (0.00-0.031); Immature Granulocyte Percent A 1.8 % (0-0.5); Lymphocytes Absolute Auto 1.13 K/mm3 (0.9-3.2); Lymphocytes Percent Auto 12.9 % (18.3-44.2); Mean Corpuscular HGB Conc 32.9 g/dl (32-36); Mean Corpuscular Hemoglobin 30.5 pg (26-34); Mean Corpuscular Volume 92.8 fl (80-100); Monocytes Absolute Auto 0.8 K/mm3 (0.1-0.6); Monocytes Percent Auto 8.6 % (2.6-8.5); Neutrophils Absolute Auto 6.4 K/mm3 (1.3-6.7); Neutrophils Percent Auto 72.7 % (45.5-73.1); Platelet Count Result 408 k/mm3 (150-375); Red Blood Count 4.72 M/mm3 (4.6-6.20); Red Cell Distribution Width 13.9 % (11.5-14.5); White Blood Count 8.8 K/mm3 (4.5-10.0)
[2023-03-07 07:08] LABS: Alanine Aminotransferase 54 U/L (6-50); Albumin Level 3.9 g/dL (3.5-5.1); Alkaline Phosphatase 73 U/L (38-126); Anion Gap 8 mmol/L (8-16); Aspartate Amino Transferase 95 U/L (17-59); Bilirubin,Total 0.6 mg/dL (0.2-1.3); Blood Urea Nitrogen 10 mg/dL (9-20); Calcium 9.3 mg/dL (8.4-10.2); Carbon Dioxide 27 mmol/L (22-30); Chloride 104 mmol/L (98-107); Estimated CRCL calculation 106 ml/min; Estimated Glomerular Filt Rate > 60; Glucose 160 mg/dL (65-110); Magnesium 1.6 mg/dL (1.6-2.3); Potassium 3.8 mmol/L (3.4-5.0); Sodium 139 mmol/L (137-145)
[2023-03-07 07:16] LABS: Glucose Point of Care 148 mg/dl (65-105)
[2023-03-07 07:43] VITALS: BP 133/76; PULSE 64; RESP 18; TEMP 35.9; O2SAT 100
[2023-03-07] MEDS: lisinopriL 10 MG TABLET PO (08:13)
[2023-03-07] MEDS: allopurinoL 300 MG TABLET PO (08:14)
[2023-03-07] MEDS: lisinopriL 2.5 MG TABLET PO (08:14)
[2023-03-07] MEDS: DOCUSATE SODIUM 100 MG CAPSULE PO (08:14)
[2023-03-07] MEDS: glipiZIDE 5 MG TABLET 10 MG PO (08:14)
[2023-03-07] MEDS: CHOLECALCIFEROL 1,000 UNITS TABLET 1000 UNITS PO (08:14)
[2023-03-07] MEDS: metFORMIN HCL 500 MG TABLET 1500 MG PO (08:14)
[2023-03-07] MEDS: CYANOCOBALAMIN 1,000 MCG TABLET 1000 MCG PO (08:15)
[2023-03-07 12:08] LABS: Glucose Point of Care 109 mg/dl (65-105)
--- NOTE | 2023-03-07 14:00 | WPDGIPROGNO ---
Progress Note: A&P Assessment and Plan (1) Diverticulitis of jejunum: Code(s): K57.12 - Diverticulitis of small intestine without perforation or abscess without bleeding Status: Acute Assessment and Plan: Patient appears to have had diverticulitis of the small intestine. Small-bowel imaging reveals multiple jejunal diverticula. Review of previous CT scan imaging now suggest he may have had micro perforation from the jejunal diverticulum. This appears to have improved clinically with decreased pain. White count is normalized. Pains patient's pain is improved. He is now tolerating diet. Plan to send patient home with antibiotics for 1 week orally. Patient should follow-up with primary care service. Follow-up with GI service if pain persists long-term. Subjective Date/time seen: 03/07/23 14:00 Interval history: Patient alert more comfortable today. Reports only minimal left lower quadrant discomfort. Small-bowel follow-through today suggest multiple jejunal diverticula. Radiologist now feels that there may have been on micro perforation of 1 of the jejunal diverticula on the initial CT scan imaging suggesting diverticulitis in this area. Patient currently afebrile and anicteric tolerating diet white count is normalized. Review of Systems Review of Systems: Review of systems noncontributory. Exam Narrative: Physical exam reveals patient to be alert. Vital signs stable. HEENT exam is unremarkable. Patient is anicteric. Lungs are clear. Heart without murmur. Abdomen bowel sounds present soft minimal tenderness in left lower quadrant. No masses noted. Objective Data Vital Signs Vital Signs: Vital Signs - 24 hr 03/06/23 14:47 03/06/23 14:57 03/06/23 15:07 Temperature Pulse Rate 67 60 60 Respiratory Rate 18 18 18 Blood Pressure 87/55 L 100/56 L 106/64 Pulse Oximetry 98 98 100 Oxygen Delivery Room Air Room Air Room Air 03/06/23 16:00 03/06/23 20:00 03/06/23 20:00 Temperature 98.1 F 97.3 F L Pulse Rate 64 71 Respiratory Rate 16 16 Blood Pressure 153/76 H 113/59 L Pulse Oximetry 100 97 Oxygen Delivery Room Air 03/07/23 00:00 03/07/23 04:00 03/07/23 07:43 Temperature 97 F L 96.5 F L 96.7 F L Pulse Rate 59 L 60 64 Respiratory Rate 16 18 18 Blood Pressure 147/90 H 124/79 133/76 Pulse Oximetry 98 99 100 Oxygen Delivery 03/07/23 08:00 Temperature Pulse Rate Respiratory Rate Blood Pressure Pulse Oximetry Oxygen Delivery Room Air Intake/Output Intake/Output: Intake & Output 03/04/23 03/05/23 03/06/23 03/07/23 23:59 23:59 23:59 23:59 Intake Total 1762 5430 2172 554 Output Total 725 150 Balance 1037 5280 2172 554 Meds/Results Medications: Active Medications Generic Name Dose Route Start Last Admin Trade Name Freq PRN Reason Stop Dose Admin Acetaminophen 650 mg 03/01/23 22:48 Acetaminophen 325 Mg Tablet PO Q4H PRN Mild Pain (1-3) or Fever Hydrocodone Bitart/Acetaminophen 1 tab 03/01/23 22:46 03/05/23 16:59 Hydrocodone/Acetaminophen (*Crx) 7.5-325 Mg Tablet PO 1 tab Q6H PRN Administration Pain Rated 4-6 Allopurinol 300 mg 03/02/23 08:00 03/07/23 08:14 Allopurinol 300 Mg Tablet PO 300 mg DAILY@0800 BALTAZAR Administration Alprazolam 1 mg 03/01/23 22:46 03/02/23 22:41 Alprazolam (*Crx) 0.5 Mg Tablet PO 1 mg HS PRN Administration Anxiety Apixaban 5 mg 03/01/23 23:00 03/05/23 08:08 Apixaban 5 Mg Tablet PO 5 mg Q12HR BALTAZAR Administration Cyanocobalamin 1,000 mcg 03/02/23 09:00 03/07/23 08:15 Cyanocobalamin 1,000 Mcg Tablet PO 1,000 mcg DAILY BALTAZAR Administration Dextrose 12.5 gm 03/01/23 22:53 Dextrose 50% 25 Gm/50 Ml Syringe IV PUSH PRN PRN Hypoglycemia Protocol Docusate Sodium 100 mg 03/02/23 09:00 03/07/23 08:14 Docusate Sodium 100 Mg Capsule PO 100 mg BID BALTAZAR Administration Donepezil HCl 10 mg 03/01/23 23:00 1
--- NOTE | 2023-03-07 16:04 | PM.DS ---
DS: Admitting Diagnosis Discharge Date 03/07/2023 Admitting Diagnosis abdominal pain DS: Discharge Diagnosis Discharge Diagnosis (1) Abdominal pain: Code(s): R10.9 - Unspecified abdominal pain Status: Acute (2) Confusion with non-focal neuro exam: Code(s): R41.0 - Disorientation, unspecified Status: Acute DS: Summary Hospital Course Hospital Course: # left lower quadrant abdominal pain with jejunal diverticulitis. Evaluation of the suggests he might have micro perforation from the jejunal diverticulum. He was treated NPO and IV antibiotics with ceftriaxone and Metronidazole. GI was consulted. underwent colonoscopy on 03/06/2020 showed has: Multiple large-sized uncomplicated internal hemorrhoids. Small-bowel follow-through was done subsequently which showed no extravasation and Extensive jejunal diverticulosis. he will be sent on Augmentin for 7 days course. Tolerated diet well his leukocytosis resolved as well with treatment. He will follow up with PCP in 1 week. GI follow-up as need #. confusion with nonfocal neuro exam # AFib on Eliquis rate control # history of intra-abdominal abscess # ischemic cardiomyopathy EF 45% 12/23/2022 # diabetes mellitus:? SSI on metformin glipizide and Ozempic at home.? A1c 6.6 on 02/13/2023 # coronary artery disease very tight 99% mid LAD stenosis # diet clear liquid # DVT prophylaxis on Eliquis # code status DNR Time Spent with Patient Time attestation: Total time spent providing and/or coordinating discharge services: 35 minutes Exam Narrative: APPEARANCE: Well appearing, no pain, no distress, well-nourished. HEAD: normocephalic, atraumatic. EYES: PERRLA/EOMI, conjunctivae clear. NOSE: Normal no drainage NECK: Supple. No adenopathy, no masses. RESPIRATORY: Airway patent, respirations nonlabored. Clear to auscultation bilaterally, no rales, rhonchi, wheezing. CARDIOVASCULAR: Regular rate and rhythm without murmurs rubs or gallops. ABDOMINAL: Soft, normal bowel sounds, mild left lower quadrant tenderness. [place] pump on left groin MUSCULOSKELETAL: Moves all extremities. Strength/ROM intact, No edema, No calf tenderness. NEURO: Alert. Cranial nerves II through XII intact. Good gait. Good coordination SKIN: Warm, dry. Normal Color DS: Data Data Completed and Pending Pending studies at discharge: Pending at discharge 03/06/23 14:47 Surgical [PTH] Routine Labs on day of discharge: Labs from last 24 hours 03/07/23 03/07/23 03/07/23 12:04 07:14 06:38 WBC 8.8 RBC 4.72 Hgb 14.4 Hct 43.8 MCV 92.8 MCH 30.5 MCHC 32.9 RDW 13.9 Plt Count 408 H MPV 10.0 Immature Gran % (Auto) 1.8 H Neut % (Auto) 72.7 Lymph % (Auto) 12.9 L Lyon % (Auto) 8.6 H Eos % (Auto) 2.7 Baso % (Auto) 1.3 H Lymph # (Auto) 1.13 Lyon # (Auto) 0.8 H Eos # (Auto) 0.2 Baso # (Auto) 0.1 Abs Immat Gran (auto) 0.16 H Absolute Neuts (auto) 6.4 Absolute Nucleated RBC 0.0 Nucleated RBC % 0.0 Sodium 139 Potassium 3.8 Chloride 104 Carbon Dioxide 27 Anion Gap 8 BUN 10 Creatinine 0.60 L Estim Creat Clear Calc 106 Estimated GFR > 60 Glucose 160 H POC Capillary Glucose 109 H 148 H Calcium 9.3 Magnesium 1.6 Total Bilirubin 0.6 AST 95 H ALT 54 H Alkaline Phosphatase 73 Total Protein 7.0 Albumin 3.9 03/06/23 03/06/23 20:17 16:09 WBC RBC Hgb Hct MCV MCH MCHC RDW Plt Count MPV Immature Gran % (Auto) Neut % (Auto) Lymph % (Auto) Lyon % (Auto) Eos % (Auto) Baso % (Auto) Lymph # (Auto) Lyon # (Auto) Eos # (Auto) Baso # (Auto) Abs Immat Gran (auto) Absolute Neuts (auto) Absolute Nucleated RBC Nucleated RBC % Sodium Potassium Chloride Carbon Dioxide Anion Gap BUN Creatinine Estim Creat Clear Calc Estimated GFR Glucose POC Capillary Glucose 173 H 104
== END 2023-03-07 16:50 | disposition home or self-care (01) | DRG 392 ==
LOC: ANHED 09:56 → ANH3MEDSUR 10:35
PROVIDERS: Internal Medicine Gastroenterology; Student in an Organized Health Care Education/Training Program; Admitting Provider Chiropractor; Emergency Provider Emergency Medicine; PCP Internal Medicine Geriatric Medicine; Visit Provider Internal Medicine
PROC: 0DJD8ZZ Inspection of Lower Intestinal Tract, Via Natural or Artificial Opening Endoscopic (ICD-10-PCS; CPT 45378; principal; 2023-03-06 13:30)
DX: K57.00 Diverticulitis of small intestine with perforation and abscess without bleeding (principal); K64.8 Other hemorrhoids; D12.3 Benign neoplasm of transverse colon; K80.20 Calculus of gallbladder without cholecystitis without obstruction; K44.9 Diaphragmatic hernia without obstruction or gangrene; D72.829 Elevated white blood cell count, unspecified; I48.91 Unspecified atrial fibrillation; I25.5 Ischemic cardiomyopathy; E11.9 Type 2 diabetes mellitus without complications; I25.10 Atherosclerotic heart disease of native coronary artery without angina pectoris; Z66 Do not resuscitate; M19.90 Unspecified osteoarthritis, unspecified site; E78.5 Hyperlipidemia, unspecified; I10 Essential (primary) hypertension; F03.90 Unspecified dementia, unspecified severity, without behavioral disturbance, psychotic disturbance, mood disturbance, and anxiety; R41.0 Disorientation, unspecified; Z96.651 Presence of right artificial knee joint; Z79.84 Long term (current) use of oral hypoglycemic drugs; Z87.442 Personal history of urinary calculi; Z87.891 Personal history of nicotine dependence; Z79.01 Long term (current) use of anticoagulants
CPT/HCPCS: 36415; 74177; 74250; 80053; 81001; 82948; 83605; 83690; 83735; 85025; 85610; 85730; 87040; 87045; 87086; 87427; 87449; 88305; 96361; 96365; 96375; 99285; A9270; G0378; J0696; J1836; J2405; J2704; J3475; J7030; J7040; J7120; Q9967

== ENCOUNTER 2023-05-16 10:40 | Outpatient (CLI) | payer MEDICARE, SELFPAY ==
[2023-05-16 11:15] LABS: Hematocrit 46.8 % (42.0-52.0); Hemoglobin 15.6 g/dL (14.0-18.0); Mean Corpuscular HGB Conc 33.3 g/dl (32-36); Mean Corpuscular Hemoglobin 31.3 pg (26-34); Mean Platelet Volume 10.5 fl (7.4-10.4); Platelet Count Result 258 k/mm3 (150-375); Red Blood Count 4.98 M/mm3 (4.6-6.20); Red Cell Distribution Width 14.6 % (11.5-14.5); White Blood Count 8.4 K/mm3 (4.5-10.0)
[2023-05-16 11:25] LABS: Hemoglobin A1C 6.1 % (<5.7)
[2023-05-16 11:27] LABS: Alanine Aminotransferase 15 U/L (6-50); Alkaline Phosphatase 68 U/L (38-126); Anion Gap 10 mmol/L (8-16); Aspartate Amino Transferase 22 U/L (17-59); Bilirubin,Total 0.5 mg/dL (0.2-1.3); Blood Urea Nitrogen 18 mg/dL (9-20); Calcium 9.4 mg/dL (8.4-10.2); Carbon Dioxide 25 mmol/L (22-30); Chloride 103 mmol/L (98-107); Cholesterol 92 mg/dL (0-200); Estimated Glomerular Filt Rate > 60; Glucose 130 mg/dL (65-110); HDL Direct 37 mg/dL; Potassium 4.8 mmol/L (3.4-5.0); Sodium 138 mmol/L (137-145); Triglycerides 132 mg/dL (<150)
[2023-05-16 11:38] LABS: LDL Cholesterol Direct 44 mg/dL
[2023-05-16 11:59] LABS: Vitamin D 25 Hydroxy 49.4 ng/mL
[2023-05-17 09:48] LABS: Basophils Absolute Auto 0.1 K/mm3 (0.0-0.1); Basophils Percent Auto 1.5 % (0.2-1.2); Eosinophils Absolute Auto 0.2 K/mm3 (0-0.3); Eosinophils Percent Auto 2.8 % (0-4.4); Immature Granulocyte Absolute 0.12 K/mm3 (0.00-0.031); Immature Granulocyte Percent A 1.4 % (0-0.5); Lymphocytes Absolute Auto 1.36 K/mm3 (0.9-3.2); Lymphocytes Percent Auto 15.8 % (18.3-44.2); Monocytes Absolute Auto 0.7 K/mm3 (0.1-0.6); Neutrophils Absolute Auto 6.1 K/mm3 (1.3-6.7); Neutrophils Percent Auto 70.5 % (45.5-73.1)
== END 2023-05-16 10:41 | disposition home or self-care (01) ==
PROVIDERS: PCP Internal Medicine Geriatric Medicine; Visit Provider Internal Medicine Geriatric Medicine
DX: E78.5 Hyperlipidemia, unspecified (principal); E55.9 Vitamin D deficiency, unspecified; E11.9 Type 2 diabetes mellitus without complications; I10 Essential (primary) hypertension
CPT/HCPCS: 36415; 80053; 80061; 82306; 83036; 85025; 85027

== ENCOUNTER 2024-08-30 15:42 | Inpatient (IN) | payer MEDICARE, SELFPAY ==
[2024-08-30] VITALS (20 sets, daily range): BP systolic 103–116; BP diastolic 52–92; PULSE 67–100; RESP 14–20; TEMP 36.6; O2SAT 90–100; BMI 22.7
--- NOTE | ~2024-08-30 | US_ITS ---
RIGHT UPPER QUADRANT ABDOMINAL ULTRASOUND (Doppler ultrasound interrogation techniques used as needed for this exam.) Ordering provider: Sada Bosch PA-C History: . right upper quadrant pain, transaminitis . Comparison: None. FINDINGS: PANCREAS: Normal echotexture and size. PORTAL VEIN: Hepatopedal flow demonstrated. LIVER: Normal size and echotexture. No focal hepatic lesions or perihepatic fluid collections are bety ntified. BILIARY DUCTS: No intra or extrahepatic biliary dilation. Common bile duct measures 10.9 mm in diamet er which is normal for patient's age. GALLBLADDER: Cholelithiasis with sludge is noted. No gallbladder wall thickening or pericholecystic f luid. The wall thickness is 4.4 mm. Negative sonographic Muñiz's sign. RIGHT KIDNEY: Normal size. No hydronephrosis, solid renal mass, renal calculi or perinephric fluid co llections. No renal cysts. FREE FLUID: None visualized within the upper abdomen. IMPRESSION: Cholelithiasis with sludge. Slightly thickened wall of the gallbladder. Cholecystitis cannot be exclu ded. Clinical correlation advised. Otherwise, normal right upper quadrant ultrasound. Reviewed, dictated and finalized at location A. IMPRESSION: Cholelithiasis with sludge. Slightly thickened wall of the gallbladder. Cholecy stitis cannot be excluded. Clinical correlation advised. Otherwise, normal righ t upper quadrant ultrasound.
--- NOTE | ~2024-08-30 | XR_ITS ---
XR chest 2V Ordering provider: Sada Bosch PA-C History: 74 years Male with . weakness . Comparison: September 09, 2019 FINDINGS: MEDIASTINUM: The cardiac silhouette is not enlarged. Left bipolar pacemaker. LUNGS: No infiltrates, effusions or pneumothorax. OTHER: No free air under the diaphragm. Degenerative changes of the spine. IMPRESSION: No acute cardiopulmonary pathology. Reviewed, dictated and finalized at location A.
--- NOTE | ~2024-08-30 | CT_ITS ---
CTA chest PE abdomen pel Ordering provider: Sada Bosch PA-C History: . sob, elevated dimer, abd pain, vomiting . Comparison: March 01, 2023 Technique: CT angiogram chest was performed following timed intravenous injection of contrast. Thin s lice axial images and reformatted coronal images were obtained. Three dimensional reformatted images of the chest were also obtained using a [employer] workstation. Also, CT of the abdomen and pelvis was pe rformed with IV contrast. . Automated exposure control and iterative reconstruction technique were e mployed. The dose-length product was 486.57 mGy-cm. 100 mL Omnipaque 350 was given IV. FINDINGS: CHEST: --PULMONARY ARTERIES: No pulmonary embolus. --VISUALIZED THORACIC INLET: Normal. --MEDIASTINUM: Aorta/coronary arteries: The thoracic aorta is normal. Heart/other: The heart is not enlarged. Lymph nodes: No mediastinal or hilar adenopathy. --LUNGS: 5 mm nodule is seen in the right lower lobe laterally. No pulmonary masses. No infiltrates or effusio ns. No pneumothorax. --MUSCULOSKELETAL: Bones: Age appropriate degenerative changes of the spine. Superficial soft tissues: The superficial soft tissues are normal. ABDOMEN/PELVIS: --MUSCULOSKELETAL: Superficial soft tissues: The superficial soft tissues are normal. Bones: Age appropriate degenerative changes of the spine. --UPPER ABDOMINAL ORGANS: Liver: Hepatomegaly. Slight dilatation of the biliary tree in the left lobe of the liver. Slightly pr ominent CBD measuring 9 mm Gallbladder: Multiple stones. Spleen: Normal. Stomach/duodenum: Normal. Pancreas: Normal. Adrenals: Slightly prominent bilateral adrenal glands. Kidneys: Multiple hypodense areas involving the cortex of the kidneys suggestive of pyelonephritis. C linical correlation and follow-up advised. Tiny cyst seen in the left kidney midpole. Focal hypodensity in the left kidney upper pole is noted which may also indicate pyelonephritis. --PELVIC ORGANS: The bladder is normal. No bladder stones. Slightly enlarged prostate. Penile prosth esis is noted. --BOWEL AND MESENTERY: Colon: no evidence of diverticulitis.. Fat stranding is seen in the right lower quadrant. No definit e enlargement of the appendix is seen with the fat stranding is surrounding the appendix. Possibility of appendicitis cannot be excluded. Small Bowel: Normal. No obstruction. Peritoneum/mesentery: No free air or free fluid. No mesenteric lymphadenopathy. --RETROPERITONEUM: Mild atheromatous disease of the abdominal aorta. No retroperitoneal lymphadenop athy. IMPRESSION: CHEST: 1. No pulmonary embolism. 2. No acute cardiopulmonary pathology. 3. Nodule in the right lower lobe measuring 5 mm. 6 months follow-up CT is advised. ABDOMEN/PELVIS: 1. Fat stranding in the right lower quadrant surrounding the appendix which appeared not enlarged. P ossibility of appendicitis cannot be excluded. The fat stranding also may be due to the right kidney changes. Clinical correlation advised. 2. Pyelonephritis bilaterally more on the right side. Infiltrative process is less likely. Follow-up advised. 3. Cholelithiasis. 4. Hepatomegaly. Reviewed, dictated and finalized at location A. IMPRESSION: CHEST: 1. No pulmonary embolism. 2. No acute cardiopulmonary pathology. 3. Nodule in the right lower lobe measuring 5 mm. 6 months follow-up CT is adv ised. ABDOMEN/PELVIS: 1. Fat stranding in the right lower quadrant surrounding the appendix which ap peared not enlarged. Possibility of appendicitis cannot be excluded. The fat st randing also may be due to the right kidney changes. Clinical correlation advis ed. 2. Pyelonephritis bilaterally more on the right side. Infiltrative process is less likely. Follow-up advised. 3. Cholelithiasis. 4. Hepatomegaly.
--- NOTE | ~2024-08-30 | CT_ITS ---
CT brain wo con Ordering provider: Sada Bosch PA-C History: 74 years Male with . confusion . Comparison: September 09, 2019 Technique: CT of the head without contrast. Radiation reduction technique the nasopharyngeal dose-yvonne gth product was 605.33 mGy-cm. FINDINGS: BRAIN PARENCHYMA AND CSF SPACES: Moderate leukoaraiosis and diffuse cortical atrophy. Moderate athero matous disease. No midline shift, mass effect or hemorrhage. The brain parenchyma and CSF spaces are otherwise normal. VISUALIZED PARANASAL SINUSES: Well aerated. MASTOIDS: Well aerated. BONES: The bones appear intact. SOFT TISSUES: Visualized nasopharynx is normal. Superficial soft tissues are normal. IMPRESSION: No acute intracranial findings. Reviewed, dictated and finalized at location A.
--- OUTSIDE RECORDS SUMMARY | 2024-08-30 15:45 | XMS_ITS | Encounter Summary ---
Author Organization [facility] Address [address] [place] [address] Care Team Providers Care Detective Supervisor Name Role Phone Unavailable Primary Care Provider Unavailabl e Encounter Details Date Type Department Care Team (Late st Contact Info) Description 08/25/2023 Lab Requisition [facility] - DermPath Lab [address] [facility] [place] [id number] Otoniel Jules Jr., MD [address] [place] [address] Social History Tobacco Use Types Packs/Day Years Used Date Smoking Tobacco: Never Assessed Sex and Gender Information Value Date Recorded Sex Assigned at Not on file 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 Gender Identity Not on file Sexual Orientation Not on file documented as of this encounter Plan of Treatment Not on file documented as of this encounter Procedures Procedure Name Priority Date/Time Associated Diagnosis Comments DERMATOPATHOLOGY Routine 08/23/2023 3:33 AM CDT documented in this encounter Results * DERMATOPATHOLOGY (08/23/2023 3:33 AM CDT) Case Report Dermatopathology Report Case: [id number] Authorizing Provider: Otoniel Jules Jr., MD Collected: 08/23/2023 03:33 AM Ordering Location: [facility] - Received: 08/25/2023 08:15 AM DermPath Lab Pathologist: Lluvia Johnson MD Specimen: Skin, right medial superior chest 2:49 PM CDT DERMATOPATHOLOGY LABORATORY Final Diagnosis Specimen A. 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 4 2:49 PM CDT DERMATOPATHOLOGY LABORATORY Gross Description Specimen A: Received is one formalin filled container labeled with the patient's name and designated right medial superior chest. The specimen consists of a shave biopsy measuring 5x4x1 mm. Jar 0. 2:49 PM CDT DERMATOPATHOLOGY LABORATORY Microscopic Description Specimen A. SKIN, right medial superior chest: The epidermis shows parakeratosis, full thickness disorderly maturation of keratinocytes, mitoses at different levels, and dyskeratotic cells. 4 2:49 PM CDT DERMATOPATHOLOGY LABORATORY Disclaimer An external and internal positive and negative controls are appropriate for the histochemical, immunohistochemical and immunofluorescence stain(s) in this case (if any), except where stated explicitly. The performance characteristics of the stain(s) cited in this report were developed and its performance characteristic determined by the Dermatopathology Laboratory at [facility], directed by Dr. Shahnaz Wolfe. These tests need not be, and therefore are not, approved by the [place] Food and Drug Administration. The tests are used for clinical purposes. Billing Codes Specimen Charges Stain Charges 16846 1 4 2:49 PM CDT DERMATOPATHOLOGY LABORATORY Embedded Images 2:49 PM CDT DERMATOPATHOLOGY LABORATORY Pathology/Cytolo gy TISSUE SPECIMEN FROM SKIN / Unknown 08/23/2023 3:33 AM CDT 08/25/2023 8:15 AM CDT us Otoniel Jules Jr., MD LAB - PATHOLOGY/CYTOLOG Y ORDERABLES Final Result DERMATOPATHOLOGY LABORATORY [facility] - Department of Dermatology [address] [place] [address], [facility] [phone] documented in this encounter Visit Diagnoses Not on filedocumented in this encounter
--- OUTSIDE RECORDS SUMMARY | 2024-08-30 15:45 | XMS_ITS | Referral Summary ---
Author Organization [facility] [place] Address [address] [place] [address] Care Team Providers Care Relations Mgr Name Role Phone Lenin Justice MD Primary Care Provider + Sony Clarke MD Unavailable Angelica RODRIGUEZ MD, Carlos M. Unavailable Encounters Date Type Department Care Team Description 08/30/2024 Telephone [facility] Care Organization [address] [place] [id number] Phyllis Scott MA Chart Review ([facility] med adh) 07/30/[address] [address] Jazzy Corea Unsuccessful Phone Call 1 ([facility] Med Adherence ) 07/30/2024 9:45 AM CDT Ancillary Procedure [facility] Card[facility] [address] [facility] [address] [place] [phone] Chronic systolic heart failure (HCC); Bradycardia; Paroxysmal atrial fibrillation (HCC); Biventricular cardiac pacemaker in situ; H/O cardiomyopathy; SSS (sick sinus syndrome) (HCC) 06/17/2024 10:00 AM CATHETERIZATION LABORATORY TECHNICIAN [facility] [address] [address] Joao Dominguez II, MD Alzheimer's disease (HCC) (Primary Dx) from Last 3 Months Allergies Active Allergy Reactions Criticality Noted Date Comments Oxycodone Mental status changes Low Vzeasne-Asd-Kkq Reductase Inhibitors Muscle pain Medium 11/30/2022 Medications allopurinol (ZYLOPRIM) 300 mg tablet take 1 tablet by oral route every day 0 0 5 Active glipiZIDE (GLUCOTROL) 10 mg tabletIndications :type 2 diabetes mellitus Take 1 tablet (10 mg total) by mouth 2 (two) times a day 7 Active cholecalciferol (VITAMIN D-3) 1,000 unit Take 1 tablet/capsul e (1,000 Units total) by mouth nightly Take 25mcg twice a day. Active HYDROcodone-aceta minophen (NORCO) 7.5-325 mg per tabletIndications :Pain Take 1 tablet by mouth every 6 (six) hours as needed 0 8 Active metFORMIN (GLUCOPHAGE) 500 mg tabletIndications :type 2 diabetes mellitus Take 2-3 tablets (1,000-1,500 mg total) by mouth as directed patient takes 1500mg in the AM, and 1000mg in the evening Active cyanocobalamin (Vitamin B-12) 1,000 mcg tabletIndications :Prevention of Vitamin B12 Deficiency Take 1 tablet (1,000 mcg total) by mouth daily Active lisinopriL (PRINIVIL,ZESTRIL ) 2.5 mg tablet Take 1 tablet (2.5 mg total) by mouth nightly 1 Active Accu-Chek Guide test strips strip USE TO TEST BLOOD GLUCOSE 2 TIMES A DAY 2 Active Accu-Chek Guide Me Glucose Mtr misc as directed 2 Active apixaban (ELIQUIS) 5 mg tabletIndications :atrial fibrillation Take 1 tablet (5 mg total) by mouth every 12 (twelve) hours 180 tablet 3 4 Active OneTouch Delica Plus Lancet 33 gauge misc USE 1 LANCET TO PRICK SKIN TWICE DAILY 3 Active Ozempic 0.25 mg or 0.5 mg (2 mg/3 mL) pen injector injection Inject 0.75 mL (0.5 mg total) under the skin once a week 4 Active Repatha Pushtronex 420 mg/3.5 mL wearable injector INJECT 420 MG UNDER THE SKIN EVERY 28 (TWENTY-EIGHT ) DAYS 4 Active clopidogreL (PLAVIX) 75 mg tablet TAKE 1 TABLET BY MOUTH EVERY DAY 90 tablet 3 4 Active donepeziL (ARICEPT) 10 mg tablet Take 1 tablet (10 mg total) by mouth nightly 30 tablet 5 5 12/15/19 25 Active memantine (NAMENDA) 10 mg tabletIndications :Moderate to Severe Alzheimer's Type Dementia Take 1 tablet (10 mg total) by mouth 2 (two) times a day 60 tablet 5 5 06/17/19 26 Active Active Problems Problem Noted Date Diagnosed Date Sebaceous cyst 12/18/2023 Chronic systolic heart failure 08/09/2023 Biventricular cardiac pacemaker in situ 08/09/19 24 Overview (09/25/2023): Alfred Quadra Allure BIV Pacemaker. Dx; CM, CHF, SSS, Afib/Aflutter, Bradycardia. DOI 09/20/2023-Batool. Peyman laguerre. Alzheimer's disease, unspecified 06/14/2023 Personal history of colonic polyps 04/18/2023 Encounter for screening colonoscopy 04/18/2023 H/O cardiomyopathy 08/15/2022 Chronic anticoagulation 02/19/2021 Cardiomyopathy, ischemic 02/19/2021 Statin myopathy 02/19/2021 S/P coronary artery stent placement 02/19/2021 Claudication 02/19/2021 Coronary artery disease invo lving chemehuevi coronary artery of chemehuevi heart without angina pectoris 12/21/2020 Overview (12/23/2020): Added automatically from request for surgery [id number] Status post catheter ablation of atrial fibrilla tion 11/06/2020 Other chest pain 11/06/2020 Right inguinal hernia 09/30/2020 Persistent atrial fibrillation 05/25/2020 Overview (05/25/2020): Added automatically from request for surgery [id number] Atrial flutter 03/09/2020 H/O syncope 03/09/2020 Chronic fatigue 03/09/2020 HODGES (dyspnea on exertion) 03/09/2020 Bilateral hearing loss 08/19/2019 Assessment & Plan (08/19/2019 9:19 AM CDT): Avoid ear cleaning techniques Avoid water to ears May use ear plugs for hearing protection but would prefer ear muffs instead Call if ears plug up again or if hearing still seems decreased Bilateral impacted cerumen 08/19/2019 Assessment & Plan (08/19/2019 9:19 AM CDT): Avoid ear cleaning techniques Avoid water to ears May use ear plugs for hearing protection but would prefer ear muffs instead Call if ears plug up again or if hearing still seems decreased History of colon polyps 02/06/2018 Overview (02/06/2018): Added automatically from request for surgery [id number] Stable angina pectoris 09/08/2017 Near syncope 07/25/2017 Tachy-norm syndrome 07/25/2017 Junctional rhythm 07/25/2017 Shortness of breath 07/25/2017 Dizziness 07/25/2017 Atrial fibrillation 07/25/2017 Hypertension associated with diabetes 07/25/2017 Tobacco abuse 07/25/2017 Bradycardia 07/25/2017 Hx of colonic polyps 06/07/2017 Overview (06/07/2017): Added automatically from request for surgery [id number] Mixed diabetic hyperlipidemi a associated with type 2 diabetes mellitus ([facility]) 10/11/2013 Overview (08/18/2016): Diabetes Social History Tobacco Use Types Packs/Day Years Used Date Smoking Tobacco: Former Cigarettes Q uit: 2019 Smokeless Tobacco: Never Tobacco Cessation:Counseling Given: Not Answered Alcohol Use Standard Drinks/Week Comments Yes 0 (1 standard drink = 0.6 oz pur e alcohol) SOCIAL DRINKER AUDIT-C Answer Date Recorded Q1: How often do you have a drink containing alcohol? Never 12/28/2023 Q2: How many drinks containi ng alcohol do you have on a typical day when you are drinking? Patient does not drink 4 Q3: How often do you have si x or more drinks on one occasion? Never 12/28/2023 Overall Financial Resource Strain (CARDIA) Answe r Date Recorded How hard is it for you to pa y for the very basics like food, housing, medical care, and heating? Not hard at all 12/25/2020 Hunger Vital Sign Answer Date Recorded Within the past 12 months, y ou worried that your food would run out before you got the money to buy more. Never true 12/26/19 21 Within the past 12 months, t he food you bought just didn't last and you didn't have money to get more. Never true 12/25/2020 PRAPARE - Transportation Answer Date Re corded In the past 12 months, has l ack of transportation kept you from medical appointments or from getting medications? No 12/13 In the past 12 months, has l ack of transportation kept you from meetings, work, or from getting things needed for daily living? No 12/25/2020 Personal Safety Answer Date Recorded Have you ever been in or are you currently in a harmful physical or emotional relationship or is someone making you feel afraid or unsafe? Denies 12/28/2023 Sex and Gender Information Value Date Recorded Sex Assigned at Not on file Legal Sex Male 7:27 PM CATHETERIZATION LABORATORY TECHNICIAN Gender Identity Male 11/14/2020 12:07 PM CDT Sexual Orientation Straight 09/22/2020 2: 14 PM CDT Last Filed Vital Signs Vital Sign Reading Time Taken Comments Blood Pressure 120/60 06/17/2024 9:33 AM CATHETERIZATION LABORATORY TECHNICIAN Pulse 68 06/17/2024 9:33 AM CATHETERIZATION LABORATORY TECHNICIAN Temperature 36.5 C (97.7 F) 12/28/2023 9:50 AM CDT Respiratory Rate 18 06/17/2024 9:33 AM CATHETERIZATION LABORATORY TECHNICIAN Oxygen Saturation 99% 04/10/2024 9:09 AM CATHETERIZATION LABORATORY TECHNICIAN Inhaled Oxygen Concentration - - Weight 79.1 kg (174 lb 4.4 oz) 06/17/2024 9:33 A M CATHETERIZATION LABORATORY TECHNICIAN Height 180.3 cm (5' 11 ) 06/17/2024 9:33 AM CATHETERIZATION LABORATORY TECHNICIAN Body Mass Index 24.31 06/17/2024 9:33 AM CATHETERIZATION LABORATORY TECHNICIAN Plan of Treatment Not on file Medical Devices Implanted Type Area Online Merchant Device Identifier Shelf Expiration Date Model / Serial / Lot [employer] [id number] u Device Closure Vascade Od5 Fr Femoral Artery - [id number] - [id number] Implanted:Qt y: 1 on 06/30/2020 by Danny Blanco MD at [facility] Collagen [employer] 01/27/2022 [id number] X-05U / [id number] / [id number] [employer] [id number] System 6-12fr Mvp Venous Closure Vascade - [id number] - [id number] Implanted:Qt y: 1 on 06/30/2020 by Danny Blanco MD at [facility] Coll[employer] 04/28/2022 800-612C -10U / [id number] / [id number] [employer] [id number] System 6-12fr Mvp Venous Closure Vascade - [id number] - [id number] Implanted:Qt y: 1 on 06/30/2020 by Danny Blanco MD at [facility] Collagen [employer] 04/28/2022 800-612C -10U / [id number] / [id number] [employer] [id number] u Device Closure Vascade Od5 Fr Femoral Artery - [id number] - [id number] Implanted:Qt y: 1 on 06/30/2020 by Danny Blanco MD at [facility] Collagen [employer] 01/27/2022 [id number] X-05U / [id number] 0915A / [id number] [employer] Quartet 5fr [id number] 4 Electrode Is-4 Connector Steerable Tip 1458q/86 - [id number] - [id number] Implanted:Qt y: 1 on 09/20/2023 by Silvino Renae MD at [facility] Lead Right: Coronary Sinus [employer] 05/14/2026 1458Q/86 / [id number] / [employer] Tendril Sts 6fr 58cm Is-1 Connector Active Fixation Bipolar Soft 8tc/58 - [id number] - [id number] Implanted:Qt y: 1 on 09/20/2023 by Silvino Renae MD at [facility] Lead Right: Ventricle [employer] 08/12/20268TC/5 8 / [id number] / [employer] Tendril Sts 6fr 52cm Is-1 Connector Active Fixation Bipolar Soft - [id number] - [id number] Implanted:Qt y: 1 on 09/20/2023 by Silvino Renae MD at [facility] Lead Right: Atrial Appendage [employer] 08/12/20262087TC/5 2 / [id number] / Alfred Vascular Pacemaker Dual Chamber Rubber Press Tender P Mri Compatible Quadra Allure Mp [id number] - [id number] - [id number] Implanted:Qt y: 1 on 09/20/2023 by Silvino Renae MD at [facility] Pacemaker Left: Infraclavicular Anterior Chest Wall [employer] 11/11/2024 [id number] / [id number] / [employer]/C R Bard [id number] Mesh Surg 3dmax [id number] Left Mid Large Inguinal Hernia - [id number] Implanted:Qt y: 1 on 10/30/2020 by Sony Clarke MD at [facility] [employer]/C R Bard [id number] 07/12/2025 [id number] / / [id number] [employer] Inc/C R Bard [id number] Mesh Surg 3dmax Right Mid Large Inguinal Hernia - [id number] Implanted:Qt y: 1 on 10/30/2020 by Sony Clarke MD at [facility] [employer]/C R Bard [id number] 07/12/2022 [id number] / / [id number] [employer] Gina [id number] Synergy 3mm 38mm 144cm Radiopaque 1 Access Port Inflation Lumen - [id number] Implanted:Qt y: 1 on 12/24/2020 by Wero Garcia MD at [facility] English Helper Gina 05/26/2022 [id number] / / Procedures Procedure Name Priority Date/Time Associated Diagnosis Comments DEVICE CHECK - REMOTE Routine 07/31/2024 7:36 AM CDT Chronic systolic heart failure (HCC) Bradycardia Paroxysmal atrial fibrillation (HCC) Biventricular cardiac pacemaker in situ H/O cardiomyopathy SSS (sick sinus syndrome) (HCC) BASIC METABOLIC PANEL Routine 09/05/2023 7:48 AM CDT Pre-procedure lab exam Bradycardia Cardiomyopathy, ischemic POCT LIPID PANEL Routine 08/08/2023 11:5 2 AM CDT Coronary artery disease involving chemehuevi coronary artery of chemehuevi heart without angina pectoris COLONOSCOPY 07/12/2023 9:46 AM CATHETERIZATION LABORATORY TECHNICIAN HEMOGLOBIN A1C Routine 10/19/2021 7:25 AM CDT PSA SCREEN Routine 07/14/2021 7:13 AM CATHETERIZATION LABORATORY TECHNICIAN from Last 3 Months or Most Recently Relevant to Health Maintenance Results * DEVICE CHECK - REMOTE (07/31/2024 7:36 AM CDT) Anatomical Region Laterality Modality Other Narrative 08/04/2024 8:53 PM CDT Alfred BIV Pacemaker. Dx; CM, CHF, SSS, Afib/Aflutter, Bradycardia. DOI 09/20/2023-Batool. [place] remote. Routine DDD Pacemaker Remote. Transmission attached. Battery status: 2.99 V, 7.5-8.1 years remaining battery life to KRISTIN. Stable lead impedances, pacing and sensing thresholds. Presenting rhythm: AP/BP AP-94%, BIVP-97%. No AT/AF episodes noted. 2 Ventricular high rate episodes detected, IEGM demonstrates NSVT with both episodes lasting 2 seconds. Medications: Plavix 75 mg, Eliquis 5 mg, lisinopril 2.5 mg See scanned report. Office pacemaker follow up: 6 months Peyman remote f/u 10/29/24. Mandeep Laboy, RN Wero Garcia MD [facility] PROCEDURES F inal Result * (ABNORMAL) Basic metabolic panel (09/05/2023 7:48 AM CDT) [facility] Glucose 143(H) 65 - 99 mg/dL [facility] Comment: Fasting reference interval For someone without known diabetes, a glucose value >125 mg/dL indicates that they may have diabetes and this should be confirmed with a follow-up test. BUN 16 7 - 25 mg/dL [facility] Creatinine 0.91 0.70 - 1.28 mg/dL [facility] eGFR 90 > OR = 60 mL/min/1.7 3m2 [facility] BUN/creat ratio SEE NOTE: (calc) [facility] Comment: Not Reported: BUN and Creatinine are within reference range. Sodium 137 135 - 146 mmol/L [facility] Potassium, pl 4.8 3.5 - 5.3 mmol/L [facility] Chloride 102 98 - 110 mmol/L [facility] CO2 29 20 - 32 mmol/L [facility] Calcium 9.8 8.6 - 10.3 mg/dL [facility] Blood 09/05/2023 7:48 AM CDT 09/05/2023 7:49 AM CDT Narrative [facility] - 09/05/2023 8:22 PM CDT FASTING:YES FASTING: YES Silvino Renae MD LAB BLOOD ORDERABLES F inal Result [facility] [address] [place] [address] * POCT lipid panel (08/08/2023 11:52 AM CDT) [facility] Cholesterol, POC 100 mg/dL HDL, POC 42 mg/dL Triglycerides, POC 259 mg/dL LDL Cholesterol POC 28 mg/dL Chol/HDL Ratio, POC N/A Non-HDL Cholesterol, POC N/A mg/dL Cholesterol Total, POC 100 mg/dL Capillary blood 08/08/2023 1 1:52 AM CDT Wero Garcia MD POINT OF CARE TEST ORDERABLES Ed ited Result - Final * Colonoscopy (07/12/2023 9:46 AM CATHETERIZATION LABORATORY TECHNICIAN) Anatomical Region Laterality Modality Other Narrative Procedure Note Azam Ugalde MD - 07/12/2023 9:[address] [facility] Patient Name: [place] Chawla Procedure Date: 07/12/2023 9:46 AM Date of : 1950 Admit Type: Outpatient Age: 72 Gender: Male Attending MD: Azam Ugalde M.D. Room: [facility] ENDOSCOPY ROOM 3 Note Status: Finalized Patient Profile: Last Colonoscopy: March 2018. Procedure: Colonoscopy Indications: High risk colon cancer surveillance: Personalhistory of colonic polyps Referring MD: Lenin Justice M.D. Providers: Azam Ugalde M.D. Impression: - Hemorrhoids found on perianal exam. - Two 3 to 4 mm polyps in the sigmoid colon and inthe transverse colon, removed with a cold snare.Resected and retrieved. - The examination was otherwise normal. Recommendation: - Discharge patient to home. - Resume previous diet. - Continue present medications. - Resume Eliquis (apixaban) in 3 days and Plavix (clopidogrel) in 3 days at prior doses. - Await pathology results. - Repeat colonoscopy in 5 years for surveillance. - Return to primary care physician as previously scheduled. Medicines: Propofol per Anesthesia Complications: No immediate complications. Estimated Blood Loss: Estimated blood loss: none. Procedure: Pre-Anesthesia Assessment: - This assessment was completed [Time ofAssessment] prior to the administration of sedation. The benefits, risks and alternatives of theprocedure and sedation were discussed and informed consentwas obtained. All questions were answered. Please referto the signed informed consent document in the medical record. The bowel preparation used was Miralax and bisacodyl tablets via single dose instruction. The scope was passed under direct vision. TheColonoscope [id number] was introduced through the anus and advanced to the the cecum, identified by appendiceal orifice and ileocecal valve. The colonoscopy was performed without difficulty. The patient tolerated the procedure well. The qualityof the bowel preparation was good. The ileocecalvalve, appendiceal orifice, and rectum werephotographed. Findings: Hemorrhoids were found on perianal exam. Two sessile polyps were found in the sigmoid colon and transversecolon. The polyps were 3 to 4 mm in size. These polyps were removed with acold snare. Resection and retrieval were complete. Verification of patient identification for the specimen was done by the physician and nurse using the patient's name and date. Estimated blood loss was minimal. The exam was otherwise without abnormality. Electronically signed by Azam Ugalde M.D. Azam Ugalde M.D. 07/12/2023 10:37:20 AM Number of Addenda: 0 Note Initiated On: 07/12/2023 9:46 AM Procedure Code(s): --- Professional --- 57238, Colonoscopy, flexible; with removal of tumor(s), polyp(s), or other lesion(s) by snare technique --- Technical --- 22357, Colonoscopy, flexible; with removal of tumor(s), polyp(s), or other lesion(s) by snare technique Diagnosis Code(s): --- Professional --- D12.3, Benign neoplasm of transverse colon (hepatic flexure orsplenic flexure) D12.5, Benign neoplasm of sigmoid colon K64.9, Unspecified hemorrhoids Z86.010, Personal history of colonic polyps --- Technical --- D12.3, Benign neoplasm of transverse colon (hepatic flexure orsplenic flexure) D12.5, Benign neoplasm of sigmoid colon K64.9, Unspecified hemorrhoids Z86.010, Personal history of colonic polyps CPT copyright 2020 [employer]. All rights reserved. The codes documented in this report are preliminary and upon outpatient coder reviewmay be revised to meet current compliance requirements. Recognized by the [place] [employer] for promoting quality in endoscopy Azam Ugalde MD ENDOSCOPY PROCEDURES Final Re sult * (ABNORMAL) Hemoglobin A1c (10/19/2021 7:25 AM CDT) Hgb A1C 6.3(H) <5.7 % of total Hgb [facility] Comment: For someone without known diabetes, a hemoglobin A1c value between 5.7% and 6.4% is consistent with prediabetes and should be confirmed with a follow-up test. For someone with known diabetes, a value <7% indicates that their diabetes is well controlled. A1c targets should be individualized based on duration of diabetes, age, comorbid conditions, and other considerations. This assay result is consistent with an increased risk of diabetes. Currently, no consensus exists regarding use of hemoglobin A1c for diagnosis of diabetes for children. 10/19/2021 7:25 AM CDT 10/19/2021 7:26 AM CDT [facility] - 10/20/2021 2:40 AM CDT Patient Report History copied from and originally reported to client [id number] in site (STL) us Lenin Justice MD LAB BLOOD ORDERABLES Fin al Result [facility] [address] [place] [address] * PSA screen (07/14/2021 7:13 AM CATHETERIZATION LABORATORY TECHNICIAN) PSA 0.87 < OR = 4.00 ng/mL [facility] Comment: The total PSA value from this assay system is standardized against the WHO standard. The test result will be approximately 20% lower when compared to the equimolar-standardized total PSA ([place]). Comparison of serial PSA results should be interpreted with this fact in mind. This test was performed using the Siemens chemiluminescent method. Values obtained from different assay methods cannot be used interchangeably. PSA levels, regardless of value, should not be interpreted as absolute evidence of the presence or absence of disease. 07/14/2021 7:13 AM CATHETERIZATION LABORATORY TECHNICIAN 07/14/2021 7:15 AM CATHETERIZATION LABORATORY TECHNICIAN Narrative [facility] - 07/16/2021 11:45 AM CATHETERIZATION LABORATORY TECHNICIAN Patient Report History copied from and originally reported to client [id number] in site (STL) Lenin Justice MD LAB BLOOD ORDERABLES Fin al Result [facility] [facility] [address] [place] [address] from Last 3 Months or Most Recently Relevant to [place] [address] [place] [address] [place] [address] [facility] [place] [address] [facility] MEDIC[facility] ADVANTAGE Advance Directives For more information, please contact: [phone] * Full Code (Latest Code Status on File) Date Activated Date Inactivated Comments 09/20/2023 12:03 PM 09/21/2023 4:29 PM * Full Code Date Activated Date Inactivated Comments 07/12/2023 9:35 AM 07/12/2023 3:32 PM * Full Code Date Activated Date Inactivated Comments 07/12/2023 9:35 AM 07/12/2023 9:35 AM * Full Code Date Activated Date Inactivated Comments 12/23/2020 2:50 PM 12/25/2020 6:23 PM * Full Code Date Activated Date Inactivated Comments 03/19/2018 9:28 AM 03/19/2018 1:24 PM Care Teams Relations Mgr Relationship Specialty [place] [address] [place] [address] PCP - General 08/12/16 [place] [address] [address] [facility] [address] [place] [address] Surgeon General Surgery 10/30/20 [place] [address] [address] [facility] [address] [place] [address] Consulting Physician Neurology 11/25/20
--- OUTSIDE RECORDS SUMMARY | 2024-08-30 15:45 | XMS_ITS | Clinical Summary ---
Author Organization [facility] Address [address] [place] [address] Care Team Providers Care Access Clerk Name Role Phone Lenin Justice MD Primary Care Provider + Sony Clarke MD Unavailable Angelica RODRIGUEZ MD, Carlos M. Unavailable [phone] Allergies Active Allergy Reactions Criticality Noted Date Comments Oxycodone Mental status changes Low Vwcefvm-Cuu-Nti Reductase Inhibitors Muscle pain Medium 11/30/2022 Medications [...] Dx; CM, CHF, SSS, Afib/Aflutter, Bradycardia. DOI 09/20/2023-Kahanda. Peyman laguerre. Alzheimer's disease, unspecified 06/14/2023 Personal history of colonic polyps 04/18/2023 Encounter for screening colonoscopy 04/18/2023 H/O cardiomyopathy 08/15/2022 Chronic anticoagulation 02/19/2021 Cardiomyopathy, ischemic 02/19/2021 Statin myopathy 02/19/2021 S/P coronary artery stent placement 02/19/2021 Claudication 02/19/2021 Coronary artery disease invo lving bishop paiute coronary artery of bishop [place] heart without angina pectoris 12/21/2020 Overview (12/23/2020): Added automatically from request for surgery [id number] Status post catheter ablation of atrial fibrilla tion 11/06/2020 Other chest pain 11/06/2020 Right inguinal hernia 09/30/2020 Persistent atrial fibrillation 05/25/2020 Overview (05/25/2020): Added automatically from request for surgery [id number] Atrial flutter 03/09/2020 H/O syncope 03/09/2020 Chronic [...] (02/06/2018): Added automatically from request for surgery [id number] Stable angina pectoris 09/08/2017 Near syncope 07/25/2017 Tachy-norm syndrome 07/25/2017 Junctional rhythm 07/25/2017 Shortness of breath 07/25/2017 Dizziness 07/25/2017 Atrial fibrillation 07/25/2017 Hypertension associated with diabetes 07/25/2017 Tobacco abuse 07/25/2017 Bradycardia 07/25/2017 Hx of colonic polyps 06/07/2017 Overview (06/07/2017): Added automatically from request for surgery [id number] Mixed diabetic hyperlipidemi a associated with type 2 diabetes mellitus (CMS/HCC) 10/11/2013 Overview (08/18/2016): Diabetes Encounters Date Type Department Care Team Description 08/30/[address] [address] Phyllis Scott MA Chart Review ([facility]) 07/30/2024 9:45 AM CDT Ancillary Procedure [facility] Cardiology [address] [address] Chronic systolic heart failure (HCC); Bradycardia; Paroxysmal atrial fibrillation ([facility]); Biventricular cardiac pacemaker in situ; H/O cardiomyopathy; SSS (sick sinus syndrome) ([facility]) 07/30/[address] [address] Jazzy Corea Unsuccessful Phone Call 1 ([facility] Med Adherence ) 06/17/2024 10:00 AM CREDIT CARD CLERK [facility] [address], [place] [address] Joao Dominguez II, MD Alzheimer's disease (HCC) (Primary Dx) from Last 3 Months Surgical History Surgery Date Site/Laterality Comments KNEE ARTHROPLASTY Knee replacement KNEE SURGERY Left knee scope SHOULDER ARTHROSCOPY W/ ROTA TOR CUFF REPAIR Bilateral twice on each side JOINT REPLACEMENT Right TKA COLONOSCOPY 07/12/2023 Medical History Medical History Date Comments Hypertension Hypertension Diabetes mellitus (HCC) Diabetes Gout Gout Hyperlipidemia Hyperlipidemia Hypercholesterolemia High choles terol; Comments: [facility] 09/12/2014 - Hx Other Medical BPH; Comments: [facility] 09/12/2014 - Hx Other Medical nephrolithiasis ; Comments: [facility] 09/12/2014 - Hx Other Medical ureteral stent placement; Comments: [facility] 09/12/2014 - Hx Other Medical kidney stones Atrial fibrillation (HCC) Inguinal hernia right side Nephrolithiasis BPH (benign prostatic hyperplasia) Gout Dementia (HCC) 10/13/2020 Per Neurology do cumentation Hiatal hernia Type 2 diabetes mellitus (HCC) Sebaceous cyst Family History Medical History Relation Name Comments Stroke Father Stroke; Diabetes Mother Diabetes mellit us; Diabetes type II Mother Diabetes me llitus type 2; Cancer Other 1 Family history of Cancer, unknown; Heart disease Other 2 Family history of Heart disease; Arthritis Other 3 Family history of Arthritis; Stroke Other 4 Family history of Stroke; Alcohol abuse Other 5 Family history of Alcoholism; Gout Other 6 Kidney disease Other 6 Family histor y of kidney problems; Relation Name Status Comments Father Mother Other 1 Other 2 Other 3 Other 4 Other 5 Other 6 Social History Tobacco Use Types Packs/Day Years [...] you are drinking? Patient does not drink Q3: How often do you have si [...] on file Legal Sex Male 7:27 PM CREDIT CARD CLERK Gender Identity Male 11/14/2020 12:07 PM CDT Sexual Orientation Straight 09/22/2020 2: 14 PM CDT Obstetrics History Last Filed Vital Signs Vital Sign Reading Time Taken Comments Blood Pressure 120/60 06/17/2024 9:33 AM CREDIT CARD CLERK Pulse 68 06/17/2024 9:33 AM CREDIT CARD CLERK Temperature 36.5 C (97.7 F) 12/28/2023 9:50 AM CDT Respiratory Rate 18 06/17/2024 9:33 AM CREDIT CARD CLERK Oxygen Saturation 99% 04/10/2024 9:09 AM CREDIT CARD CLERK Inhaled Oxygen Concentration - - Weight 79.1 kg (174 lb 4.4 oz) 06/17/2024 9:33 A M CREDIT CARD CLERK Height 180.3 cm (5' 11 ) 06/17/2024 9:33 AM CREDIT CARD CLERK Body Mass Index 24.31 06/17/2024 9:33 AM CREDIT CARD CLERK Plan of Treatment Health Maintenance Due Date Last Done Comments Albumin Creatinine Ratio, Urine 1950 Depression Screening 1950 Hepatitis C Screening 1950 Dilated Eye Exam 1950 Foot Exam 1950 DTaP/Tdap/Td Vaccine (1 - Tdap) 08/29/1963 Hepatitis B Screening 1970 Pneumococcal vaccine 65+ (1 of 2 - PCV) 08/29/1971 Zoster Vaccine (1 of 2) 2002 Abdominal Aortic Aneurysm (A AA) Screen 2017 Well Visit 65+ 2017 Hemoglobin A1C 04/20/2022 10/19/2021, 03/0 06/2021, 04/12/2021, Additional history exists Covid-19 Vaccine (2 - 2023-2 5 season) 2024 07/20/2020 Lipid Panel 08/07/2024 08/08/2023, 04/2 09/2022, 03/19/2021, Additional history exists eGFR 09/04/2024 09/05/2023, 06/0 11/2021, 07/14/2021, Additional history exists Influenza Vaccine (Season Ended) 2025 Fall Risk Assessment 06/17/2025 06/17/2024, 09/21/2023, 08/08/2023, Additional history exists Colon Cancer Screening-Colonoscopy 07/12/2033 07/12/2023, 03/19/2018, 05/29/2012 Prostate Cancer Screening-PSA Discontinued 07/14/2021 Colon Cancer Screening-CT Colonography Discontinued 07/12/2023, 03/19/2018, 05/29/2012 Colon Cancer Screening-DNA Stool Discontinued 07/12/2023, 03/19/2018, 05/29/2012 Colon Cancer Screening-FIT Discontinued 07/12, 03/19/2018, 05/29/2012 Colon Cancer Screening-Sigmoidoscopy Discontinued 07/12/2023, 03/19/2018, 05/29/2012 Medical Devices Implanted Type Area Warehouse Guard Device Identifier Shelf Expiration Date Model / Serial / Lot [employer] [id number] u Device Closure Vascade Od5 Fr Femoral Artery - [id number] - [id number] Implanted:Qt y: 1 on 06/30/2020 by Danny Blanco MD at [facility] [employer] 01/27/2022 [id number] X-05U / [id number] / [id number] [employer] [id number]-30p System 6-12fr Mvp Venous Closure Vascade - [id number] - [id number] Implanted:Qt y: 1 on 06/30/2020 by Danny Blanco MD at [facility] [employer] 04/28/2022 800-612C -10U / [id number] / [id number] [employer] [id number] System 6-12fr Mvp Venous Closure Vascade - [id number] - [id number] Implanted:Qt y: 1 on 06/30/2020 by Danny Blanco MD at [facility] [employer] 04/28/2022 800-612C -10U / [id number] / [id number] [employer] [id number] u Device Closure Vascade Od5 Fr Femoral Artery - [id number] - [id number] Implanted:Qt y: 1 on 06/30/2020 by Danny Blanco MD at [facility] [employer] [employer] 01/27/2022 700-500D X-05U / [id number] 0915A / [id number] [employer] Quartet 5fr [id number] 4 Electrode Is-4 Connector Steerable Tip 1458q/86 - [id number] - [id number] Implanted:Qt y: 1 on 09/20/2023 by Silvino Renae MD at [facility] Lead Right: Coronary Sinus [employer] 05/14/2026 1458Q/86 / [id number] / [employer] Tendril Sts 6fr 58cm Is-1 Connector Active Fixation Bipolar Soft 2088tc/58 - [id number] - [id number] Implanted:Qt y: 1 on 09/20/2023 by Silvino Renae MD at [facility] Lead Right: Ventricle [employer] 08/12/2026 2088TC/5 8 / [id number] / [employer] Tendril Sts 6fr 52cm Is-1 Connector Active Fixation Bipolar Soft 8tc/52 - [id number] - [id number] Implanted:Qt y: 1 on 09/20/2023 by Silvino Renae MD at [facility] Lead Right: Atrial Appendage [employer] 08/12/2026 2088TC/5 2 / [id number] / [employer] Pacemaker Dual Chamber Clothing Worker P Mri Compatible Quadra Allure Mp [id number] - [id number] - [id number] Implanted:Qt y: 1 on 09/20/2023 by Silvino Renae MD at [facility] Pacemaker Left: Infraclavicular Anterior Chest Wall [employer] 11/11/2024 [id number] / [id number] / [employer]/C R Bard [id number] Mesh Surg 3dmax [id number] Left Mid Large Inguinal Hernia - [id number] Implanted:Qt y: 1 on 10/30/2020 by Sony Clarke MD at [facility] [employer] Bard [id number] 07/12/2025 [id number] / / [id number] [employer]/C R Bard [id number] Mesh Surg 3dmax Right Mid Large Inguinal Hernia - [id number] Implanted:Qt y: 1 on 10/30/2020 by Sony Clarke MD at [facility] [employer]/C R Bard [id number] 07/12/2022 [id number] / / [id number] [employer] Gina [id number] Synergy 3mm 38mm 144cm Radiopaque 1 Access Port Inflation Lumen - [id number] Implanted:Qt y: 1 on 12/24/2020 by Wero Garcia MD at [facility] [employer] [facility] 05/26/2022 [id number] / / Procedures Procedure Name Priority Date/Time [...] 2 AM CDT Coronary artery disease involving bishop paiute coronary artery of bishop [place] heart without angina pectoris COLONOSCOPY 07/12/2023 9:46 AM CREDIT CARD CLERK HEMOGLOBIN A1C Routine 10/19/2021 7:25 AM CDT PSA SCREEN Routine 07/14/2021 7:13 AM CREDIT CARD CLERK from Last 3 Months or Most Recently Relevant to Health Maintenance Results * DEVICE CHECK - REMOTE (07/31/2024 7:36 AM CDT) Anatomical Region Laterality Modality Other Narrative 08/04/2024 8:53 PM CDT Alfred BIV Pacemaker. Dx; CM, CHF, SSS, Afib/Aflutter, Bradycardia. DOI 09/20/2023-[place]. [place] remote. Routine DDD Pacemaker Remote. Transmission attached. [...] 6 months Peyman remote f/u 10/29/24. Mandeep Laboy RN Wero Garcia MD [facility] PROCEDURES F inal Result * (ABNORMAL) Basic metabolic panel (09/05/2023 7:48 AM CDT) Glucose 143(H) 65 - 99 mg/dL [facility] Comment: Fasting reference interval For someone without known diabetes, a glucose value >125 mg/dL indicates that they may have diabetes and this should be confirmed with a follow-up test. BUN 16 7 - 25 mg/dL [facility] Creatinine 0.91 0.70 - 1.28 mg/dL [facility] eGFR 90 > OR = 60 mL/min/1.7 3m2 [facility] BUN/creat ratio SEE NOTE: (calc) [facility] Comment: Not Reported: BUN and Creatinine are within reference range. Sodium 137 135 - 146 mmol/L [facility] Potassium, pl 4.8 3.5 - 5.3 mmol/L [facility] Chloride 102 98 - 110 mmol/L [facility] CO2 29 20 - 32 mmol/L [facility] Calcium 9.8 8.6 - 10.3 mg/dL [facility] Blood 09/05/2023 7:48 AM CDT 09/05/2023 7:49 AM CDT Narrative [facility] - 09/05/2023 8:22 PM CDT FASTING:YES FASTING: YES us Silvino Renae MD LAB BLOOD ORDERABLES F inal Result [facility] [address] [place] [address] * POCT lipid panel (08/08/2023 11:52 AM CDT) Cholesterol, POC 100 mg/dL HDL, POC 42 mg/dL Triglycerides, POC 259 mg/dL LDL Cholesterol POC 28 mg/dL Chol/HDL Ratio, POC N/A Non-HDL Cholesterol, POC N/A mg/dL Cholesterol Total, POC 100 mg/dL Capillary blood 08/08/2023 1 1:52 AM CDT us Wero Garcia MD POINT OF CARE TEST ORDERABLES Ed ited Result - Final * Colonoscopy (07/12/2023 9:46 AM CREDIT CARD CLERK) Anatomical Region Laterality Modality Other Narrative Procedure Note Azam Ugalde MD - 07/12/2023 9:46 AM CST [facility] Patient Name: Houston Chawla Procedure Date: 07/12/2023 9:46 AM Date of : 1950 Admit Type: Outpatient Age: 72 Gender: Male Attending MD: Azam Ugalde M.D. Room: [facility] ENDOSCOPY ROOM 3 Note Status: Finalized Patient [...] scope was passed under direct vision. TheColonoscope [id number] was introduced through the anus and advanced [...] 9:46 AM Procedure Code(s): --- Professional --- 72660, Colonoscopy, flexible; with removal of tumor(s), polyp(s), or other lesion(s) by snare technique --- Technical --- 66590, Colonoscopy, flexible; with removal of tumor(s), polyp(s), [...] history of colonic polyps CPT copyright 2020 [employer]. All rights reserved. The codes documented in this report are preliminary and upon automobile mechanic helper reviewmay be revised to meet current compliance requirements. Recognized by the [employer] for promoting quality in endoscopy us Azam Ugalde MD ENDOSCOPY PROCEDURES Final Re sult * (ABNORMAL) Hemoglobin A1c (10/19/2021 7:25 AM CDT) Hgb A1C 6.3(H) <5.7 % of total Hgb [facility] Comment: For someone without known diabetes, a [...] 7:25 AM CDT 10/19/2021 7:26 AM CDT Narrative [facility] - 10/20/2021 2:40 AM CDT Patient Report History copied from and originally reported to client [id number] in site ([facility]) Lenin Justice MD LAB BLOOD ORDERABLES Fin al Result Performing Organization Address City/[facility] Co de Phone Number [facility] [address] [place] [address] * PSA screen (07/14/2021 7:13 AM CREDIT CARD CLERK) PSA 0.87 < OR = 4.00 ng/mL [facility] Comment: The total PSA value from this assay system is standardized against the WHO standard. The test result will be approximately 20% lower when compared to the equimolar-standardized total PSA (Cole David). Comparison of serial PSA results should be interpreted with this fact in mind. This test was performed using the Siemens chemiluminescent method. Values obtained from different assay methods cannot be used interchangeably. PSA levels, regardless of value, should not be interpreted as absolute evidence of the presence or absence of disease. 07/14/2021 7:13 AM CREDIT CARD CLERK 07/14/2021 7:15 AM CREDIT CARD CLERK Narrative [facility] - 07/16/2021 11:45 AM CREDIT CARD CLERK Patient Report History copied from and originally reported to client [id number] in site ([facility]) Lenin Justice MD LAB BLOOD ORDERABLES Fin al Result Performing Organization Address City/[facility]/ZIP Co de Phone Number [facility] [address] [phone] from Last 3 Months or Most Recently Relevant to Health Maintenance [place] [address] [employer]HC MEDICARE ADVANTAGE [place] [id number] [place] [address] [employer] MEDICARE ADVANTAGE [place] [id number] [place] [address] [employer] MEDICARE ADVANTAGE [place] [id number] Advance Directives For more information, please contact: [phone] * Full Code (Latest Code Status on [...] 9:28 AM 03/19/2018 1:24 PM Care Teams Access Clerk Relationship Specialty [place] [id number] [address] [facility] [address] [place] [address] PCP - General 08/12/16 [place] [address] [address] [facility] [address] [place] [address] Surgeon General Surgery 10/30/20 [place] [address] [address] [facility] [address] [place] [address] Consulting Physician Neurology 11/25/20
--- OUTSIDE RECORDS SUMMARY | 2024-08-30 15:45 | XMS_ITS | Continuity of Care Document ---
Author Organization [facility] Address [address] [place] [address] [place] [address] Phone Care Team Providers Care Wharf Tally Clerk Name Role Phone Unavailable Unavailable Unavailable Advance Directives Directive Yes / No Effective Date File Name No Information Encounters Encounter Description Practice Location Reason(s) For Visit Diagnoses Date Provider Providers Copied on Encounter [facility], [address], [place], [place], [id number], [place] tel:[phone] [facility] No Information 200 1 No Information Family History Family Member Type Diagnosis Age At Onset No Information Payers Payer name Insurance type Covered green party ID Authoriza tion(s) No Information Social History Type Description Quantity Date Captured Comments Sex Male Smoking Status No Information Chief Complaint And Reason For Visit No Information Reason For Referral Reason For Referral No Information History Of Present Illness Encounter Date Complaint History Of Prese nt Illness No Information Functional Status Date Functional Assessmen t No Information Instructions Date Instruction Additional Infor mation No Information Assessments Type Assessment Date No Information Patient Care Teams Name Effective Dates (start - stop) Status Members No Information
--- OUTSIDE RECORDS SUMMARY | 2024-08-30 15:45 | XMS_ITS | Encounter Summary ---
Author Organization [facility] Address [address] [place] [address] Care Team Providers Care Muffler Tender Name Role Phone Unavailable Primary Care Provider Unavailabl e Encounter Details Date Type Department Care Team (Late st Contact Info) Description 12/29/2022 Lab Requisition [facility] - DermPath Lab [address] [place] [address] Otoniel Jules Jr., MD [address] [place] [address] Social History Tobacco Use Types Packs/Day Years Used Date Smoking Tobacco: Never Assessed Sex and Gender Information Value Date Recorded Sex Assigned at Not on file Legal Sex Male 6:15 AM ROLL ON WORKER Gender Identity Not on file Sexual Orientation Not on file documented as of this encounter Plan of Treatment Not on file documented as of this encounter Procedures Procedure Name Priority Date/Time Associated Diagnosis Comments DERMATOPATHOLOGY Routine 12/28/2022 3:33 AM CDT documented in this encounter Results * DERMATOPATHOLOGY (12/28/2022 3:33 AM CDT) Case Report Dermatopathology Report Case: [id number] Authorizing Provider: Otoniel Jules Jr., MD Collected: 12/28/2022 03:33 AM Ordering Location: [facility] DermPath Lab Received: 12/29/2022 02:15 PM Pathologist: Jagjit Wolfe MD Specimen: Skin, right medial inferior chest 3 4:23 PM CDT DERMATOPATHOLOGY LABORATORY Final Diagnosis Specimen A. SKIN, right medial inferior chest: BASAL CELL CARCINOMA, INFILTRATIVE PATTERN (C44.519) 3 4:23 PM CDT DERMATOPATHOLOGY LABORATORY Clinical History Basal Cell Carcinoma. 3 4:23 PM CDT DERMATOPATHOLOGY LABORATORY Gross Description Specimen A: Received is one formalin filled container labeled with the patient's name and designated right medial inferior chest. The specimen consists of a shave biopsy measuring 10x9x1 mm. Jar 0. 3 4:23 PM CDT DERMATOPATHOLOGY LABORATORY Microscopic Description Specimen A. SKIN, right medial inferior chest: Within the dermis there are nodular aggregates of basaloid cells associated with fibromyxoid stroma and epithelial-stromal clefts. At the advancing margin of the neoplasm, there are smaller angulated nests that infiltrate the dermis. 3 4:23 PM CDT DERMATOPATHOLOGY LABORATORY Disclaimer An external and internal positive and negative controls are appropriate for the histochemical, immunohistochemical and immunofluorescence stain(s) in this case (if any), except where stated explicitly. The performance characteristics of the stain(s) cited in this report were developed and its performance characteristic determined by the Dermatopathology Laboratory at [facility], directed by Dr. Shahnaz Wolfe. These tests need not be, and therefore are not, approved by the [place] Food and Drug Administration. The tests are used for clinical purposes. Billing Codes Specimen Charges Stain Charges 25242 1 3 4:23 PM CDT DERMATOPATHOLOGY LABORATORY Embedded Images 3 4:23 PM CDT DERMATOPATHOLOGY LABORATORY Pathology/Cytolo gy TISSUE SPECIMEN FROM SKIN / Unknown 12/28/2022 3:33 AM CDT 12/29/2022 2:15 PM CDT us Otoniel Jules Jr., MD LAB - PATHOLOGY/CYTOLOG Y ORDERABLES Final Result DERMATOPATHOLOGY LABORATORY [facility] - Department of Dermatology [address] [place] [address], [facility] [phone] documented in this encounter Visit Diagnoses Not on filedocumented in this encounter
--- OUTSIDE RECORDS SUMMARY | 2024-08-30 15:45 | XMS_ITS | Clinical Summary ---
Author Organization [facility] Address [address] [place] [address] Care Team Providers Care Associate Professor Of Philosophy Name Role Phone Unavailable Primary Care Provider Unavailabl e Source Comments [facility],non-owned Affiliates and Associated Physician Practices is amultiple site organization consisting of ambulatory clinics and hospital sitesin [place], [place], [place] and [place]. This disclosure is being madepursuant to the Care Everywhere program and may not contain all information available regarding this patient. 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 Gender Identity Not on file Sexual Orientation Not on file Plan of Treatment Health Maintenance Due Date Last Done Comments COLOGUARD (AGES 45-75) - COL ON CA SCREENING 1950 COLON MONITORING 1950 COLONOSCOPY - COLON CA SCREENING 1950 CT COLONOGRAPHY - COLON CA SCREENING 1950 Colorectal Cancer Screening 1950 FIT - COLON CA SCREENING 1950 FLEX SIG - COLON CA SCREENING 1950 LIPID TESTING 1950 HEPATITIS C SCREENING 08/24/1970 DTAP/TDAP/TD VACCINES (1 - Tdap) 08/29/1971 PNEUMOCOCCAL VACCINE 50+ (1 of 1 - PCV) 2002 ZOSTER VACCINE (1 of 2) 2002 COVID-19 VACCINE ( - 2023-2 5 season) 2024 DEPRESSION SCREENING 05/15/2024 MEDICARE AWV CALENDAR YEAR 2024 INFLUENZA VACCINE (Season Ended) 2025 Respiratory Syncytial Virus (RSV) Vaccine Pt: or over 60 yrs (1 - 1-dose 75+ series) 08/29/2027 HEPATITIS B VACCINE Aged Out No longe r eligible based on patient's age to complete this topic HIB VACCINE Aged Out No longer eligi ble based on patient's age to complete this topic HPV VACCINE Aged Out No longer eligi ble based on patient's age to complete this topic MENINGOCOCCAL (Group B) VACC INE SHARED DECISION-MAKING Aged Out No longer eligibl e based on patient's age to complete this topic MENINGOCOCCAL GROUPS A/C/Y/W VACCINE Aged Out No longer eligible b ased on patient's age to complete this topic Insurance MANAGED MEDICARE ADV MANAGED MEDICARE ADV [facility] MANAGED MEDICARE ADV
--- OUTSIDE RECORDS SUMMARY | 2024-08-30 15:45 | XMS_ITS | Encounter Summary ---
Author Organization [facility] Healthcare Address [address] [place] [address] Care Team Providers Care Camper Assembler Name Role Phone Lenin Justice MD Primary Care Provider + Sony Clarke MD Unavailable [phone] Angelica RODRIGUEZ MD, Carlos M. Unavailable [phone] Reason for Visit * Reason Onset Date Comments Chart Review 08/30/2024 [facility] med adh Encounter Details Date Type Department Care Team (Late st Contact Info) Description 08/30/2024 Telephone [facility] Accountable Care Organization [address] [place] [address] Phyllis Scott [address] [place] [address] Chart Review ([facility]) Social History Tobacco Use Types Packs/Day Years Used Date Smoking Tobacco: Former Cigarettes Q uit: 2019 Smokeless Tobacco: Never Alcohol Use Standard Drinks/Week Comments Yes 0 [...] on file Legal Sex Male 7:27 PM CASE FITTER Gender Identity Male 11/14/2020 12:07 PM CDT Sexual Orientation Straight 09/22/2020 2: 14 PM CDT documented as of this encounter Miscellaneous Notes * Telephone Encounter - Phyllis Scott MA - 08/30/2024 11:51 AM CDT [facility]CO Medication Refill Note Houston Chawla was identified on [facility] refill report for a past due/due soon refill of Ozempic (semaglutide). According to this report, Ozempic (semaglutide) was last refilled on 08/02 for a 28 day supply. Goal is to have enough medicine so that 80% or more of the days are covered each year. Non [facility] pcp and not in [facility] portal Phyllis Lundberg Carmela Patient Outreach Surgery Attendant [facility] Medical Group ACO [phone] documented in this encounter Plan of Treatment Not on file documented as of this encounter Visit Diagnoses Not on filedocumented in this encounter Care Teams Camper Assembler Relationship Specialty [place] [id number] [address] [facility] [address] [place] [address] PCP - General 08/12/16 [place] [address] [address] [facility] [place] [place] [address] Surgeon General Surgery 10/30/20 [place] [id number] [address] [facility] [address] [place] [address] Consulting Physician Neurology 11/25/20 documented as of this encounter
--- OUTSIDE RECORDS SUMMARY | 2024-08-30 15:45 | XMS_ITS | Clinical Summary ---
Author Organization [facility] Address [address] [place] [id number] Care Team Providers Care Extension Professor Name Role Phone Unavailable Primary Care Provider Unavailabl e Social History Tobacco Use Types Packs/Day Years Used Date Smoking Tobacco: Never Assessed Sex and Gender Information Value Date Recorded Sex Assigned at Not on file Legal Sex Male 8:44 PM CDT Gender Identity Not on file Sexual Orientation Not on file Plan of Treatment Health Maintenance Due Date Last Done Comments Hepatitis C Virus (HCV) Screening 1950 TdaP Immunization 1950 Colonoscopy 1997 Colorectal Cancer Screening 1997 Cologuard 2002 Immunochemical Fecal Occult Blood 2002 Pneumococcal Immunization (5 0+ years) (1 of 1 - PCV) 2002 Zoster Immunization (1 of 2) 2002 Influenza Immunization (#1) 2024 SARS-COV-2 Immunization ( season) 2024 03/14/2021, 07/20/2020 Respiratory Syncytial Virus (RSV) Immunization (Adult) (1 - 1-dose 75+ series) 08/29/2027 Hepatitis B Immunization Aged Out No longer eligible based on patient's age to complete this topic Meningococcal Immunization (ACWY) Aged Out No longer eligible b ased on patient's age to complete this topic Rotavirus Immunization Aged Out No lo nger eligible based on patient's age to complete this topic
--- OUTSIDE RECORDS SUMMARY | 2024-08-30 15:45 | XMS_ITS | Continuity of Care Document ---
Author Organization [facility] Address [address] [place] [address] Phone Care Team Providers Care Bottom Painter Name Role Phone Aaron PT, Latricia LEWIS Unavailable Unavailable Procedures Procedure Date Free Assessment Therapeutic Exercise Therapeutic Activities Neuromuscular Re-Ed Progress Note Therapeutic Exercise Therapeutic Activities Manual Therapy Therapeutic Exercise Therapeutic Activities Manual Therapy Therapeutic Exercise Manual Therapy Hot or Cold Pack PT Evaluation Moderate Complexity Therapeutic Exercise Manual Therapy Hot or Cold Pack Advance Directives Directive Yes / No Effective Date File Name No Information Encounters Encounter Description Practice Location Reason(s) For Visit Diagnoses Date Provider Providers Copied on Encounter [facility] [address], [place], [place], [id number], tel:[phone] [place] No Information 1 Aaron Rome. . Referring Provider: Physician Screen. [facility] [facility] [address], [place], [place], [id number], tel:[phone] [place] No Information 7 Alycia Tavarez. [address], [address], [place], [place], [facility] [place], [place]. tel: [phone] Referring Provider: Moisés Sifuentes, [address] [place] [address] [address] [place], [address]. tel:[phone], [place], [place], [id number], [place] tel:[phone] [place] No Information Alycia Tavarez. [address], [address], [place], [place], [facility] [place], . tel: [phone] Referring Provider: Moisés Sifuentes, [address] [place] [address] [address] [place], [address]. tel:[phone] [address], [place], [place], [id number], [place] tel:[phone] [place] No Information Alycia Geogre. [address] [place] [address], [address], [place], [place], [facility] [place], . tel: [phone] Referring Provider: Moisés Sifuentes, [address] [place] [address] [address] [place], [address]. tel:[phone] [place] [address], [id number], [place] tel:[phone] [place] No Information Fide Louise. [address] [place] [address], [address], [place], [address], [place]. tel:[phone] Referring Provider: Moisés Sifuentes, [address] [place] [address] [address] [place], [address]. tel:[phone] [facility] [address] [place], [place] [address], [place], [place], [id number], [place] tel:[phone] [place] Stiffness of left shoulder, not elsewhere classifiedOth symptoms and signs involving the musculoskeletal systemPain in left shoulder Fide Louise. [address] [place] [address], [address], [place], [address], [place]. tel: [phone] Referring Provider: Moisés Sifuentse, [address] [place] [address] [address] [place], [address]. tel:[phone] Family History Family Member Type Diagnosis Age At Onset No Information Payers Payer name Insurance type Covered republican ID Julieta mar(s) [facility] [id number] Social History Type Description Quantity Date Captured [...]
--- OUTSIDE RECORDS SUMMARY | 2024-08-30 15:45 | XMS_ITS | Encounter Summary ---
Author Organization [facility] Address [address] [facility] [place] [address] Care Team Providers Care Reliability Engineer Name Role Phone Unavailable Primary Care Provider Unavailabl e Encounter Details Date Type Department Care Team (Late st Contact Info) Description 02/23/2023 Lab Requisition [facility] - DermPath Lab [address] [place] [id number] Otoniel Jules Jr., MD [address] [place] [address] Social History Tobacco Use Types Packs/Day Years Used Date Smoking Tobacco: Never Assessed Sex and Gender Information Value Date Recorded Sex Assigned at Not on file 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 Gender Identity Not on file Sexual Orientation Not on file documented as of this encounter Plan of Treatment Not on file documented as of this encounter Procedures Procedure Name Priority Date/Time Associated Diagnosis Comments DERMATOPATHOLOGY Routine 02/22/2023 3:33 AM CDT documented in this encounter Results * DERMATOPATHOLOGY (02/22/2023 3:33 AM CDT) Case Report Dermatopathology Report Case: [id number] Authorizing Provider: Otoniel Jules Jr., MD Collected: 02/22/2023 03:33 AM Ordering Location: [facility] Lab Received: 02/23/2023 01:21 PM Pathologist: Lluvia Johnson MD Specimen: Skin, right medial inferior chest 12:55 PM CDT DERMATOPATHOLOGY LABORATORY Final Diagnosis Specimen A. SKIN, right medial inferior chest: DERMAL SCAR RESIDUAL BASAL CELL CARCINOMA NOT IDENTIFIED (L90.5) 12:55 PM CDT DERMATOPATHOLOGY LABORATORY Clinical History Basal Cell Carcinoma 3 12:55 PM CDT DERMATOPATHOLOGY LABORATORY Gross Description Specimen A: Received is one formalin filled container labeled with the patient's name and designated right medial inferior chest.The specimen consists of an ellipse measuring 12f23z3 mm and is oriented with the suture/notch at the 12 o'clock position labeled on the requisition as orientation notch. The 12 to 6 o'clock margin is inked green. The 6 o'clock to 12 o'clock margin is inked black. The 12 o'clock tip is submitted in cassette 1. The 6 o'clock tip is submitted in cassette 2. The remainder of the ellipse is serially sectioned and submitted in cassettes 3 5. Jar 0. 3 12:55 PM CDT DERMATOPATHOLOGY LABORATORY Microscopic Description Specimen A. SKIN, right medial inferior chest: There are fibroblasts and collagen bundles oriented parallel to the skin surface. There are elongated blood vessels, some of which are oriented perpendicular to the skin surface. No basal cell carcinoma is identified. 3 12:55 PM CDT DERMATOPATHOLOGY LABORATORY Disclaimer An external and internal positive and negative controls are appropriate for the histochemical, immunohistochemical and immunofluorescence stain(s) in this case (if any), except where stated explicitly. The performance characteristics of the stain(s) cited in this report were developed and its performance characteristic determined by the Dermatopathology Laboratory at [facility], directed by Dr. Shahnaz Wolfe. These tests need not be, and therefore are not, approved by the [place] Food and Drug Administration. The tests are used for clinical purposes. Billing Codes Specimen Charges Stain Charges 96997 1 3 12:55 PM CDT DERMATOPATHOLOGY LABORATORY Embedded Images 3 12:55 PM CDT DERMATOPATHOLOGY LABORATORY Pathology/Cytolo gy TISSUE SPECIMEN FROM SKIN / Unknown 02/22/2023 3:33 AM CDT 02/23/2023 1:21 PM CDT us Otoniel Jules Jr., MD LAB - PATHOLOGY/CYTOLOG Y ORDERABLES Final Result DERMATOPATHOLOGY LABORATORY [facility] - Department of Dermatology [facility] [address] [phone] documented in this encounter Visit Diagnoses Not on filedocumented in this encounter
--- OUTSIDE RECORDS SUMMARY | 2024-08-30 15:45 | XMS_ITS | Encounter Summary ---
Author Organization [facility] Address [address] [place] [address] Care Team Providers Care Veneer Puller Name Role Phone Unavailable Primary Care Provider Unavailabl e Encounter Details Date Type Department Care Team (Late st Contact Info) Description 07/07/2022 Lab Requisition [facility] DermPath Lab [address] [place] [id number] Otoniel Jules Jr., MD [address] [place] [address] Social History Tobacco Use Types Packs/Day Years Used Date Smoking Tobacco: Never Assessed Sex and Gender Information Value Date Recorded Sex Assigned at Not on file Legal Sex Male 6:15 AM CARDIOTHORACIC PHYSIOTHERAPIST Gender Identity Not on file Sexual Orientation Not on file documented as of this encounter Plan of Treatment Not on file documented as of this encounter Procedures Procedure Name Priority Date/Time Associated Diagnosis Comments DERMATOPATHOLOGY Routine 07/06/2022 3:33 AM CARDIOTHORACIC PHYSIOTHERAPIST documented in this encounter Results * DERMATOPATHOLOGY (07/06/2022 3:33 AM CARDIOTHORACIC PHYSIOTHERAPIST) Case Report Dermatopathology Report Case: [id number] Authorizing Provider: Otoniel Jules Jr., MD Collected: 07/06/2022 03:33 AM Ordering Location: [facility] DermPath Lab Received: 07/07/2022 02:02 PM Pathologist: Jagjit Wolfe MD Specimen: Skin, left central forehead 3 4:58 PM CARDIOTHORACIC PHYSIOTHERAPIST DERMATOPATHOLOGY LABORATORY Final Diagnosis Specimen A. SKIN, left central forehead: BASAL CELL CARCINOMA, NODULAR TYPE (C44.319) 3 4:58 PM CARDIOTHORACIC PHYSIOTHERAPIST DERMATOPATHOLOGY LABORATORY Clinical History Basal Cell Carcinoma 3 4:58 PM [facility] DERMATOPATHOLOGY LABORATORY Gross Description Specimen A: Received is one formalin filled container labeled with the patient's name and designated left central forehead. The specimen consists of a shave biopsy measuring 8x8x2 mm. Jar 0. 3 4:58 PM [facility] DERMATOPATHOLOGY LABORATORY Microscopic Description Specimen A. SKIN, left central forehead: Within the dermis there are aggregates of basaloid cells with a high nuclear to cytoplasmic ratio and peripheral palisading. 3 4:58 PM [facility] DERMATOPATHOLOGY LABORATORY Disclaimer An external and internal positive and negative controls are appropriate for the histochemical, immunohistochemical and immunofluorescence stain(s) in this case (if any), except where stated explicitly. The performance characteristics of the stain(s) cited in this report were developed and its performance characteristic determined by the Dermatopathology Laboratory at [facility], directed by Dr. Shahnaz Wolfe. These tests need not be, and therefore are not, approved by the [place] Food and Drug Administration. The tests are used for clinical purposes. Billing Codes Specimen Charges Stain Charges 65831 1 3 4:58 PM CARDIOTHORACIC PHYSIOTHERAPIST DERMATOPATHOLOGY LABORATORY Embedded Images 3 4:58 PM CARDIOTHORACIC PHYSIOTHERAPIST DERMATOPATHOLOGY LABORATORY Pathology/Cytolo gy TISSUE SPECIMEN FROM SKIN / Unknown 07/06/2022 3:33 AM CARDIOTHORACIC PHYSIOTHERAPIST 07/07/2022 2:02 PM CARDIOTHORACIC PHYSIOTHERAPIST us Otoniel Jules Jr., MD LAB - PATHOLOGY/CYTOLOG Y ORDERABLES Final Result DERMATOPATHOLOGY LABORATORY [facility] - Department of Dermatology [address] [place] [address], [facility] [place] [phone] documented in this encounter Visit Diagnoses Not on filedocumented in this encounter
--- NOTE | 2024-08-30 17:13 | ECG_ITS ---
Test Date: 2024-08-30 17:24:52 Measurements Intervals [place] Rate: 74 P: 0 IN: 0 QRS: -22 QRSD: 98 T: 68 QT: 356 QTc: 397 Interpretive Statements ATRIAL FIBRILLATION ELECTRONIC VENTRICULAR COMPLEXES LOW QRS VOLTAGE IN LIMB LEADS ANTEROSEPTAL INFARCT, AGE INDETERMINATE BASELINE ARTIFACT- II, V1-V3 ABNORMAL ECG No previous ECG available for comparison Electronically Signed On 08-30-2024 20:28:33 CDT by Scot Armenta D.O.
[2024-08-30 17:32] LABS: Hemoglobin 14.4 g/dL (14.0-18.0); Immature Platelet Fraction Pct 10.7 % (0.9-11.2); Mean Corpuscular HGB Conc 34.3 g/dl (32-36); Mean Corpuscular Hemoglobin 31.8 pg (26-34); Mean Corpuscular Volume 92.7 fl (80-100); Platelet Count Result 122 k/mm3 (150-375); Red Blood Count 4.53 M/mm3 (4.6-6.20); Red Cell Distribution Width 14.1 % (11.5-14.5); White Blood Count 13.9 K/mm3 (4.5-10.0)
[2024-08-30 17:39] LABS: Alanine Aminotransferase 216 U/L (6-50); Albumin Level 3.8 g/dL (3.5-5.1); Alkaline Phosphatase 174 U/L (38-126); Anion Gap 11 mmol/L (4-12); Aspartate Amino Transferase 36 U/L (17-59); Bilirubin,Total 2.4 mg/dL (0.2-1.3); Blood Urea Nitrogen 55 mg/dL (9-20); Carbon Dioxide 22 mmol/L (22-30); Chloride 96 mmol/L (98-107); Estimated CRCL calculation 37 ml/min; Estimated Glomerular Filt Rate 39; Glucose 190 mg/dL (65-110); Lipase 24 U/L (23-300); Sodium 129 mmol/L (137-145)
--- NOTE | 2024-08-30 17:40 | ED.GENADULT ---
HPI - General Adult General Chief complaint: Unspecified <Sada Bosch PA-C - Last Filed: 08/30/24 21:37> Stated complaint: not eating or drinking <Sada Bosch PA-C - Last Filed: 08/30/24 21:37> Time Seen by Provider: 08/30/24 17:13 <Sada Bosch PA-C - Last Filed: 08/30/24 21:37> Source: patient <Sada Bosch PA-C - Last Filed: 08/30/24 21:37> Mode of arrival: ambulatory <Sada Bosch PA-C - Last Filed: 08/30/24 21:37> Limitations: other (confusion) <Sada Bosch PA-C - Last Filed: 08/30/24 21:37> History of Present Illness HPI narrative: This is a 74 year old male that presents to the ER for confusion. Patient's son dropped him off out of concern. Reports he has had some abdominal pain, nausea, vomiting. He also reports exertional shortness of breath which has been ongoing for years. He also reports weight loss. <Sada Bosch PA-C - Last Filed: 08/30/24 21:37> Related Data Home medications: Home Medications ?Medication ?Instructions ?Recorded ?Confirmed ?Last Taken ?Type alprazolam 1 mg tablet 1 mg PO HS PRN Anxiety 06/19/19 03/01/23 12/15/20 History allopurinol 300 mg tablet 300 mg PO DAILY ##0 09/10/19 03/01/23 12/18/20 07:00 History cholecalciferol (vitamin D3) 25 25 mcg PO DAILY 09/10/19 03/01/23 12/18/20 07:00 History mcg (1,000 unit) capsule (Vitamin D3) metformin 500 mg tablet See Rx Instructions .Route .COMPLEX 09/10/19 03/01/23 12/18/20 History glipizide 10 mg tablet 10 mg PO BID 10/11/19 03/01/23 12/18/20 History apixaban 5 mg tablet (Eliquis) 5 mg PO BID 04/14/20 03/01/23 12/18/20 History lisinopril 5 mg tablet 12.5 mg PO DAILY 12/18/20 03/01/23 12/18/20 History semaglutide 0.25 mg or 0.5 mg (2 0.5 mg subcut WEEKLY 12/18/20 03/01/23 12/15/20 History mg/1.5 mL) subcutaneous pen injector (Ozempic) cyanocobalamin (vitamin B-12) 1,000 mcg PO DAILY 02/01/21 03/01/23 Unknown History 1,000 mcg tablet (Vitamin B-12) docusate sodium 100 mg tablet 100 mg PO BID 02/01/21 03/01/23 Unknown History donepezil 10 mg tablet 10 mg PO HS 02/01/21 03/01/23 Unknown History evolocumab 140 mg/mL subcutaneous 140 mg subcut MONTHLY 02/01/21 03/01/23 Unknown History syringe (Repatha Syringe) hydrocodone 7.5 mg-acetaminophen 1 tablet PO Q6H PRN Pain 02/01/21 03/01/23 Unknown History 325 mg tablet <Sada Bosch PA-C - Last Filed: 08/30/24 21:37> Allergies/adverse reactions: Allergies Allergy/AdvReac Type Severity Reaction Status Date / Time oxycodone Allergy Unknown Other Verified 03/06/23 13:30 <Sada Bosch PA-C - Last Filed: 08/30/24 21:37> Review of Systems Review of Systems: ROS unobtainable: Yes unobtainable due to mental status <Sada Bosch PA-C - Last Filed: 08/30/24 21:37> [facility] Past Medical History Medical History: Medical History (Updated 08/30/24 @ 21:37 by Sada Bosch PA-C) CAD (coronary artery disease) dx from cath on 12/21/20. Ischemic cardiomyopathy compensated, EF 45% (12/23/22) Paroxysmal atrial flutter Shingles Gout Arthritis Kidney stones Ureteral stone Herpes Type 2 History of rectal polyps Hypertension A-fib Hyperlipidemia Bacteremia (~09/04/19) Intra-abdominal abscess (~09/04/19) Diabetes mellitus (Unknown) <Sada Bosch PA-C - Last Filed: 08/30/24 21:37> Surgical History Surgical History: Surgical History History of total knee replacement (TKR) rt H/O arthroscopy lt shoulder H/O repair of rotator cuff bilateral History of bilateral carpal tunnel release History of renal stent H/O cystoscopy History of penile implant Hx of tonsillectomy <Sada Bosch PA-C - Last Filed: 08/30/24 21:37> Social History Social History: Social History (Updated 03/01/23 @ 22:22 by Dennise Pollock, OFFAL SEPARATOR) Social History: Currently lives alone in his home. Son will frequently help out around the house. Surrogate decision maker: Rajesh Chawla, son. Code Status: DNR, patient able to verbalize understanding of wishes. (03/01/23) Smoking packs per day: 1 Smoking cigarettes per day: 20.0 Years smoked: 50 Smoking pack-years: 50.00 Smoking status: Former smoker Alcohol intake: former Substance use: never Substance use type: does not use Lack of Transportation: No Lack of Food: Never True Current Housing: I Have Housing Concerned About Future Housing: No Difficulty Paying Gas/Electric Bills: No Difficulty Paying for Meds: No Currently Unemployed: No Education: Don't Know Difficulty w/ Childcare or Family Care: No Living arrangements: alone Gender identity (if verbalized by the patient): Male Spiritual care concerns: No Agree to blood products: Yes <Sada Bosch PA-C - Last Filed: 08/30/24 21:37> Exam Narrative: GENERAL: Well-appearing, well-nourished, and in no acute distress. HEAD: Normocephalic, atraumatic. EYES: PERRLA and EOMI. ENT: Nares clear, no rhinorrhea or epistaxis. Mucous membranes moist. Oropharynx without tonsillar hypertrophy exudate or other lesions. Bilateral TMs pearly kaur non-bulging NECK: Supple. No adenopathy or masses. CHEST: Clear to auscultation. No respiratory distress. No wheezes rales or rhonchi HEART: Regular rate and rhythm. No murmur heard. Normal peripheral pulses. ABDOMEN: Soft, nondistended, normal active bowel sounds. Mild tenderness to palpation in the right upper quadrant, without guarding EXTREMITIES: Normal range of motion. No edema. SKIN: Warm, dry, no rash. NEURO: No focal deficits. Alert and oriented x3. PSYCH: Normal mood and affect <Sada Bosch PA-C - Last Filed: 08/30/24 21:37> Course Course Emergency Course: Patient updated on his workup and need for admission <Sada Bosch PA-C - Last Filed: 08/30/24 21:37> GRINDER MACHINE SETTER/PA Physician Supervision For this patient encounter, I reviewed the GRINDER MACHINE SETTER or PA documentation, treatment plan, and medical decision making; and I had [id number] time with this patient. <Oscar Morrison MD - Last Filed: 08/30/24 21:41> Consultations Consultation #1: Spoke with hospitalist about patient and workup who accepts admission <Sada Bosch PA-C - Last Filed: 08/30/24 21:37> Date: 08/30/24 <Sada Bosch PA-C - Last Filed: 08/30/24 21:37> Vital Signs Vital signs: Vital Signs Temperature 97.9 F 08/30/24 15:49 Pulse Rate 68 08/30/24 15:49 Respiratory Rate 14 08/30/24 15:49 Blood Pressure 103/70 08/30/24 15:49 Pulse Oximetry 99 08/30/24 15:49 Oxygen Delivery Room Air 08/30/24 15:49 Temperature 97.9 F 08/30/24 15:49 Pulse Rate 69 08/30/24 21:02 Respiratory Rate 18 08/30/24 21:02 Blood Pressure 107/64 08/30/24 21:02 Pulse Oximetry 100 08/30/24 21:02 Oxygen Delivery Room Air 08/30/24 15:49 <Sada Bosch PA-C - Last Filed: 08/30/24 21:37> Vital Signs Temperature 97.9 F 08/30/24 15:49 Pulse Rate 68 08/30/24 15:49 Respiratory Rate 14 08/30/24 15:49 Blood Pressure 103/70 08/30/24 15:49 Pulse Oximetry 99 08/30/24 15:49 Oxygen Delivery Room Air 08/30/24 15:49 Temperature 97.9 F 08/30/24 15:49 Pulse Rate 69 08/30/24 21:02 Respiratory Rate 18 08/30/24 21:02 Blood Pressure 107/64 08/30/24 21:02 Pulse Oximetry 100 08/30/24 21:02 Oxygen Delivery Room Air 08/30/24 15:49 <Oscar Morrison MD - Last Filed: 08/30/24 21:41> Medical Decision Making MDM Narrative Medical decision making narrative: Patient presents to the emergency department for generalized weakness, abdominal pain, vomiting. Patient is afebrile and nontoxic appearing. His vitals are stable. CBC with leukocytosis to 13.9. Metabolic panel with evidence of dehydration and acute kidney injury. Patient hydrated with IV fluids in the ER. Bilirubin is elevated at 2.4. Initial lactic acid elevated at 2.5. Urine with evidence of infection. CT brain without acute findings. D-dimer elevated, CTA of the chest PE with abdomen and pelvis obtained. No PE or acute cardiopulmonary abnormality. He does have a right lung nodule. Fat stranding seen in the area of the appendix, but the appendix does not appear enlarged. May be due to inflammation surrounding the kidneys. He does have evidence of bilateral pyelonephritis. He does not have any right lower quadrant tenderness. He also has cholelithiasis. He does have mild right upper quadrant tenderness. Blood cultures obtained, patient started on IV antibiotics. Spoke with hospitalist about patient and workup who accepts admission <Sada Bosch PA-C - Last Filed: 08/30/24 21:37> Differential Diagnosis Differential Diagnosis: Cholecystitis, pyelonephritis, dehydration, acute kidney injury, electrolyte derangement <Sada Bosch PA-C - Last Filed: 08/30/24 21:37> Vital Signs Vital Signs: Vital Signs Temperature 97.9 F 08/30/24 15:49 Pulse Rate 68 08/30/24 15:49 Respiratory Rate 14 08/30/24 15:49 Blood Pressure 103/70 08/30/24 15:49 Pulse Oximetry 99 08/30/24 15:49 Oxygen Delivery Room Air 08/30/24 15:49 Temperature 97.9 F 08/30/24 15:49 Pulse Rate 69 08/30/24 21:02 Respiratory Rate 18 08/30/24 21:02 Blood Pressure 107/64 08/30/24 21:02 Pulse Oximetry 100 08/30/24 21:02 Oxygen Delivery Room Air 08/30/24 15:49 <Sada Bosch PA-C - Last Filed: 08/30/24 21:37> Vital Signs Temperature 97.9 F 08/30/24 15:49 Pulse Rate 68 08/30/24 15:49 Respiratory Rate 14 08/30/24 15:49 Blood Pressure 103/70 08/30/24 15:49 Pulse Oximetry 99 08/30/24 15:49 Oxygen Delivery Room Air 08/30/24 15:49 Temperature 97.9 F 08/30/24 15:49 Pulse Rate 69 08/30/24 21:02 Respiratory Rate 18 08/30/24 21:02 Blood Pressure 107/64 08/30/24 21:02 Pulse Oximetry 100 08/30/24 21:02 Oxygen Delivery Room Air 08/30/24 15:49 <Oscar Morrison MD - Last Filed: 08/30/24 21:41> Lab Data Lab results reviewed: Yes I reviewed the patient's lab results. <Sada Bosch PA-C - Last Filed: 08/30/24 21:37> Result diagrams: 08/30/24 17:25 08/30/24 17:25 <Sada Bosch PA-C - Last Filed: 08/30/24 21:37> Labs: Lab Results 08/30/24 08/30/24 08/30/24 Range/Units 17:25 19:02 20:31 WBC 13.9 H (4.5-10.0) K/mm3 RBC 4.53 L (4.6-6.20) M/mm3 Hgb 14.4 (14.0-18.0) g/dL Hct 42.0 (42.0-52.0) % MCV 92.7 (80-100) fl MCH 31.8 (26-34) pg MCHC 34.3 (32-36) g/dl RDW 14.1 (11.5-14.5) % Plt Count 122 L D (150-375) k/mm3 MPV 12.0 H (7.4-10.4) fl Immature Gran % (Auto) Not Reportable Neut % (Auto) Not Reportable Lymph % (Auto) Not Reportable [place] % (Auto) Not Reportable Eos % (Auto) Not Reportable Baso % (Auto) Not Reportable Lymph # (Auto) Not Reportable [place] # (Auto) Not Reportable Eos # (Auto) Not Reportable Baso # (Auto) Not Reportable Abs Immat Gran (auto) Not Reportable Absolute Neuts (auto) Not Reportable Absolute Nucleated RBC Not Reportable Total Counted 100 Neutrophils % (Manual) 81 H (46-73) % Band Neutrophils % 8 H (0-6) % Lymphocytes % (Manual) 3.0 L (18-44) % Monocytes % (Manual) 8 (3-9) % Nucleated RBC % Not Reportable Abs Neuts (Manual) 12.37 H (1.3-6.7) K/mm3 Abs Lymphs (Manual) 0.41 L (1.1-4.5) K/mm3 Abs Monocytes (Manual) 1.11 H (0.1-0.90) K/mm3 Platelet Estimate Decreased (Adequate) Large Platelets Present % Immature Plt Fraction 10.7 (0.9-11.2) % Schistocytes None seen PT 15.8 H (11.1-14.7) Seconds INR 1.2 APTT 30.6 (22.3-36.8) Seconds D-Dimer 5.16 H (<0.48) ug/mL Sodium 129 L (137-145) mmol/L Potassium 4.0 (3.4-5.0) mmol/L Chloride 96 L (98-107) mmol/L Carbon Dioxide 22 (22-30) mmol/L Anion Gap 11 (4-12) mmol/L BUN 55 H D (9-20) mg/dL Creatinine 1.74 H (0.7-1.3) mg/dL Estim Creat Clear Calc 37 ml/min Estimated GFR 39 L (59 - ) Glucose 190 H (65-110) mg/dL Lactic Acid 2.5 H (0.7-2.0) mmol/L Calcium 9.0 (8.4-10.2) mg/dL Total Bilirubin 2.4 H (0.2-1.3) mg/dL AST 36 (17-59) U/L ALT 216 H (6-50) U/L Alkaline Phosphatase 174 H (38-126) U/L Total Creatine Kinase 101 (55-170) U/L Total Protein 7.0 (6.3-8.2) g/dL Albumin 3.8 (3.5-5.1) g/dL Lipase 24 (23-300) U/L Procalcitonin 16.2 ng/mL Urine Color Dark yellow (Yellow) Urine Appearance Cloudy H (Clear) Urine pH 5.5 (5.0-9.0) Ur Specific [place] 1.029 (1.001-1.035) Urine Protein 3+ H (Negative) mg/dL Urine Glucose (UA) Negative (Negative) mg/dL Urine Ketones Trace H (Negative) mg/dL Ur Blood (Man) 3+ H (Negative) Urine Nitrate Negative (Negative) Urine Bilirubin Negative (Negative) Urine Urobilinogen 1.0 (<2.0) mg/dL Add Ur Microanalysis Reviewed Leukocyte Esterase Rfl 2+ H (Negative) KACEY/UL Urine RBC 3-5 H (0-2) /hpf Urine WBC >100 H (0-3) /hpf Ur Squamous Epith Cells Few (Few) /hpf Urine Bacteria 4+ H /hpf Urine Casts >20 <Sada Bosch PA-C - Last Filed: 08/30/24 21:37> Lab Results 08/30/24 08/30/24 08/30/24 Range/Units 17:25 19:02 20:31 WBC 13.9 H (4.5-10.0) K/mm3 RBC 4.53 L (4.6-6.20) M/mm3 Hgb 14.4 (14.0-18.0) g/dL Hct 42.0 (42.0-52.0) % MCV 92.7 (80-100) fl MCH 31.8 (26-34) pg MCHC 34.3 (32-36) g/dl RDW 14.1 (11.5-14.5) % Plt Count 122 L D (150-375) k/mm3 MPV 12.0 H (7.4-10.4) fl Immature Gran % (Auto) Not Reportable Neut % (Auto) Not Reportable Lymph % (Auto) Not Reportable [place] % (Auto) Not Reportable Eos % (Auto) Not Reportable Baso % (Auto) Not Reportable Lymph # (Auto) Not Reportable [place] # (Auto) Not Reportable Eos # (Auto) Not Reportable Baso # (Auto) Not Reportable Abs Immat Gran (auto) Not Reportable Absolute Neuts (auto) Not Reportable Absolute Nucleated RBC Not Reportable Total Counted 100 Neutrophils % (Manual) 81 H (46-73) % Band Neutrophils % 8 H (0-6) % Lymphocytes % (Manual) 3.0 L (18-44) % Monocytes % (Manual) 8 (3-9) % Nucleated RBC % Not Reportable Abs Neuts (Manual) 12.37 H (1.3-6.7) K/mm3 Abs Lymphs (Manual) 0.41 L (1.1-4.5) K/mm3 Abs Monocytes (Manual) 1.11 H (0.1-0.90) K/mm3 Platelet Estimate Decreased (Adequate) Large Platelets Present % Immature Plt Fraction 10.7 (0.9-11.2) % Schistocytes None seen PT 15.8 H (11.1-14.7) Seconds INR 1.2 APTT 30.6 (22.3-36.8) Seconds D-Dimer 5.16 H (<0.48) ug/mL Sodium 129 L (137-145) mmol/L Potassium 4.0 (3.4-5.0) mmol/L Chloride 96 L (98-107) mmol/L Carbon Dioxide 22 (22-30) mmol/L Anion Gap 11 (4-12) mmol/L BUN 55 H D (9-20) mg/dL Creatinine 1.74 H (0.7-1.3) mg/dL Estim Creat Clear Calc 37 ml/min Estimated GFR 39 L (59 - ) Glucose 190 H (65-110) mg/dL Lactic Acid 2.5 H (0.7-2.0) mmol/L Calcium 9.0 (8.4-10.2) mg/dL Total Bilirubin 2.4 H (0.2-1.3) mg/dL AST 36 (17-59) U/L ALT 216 H (6-50) U/L Alkaline Phosphatase 174 H (38-126) U/L Total Creatine Kinase 101 (55-170) U/L Total Protein 7.0 (6.3-8.2) g/dL Albumin 3.8 (3.5-5.1) g/dL Lipase 24 (23-300) U/L Procalcitonin 16.2 ng/mL Urine Color Dark yellow (Yellow) Urine Appearance Cloudy H (Clear) Urine pH 5.5 (5.0-9.0) Ur Specific [place] 1.029 (1.001-1.035) Urine Protein 3+ H (Negative) mg/dL Urine Glucose (UA) Negative (Negative) mg/dL Urine Ketones Trace H (Negative) mg/dL Ur Blood (Man) 3+ H (Negative) Urine Nitrate Negative (Negative) Urine Bilirubin Negative (Negative) Urine Urobilinogen 1.0 (<2.0) mg/dL Add Ur Microanalysis Reviewed Leukocyte Esterase Rfl 2+ H (Negative) KACEY/UL Urine RBC 3-5 H (0-2) /hpf Urine WBC >100 H (0-3) /hpf Ur Squamous Epith Cells Few (Few) /hpf Urine Bacteria 4+ H /hpf Urine Casts >20 <Oscar Morrison MD - Last Filed: 08/30/24 21:41> Imaging Data Radiologist's impression: ITS Impressions Chest X-Ray 08/30/24 17:56 IMPRESSION: No acute cardiopulmonary pathology. Head CT 08/30/24 18:31 IMPRESSION: No acute intracranial findings. Chest/Abdomen/Pelvis CTA 08/30/24 19:21 IMPRESSION: CHEST: 1. No pulmonary embolism. 2. No acute cardiopulmonary pathology. 3. Nodule in the right lower lobe measuring 5 mm. 6 months follow-up CT is advised. ABDOMEN/PELVIS: 1. Fat stranding in the right lower quadrant surrounding the appendix which appeared not enlarged. Possibility of appendicitis cannot be excluded. The fat stranding also may be due to the right kidney changes. Clinical correlation advised. 2. Pyelonephritis bilaterally more on the right side. Infiltrative process is less likely. Follow-up advised. 3. Cholelithiasis. 4. Hepatomegaly. <Sada Bosch PA-C - Last Filed: 08/30/24 21:37> Critical Care Time Critical Care Time Critical Care Time: Yes <Sada Bosch PA-C - Last Filed: 08/30/24 21:37> Total Critical Care Time: 35 <Sada Bosch PA-C - Last Filed: 08/30/24 21:37> Discharge Plan Discharge Clinical Impression: Acute kidney injury, Acute pyelonephritis, Hyperbilirubinemia, Hyponatremia, Pulmonary nodule <Sada Bosch PA-C - Last Filed: 08/30/24 21:37> Patient Disposition: Still a Patient <Sada Bosch PA-C - Last Filed: 08/30/24 21:37> Condition: Serious <Sada Bosch PA-C - Last Filed: 08/30/24 21:37>
[2024-08-30 17:50] LABS: INR 1.2; Prothrombin Time 15.8 Seconds (11.1-14.7)
[2024-08-30 17:51] LABS: Partial Thromboplastin Time 30.6 Seconds (22.3-36.8)
[2024-08-30 17:54] LABS: Band Neutrophils Percent 8 % (0-6); Lymphocytes Absolute Manual 0.41 K/mm3 (1.1-4.5); Monocytes Absolute Manual 1.11 K/mm3 (0.1-0.90); Monocytes Percent Manual 8 % (3-9); Neutrophils Absolute Manual 12.37 K/mm3 (1.3-6.7); Neutrophils Percent Manual 81 % (46-73); Platelet Estimate Decreased (Adequate); Schistocytes None Seen; Total Cells Counted 100
[2024-08-30 17:55] LABS: Large Platelets Present
--- OUTSIDE RECORDS SUMMARY | 2024-08-30 17:57 | XMS_ITS | Continuity of Care Document ---
Author Organization [facility] Address [address] [place] [address] [place] [address] Phone Care Team Providers Care Instrument Mechanic Name Role Phone Unavailable Unavailable Unavailable Advance Directives Directive Yes / No Effective Date File Name No Information Encounters Encounter Description Practice Location Reason(s) For Visit Diagnoses Date Provider Providers Copied on Encounter [facility], [address] [place], [place], [id number], [place] tel:[phone] [facility] Professional No Information 200 1 No Information Family History Family Member Type Diagnosis Age At Onset No Information Payers Payer name Insurance type Covered constitution party ID Authoriza tion(s) No Information Social [...]
--- OUTSIDE RECORDS SUMMARY | 2024-08-30 17:57 | XMS_ITS | Encounter Summary ---
Author Organization [facility] Healthcare Address [address] [place] [address] Care Team Providers Care Card Sorter Name Role Phone Lenin Justice MD Primary Care Provider + Sony Clarke MD Unavailable [phone] Angelica RODRIGUEZ MD, Carlos M. 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 According to this report, Ozempic (semaglutide) was last refilled on 08/02 for a 28 day supply. Goal is to have enough medicine so that 80% or more of the days are covered each year. Non [facility] pcp and not in [facility] Phyllis Lundberg Carmela Patient Outreach Horticultural Therapist [facility] ACO [phone] documented in this encounter Plan of Treatment Not on file documented as of this encounter Visit Diagnoses Not on filedocumented in this encounter Care Teams Card Sorter Relationship Specialty [place] [id number] [address] [facility] [address] [place] [address] PCP - General 08/12/16 [place] [id number] [address] [facility] [place] [address] Surgeon General Surgery 10/30/20 [place] [id number] [address] [facility] [address] [place] [address] Consulting Physician Neurology 11/25/20 documented as of this encounter
--- OUTSIDE RECORDS SUMMARY | 2024-08-30 17:57 | XMS_ITS | Encounter Summary ---
Author Organization [facility] Address [address] [place] [address] Care Team Providers Care Material Preparation Worker Name Role Phone Unavailable Primary Care Provider Unavailabl e Encounter Details Date Type Department Care Team (Late st Contact Info) Description 07/07/2022 Lab Requisition [facility] [address] [facility] [place] [id number] Otoniel Jules Jr., MD [address] [address] [facility] [address] [place] [address] Social History Tobacco Use Types Packs/Day Years Used Date Smoking Tobacco: Never Assessed Sex and Gender Information Value Date Recorded Sex Assigned at Not on file Legal Sex Male 6:15 AM [employer] Gender Identity Not on file Sexual Orientation Not on file documented as of this encounter Plan of Treatment Not on file documented as of this encounter Procedures Procedure Name Priority Date/Time Associated Diagnosis Comments DERMATOPATHOLOGY Routine 07/06/2022 3:33 AM [employer] documented in this encounter Results * DERMATOPATHOLOGY (07/06/2022 3:33 AM [employer]) Case Report Dermatopathology Report Case: [id number] Authorizing Provider: Otoniel Jules Jr., MD Collected: 07/06/2022 03:33 AM Ordering Location: [facility] Received: 07/07/2022 02:02 PM Pathologist: Jagjit Wolfe MD Specimen: Skin, left central forehead 3 4:58 PM [facility] Final Diagnosis Specimen A. SKIN, left central forehead: BASAL CELL CARCINOMA, NODULAR TYPE (C44.319) 3 4:58 PM [facility] Clinical History Basal Cell Carcinoma 3 4:58 PM [facility] Gross Description Specimen A: Received is one formalin filled container labeled with the patient's name and designated left central forehead. The specimen consists of a shave biopsy measuring 8x8x2 mm. Jar 0. 3 4:58 PM [facility] Microscopic Description Specimen A. SKIN, left central forehead: Within the dermis there are aggregates of basaloid cells with a high nuclear to cytoplasmic ratio and peripheral palisading. 3 4:58 PM [facility] Disclaimer An external and internal positive and negative controls are appropriate for the histochemical, immunohistochemical and immunofluorescence stain(s) in this case (if any), except where stated explicitly. The performance characteristics of the stain(s) cited in this report were developed and its performance characteristic determined by the Dermatopathology Laboratory at [facility], directed by Dr. Shahnaz Wolfe. These tests need not be, and therefore are not, approved by the [place] Food and Drug Administration. The tests are used for clinical purposes. Billing Codes Specimen Charges Stain Charges 32193 1 3 4:58 PM [employer] [facility] Embedded Images 3 4:58 PM [employer] [facility] Pathology/Cytolo gy TISSUE SPECIMEN FROM SKIN / Unknown 07/06/2022 3:33 AM [employer] 07/07/2022 2:02 PM [employer] us Otoniel Jules Jr., MD LAB - PATHOLOGY/CYTOLOG Y ORDERABLES Final Result DERMATOPATHOLOGY LABORATORY [facility] - Department of Dermatology [address] [place] [address], [facility] [phone] documented in this encounter Visit Diagnoses Not on filedocumented in this encounter
--- OUTSIDE RECORDS SUMMARY | 2024-08-30 17:57 | XMS_ITS | Continuity of Care Document ---
Author Organization [facility] Address [address] [facility] [address] [place] [address] Phone Care Team Providers Care Cigar Making Machine Operator Name Role Phone Aaron PT, Latricia LEWIS [...] Diagnoses Date Provider Providers Copied on Encounter [facility] [address], [place], [place], [address], tel:[phone] Toyah No Information 1 Aaron Rome. . Referring Provider: Physician Screen. [facility] [facility] [address], [place], [place], [id number], tel:[phone] Toyah No Information 7 Alycia Tavarez. [address] [facility], [address], [place], [place], [facility], [place]. tel: [phone] Referring Provider: Moisés Sifuentes, [address] [place] [address] [address] [place], [address]. tel:[phone], [place], [place], [id number], [place] tel:[phone] Toyah No Information Alycia Tavarez. [address] [facility], [address], [place], [place], [facility], . tel: [phone] Referring Provider: Moisés Sifuentes, [address] [place] [address] [address] [place], [address]. tel:[phone] [address], [place], [place], [id number], [place] tel:[phone] Toyah No Information Alycia George. [address] [place] [address], [address], [place], [place], [facility], . tel: [phone] Referring Provider: Moisés Sifuentes, [address] [place] [address] [address] [place], [address]. tel:[phone] [place] [address], [id number], [place] tel:[phone] Toyah No Information Fide Louise. [address] [place] [address], [address], [place], [address], [place]. tel:[phone] Referring Provider: Moisés Sifuentes, [address] [place] [address] [address] [place], [address]. tel:[phone] [facility] [address] [place], [place] [address], [place], [place], [id number], [place] tel:[phone] Toyah Stiffness of left shoulder, not elsewhere classifiedOth symptoms and signs involving the musculoskeletal systemPain in left shoulder Fide Louise. [address] [place] [address], [address], [place], [address], [place]. tel: [phone] Referring Provider: Moisés Sifuentes, [address] [place] [address] [address] [place], [address]. tel:[phone] Family History Family Member Type Diagnosis Age At Onset No Information Payers Payer name Insurance type Covered green party ID Julieta mar(s) [facility] [id number] Social History Type Description Quantity Date Captured [...]
--- OUTSIDE RECORDS SUMMARY | 2024-08-30 17:58 | XMS_ITS | Clinical Summary ---
Author Organization [facility] Address [address] [facility] [address] Care Team Providers Care Auto Parts Professional Name Role Phone Unavailable Primary Care Provider Unavailabl e Source Comments [facility],non-owned Affiliates and Associated Physician Practices is amultiple site organization consisting of ambulatory clinics and hospital sitesin [place], [place], [place] and [place]. This disclosure is being madepursuant to the Care Everywhere program and may not contain all information available regarding this patient. 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
--- OUTSIDE RECORDS SUMMARY | 2024-08-30 17:58 | XMS_ITS | Encounter Summary ---
Author Organization [facility] Address [address] [facility] [place] [address] Care Team Providers Care Wrecking Supervisor Name Role Phone Unavailable Primary Care Provider Unavailabl e Encounter Details Date Type Department Care Team (Late st Contact Info) Description 08/25/2023 Lab Requisition [facility] - DermPath Lab [address] 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 Gender Identity Not on file Sexual Orientation Not on file documented as of this encounter Plan of Treatment Not on file documented as of this encounter Procedures Procedure Name Priority Date/Time Associated Diagnosis Comments DERMATOPATHOLOGY Routine 08/23/2023 3:33 AM CDT documented in this encounter Results * DERMATOPATHOLOGY (08/23/2023 3:33 AM CDT) Case Report Dermatopathology Report Case: [id number] Authorizing Provider: Otoniel Jules Jr., MD Collected: 08/23/2023 03:33 AM Ordering Location: [facility] - Received: 08/25/2023 08:15 AM [...] characteristic determined by the Dermatopathology Laboratory at [facility], directed by Dr. Shahnaz Wolfe. These tests need not be, and therefore are not, approved by the [place] Food and Drug Administration. The tests are used for clinical purposes. Billing Codes Specimen Charges Stain Charges 27582 1 4 2:49 PM CDT DERMATOPATHOLOGY LABORATORY Embedded Images 2:49 PM CDT DERMATOPATHOLOGY LABORATORY Pathology/Cytolo gy TISSUE SPECIMEN FROM SKIN / Unknown 08/23/2023 3:33 AM CDT 08/25/2023 8:15 AM CDT us Otoniel Jules Jr., MD LAB - PATHOLOGY/CYTOLOG Y ORDERABLES Final Result DERMATOPATHOLOGY LABORATORY [facility] - Department of Dermatology [address] [place] [address], [facility] [phone] documented in this encounter Visit Diagnoses Not on filedocumented in this encounter
--- OUTSIDE RECORDS SUMMARY | 2024-08-30 17:58 | XMS_ITS | Clinical Summary ---
Author Organization [facility] Address [address] [place] [address] Care Team Providers Care Systems Development Consultant Name Role Phone Lenin Justice MD Primary Care Provider + Sony Clarke MD Unavailable Angelica RODRIGUEZ MD, Carlos M. Unavailable [phone] Allergies Active Allergy Reactions Criticality Noted Date Comments Oxycodone Mental status changes Low Lhxmjcf-Ion-Vkk Reductase Inhibitors Muscle pain Medium 11/30/2022 Medications [...] Claudication 02/19/2021 Coronary artery disease invo lving confederated goshute coronary artery of confederated goshute heart without angina pectoris 12/21/2020 Overview (12/23/2020): Added automatically from request for surgery [id number] Status post catheter ablation of atrial fibrilla tion 11/06/2020 Other chest pain 11/06/2020 Right inguinal hernia 09/30/2020 Persistent atrial fibrillation 05/25/2020 Overview (05/25/2020): Added automatically from request for surgery [id number] Atrial flutter 03/09/2020 H/O syncope 03/09/2020 Chronic [...] (02/06/2018): Added automatically from request for surgery [id number] Stable angina pectoris 09/08/2017 Near syncope 07/25/2017 Tachy-norm syndrome 07/25/2017 Junctional rhythm 07/25/2017 Shortness of breath 07/25/2017 Dizziness 07/25/2017 Atrial fibrillation 07/25/2017 Hypertension associated with diabetes 07/25/2017 Tobacco abuse 07/25/2017 Bradycardia 07/25/2017 Hx of colonic polyps 06/07/2017 Overview (06/07/2017): Added automatically from request for surgery [id number] Mixed diabetic hyperlipidemi a associated with type 2 diabetes mellitus (CMS/HCC) 10/11/2013 Overview (08/18/2016): Diabetes Encounters Date Type Department Care Team Description 08/30/[address] [address] Phyllis Scott MA Chart Review ([facility] med adh) 07/30/2024 9:45 AM CDT Ancillary Procedure [facility] [address] [address] Chronic systolic heart failure (HCC); Bradycardia; Paroxysmal atrial fibrillation ([facility]); Biventricular cardiac pacemaker in situ; H/O cardiomyopathy; SSS (sick sinus syndrome) ([facility]) 07/30/[address] [address] Jazzy Corea Unsuccessful Phone Call 1 ([facility] Med Adherence ) 06/17/2024 10:00 AM FIELD ARTILLERY FIRE CONTROL MAN [facility] [address], [place] [address] Joao Dominguez II, MD Alzheimer's [...] Hyperlipidemia Hyperlipidemia Hypercholesterolemia High choles terol; Comments: [facility] 09/12/2014 - Hx Other Medical BPH; Comments: [facility] 09/12/2014 - Hx Other Medical nephrolithiasis ; Comments: [facility] 09/12/2014 - Hx Other Medical ureteral stent placement; Comments: [facility] 09/12/2014 - Hx Other Medical kidney stones [...] on file Legal Sex Male 7:27 PM FIELD ARTILLERY FIRE CONTROL MAN Gender Identity Male 11/14/2020 12:07 PM CDT Sexual Orientation Straight 09/22/2020 2: 14 PM CDT Obstetrics History Last Filed Vital Signs Vital Sign Reading Time Taken Comments Blood Pressure 120/60 06/17/2024 9:33 AM FIELD ARTILLERY FIRE CONTROL MAN Pulse 68 06/17/2024 9:33 AM FIELD ARTILLERY FIRE CONTROL MAN Temperature 36.5 C (97.7 F) 12/28/2023 9:50 AM CDT Respiratory Rate 18 06/17/2024 9:33 AM FIELD ARTILLERY FIRE CONTROL MAN Oxygen Saturation 99% 04/10/2024 9:09 AM FIELD ARTILLERY FIRE CONTROL MAN Inhaled Oxygen Concentration - - Weight 79.1 kg (174 lb 4.4 oz) 06/17/2024 9:33 A M FIELD ARTILLERY FIRE CONTROL MAN Height 180.3 cm (5' 11 ) 06/17/2024 9:33 AM FIELD ARTILLERY FIRE CONTROL MAN Body Mass Index 24.31 06/17/2024 9:33 AM FIELD ARTILLERY FIRE CONTROL MAN Plan of Treatment Health Maintenance Due Date [...] 03/19/2018, 05/29/2012 Medical Devices Implanted Type Area Boat Diesel Motor Mechanic Device Identifier Shelf Expiration Date Model / Serial / Lot [employer] [id number] u Device Closure Vascade Od5 Fr Femoral Artery - [id number] - [id number] Implanted:Qt y: 1 on 06/30/2020 by Danny Blanco MD at [facility] Collagen [employer] 01/27/2022 700-500D X-05U / [id number] / [id number] [employer] 779-260p-85d System 6-12fr Mvp Venous Closure Vascade - [id number] - [id number] Implanted:Qt y: 1 on 06/30/2020 by Danny Blanco MD at [facility] Collagen [employer] 04/28/2022 800-612C -10U / [id number] 215C / [id number] [employer] 490-686i-51c System 6-12fr Mvp Venous Closure Vascade - [id number] - [id number] Implanted:Qt y: 1 on 06/30/2020 by Danny Blanco MD at [facility] Collagen [employer] 04/28/2022 800-612C -10U / [id number] 215B / [id number] 215B [employer] [id number] u Device Closure Vascade Od5 Fr Femoral Artery - [id number] 5a - [id number] Implanted:Qt y: 1 on 06/30/2020 by Danny Blanco MD at [facility] Collagen [employer] 01/27/2022 700-500D X-05U / [id number] 0915A / [id number] 0915A [employer] Quartet 5fr [id number] 4 Electrode Is-4 Connector Steerable Tip 1458q/86 - [id number] - [id number] Implanted:Qt y: 1 on 09/20/2023 by Silvino Renae MD at [facility] Lead Right: Coronary Sinus [employer] 05/14/2026 1458Q/86 / [id number] / [employer] Tendril Sts 6fr 58cm Is-1 Connector Active Fixation Bipolar Soft 2088tc/58 - [id number] - [id number] Implanted:Qt y: 1 on 09/20/2023 by Silvino Renae MD at [facility] Lead Right: Ventricle [employer] 08/12/2026 2088TC/5 8 / [id number] / [employer] Tendril Sts 6fr 52cm Is-1 Connector Active Fixation Bipolar Soft 8tc/52 - [id number] - [id number] Implanted:Qt y: 1 on 09/20/2023 by Silvino Renae MD at [facility] Lead Right: Atrial Appendage [employer] 08/12/2026 2088TC/5 2 / [id number] / [employer] Pacemaker Dual Chamber Chief Telephone Operator P Mri Compatible Quadra Allure Mp Qr1821 - [id number] - [id number] Implanted:Qt y: 1 on 09/20/2023 by Silvino Renae MD at [facility] Pacemaker Left: Infraclavicular Anterior Chest Wall [employer] 11/11/2024 [id number] / [id number] / [employer]/C R Bard [id number] Mesh Surg 3dmax 59x72cq Left Mid Large Inguinal Hernia - [id number] Implanted:Qt y: 1 on 10/30/2020 by Sony Clarke MD at [facility] [employer] Bard [id number] 07/12/2025 [id number] / / [id number] [employer]/C R Bard [id number] Mesh Surg 3dmax Right Mid Large Inguinal Hernia - [id number] Implanted:Qt y: 1 on 10/30/2020 by Sony Clarke MD at [facility] [employer]/C R Bard [id number] 07/12/2022 [id number] / / [id number] Fresh ! Gina [id number] Synergy 3mm 38mm 144cm Radiopaque 1 Access Port Inflation Lumen - [id number] Implanted:Qt y: 1 on 12/24/2020 by Wero Garcia MD at [facility] Fresh ! [facility] 05/26/2022 [id number] / / Procedures Procedure Name Priority Date/Time [...] 2 AM CDT Coronary artery disease involving confederated goshute coronary artery of confederated goshute heart without angina pectoris COLONOSCOPY 07/12/2023 9:46 AM FIELD ARTILLERY FIRE CONTROL MAN HEMOGLOBIN A1C Routine 10/19/2021 7:25 AM CDT PSA SCREEN Routine 07/14/2021 7:13 AM FIELD ARTILLERY FIRE CONTROL MAN from Last 3 Months or Most Recently Relevant to Health Maintenance Results * DEVICE CHECK - REMOTE (07/31/2024 7:36 AM CDT) Anatomical Region Laterality Modality Other Narrative 08/04/2024 8:53 PM CDT Alfred BIV Pacemaker. Dx; CM, CHF, SSS, Afib/Aflutter, Bradycardia. DOI 09/20/2023-[place]. [place] remote. Routine DDD Pacemaker Remote. Transmission attached. [...] up: 6 months [place] remote f/u 10/29/24. Mnadeep Laboy RN eWro Garcia MD CV CARDIAC SERVICES PROCEDURES F inal Result * (ABNORMAL) Basic metabolic panel (09/05/2023 7:48 AM CDT) Glucose 143(H) 65 - 99 mg/dL [facility] Comment: Fasting reference interval For someone without known diabetes, a glucose value >125 mg/dL indicates that they may have diabetes and this should be confirmed with a follow-up test. BUN 16 7 - 25 mg/dL [employer] charmaine Bowling Creatinine 0.91 0.70 - 1.28 mg/dL [employer] charmaine Bowling eGFR 90 > OR = 60 mL/min/1.7 3m2 [facility] [employer] charmaine [facility]ling BUN/creat ratio SEE NOTE: (calc) [employer] charmaine Bowling Comment: Not Reported: BUN and Creatinine are within reference range. Sodium 137 135 - 146 mmol/L [facility] charmaine Bowling Potassium, pl 4.8 3.5 - 5.3 mmol/L [employer] charmaine Bowling Chloride 102 98 - 110 mmol/L [employer] charmaine Bowling CO2 29 20 - 32 mmol/L [employer] charmaine Bowling Calcium 9.8 8.6 - 10.3 mg/dL [employer] charmaine Bowling Blood 09/05/2023 7:48 AM CDT 09/05/2023 7:49 AM CDT Narrative [facility] - 09/05/2023 8:22 PM CDT FASTING:YES FASTING: YES us Silvino Renae MD LAB BLOOD ORDERABLES F inal Result [facility] [address] [place] [address] * POCT lipid panel (08/08/2023 11:52 AM [...] - Final * Colonoscopy (07/12/2023 9:46 AM FIELD ARTILLERY FIRE CONTROL MAN) Anatomical Region Laterality Modality Other Narrative Procedure Note Azam Ugalde MD - 07/12/2023 9:46 AM CST [facility] Patient Name: Houston Chawla Procedure Date: 07/12/2023 9:46 AM Date of : 1950 Admit Type: Outpatient Age: 72 Gender: Male Attending MD: Azam Ugalde M.D. Room: [facility] END[facility] 3 Note Status: Finalized [...] scope was passed under direct vision. TheColonoscope [id number] was introduced through the anus and advanced [...] 9:46 AM Procedure Code(s): --- Professional --- 90333, Colonoscopy, flexible; with removal of tumor(s), polyp(s), or other lesion(s) by snare technique --- Technical --- 87981, Colonoscopy, flexible; with removal of tumor(s), polyp(s), [...] history of colonic polyps CPT copyright 2020 [employer] [place] [employer] [employer]. All rights reserved. The codes documented in this report are preliminary and upon loan approver reviewmay be revised to meet current compliance requirements. Recognized by the [place] [employer] for promoting quality [...] copied from and originally reported to client [id number] in site ([facility]) Lenin Justice MD LAB BLOOD ORDERABLES Fin al Result Performing Organization Address City/[facility] Co de Phone Number [facility] [address] [place] [address] * PSA screen (07/14/2021 7:13 AM FIELD ARTILLERY FIRE CONTROL MAN) PSA 0.87 < OR = 4.00 ng/mL [facility] Comment: The total PSA value [...] or absence of disease. 07/14/2021 7:13 AM FIELD ARTILLERY FIRE CONTROL MAN 07/14/2021 7:15 AM FIELD ARTILLERY FIRE CONTROL MAN Narrative [facility] - 07/16/2021 11:45 AM FIELD ARTILLERY FIRE CONTROL MAN Patient Report History copied from and originally reported to client [id number] in site ([facility]) Lenin Justice MD LAB BLOOD ORDERABLES Fin al Result Performing Organization Address City/[facility]/ZIP Co de Phone Number [facility] [address] [phone] from Last 3 Months or Most Recently Relevant to Health Maintenance [place] [address] [employer] MEDICARE ADVANTAGE [id number] [place] [address] [employer] MEDICARE ADVANTAGE [id number] [place] [address] [employer] MEDICARE ADVANTAGE [address] [id number] Advance Directives For more information, please contact: [phone] * Full Code (Latest Code Status on [...] 9:28 AM 03/19/2018 1:24 PM Care Teams Systems Development Consultant Relationship Specialty [place] [address] [address] [facility] [address] [place] [address] PCP - General 08/12/16 [place] [address] [address] [facility] [address] [place] [address] Surgeon General Surgery 10/30/20 [place] [address] [address] [facility] [address] [place] [address] Consulting Physician Neurology 11/25/20
--- OUTSIDE RECORDS SUMMARY | 2024-08-30 17:58 | XMS_ITS | Encounter Summary ---
Author Organization [facility] Address [address] [facility] [place] [address] Care Team Providers Care Television News Producer Name Role Phone Unavailable Primary Care Provider Unavailabl e Encounter Details Date Type Department Care Team (Late st Contact Info) Description 02/23/2023 Lab Requisition [facility] - DermPath Lab [address] [facility], [place] [phone] Otoniel Jules Jr., MD [address] [facility] [address] [place] [address] Social History Tobacco Use Types Packs/Day Years Used Date Smoking Tobacco: Never Assessed Sex and Gender Information Value Date Recorded Sex Assigned at Not on file 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 Gender Identity Not on file Sexual Orientation Not on file documented as of this encounter Plan of Treatment Not on file documented as of this encounter Procedures Procedure Name Priority Date/Time Associated Diagnosis Comments DERMATOPATHOLOGY Routine 02/22/2023 3:33 AM CDT documented in this encounter Results * DERMATOPATHOLOGY (02/22/2023 3:33 AM CDT) Case Report Dermatopathology Report Case: [id number] Authorizing Provider: Otoniel Jules Jr., MD Collected: 02/22/2023 03:33 AM Ordering Location: [facility] DermPath Lab Received: 02/23/2023 01:21 PM Pathologist: [...] chest.The specimen consists of an ellipse measuring 12o20g1 mm and is oriented with the suture/notch [...] characteristic determined by the Dermatopathology Laboratory at [facility], directed by Dr. Shahnaz Wolfe. These tests need not be, and therefore are not, approved by the [place] Food and Drug Administration. The tests are used for clinical purposes. Billing Codes Specimen Charges Stain Charges 42331 1 3 12:55 PM CDT DERMATOPATHOLOGY LABORATORY Embedded Images 3 12:55 PM CDT DERMATOPATHOLOGY LABORATORY Pathology/Cytolo gy TISSUE SPECIMEN FROM SKIN / Unknown 02/22/2023 3:33 AM CDT 02/23/2023 1:21 PM CDT us Otoniel Jules Jr., MD LAB - PATHOLOGY/CYTOLOG Y ORDERABLES Final Result DERMATOPATHOLOGY LABORATORY [facility] - Department of Dermatology [facility] [address] [facility] [phone] documented in this encounter Visit Diagnoses Not on filedocumented in this encounter
--- OUTSIDE RECORDS SUMMARY | 2024-08-30 17:58 | XMS_ITS | Encounter Summary ---
Author Organization [facility] Address [address] [facility] [place] [address] Care Team Providers Care Clinical Law Professor Name Role Phone Unavailable Primary Care Provider Unavailabl e Encounter Details Date Type Department Care Team (Late st Contact Info) Description 12/29/2022 Lab Requisition [facility] - DermPath Lab [address] [facility] [place] [phone] Otoniel Jules Jr., MD [address] [facility] [address] [place] [address] Social History Tobacco Use Types Packs/Day Years Used Date Smoking Tobacco: Never Assessed Sex and Gender Information Value Date Recorded Sex Assigned at Not on file 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 Gender Identity Not on file Sexual Orientation Not on file documented as of this encounter Plan of Treatment Not on file documented as of this encounter Procedures Procedure Name Priority Date/Time Associated Diagnosis Comments DERMATOPATHOLOGY Routine 12/28/2022 3:33 AM CDT documented in this encounter Results * DERMATOPATHOLOGY (12/28/2022 3:33 AM CDT) Case Report Dermatopathology Report Case: [id number] Authorizing Provider: Otoniel Jules Jr., MD Collected: 12/28/2022 03:33 AM Ordering Location: [facility] DermPath Lab Received: 12/29/2022 02:15 [...] characteristic determined by the Dermatopathology Laboratory at [facility], directed by Dr. Shahnaz Wolfe. These tests need not be, and therefore are not, approved by the [place] Food and Drug Administration. The tests are used for clinical purposes. Billing Codes Specimen Charges Stain Charges 92815 1 3 4:23 PM CDT DERMATOPATHOLOGY LABORATORY Embedded Images 3 4:23 PM CDT DERMATOPATHOLOGY LABORATORY Pathology/Cytolo gy TISSUE SPECIMEN FROM SKIN / Unknown 12/28/2022 3:33 AM CDT 12/29/2022 2:15 PM CDT us Otoniel Jules Jr., MD LAB - PATHOLOGY/CYTOLOG Y ORDERABLES Final Result DERMATOPATHOLOGY LABORATORY [facility] - Department of Dermatology [address] [place] [address], [facility] [phone] documented in this encounter Visit Diagnoses Not on filedocumented in this encounter
--- OUTSIDE RECORDS SUMMARY | 2024-08-30 17:58 | XMS_ITS | Referral Summary ---
Author Organization [facility] Address [address] [place] [address] Care Team Providers Care Compound Specialist Name Role Phone Lenin Justice MD Primary Care Provider + Sony Clarke MD Unavailable Angelica RODRIGUEZ MD, Carlos M. Unavailable Encounters Date Type Department Care Team Description 08/30/2024 Telephone [facility] Care Organization [address] [place] [id number] Phyllis Scott MA Chart Review ([facility] med adh) 07/30/[address] [address] Jazzy Corea Unsuccessful Phone Call 1 ([facility] Med Adherence ) 07/30/2024 9:45 AM CDT Ancillary Procedure [facility] Cardiology [address] [facility] [address] [place] [phone] Chronic systolic heart failure (HCC); Bradycardia; Paroxysmal atrial fibrillation (HCC); Biventricular cardiac pacemaker in situ; H/O cardiomyopathy; SSS (sick sinus syndrome) (HCC) 06/17/2024 10:00 AM BAS[employer] SCIENCES DEAN Office Visit [facility] [address] [address] Joao Dominguez II, MD Alzheimer's disease (HCC) (Primary Dx) from Last 3 Months Allergies Active Allergy Reactions Criticality Noted Date Comments Oxycodone Mental status changes Low Skkbgrb-Sti-Tqh Reductase Inhibitors Muscle pain Medium 11/30/2022 Medications [...] Claudication 02/19/2021 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 12/21/2020 Overview (12/23/2020): Added automatically from request for surgery [id number] Status post catheter ablation of atrial fibrilla tion 11/06/2020 Other chest pain 11/06/2020 Right inguinal hernia 09/30/2020 Persistent atrial fibrillation 05/25/2020 Overview (05/25/2020): Added automatically from request for surgery [id number] Atrial flutter 03/09/2020 H/O syncope 03/09/2020 Chronic [...] (02/06/2018): Added automatically from request for surgery [id number] Stable angina pectoris 09/08/2017 Near syncope 07/25/2017 Tachy-norm syndrome 07/25/2017 Junctional rhythm 07/25/2017 Shortness of breath 07/25/2017 Dizziness 07/25/2017 Atrial fibrillation 07/25/2017 Hypertension associated with diabetes 07/25/2017 Tobacco abuse 07/25/2017 Bradycardia 07/25/2017 Hx of colonic polyps 06/07/2017 Overview (06/07/2017): Added automatically from request for surgery [id number] Mixed diabetic hyperlipidemi a associated with type 2 diabetes mellitus ([facility]) 10/11/2013 Overview (08/18/2016): Diabetes Social History Tobacco [...] on file Legal Sex Male 7:27 PM BAS[employer] SCI[employer] DEAN Gender Identity Male 11/14/2020 12:07 PM CDT Sexual Orientation Straight 09/22/2020 2: 14 PM CDT Last Filed Vital Signs Vital Sign Reading Time Taken Comments Blood Pressure 120/60 06/17/2024 9:33 AM [employer] DEAN Pulse 68 06/17/2024 9:33 AM [employer] DEAN Temperature 36.5 C (97.7 F) 12/28/2023 9:50 AM CDT Respiratory Rate 18 06/17/2024 9:33 AM [employer] DEAN Oxygen Saturation 99% 04/10/2024 9:09 AM BAS[employer]ES DEAN Inhaled Oxygen Concentration - - Weight 79.1 kg (174 lb 4.4 oz) 06/17/2024 9:33 A M [employer] DEAN Height 180.3 cm (5' 11 ) 06/17/2024 9:33 AM [employer] DEAN Body Mass Index 24.31 06/17/2024 9:33 AM BAS[employer]ES DEAN Plan of Treatment Not on file Medical Devices Implanted Type Area Oil Plant Operator Device Identifier Shelf Expiration Date Model / Serial / Lot [employer] [id number] u Device Closure Vascade Od5 Fr Femoral Artery - [id number] - [id number] Implanted:Qt y: 1 on 06/30/2020 by Danny Blanco MD at [facility] [employer] 01/27/2022 [id number] X-05U / [id number] / [id number] [employer] [id number] System 6-12fr Mvp Venous Closure Vascade - [id number] - [id number] Implanted:Qt y: 1 on 06/30/2020 by Danny Blanco MD at [facility] [employer] 04/28/2022 800-612C -10U / [id number] / [id number] [employer] [id number] System 6-12fr Mvp Venous Closure Vascade - [id number] - [id number] Implanted:Qt y: 1 on 06/30/2020 by Danny Blanco MD at [facility] [employer] 04/28/2022 800-612C -10U / [id number] / [id number] [employer] [id number] Device Closure Vascade Od5 Fr Femoral Artery - [id number] - [id number] Implanted:Qt y: 1 on 06/30/2020 by Danny Blanco MD at [facility] [employer] 01/27/2022 700-500D X-05U / [id number] / [id number] [employer] Quartet 5fr [id number] Electrode Is-4 Connector Steerable Tip 1458q/86 - [id number] - [id number] Implanted:Qt y: 1 on 09/20/2023 by Silvino Renae MD at [facility] Lead Right: Coronary Sinus [employer] 05/14/2026 1458Q/86 / [id number] / [employer] Tendril Sts 6fr 58cm Is-1 Connector Active Fixation Bipolar Soft 8tc/58 - [id number] - [id number] Implanted:Qt y: 1 on 09/20/2023 by Silvino Renae MD at [facility] Lead Right: Ventricle [employer] 08/12/20268TC/5 8 / [id number] / [employer] Tendril Sts 6fr 52cm Is-1 Connector Active Fixation Bipolar Soft - [id number] - [id number] Implanted:Qt y: 1 on 09/20/2023 by Silvino Renae MD at [facility] Lead Right: Atrial Appendage [employer] 08/12/20262087TC/5 2 / [id number] / [employer] Pacemaker Dual Chamber Senior Clinical Sas Programmer P Mri Compatible Quadra Allure Mp Ed4713 - [id number] - [id number] Implanted:Qt y: 1 on 09/20/2023 by Silvino Renae MD at [facility] Pacemaker Left: Infraclavicular Anterior Chest Wall [employer] 11/11/2024 [id number] / [id number] / [employer]/C R Bard [id number] Mesh Surg 3dmax [id number] Left Mid Large Inguinal Hernia - [id number] Implanted:Qt y: 1 on 10/30/2020 by Sony Clarke MD at [facility] [employer] [id number] 07/12/2025 [id number] / / [id number] [employer]/C R Bard [id number] Mesh Surg 3dmax Right Mid Large Inguinal Hernia - [id number] Implanted:Qt y: 1 on 10/30/2020 by Sony Clarke MD at [facility] [employer] R Bard [id number] 07/12/2022 [id number] / / [id number] [place] [employer]ina [id number] Synergy 3mm 38mm 144cm Radiopaque 1 Access Port Inflation Lumen - [id number] Implanted:Qt y: 1 on 12/24/2020 by Wero Garcia MD at [facility] [employer] 05/26/2022 [id number] / / Procedures Procedure Name Priority Date/Time [...] 2 AM CDT Coronary artery disease involving buckland coronary artery of buckland heart without angina pectoris COLONOSCOPY 07/12/2023 9:46 AM BAS[employer] DEAN HEMOGLOBIN A1C Routine 10/19/2021 7:25 AM CDT PSA SCREEN Routine 07/14/2021 7:13 AM BAS[employer]ES DEAN from Last 3 Months or Most Recently Relevant to Health Maintenance Results * DEVICE CHECK - REMOTE (07/31/2024 7:36 AM CDT) Anatomical Region Laterality Modality Other Narrative 08/04/2024 8:53 PM CDT Alfred BIV Pacemaker. Dx; CM, CHF, SSS, Afib/Aflutter, Bradycardia. DOI 09/20/2023-Batool. Mentor remote. Routine DDD Pacemaker Remote. Transmission attached. [...] Basic metabolic panel (09/05/2023 7:48 AM CDT) [facility] Glucose 143(H) 65 - 99 mg/dL [facility] Comment: Fasting reference interval For someone without known diabetes, a glucose value >125 mg/dL indicates that they may have diabetes and this should be confirmed with a follow-up test. BUN 16 7 - 25 mg/dL [facility] Creatinine 0.91 0.70 - 1.28 mg/dL [facility] eGFR 90 > OR = 60 mL/min/1.7 3m2 [employer] [facility] BUN/creat ratio SEE NOTE: (calc) [employer] [facility] Comment: Not Reported: BUN and Creatinine are within reference range. Sodium 137 135 - 146 mmol/L [facility] Potassium, pl 4.8 3.5 - 5.3 mmol/L [employer] [facility] Chloride 102 98 - 110 mmol/L [employer] [facility] CO2 29 20 - 32 mmol/L [facility] Calcium 9.8 8.6 - 10.3 mg/dL [facility] Blood 09/05/2023 7:48 AM CDT 09/05/2023 7:49 AM CDT Narrative [facility] - 09/05/2023 8:22 PM CDT FASTING:YES FASTING: YES Silvino Renae MD LAB BLOOD ORDERABLES F inal Result [facility] [address] [place] [address] * POCT lipid panel (08/08/2023 11:52 AM CDT) [facility] Cholesterol, POC 100 mg/dL HDL, POC 42 mg/dL Triglycerides, POC 259 mg/dL LDL Cholesterol POC 28 mg/dL Chol/HDL Ratio, POC N/A Non-HDL Cholesterol, POC N/A mg/dL Cholesterol Total, POC 100 mg/dL Capillary blood 08/08/2023 1 1:52 AM CDT Wero Garcia MD POINT OF CARE TEST ORDERABLES Ed ited Result - Final * Colonoscopy (07/12/2023 9:46 AM BASIC SCIENCES DEAN) Anatomical Region Laterality Modality Other Narrative Procedure Note Azam Ugalde MD - 07/12/2023 9:46 AM CST [facility] Patient Name: Houston Chawla Procedure Date: 07/12/2023 9:46 AM Date of : 1950 Admit Type: Outpatient Age: 72 Gender: Male Attending MD: Azam Ugalde M.D. Room: [facility] ENDOSCOPY ROOM 3 Note Status: Finalized [...] scope was passed under direct vision. TheColonoscope [id number] was introduced through the anus and advanced [...] 9:46 AM Procedure Code(s): --- Professional --- 10238, Colonoscopy, flexible; with removal of tumor(s), polyp(s), or other lesion(s) by snare technique --- Technical --- 29652, Colonoscopy, flexible; with removal of tumor(s), polyp(s), [...] history of colonic polyps CPT copyright 2020 [employer]. All rights reserved. The codes documented in this report are preliminary and upon certified coder reviewmay be revised to meet current compliance requirements. Recognized by the [employer] for promoting quality in endoscopy Azam Ugalde MD ENDOSCOPY PROCEDURES Final Re sult * (ABNORMAL) Hemoglobin A1c (10/19/2021 7:25 AM CDT) Hgb A1C 6.3(H) <5.7 % of total Hgb [employer] Comment: For someone without known [...] 7:25 AM CDT 10/19/2021 7:26 AM CDT [facility] - 10/20/2021 2:40 AM CDT Patient Report History copied from and originally reported to client [id number] in site (STL) us Lenin Justice MD LAB BLOOD ORDERABLES Fin al Result [facility] [address] [place] [address] * PSA screen (07/14/2021 7:13 AM BASIC SCIENCES DEAN) PSA 0.87 < OR = 4.00 ng/mL [facility] Comment: The total PSA value from this assay system is standardized against the WHO standard. The test result will be approximately 20% lower when compared to the equimolar-standardized total PSA (Cole Tolstoy). Comparison of serial PSA results should be interpreted with this fact in mind. This test was performed using the Siemens chemiluminescent method. Values obtained from different assay methods cannot be used interchangeably. PSA levels, regardless of value, should not be interpreted as absolute evidence of the presence or absence of disease. 07/14/2021 7:13 AM BAS[employer] SCIENCES DEAN 07/14/2021 7:15 AM BASIC SCIENCES DEAN Narrative [facility] - 07/16/2021 11:45 AM BASIC SCIENCES DEAN Patient Report History copied from and originally reported to client [id number] in site (STL) Lenin Justice MD LAB BLOOD ORDERABLES Fin al Result [facility] [employer] [address] [place] [address] from Last 3 Months or Most Recently Relevant to [place] [address] UHC MEDICARE ADVANTAGE [facility] MEDICARE Address: [facility] [address] [place] [address] [place] [address] [facility] [place] [address] [facility] MEDICARE ADVANTAGE Advance Directives For more information, please contact: [phone] * Full Code (Latest Code Status on [...] 9:28 AM 03/19/2018 1:24 PM Care Teams Compound Specialist Relationship Specialty [place] [address] [place] [address] PCP - General 08/12/16 [place] [address] [address] [facility] [address] [place] [address] Surgeon General Surgery 10/30/20 [place] [address] [address] [facility] [address] [place] [address] Consulting Physician Neurology 11/25/20
--- OUTSIDE RECORDS SUMMARY | 2024-08-30 17:58 | XMS_ITS | Clinical Summary ---
Author Organization [facility] Address [address] [place] [phone] Care Team Providers Care Sales Rep Name Role Phone Unavailable Primary Care Provider [...]
[2024-08-30 18:03] LABS: Creatine Kinase 101 U/L (55-170)
[2024-08-30 18:06] LABS: D Dimer 5.16 ug/mL (<0.48)
[2024-08-30] MEDS: SODIUM CHLORIDE 0.9% IV 1,000 ML 999 ML IV CONT ×2 (18:38→22:23)
--- NOTE | 2024-08-30 18:39 | PC.NURSE ---
pt is unable to urinate. this RN asked pt if a straight cath could be done and pt was agreeable to this. this RN did a bladder scan to make sure there was urine to collect and only found 13mL at this time. this RN will let the fluids hang this rebladder scan the pt to see if there is more urine that can be collected via a straight cath
[2024-08-30 19:46] LABS: Add Urine Microscopic? YES; Appearance Urine Cloudy (Clear); Bacteria Urine 4+ /hpf; Bilirubin Urine Negative (Negative); Blood Urine 3+ (Negative); Color Urine Dark Yellow (Yellow); Glucose Urine UA Negative (Negative); Ketones Urine Trace mg/dL (Negative); Leukocyte Esterase Ur 2+ LEU/UL (Negative); Need Manual Microscopic Reviewed; Nitrate Urine Negative (Negative); Non Pathogenic Casts >20; Protein Urine 3+ mg/dL (Negative); Specific Grav Ur 1.029 (1.001-1.035); Squamous Epithelial Cell Urine Few /hpf (Few); WBC Urine >100 /hpf (0-3); pH Urine 5.5 (5.0-9.0)
--- NOTE | 2024-08-30 20:23 | PC.NURSE ---
This RN spoke to son. Updated on pt status per pt request and will continue updating on status change.
[2024-08-30] MEDS: metroNIDAZOLE 500 MG/ISO 100ML 500 MG/100 ML BAG 100 MG IVPB (20:42)
[2024-08-30 20:47] LABS: Lactic Acid Reflex 2.5 mmol/L (0.7-2.0)
[2024-08-30 21:04] LABS: Procalcitonin 16.2 ng/mL
--- NOTE | 2024-08-30 21:25 | PC.NURSE ---
Neo RN updated pt urinated on the floor unaware of how to use the urinal.
--- NOTE | 2024-08-30 21:38 | ADMGEN ---
This patient, Houston Chawla, was admitted to Medical Room 258-01. Patient/family oriented to hospital policies and general routines including ID bracelet, bed and alarms, visiting hours, pain management, procedures, bathroom and other care routines, personal items, smoking policy, room service/diet, and visiting hours. Information on how to activate the Rapid Response Team has been discussed. Patient/Family are encouraged to report perceived risks to care and to ask questions if they do not understand what they are told or what they should do.
[2024-08-30 21:43] LABS: Glucose Point of Care 117 mg/dl (65-105)
--- NOTE | 2024-08-30 21:55 | P.HP_ITS ---
H&P: HPI History of Present Illness Date/Time: 08/30/24 21:55 Chief Complaint: Not eating or drinking for 4 days Narrative: 74-year-old male with a past medical history dementia, type 2 diabetes mellitus, coronary artery disease, atrial fibrillation on chronic anticoagulation with Eliquis, alcohol dependence in remission and gout among other comorbidities who presented to the ER when he was dropped off by family members for evaluation of decreased oral intake for 4 days. Source of information is from review of external medical records due to confusion the patient is a poor historian. It sounds as if the patient has had increased urinary frequency over the last couple of days he reports that he has had to go to the bathroom ?once a week?. However nursing staff reports that the patient has condom bathroom at least every hour since admission. He has had between 150-250 mL of urine output each time. Bladder scan at bedside at the time my evaluation demonstrated close to 400 mL of retained urine only 10 minutes after the patient had urinated. He is unable to tell me if he has any sensation of incomplete bladder emptying. He denies any dysuria. No hematuria noted at the time of evaluation. Urine appears relatively clear. He reports that he has chronic issues with his memory and is on medications for dementia. He states that his memory has been getting worse for couple of months. He knows that he is in the hospital in [place] but cannot name the hospital. He was confused as to the month in year. He stated that he was 75 years old but was aware that his per day with just a couple of days ago. He denies any falls or head injury. He does report that he quit eating 4 days ago due to nausea. He denies any vomiting but stated that he quit eating because he did not want to vomit. Patient does have reproducible pain on palpation of the bladder and bladder feels distended. He also had significant pain in the right upper quadrant with significant voluntary guarding. Wears the patient only has minimal pain on palpation to the bladder. He reports he has been having normal stools. He has been afebrile since admission. He reports that he has been having some fatigue and states that he cannot swim as much as he used to. He states that he usually goes swimming 3 to 4 times a week. Over the last 6 months or so he has only been able to do about 10 laps in the pool due to shortness of breath. He denies any cough, congestion, orthopnea or lower extremity swelling. Review of Systems 2 Review of Systems: Patient does have intermittent confusion ezra which makes reliability of review of systems questionable. [facility] Past Medical History Medical History (Updated 08/30/24 @ 22:18 by Sanjuana Pringle DO) Alcohol abuse Dementia HSV (herpes simplex virus) infection Pulmonary nodule CAD (coronary artery disease) dx from cath on 12/21/20. Ischemic cardiomyopathy With combined systolic and diastolic dysfunction with EF ranging between 45- 55% on various echoes, moderate biatrial enlargement Paroxysmal atrial flutter Shingles Gout Arthritis Kidney stones History of rectal polyps Hypertension A-fib With history of kaz with cardioversion April 2020 with subsequent recurrence Hyperlipidemia Intra-abdominal abscess (~09/04/19) Diabetes mellitus (Unknown) Surgical History Surgical History (Updated 08/30/24 @ 22:35 by Sanjuana Pringle DO) History of cardiac catheterization 12/2020 demonstrated 2 vessel severe obstructive coronary disease with complete total occlusion of right posterior lateral branch distribution with modest feeling via [id number] collaterals of the LAD and circumflex with 99% mid LAD stenosis with diffuse calcification of the LAD and circumflex with mild left ventricular systolic dysfunction with EF of 45-50% with akinesis of the posterior lateral and hypokinesis of the apical segment patient was transferred to [facility] for advanced procedure History of colonoscopy with polypectomy Most recent February 2023 History of right knee joint replacement (~2012) H/O arthroscopy lt shoulder H/O repair of rotator cuff bilateral History of bilateral carpal tunnel release History of renal stent (~2014) Right H/O cystoscopy (~2014) History of penile implant Hx of tonsillectomy Family History Family History (Updated 08/30/24 @ 22:31 by Sanjuana Pringle DO) Sibling Diabetes mellitus Hypertension CHF (congestive heart failure) Mother Diabetes mellitus Father Cerebrovascular accident Social History Social History (Updated 08/31/24 @ 01:21 by Sanjuana Pringle DO) Social History: Currently lives alone in his home. He has 2 sons. He reports that his younger son occasionally comes over to help out around the house. He reports that he used to drink heavily but cut back on drinking about 5 years ago and stopped drinking alcohol altogether April 2024. Patient is still drives. Code Status: DNR, patient able to verbalize understanding of wishes. (03/01/23) Surrogate decision maker: Rajesh Chawla, son. Smoking packs per day: 1 Smoking cigarettes per day: 20.0 Years smoked: 50 Smoking pack-years: 50.00 Smoking status: Former smoker Tobacco type: cigarettes Alcohol intake: former Substance use: never Substance use type: does not use Do You Feel Safe in your Home?: Yes Lack of Transportation: No Lack of Food: Never True Current Housing: I Have Housing Concerned About Future Housing: No Difficulty Paying Gas/Electric Bills: No Difficulty Paying for Meds: No Currently Unemployed: No Education: High School Diploma/GED Difficulty w/ Childcare or Family Care: No Living arrangements: alone Gender identity (if verbalized by the patient): Male Spiritual care concerns: No Agree to blood products: Yes Meds Home Medications and Allergies Home Medications ?Medication ?Instructions ?Recorded ?Confirmed ?Type alprazolam 1 mg tablet 1 mg PO HS PRN Anxiety 06/19/19 03/01/23 History allopurinol 300 mg tablet 300 mg PO DAILY ##0 09/10/19 03/01/23 History cholecalciferol (vitamin D3) 25 25 mcg PO DAILY 09/10/19 03/01/23 History mcg (1,000 unit) capsule (Vitamin D3) metformin 500 mg tablet See Rx Instructions .Route .COMPLEX 09/10/19 03/01/23 History glipizide 10 mg tablet 10 mg PO BID 10/11/19 03/01/23 History apixaban 5 mg tablet (Eliquis) 5 mg PO BID 04/14/20 03/01/23 History lisinopril 5 mg tablet 12.5 mg PO DAILY 12/18/20 03/01/23 History semaglutide 0.25 mg or 0.5 mg (2 0.5 mg subcut WEEKLY 12/18/20 03/01/23 History mg/1.5 mL) subcutaneous pen injector (Ozempic) cyanocobalamin (vitamin B-12) 1,000 mcg PO DAILY 02/01/21 03/01/23 History 1,000 mcg tablet (Vitamin B-12) docusate sodium 100 mg tablet 100 mg PO BID 02/01/21 03/01/23 History donepezil 10 mg tablet 10 mg PO HS 02/01/21 03/01/23 History evolocumab 140 mg/mL subcutaneous 140 mg subcut MONTHLY 02/01/21 03/01/23 History syringe (Repatha Syringe) hydrocodone 7.5 mg-acetaminophen 1 tablet PO Q6H PRN Pain 02/01/21 03/01/23 History 325 mg tablet Allergies Allergy/AdvReac Type Severity Reaction Status Date / Time oxycodone Allergy Unknown Other Verified 03/06/23 13:30 Vital Signs Vital Signs - 24 hr 08/30/24 15:49 08/30/24 17:33 08/30/24 17:37 Temperature 97.9 F Pulse Rate 68 100 Respiratory Rate 14 16 20 Blood Pressure 103/70 116/66 Pulse Oximetry 99 96 98 Oxygen Delivery Room Air 08/30/24 18:27 08/30/24 18:29 08/30/24 18:30 Temperature Pulse Rate 67 93 Respiratory Rate 16 20 Blood Pressure 108/92 H Pulse Oximetry 99 100 100 Oxygen Delivery 08/30/24 18:41 08/30/24 18:45 08/30/24 19:00 Temperature Pulse Rate 84 91 82 Respiratory Rate 20 19 Blood Pressure Pulse Oximetry 94 Oxygen Delivery 08/30/24 19:02 08/30/24 19:19 08/30/24 19:31 Temperature Pulse Rate 83 74 87 Respiratory Rate 19 17 16 Blood Pressure 105/88 104/68 Pulse Oximetry 97 Oxygen Delivery 08/30/24 19:32 08/30/24 20:08 08/30/24 20:15 Temperature Pulse Rate 75 77 82 Respiratory Rate 19 17 17 Blood Pressure 104/68 Pulse Oximetry 97 Oxygen Delivery 08/30/24 20:30 08/30/24 20:45 08/30/24 21:00 Temperature Pulse Rate 75 70 75 Respiratory Rate 17 17 15 Blood Pressure Pulse Oximetry 100 98 Oxygen Delivery 08/30/24 21:02 08/30/24 21:44 Temperature 97.8 F Pulse Rate 69 80 Respiratory Rate 18 18 Blood Pressure 107/64 113/52 L Pulse Oximetry 100 90 Oxygen Delivery Exam 2 Narrative: Weight 76 kg BMI 22.7 Const: Other: Well-developed, well-nourished, appears stated age, no acute distress HENMT: Other: Mucous membranes are dry, no oral pharyngeal erythema, head is normocephalic atraumatic Eyes: Other: Pupils are equal and reactive, bilateral lens replacements noted, no conjunctival pallor, no scleral icterus Neck: Other: No JVD, no lymphadenopathy Chest: Other: Pacemaker noted in the left upper chest wall no associated tenderness overlying erythema Resp: Other: Clear to auscultation bilaterally, no increased work of breathing Cardio: Other: Regular rate, irregular rhythm, no JVD, no murmur GI: Other: Significant tenderness in the right upper quadrant to palpation, some voluntary guarding, mild tenderness in the suprapubic region, normoactive bowel sounds, no organomegaly, nondistended : Other: Weber catheter placed after my evaluation with immediate return of 400 mL of clear light yellow urine. 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 and bilateral plantar and dorsiflexion Psych: Other: Pleasantly confused, cooperative, questionable judgment and insight H&P: Results Labs Labs: Laboratory Tests 08/30/24 17:25 08/30/24 17:25 08/30/24 08/30/24 08/30/24 17: 19:02 20:31 WBC 13.9 H RBC 4.53 L Hgb 14.4 Hct 42.0 MCV 92.7 MCH 31.8 MCHC 34.3 RDW 14.1 Plt Count 122 L D MPV 12.0 H Immature Gran % (Auto) Not Reportable Neut % (Auto) Not Reportable Lymph % (Auto) Not Reportable [place] % (Auto) Not Reportable Eos % (Auto) Not Reportable Baso % (Auto) Not Reportable Lymph # (Auto) Not Reportable [place] # (Auto) Not Reportable Eos # (Auto) Not Reportable Baso # (Auto) Not Reportable Abs Immat Gran (auto) Not Reportable Absolute Neuts (auto) Not Reportable Absolute Nucleated RBC Not Reportable Total Counted 100 Neutrophils % (Manual) 81 H Band Neutrophils % 8 H Lymphocytes % (Manual) 3.0 L Monocytes % (Manual) 8 Nucleated RBC % Not Reportable Abs Neuts (Manual) 12.37 H Abs Lymphs (Manual) 0.41 L Abs Monocytes (Manual) 1.11 H Platelet Estimate Decreased Large Platelets Present % Immature Plt Fraction 10.7 Schistocytes None seen PT 15.8 H INR 1.2 APTT 30.6 D-Dimer 5.16 H Sodium 129 L Potassium 4.0 Chloride 96 L Carbon Dioxide 22 Anion Gap 11 BUN 55 H D Creatinine 1.74 H Estim Creat Clear Calc 37 Estimated GFR 39 L Glucose 190 H POC Capillary Glucose Lactic Acid 2.5 H Calcium 9.0 Total Bilirubin 2.4 H AST 36 ALT 216 H Alkaline Phosphatase 174 H Total Creatine Kinase 101 Total Protein 7.0 Albumin 3.8 Lipase 24 Procalcitonin 16.2 Urine Color Dark yellow Urine Appearance Cloudy H Urine pH 5.5 Ur Specific [place] 1.029 Urine Protein 3+ H Urine Glucose (UA) Negative Urine Ketones Trace H Ur Blood (Man) 3+ H Urine Nitrate Negative Urine Bilirubin Negative Urine Urobilinogen 1.0 Add Ur Microanalysis Reviewed Leukocyte Esterase Rfl 2+ H Urine RBC 3-5 H Urine WBC >100 H Ur Squamous Epith Cells Few Urine Bacteria 4+ H Urine Casts >20 08/30/24 21:41 WBC RBC Hgb Hct MCV MCH MCHC RDW Plt Count MPV Immature Gran % (Auto) Neut % (Auto) Lymph % (Auto) [place] % (Auto) Eos % (Auto) Baso % (Auto) Lymph # (Auto) [place] # (Auto) Eos # (Auto) Baso # (Auto) Abs Immat Gran (auto) Absolute Neuts (auto) Absolute Nucleated RBC Total Counted Neutrophils % (Manual) Band Neutrophils % Lymphocytes % (Manual) Monocytes % (Manual) Nucleated RBC % Abs Neuts (Manual) Abs Lymphs (Manual) Abs Monocytes (Manual) Platelet Estimate Large Platelets % Immature Plt Fraction Schistocytes PT INR APTT D-Dimer Sodium Potassium Chloride Carbon Dioxide Anion Gap BUN Creatinine Estim Creat Clear Calc Estimated GFR Glucose POC Capillary Glucose 117 H Lactic Acid Calcium Total Bilirubin AST ALT Alkaline Phosphatase Total Creatine Kinase Total Protein Albumin Lipase Procalcitonin Urine Color Urine Appearance Urine pH Ur Specific [place] Urine Protein Urine Glucose (UA) Urine Ketones Ur Blood (Man) Urine Nitrate Urine Bilirubin Urine Urobilinogen Add Ur Microanalysis Leukocyte Esterase Rfl Urine RBC Urine WBC Ur Squamous Epith Cells Urine Bacteria Urine Casts Impressions Chest X-Ray 08/30/24 17:56 IMPRESSION: No acute cardiopulmonary pathology. Head CT 08/30/24 18:31 IMPRESSION: No acute intracranial findings. Chest/Abdomen/Pelvis CTA 08/30/24 19:21 IMPRESSION: CHEST: 1. No pulmonary embolism. 2. No acute cardiopulmonary pathology. 3. Nodule in the right lower lobe measuring 5 mm. 6 months follow-up CT is advised. ABDOMEN/PELVIS: 1. Fat stranding in the right lower quadrant surrounding the appendix which appeared not enlarged. Possibility of appendicitis cannot be excluded. The fat stranding also may be due to the right kidney changes. Clinical correlation advised. 2. Pyelonephritis bilaterally more on the right side. Infiltrative process is less likely. Follow-up advised. 3. Cholelithiasis. 4. Hepatomegaly. Upper Quadrant Ultrasound 08/30/24 21:51 IMPRESSION: Cholelithiasis with sludge. Slightly thickened wall of the gallbladder. Cholecystitis cannot be excluded. Clinical correlation advised. Otherwise, normal right upper quadrant ultrasound. EKG:Test Date: 2024-08-30 17:24:52 Measurements Intervals [place] Rate: 74 P: 0 [place]: 0 QRS: -22 QRSD: 98 T: 68 QT: 356 QTc: 397 Interpretive Statements ATRIAL FIBRILLATION ELECTRONIC VENTRICULAR COMPLEXES LOW QRS VOLTAGE IN LIMB LEADS ANTEROSEPTAL INFARCT, AGE INDETERMINATE BASELINE ARTIFACT- II, V1-V3 ABNORMAL ECG (Prior EKGs reviewed with recurrence of AFib noted from comparison EKG from 2020 at which time patient had synchronized cardioversion) All imaging and EKGs personally reviewed and interpreted. And unless stated otherwise agree with radiologic and cardiology interpretation. Assessment and Plan Assessment and plan (1) Acute pyelonephritis: Code(s): N10 - Acute pyelonephritis Status: Acute (2) Acute kidney injury: Code(s): N17.9 - Acute kidney failure, unspecified Status: Acute (3) Dehydration with hyponatremia: Code(s): E86.0 - Dehydration; E87.1 - Hypo-osmolality and hyponatremia Status: Acute (4) Abnormal findings on diagnostic imaging of gallbladder: Code(s): R93.2 - Abnormal findings on diagnostic imaging of liver and biliary tract Status: Acute (5) Hyperbilirubinemia: Code(s): E80.6 - Other disorders of bilirubin metabolism Status: Acute (6) Thrombocytopenia: Code(s): D69.6 - Thrombocytopenia, unspecified Status: Acute Assessment and Plan: New thrombocytopenia possibly due to acute underlying infection. Will monitor with repeat CBC in a.m. (7) Dementia: Qualifiers: Dementia behavioral or psychological symptom: without behavioral, psychotic, or mood disturbance or anxiety Dementia severity: unspecified severity Dementia type: unspecified type Qualified Code(s): F03.90 - Unspecified dementia, unspecified severity, without behavioral disturbance, psychotic disturbance, mood disturbance, and anxiety Code(s): F03.90 - Unspecified dementia, unspecified severity, without behavioral disturbance, psychotic disturbance, mood disturbance, and anxiety Status: Acute (8) Elevated d-dimer: Code(s): R79.89 - Other specified abnormal findings of blood chemistry Status: Acute Assessment and Plan: CTA of the chest abdomen pelvis rule out pulmonary embolism (9) Pulmonary nodule: Code(s): R91.1 - Solitary pulmonary nodule Status: Acute Assessment and Plan: Will need outpatient follow-up. Plan The patient presented with decreased appetite and confusion. Symptoms are mass likely had due to acute bilateral pyelonephritis that is noted on CT scan and possible underlying cholecystitis with enlarged gallbladder noted on CT scan and Right upper quadrant ultrasound was also performed in the ER which demonstrated cholelithiasis with sludge and thickening of the gallbladder wall as well as labs demonstrating hyperbilirubinemia and elevated ALT and alk-phos with exam suspicious for possible acute cholecystitis. Will consult General surgery. Will continue patient's home Aricept and will treat underlying cause with antibiotic therapy. Patient also has a component of acute kidney injury likely due to dehydration and underlying infection. Will hold nephrotoxic medications. Patient did receive 2 L fluid bolus in the ER. Will continue IV fluid hydration at 100 mL an hour. Will repeat serum sodium at 23:30 and q.4 hours to ensure appropriate and safe rate of correction of hyponatremia. Patient does have chronic underlying type 2 diabetes mellitus but is currently euglycemic. Will hold patient's home oral hypoglycemic agent will place patient on low-dose sliding scale insulin with Accu-Cheks a.c. HS and hypoglycemia protocol. Patient also has evidence of acute urinary retention. He is uncertain if he has a history of BPH. Component the patient's acute kidney injury could be due to obstructive uropathy. Weber catheter has been placed. Will start patient on Flomax. Nursing staff has been unable to confirm the patient's home medication reconciliation at the time of my documentation. The only to be a repeat attempt to contact the patient's family in a.m. for accurate medication reconciliation. Patient has been admitted as observation status. Quality VTE Prophylaxis VTE prophylaxis: pharmacologic ordered (Continue home Eliquis.) Hospitalist MIPS Advance Care Plan I have confirmed that the patient's Advanced Care Plan is present, code status is documented, or surrogate decision maker is listed in patient medical record.: Yes Medication Reconciliation I have utilized all available resources to obtain, update and review the patients current medications (includes all prescriptions, OTC, herbals, cannabis, and nutritional supplements).: Yes
[2024-08-30] MEDS: SODIUM CHLORIDE 0.9% IV 1,000 ML 100 ML IV CONT (22:23)
--- NOTE | 2024-08-30 22:32 | PC.NURSE ---
Attempted to call son. Received no answer. This RN left a voicemail on updates.
[2024-08-30 22:35] LABS: Reflex Lactic Acid Yes or No Add Lactic
[2024-08-30 23:33] LABS: Anion Gap 13 mmol/L (4-12); Blood Urea Nitrogen 50 mg/dL (9-20); Carbon Dioxide 19 mmol/L (22-30); Chloride 99 mmol/L (98-107); Estimated CRCL calculation 47 ml/min; Estimated Glomerular Filt Rate 52; Glucose 115 mg/dL (65-110); Potassium 3.6 mmol/L (3.4-5.0); Sodium 131 mmol/L (137-145)
[2024-08-30 23:44] LABS: Lactic Acid 2.1 mmol/L (0.7-2.0)
[2024-08-30] MEDS: LIDOCAINE 2% GEL UROJET 10 ML PKG MUCOUS MEM (23:55)
[2024-08-31] VITALS (10 sets, daily range): BP systolic 95–133; BP diastolic 56–83; PULSE 63–96; RESP 16–18; TEMP 36.6–38.1; O2SAT 93–100
[2024-08-31 03:43] LABS: Basophils Absolute Auto 0.1 K/mm3 (0.0-0.1); Basophils Percent Auto 0.4 % (0.2-1.2); Eosinophils Percent Auto 0.2 % (0-4.4); Hematocrit 36.3 % (42.0-52.0); Hemoglobin 12.3 g/dL (14.0-18.0); Immature Granulocyte Absolute 0.12 K/mm3 (0.00-0.031); Immature Platelet Fraction Pct 9.2 % (0.9-11.2); Lymphocytes Absolute Auto 0.39 K/mm3 (0.9-3.2); Lymphocytes Percent Auto 3.4 % (18.3-44.2); Mean Corpuscular HGB Conc 33.9 g/dl (32-36); Mean Corpuscular Hemoglobin 31.5 pg (26-34); Mean Corpuscular Volume 93.1 fl (80-100); Mean Platelet Volume 11.5 fl (7.4-10.4); Monocytes Absolute Auto 1.1 K/mm3 (0.1-0.6); Monocytes Percent Auto 9.7 % (2.6-8.5); Neutrophils Absolute Auto 9.8 K/mm3 (1.3-6.7); Neutrophils Percent Auto 85.3 % (45.5-73.1); Platelet Count Result 113 k/mm3 (150-375); Red Cell Distribution Width 14.2 % (11.5-14.5); White Blood Count 11.5 K/mm3 (4.5-10.0)
[2024-08-31 03:54] LABS: Anion Gap 8 mmol/L (4-12); Blood Urea Nitrogen 48 mg/dL (9-20); Calcium 8.1 mg/dL (8.4-10.2); Carbon Dioxide 22 mmol/L (22-30); Chloride 102 mmol/L (98-107); Estimated CRCL calculation 44 ml/min; Estimated Glomerular Filt Rate 47; Glucose 89 mg/dL (65-110); Phosphorus 3.4 mg/dL (2.5-4.5); Potassium 3.5 mmol/L (3.4-5.0); Sodium 132 mmol/L (137-145)
[2024-08-31] MEDS: metroNIDAZOLE 500 MG/ISO 100ML 500 MG/100 ML BAG 100 MG IVPB ×3 (06:10→23:03)
[2024-08-31 07:25] LABS: Anion Gap 8 mmol/L (4-12); Blood Urea Nitrogen 45 mg/dL (9-20); Calcium 8.2 mg/dL (8.4-10.2); Carbon Dioxide 23 mmol/L (22-30); Chloride 102 mmol/L (98-107); Estimated CRCL calculation 43 ml/min; Estimated Glomerular Filt Rate 46; Glucose 85 mg/dL (65-110); Potassium 3.7 mmol/L (3.4-5.0); Sodium 133 mmol/L (137-145)
--- NOTE | 2024-08-31 07:36 | PM.IMPN ---
Progress Note: A&P Assessment and Plan (1) Acute pyelonephritis: Code(s): N10 - Acute pyelonephritis Status: Acute Assessment and Plan: - Chest/abdomen/pelvis CTA showed pyelonephritis bilaterally more on tigre right side - UA: cloudy appearance with 3+ protein, trace ketones, 3+ blood, 2+ leukocytes, 3-5 RBC, > 100 WBC, 4+ bacteria, and a few epithelial cells - UC obtained on 08/30: pending - Blood cultures obtained on 08/30: gram negative bacilli - No previous micro to be reviewed - started on Rocephin and flagyl for cocurrent cholelithiasis, rocephin dose increased to 2g daily for blood stream infection (2) Acute kidney injury: Code(s): N17.9 - Acute kidney failure, unspecified Status: Acute Assessment and Plan: Likely due to dehydration and underlying infection with possible obstructive uropathy at patient is unsure of BPH history. Received 2L IV fluids in the ED BUN/Cr 55/1.74 on admission, previously WNL in 2022, no recent records - BUN/Cr 45/1.51 on am labs - Avoid nephrotoxic medications - Renally dose medications - Monitor I/O, salter cather in place - Started on flomax for possible BPH - IV fluid hydration at 100 mL an hour. (3) Dehydration with hyponatremia: Code(s): E86.0 - Dehydration; E87.1 - Hypo-osmolality and hyponatremia Status: Acute Assessment and Plan: Patient reports decreased oral intake for past 4 days. Na 129 on admission, improving with IV fluids. Now 133 on am Continue to monitor (4) Abnormal findings on diagnostic imaging of gallbladder: Code(s): R93.2 - Abnormal findings on diagnostic imaging of liver and biliary tract Status: Acute Assessment and Plan: Stopped eating 4 days ago due to nausea. Significant pain noted to the right upper quadrant with significant voluntary guarding. - LFTs on admission: Tot bili 2.4, AST 36, ALT 216, alk phos 174 - Antibiotics: rocephin and flagyl started on 08/31 - Chest/abdomen/pelvis CTA showed fat stranding in the right lower quadrant surrounding the appendix which appeared not enlarged. Possibility of appendicitis cannot be excluded. The fat stranding also may be due to the right kidney changes and cholelithiasis. - Upper quadrant US showed cholelithiasis with sludge and slightly thickened wall of the gallbladder. Cholecystitis cannot be excluded. - Diet: diabetic diet - Monitor vital signs, I and O's, check stool output, neuro status and patient is a fall risk - Monitor serum electrolytes and CBC - IV pain management - Gentle IV fluid resuscitation - Consult general surgery for further evaluation, appreciate assistance and recommendation Symptoms seem more consistent with UTI and pyelo, however cholecystitis or appendicitis could still be ddx. No surgical intervention recommended at this time given ongoing UTI and atypical presentation, continue current IV abx If there is any change in condition, could get repeat CT and possibly consider HIDA scan. (5) Hyperbilirubinemia: Code(s): E80.6 - Other disorders of bilirubin metabolism Status: Acute Assessment and Plan: See plan above (6) Thrombocytopenia: Code(s): D69.6 - Thrombocytopenia, unspecified Status: Acute Assessment and Plan: New thrombocytopenia possibly due to acute underlying infection. No signs of active bleeding, continue to monitor (7) Diabetes mellitus: Onset Date: Unknown Qualifiers: Diabetes mellitus complication status: without complication Diabetes mellitus termination clerk insulin use: without usp use Diabetes mellitus type: type 2 Qualified Code(s): E11.9 - Type 2 diabetes mellitus without complications Code(s): E11.9 - Type 2 diabetes mellitus without complications Status: Chronic Assessment and Plan: - hypoglycemia protocol - POC blood glucose ACHS - home medication - awaiting med rec to be completed - correct regimen ordered - low dose TIDWM - A1C ordered (8) Hypertension: Code(s): I10 - Essential (primary) hypertension Status: Acute Assessment and Plan: Chronic, blood pressures currently stable. - Awaiting medication reconciliation to be completed, possible that patient was previously on lisinopril 12.5 mg daily however blood pressures remain stable despite being off of this and medication would be held regardless for ongoing NIC - Continue to monitor and resume medication as appropriate (9) Elevated d-dimer: Code(s): R79.89 - Other specified abnormal findings of blood chemistry Status: Acute Assessment and Plan: D dimer elevated on admission at 5.16. CTA of the chest abdomen pelvis obtained and no pulmonary embolism noted. Possibly elevated secondary to acute infection and inflammation. (10) Pulmonary nodule: Code(s): R91.1 - Solitary pulmonary nodule Status: Acute Assessment and Plan: Chest/abdomen/pelvis CTA showed Nodule in the right lower lobe measuring 5 mm. Follow up in the outpatient setting (11) Dementia: Qualifiers: Dementia behavioral or psychological symptom: without behavioral, psychotic, or mood disturbance or anxiety Dementia severity: unspecified severity Dementia type: unspecified type Qualified Code(s): F03.90 - Unspecified dementia, unspecified severity, without behavioral disturbance, psychotic disturbance, mood disturbance, and anxiety Code(s): F03.90 - Unspecified dementia, unspecified severity, without behavioral disturbance, psychotic disturbance, mood disturbance, and anxiety Status: Acute Assessment and Plan: Continue patient's home Aricept when medication reconciliation has been completed Time Spent With Patient Time with patient: 25 - 35 minutes Subjective Date/time seen: 08/31/24 07:36 Interval history: 74-year-old male with a past medical history dementia, HLD, HTN, type 2 diabetes mellitus, coronary artery disease, atrial fibrillation on chronic anticoagulation with Eliquis, alcohol dependence in remission and gout who presented to the hospital when he was dropped off by family members for evaluation of decreased oral intake for 4 days. Patient is pleasant lying comfortably in bed. He is AOx3 (person, place, year) during assessment. He has no complaints at this time denying any chest pain, shortness of breath, palpitations, flank pain, UTI symptoms, nausea/vomiting/diarrhea or abdominal pain. Review of Systems Review of Systems: All systems reviewed & are unremarkable except as noted in HPI and below Exam Narrative: AF HR 90 RR 16 Spo2 98 BP 131/72 General: male in no acute respiratory distress who is nontoxic appearing, lying semi recumbent in bed. HEENT: Normocephalic. Atraumatic. Extraocular movement intact. Sclera clear and anicteric. No facial asymmetry. Chest: Lungs are clear to auscultation bilaterally. No wheezes or crackles. CV: Heart was regular rate and rhythm. S1/S2. No murmurs, gallops, or rubs. Abd: Abdomen was soft. Slight tenderness to RUQ. Nondistended. Positive bowel sounds. Ext: No clubbing, cyanosis, or edema. 2+ DP pulses bilaterally. Neuro: Patient is alert and oriented x3. Speech is clear. Objective Data Vital Signs Vital Signs: Vital Signs - 24 hr 08/30/24 15:49 08/30/24 17:33 08/30/24 17:37 Temperature 97.9 F Pulse Rate 68 100 Respiratory Rate 14 16 20 Blood Pressure 103/70 116/66 Pulse Oximetry 99 96 98 Oxygen Delivery Room Air 08/30/24 18:27 08/30/24 18:29 08/30/24 18:30 Temperature Pulse Rate 67 93 Respiratory Rate 16 20 Blood Pressure 108/92 H Pulse Oximetry 99 100 100 Oxygen Delivery 08/30/24 18:41 08/30/24 18:45 08/30/24 19:00 Temperature Pulse Rate 84 91 82 Respiratory Rate 20 19 Blood Pressure Pulse Oximetry 94 Oxygen Delivery 08/30/24 19:02 08/30/24 19:19 08/30/24 19:31 Temperature Pulse Rate 83 74 87 Respiratory Rate 19 17 16 Blood Pressure 105/88 104/68 Pulse Oximetry 97 Oxygen Delivery 08/30/24 19:32 08/30/24 20:08 08/30/24 20:15 Temperature Pulse Rate 75 77 82 Respiratory Rate 19 17 17 Blood Pressure 104/68 Pulse Oximetry 97 Oxygen Delivery 08/30/24 20:30 08/30/24 20:45 08/30/24 21:00 Temperature Pulse Rate 75 70 75 Respiratory Rate 17 17 15 Blood Pressure Pulse Oximetry 100 98 Oxygen Delivery 08/30/24 21:02 08/30/24 21:44 08/30/24 22:07 Temperature 97.8 F Pulse Rate 69 80 Respiratory Rate 18 18 Blood Pressure 107/64 113/52 L Pulse Oximetry 100 90 Oxygen Delivery Room Air 08/31/24 00:00 08/31/24 04:00 08/31/24 06:08 Temperature 98.3 F 98.1 F 98.9 F Pulse Rate 73 63 76 Respiratory Rate 18 18 18 Blood Pressure 97/56 L 99/60 L 106/62 Pulse Oximetry 93 97 99 Oxygen Delivery Intake/Output Intake/Output: Intake & Output 08/28/24 08/29/24 08/30/24 08/31/24 23:59 23:59 23:59 23:59 Intake Total 3150 Output Total 500 390 Balance 2650 -390 Meds/Results Medications: Active Medications Generic Name Dose Route Start Last Admin Trade Name Freq PRN Reason Stop Dose Admin Acetaminophen 650 mg 08/30/24 22:25 Acetaminophen 325 Mg Tablet PO Q4H PRN Mild Pain (1-3) or Fever Sodium Chloride 1,000 mls @ 100 mls/hr 08/30/24 20:40 08/30/24 22:23 Normal Saline Iv IV CONT 100 mls/hr .Q10H BALTAZAR Administration Ceftriaxone Sodium 1 gm in 50 mls @ 100 mls/hr 08/31/24 21:00 Rocephin 1 Gm/Ns 50 Ml IVPB Q24H BALTAZAR Metronidazole 500 mg in 100 mls @ 100 mls/hr 08/31/24 06:00 08/31/24 06:10 Flagyl 500 Mg/Iso Soln 100 Ml IVPB 100 mls/hr Q8H BALTAZAR Administration Ondansetron HCl 4 mg 08/30/24 22:25 Ondansetron Inj 4 Mg/2 Ml Vial IV PUSH Q6H PRN Nausea And Vomiting Tamsulosin HCl 0.4 mg 08/31/24 09:00 Tamsulosin Hcl 0.4 Mg Capsule PO QAM [facility] Radiology Results: ITS Impressions Chest X-Ray 08/30/24 17:56 IMPRESSION: No acute cardiopulmonary pathology. Head CT 08/30/24 18:31 IMPRESSION: No acute intracranial findings. Chest/Abdomen/Pelvis CTA 08/30/24 19:21 IMPRESSION: CHEST: 1. No pulmonary embolism. 2. No acute cardiopulmonary pathology. 3. Nodule in the right lower lobe measuring 5 mm. 6 months follow-up CT is advised. ABDOMEN/PELVIS: 1. Fat stranding in the right lower quadrant surrounding the appendix which appeared not enlarged. Possibility of appendicitis cannot be excluded. The fat stranding also may be due to the right kidney changes. Clinical correlation advised. 2. Pyelonephritis bilaterally more on the right side. Infiltrative process is less likely. Follow-up advised. 3. Cholelithiasis. 4. Hepatomegaly. Upper Quadrant Ultrasound 08/30/24 21:51 IMPRESSION: Cholelithiasis with sludge. Slightly thickened wall of the gallbladder. Cholecystitis cannot be excluded. Clinical correlation advised. Otherwise, normal right upper quadrant ultrasound. Labs Labs: Laboratory Results - last 24 hr 08/30/24 08/30/24 08/30/24 17:25 19:02 20:31 WBC 13.9 H RBC 4.53 L Hgb 14.4 Hct 42.0 MCV 92.7 MCH 31.8 MCHC 34.3 RDW 14.1 Plt Count 122 L D MPV 12.0 H Immature Gran % (Auto) Not Reportable Neut % (Auto) Not Reportable Lymph % (Auto) Not Reportable [place] % (Auto) Not Reportable Eos % (Auto) Not Reportable Baso % (Auto) Not Reportable Lymph # (Auto) Not Reportable [place] # (Auto) Not Reportable Eos # (Auto) Not Reportable Baso # (Auto) Not Reportable Abs Immat Gran (auto) Not Reportable Absolute Neuts (auto) Not Reportable Absolute Nucleated RBC Not Reportable Total Counted 100 Neutrophils % (Manual) 81 H Band Neutrophils % 8 H Lymphocytes % (Manual) 3.0 L Monocytes % (Manual) 8 Nucleated RBC % Not Reportable Abs Neuts (Manual) 12.37 H Abs Lymphs (Manual) 0.41 L Abs Monocytes (Manual) 1.11 H Platelet Estimate Decreased Large Platelets Present % Immature Plt Fraction 10.7 Schistocytes None seen PT 15.8 H INR 1.2 APTT 30.6 D-Dimer 5.16 H Sodium 129 L Potassium 4.0 Chloride 96 L Carbon Dioxide 22 Anion Gap 11 BUN 55 H D Creatinine 1.74 H Estim Creat Clear Calc 37 Estimated GFR 39 L Glucose 190 H POC Capillary Glucose Lactic Acid 2.5 H Calcium 9.0 Phosphorus Magnesium Total Bilirubin 2.4 H AST 36 ALT 216 H Alkaline Phosphatase 174 H Total Creatine Kinase 101 Total Protein 7.0 Albumin 3.8 Lipase 24 Procalcitonin 16.2 Urine Color Dark yellow Urine Appearance Cloudy H Urine pH 5.5 Ur Specific Siler 1.029 Urine Protein 3+ H Urine Glucose (UA) Negative Urine Ketones Trace H Ur Blood (Man) 3+ H Urine Nitrate Negative Urine Bilirubin Negative Urine Urobilinogen 1.0 Add Ur Microanalysis Reviewed Leukocyte Esterase Rfl 2+ H Urine RBC 3-5 H Urine WBC >100 H Ur Squamous Epith Cells Few Urine Bacteria 4+ H Urine Casts >20 08/30/24 08/30/24 08/30/24 21:41 23:07 23:30 WBC RBC Hgb Hct MCV MCH MCHC RDW Plt Count MPV Immature Gran % (Auto) Neut % (Auto) Lymph % (Auto) [place] % (Auto) Eos % (Auto) Baso % (Auto) Lymph # (Auto) [place] # (Auto) Eos # (Auto) Baso # (Auto) Abs Immat Gran (auto) Absolute Neuts (auto) Absolute Nucleated RBC Total Counted Neutrophils % (Manual) Band Neutrophils % Lymphocytes % (Manual) Monocytes % (Manual) Nucleated RBC % Abs Neuts (Manual) Abs Lymphs (Manual) Abs Monocytes (Manual) Platelet Estimate Large Platelets % Immature Plt Fraction Schistocytes PT INR APTT D-Dimer Sodium 131 L Potassium 3.6 Chloride 99 Carbon Dioxide 19 L Anion Gap 13 H BUN 50 H Creatinine 1.36 H Estim Creat Clear Calc 47 Estimated GFR 52 L Glucose 115 H POC Capillary Glucose 117 H Lactic Acid 2.1 H Calcium 8.0 L Phosphorus Magnesium Total Bilirubin AST ALT Alkaline Phosphatase Total Creatine Kinase Total Protein Albumin Lipase Procalcitonin Urine Color Urine Appearance Urine pH Ur Specific [place] Urine Protein Urine Glucose (UA) Urine Ketones Ur Blood (Man) Urine Nitrate Urine Bilirubin Urine Urobilinogen Add Ur Microanalysis Leukocyte Esterase Rfl Urine RBC Urine WBC Ur Squamous Epith Cells Urine Bacteria Urine Casts 08/31/24 08/31/24 03:33 07:11 WBC 11.5 H RBC 3.90 L Hgb 12.3 L Hct 36.3 L MCV 93.1 MCH 31.5 MCHC 33.9 RDW 14.2 Plt Count 113 L MPV 11.5 H Immature Gran % (Auto) 1.0 H Neut % (Auto) 85.3 H Lymph % (Auto) 3.4 L [place] % (Auto) 9.7 H Eos % (Auto) 0.2 Baso % (Auto) 0.4 Lymph # (Auto) 0.39 L [place] # (Auto) 1.1 H Eos # (Auto) 0.0 Baso # (Auto) 0.1 Abs Immat Gran (auto) 0.12 H Absolute Neuts (auto) 9.8 H Absolute Nucleated RBC 0.000 Total Counted Neutrophils % (Manual) Band Neutrophils % Lymphocytes % (Manual) Monocytes % (Manual) Nucleated RBC % 0.0 Abs Neuts (Manual) Abs Lymphs (Manual) Abs Monocytes (Manual) Platelet Estimate Large Platelets % Immature Plt Fraction 9.2 Schistocytes PT INR APTT D-Dimer Sodium 132 L 133 L Potassium 3.5 3.7 Chloride 102 102 Carbon Dioxide 22 23 Anion Gap 8 8 BUN 48 H 45 H Creatinine 1.47 H 1.51 H Estim Creat Clear Calc 44 43 Estimated GFR 47 L 46 L Glucose 89 85 POC Capillary Glucose Lactic Acid Calcium 8.1 L 8.2 L Phosphorus 3.4 Magnesium 2.0 Total Bilirubin AST ALT Alkaline Phosphatase Total Creatine Kinase Total Protein Albumin Lipase Procalcitonin Urine Color Urine Appearance Urine pH Ur Specific [place] Urine Protein Urine Glucose (UA) Urine Ketones Ur Blood (Man) Urine Nitrate Urine Bilirubin Urine Urobilinogen Add Ur Microanalysis Leukocyte Esterase Rfl Urine RBC Urine WBC Ur Squamous Epith Cells Urine Bacteria Urine Casts
[2024-08-31 08:49] LABS: Glucose Point of Care 88 mg/dl (65-105)
[2024-08-31] MEDS: TAMSULOSIN HCL 0.4 MG CAPSULE PO (09:10)
[2024-08-31 09:17] LABS: Hemoglobin A1C 6.3 % (<5.7)
--- NOTE | 2024-08-31 10:19 | P.CONGS_ITS ---
Assessment and Plan Assessment and plan (1) Acute pyelonephritis: Code(s): N10 - Acute pyelonephritis Status: Acute Assessment and Plan: * I have reviewed the imaging and discussed the findings with the patient. His presentation and symptoms seem more consistent with UTI with pyelonephritis. Cholecystitis or appendicitis could still be in the differential diagnosis. This should be treatable with the current IV antibiotics the patient is on. Would not recommend surgical intervention at this time given the ongoing urinary tract infection and atypical presentation. If there is any change in condition, could get repeat CT and possibly consider HIDA scan. Will continue to follow along with patient. (2) Acute hyponatremia: Code(s): E87.1 - Hypo-osmolality and hyponatremia Status: Acute (3) Abnormal findings on diagnostic imaging of gallbladder: Code(s): R93.2 - Abnormal findings on diagnostic imaging of liver and biliary tract Status: Acute (4) Dementia: Qualifiers: Dementia type: unspecified type Dementia severity: unspecified severity Dementia behavioral or psychological symptom: without behavioral, psychotic, or mood disturbance or anxiety Qualified Code(s): F03.90 - Unspecified dementia, unspecified severity, without behavioral disturbance, psychotic disturbance, mood disturbance, and anxiety Code(s): F03.90 - Unspecified dementia, unspecified severity, without behavioral disturbance, psychotic disturbance, mood disturbance, and anxiety Status: Acute (5) Diabetes mellitus: Onset Date: Unknown Qualifiers: Diabetes mellitus type: type 2 Diabetes mellitus skilled nursing insulin use: without 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 He presented to the emergency department yesterday with mental status changes and weakness. He was complaining of some right-sided abdominal pain but history of this pain is difficult to elicit from the patient. His history is rather vague and he says he was not really having much pain. He denies any history of pain after eating. He denies any intolerance to any certain foods. In the emergency department he was noted to have evidence of a urinary tract infection and pyelonephritis. His CT also showed cholelithiasis and some mild inflammatory changes around the appendix. The appendiceal changes seemed likely reactive to the right-sided pyelonephritis. He was admitted and placed on broad-spectrum IV antibiotics. Review of Systems 2 Review of Systems: All systems reviewed & are unremarkable except as noted in HPI and below Constitutional: Constitutional: Denies chills and Denies fever(s) Eyes: Eyes: Denies change in vision ENT: Denies hearing loss, Denies neck pain and Denies sore throat Cardiovascular: Cardiovascular: Denies chest pain and Denies dyspnea Respiratory: Respiratory: Denies cough, Denies dyspnea and Denies wheezing Gastrointestinal: Gastrointestinal: Reports as per HPI Genitourinary: Genitourinary: Denies hematuria and Denies dysuria Musculoskeletal: Musculoskeletal: Denies arthralgias, Denies joint swelling and Denies neck pain Allergic/Immunologic: Allergic/Immunologic: Denies wheezing ON LICENSE OF [facility] Past Medical History Medical History (Updated 08/31/24 @ 07:46 by Janel Dobbins PA-C) Alcohol abuse Dementia HSV (herpes simplex virus) infection Pulmonary nodule CAD (coronary artery disease) dx from cath on 12/21/20. Ischemic cardiomyopathy With combined systolic and diastolic dysfunction with EF ranging between 45- 55% on various echoes, moderate biatrial enlargement Paroxysmal atrial flutter Shingles Gout Arthritis Kidney stones History of rectal polyps Hypertension A-fib With history of kaz with cardioversion April 2020 with subsequent recurrence Hyperlipidemia Intra-abdominal abscess (~09/04/19) Diabetes mellitus (Unknown) Surgical History Surgical History (Updated 08/30/24 @ 22:35 by Sanjuana Pringle DO) History of cardiac catheterization 12/2020 demonstrated 2 vessel severe obstructive coronary disease with complete total occlusion of right posterior lateral branch distribution with modest feeling via [id number] collaterals of the LAD and circumflex with 99% mid LAD stenosis with diffuse calcification of the LAD and circumflex with mild left ventricular systolic dysfunction with EF of 45-50% with akinesis of the posterior lateral and hypokinesis of the apical segment patient was transferred to [facility] for advanced procedure History of colonoscopy with polypectomy Most recent February 2023 History of right knee joint replacement (~2012) H/O arthroscopy lt shoulder H/O repair of rotator cuff bilateral History of bilateral carpal tunnel release History of renal stent (~2014) Right H/O cystoscopy (~2014) History of penile implant Hx of tonsillectomy Family History Family History (Updated 08/30/24 @ 22:31 by Sanjuana Pringle DO) Sibling Diabetes mellitus Hypertension CHF (congestive heart failure) Mother Diabetes mellitus Father Cerebrovascular accident Social History Social History (Updated 08/31/24 @ 01:21 by Sanjuana Pringle DO) Social History: Currently lives alone in his home. He has 2 sons. He reports that his younger son occasionally comes over to help out around the house. He reports that he used to drink heavily but cut back on drinking about 5 years ago and stopped drinking alcohol altogether April 2024. Patient is still drives. Code Status: DNR, patient able to verbalize understanding of wishes. (03/01/23) Surrogate decision maker: Rajesh Chawla, son. Smoking packs per day: 1 Smoking cigarettes per day: 20.0 Years smoked: 50 Smoking pack-years: 50.00 Smoking status: Former smoker Tobacco type: cigarettes Alcohol intake: former Substance use: never Substance use type: does not use Do You Feel Safe in your Home?: Yes Lack of Transportation: No Lack of Food: Never True Current Housing: I Have Housing Concerned About Future Housing: No Difficulty Paying Gas/Electric Bills: No Difficulty Paying for Meds: No Currently Unemployed: No Education: High School Diploma/GED Difficulty w/ Childcare or Family Care: No Living arrangements: alone Gender identity (if verbalized by the patient): Male Spiritual care concerns: No Agree to blood products: Yes Meds Home Medications and Allergies Home Medications ?Medication ?Instructions ?Recorded ?Confirmed ?Type alprazolam 1 mg tablet 1 mg PO HS PRN Anxiety 06/19/19 03/01/23 History allopurinol 300 mg tablet 300 mg PO DAILY ##0 09/10/19 03/01/23 History cholecalciferol (vitamin D3) 25 25 mcg PO DAILY 09/10/19 03/01/23 History mcg (1,000 unit) capsule (Vitamin D3) metformin 500 mg tablet See Rx Instructions .Route .COMPLEX 09/10/19 03/01/23 History glipizide 10 mg tablet 10 mg PO BID 10/11/19 03/01/23 History apixaban 5 mg tablet (Eliquis) 5 mg PO BID 04/14/20 03/01/23 History lisinopril 5 mg tablet 12.5 mg PO DAILY 12/18/20 03/01/23 History semaglutide 0.25 mg or 0.5 mg (2 0.5 mg subcut WEEKLY 12/18/20 03/01/23 History mg/1.5 mL) subcutaneous pen injector (Ozempic) cyanocobalamin (vitamin B-12) 1,000 mcg PO DAILY 02/01/21 03/01/23 History 1,000 mcg tablet (Vitamin B-12) docusate sodium 100 mg tablet 100 mg PO BID 02/01/21 03/01/23 History donepezil 10 mg tablet 10 mg PO HS 02/01/21 03/01/23 History evolocumab 140 mg/mL subcutaneous 140 mg subcut MONTHLY 02/01/21 03/01/23 History syringe (Repatha Syringe) hydrocodone 7.5 mg-acetaminophen 1 tablet PO Q6H PRN Pain 02/01/21 03/01/23 History 325 mg tablet Allergies Allergy/AdvReac Type Severity Reaction Status Date / Time oxycodone Allergy Unknown Other Verified 03/06/23 13:30 Vital Signs Vital Signs - 24 hr 08/30/24 15:49 08/30/24 17:33 08/30/24 17:37 Temperature 97.9 F Pulse Rate 68 100 Respiratory Rate 14 16 20 Blood Pressure 103/70 116/66 Pulse Oximetry 99 96 98 Oxygen Delivery Room Air 08/30/24 18:27 08/30/24 18:29 08/30/24 18:30 Temperature Pulse Rate 67 93 Respiratory Rate 16 20 Blood Pressure 108/92 H Pulse Oximetry 99 100 100 Oxygen Delivery 08/30/24 18:41 08/30/24 18:45 08/30/24 19:00 Temperature Pulse Rate 84 91 82 Respiratory Rate 20 19 Blood Pressure Pulse Oximetry 94 Oxygen Delivery 08/30/24 19:02 08/30/24 19:19 08/30/24 19:31 Temperature Pulse Rate 83 74 87 Respiratory Rate 19 17 16 Blood Pressure 105/88 104/68 Pulse Oximetry 97 Oxygen Delivery 08/30/24 19:32 08/30/24 20:08 08/30/24 20:15 Temperature Pulse Rate 75 77 82 Respiratory Rate 19 17 17 Blood Pressure 104/68 Pulse Oximetry 97 Oxygen Delivery 08/30/24 20:30 08/30/24 20:45 08/30/24 21:00 Temperature Pulse Rate 75 70 75 Respiratory Rate 17 17 15 Blood Pressure Pulse Oximetry 100 98 Oxygen Delivery 08/30/24 21:02 08/30/24 21:44 08/30/24 22:07 Temperature 97.8 F Pulse Rate 69 80 Respiratory Rate 18 18 Blood Pressure 107/64 113/52 L Pulse Oximetry 100 90 Oxygen Delivery Room Air 08/31/24 00:00 08/31/24 04:00 08/31/24 06:08 Temperature 98.3 F 98.1 F 98.9 F Pulse Rate 73 63 76 Respiratory Rate 18 18 18 Blood Pressure 97/56 L 99/60 L 106/62 Pulse Oximetry 93 97 99 Oxygen Delivery 08/31/24 08:00 Temperature 98.1 F Pulse Rate 96 Respiratory Rate 18 Blood Pressure 133/67 Pulse Oximetry 96 Oxygen Delivery Exam 2 Const: General: alert; No acute distress Orientation/consciousness: patient oriented x3 Limitations: no limitations HENMT: Head: normocephalic and atraumatic Ears: hearing grossly normal bilaterally Face/Nose/Sinus: Normal external nose present and Normal nares present Mouth: Yes Normal oral and palatal mucosa present and Yes moist mucous membranes Eyes: General: appearance normal, both eyes and all related structures C onjunctivae: conjunctivae normal Sclera: sclerae normal Pupils: Equal, round and reactive pupils present EOM: EOMs intact bilaterally Neck: Neck: normal visual inspection, full ROM, no lymphadenopathy, supple and no JVD Lymphatic: no lymphadenopathy noted Chest: Chest palpation & inspection: normal inspection of the chest Resp: Effort & Inspection: normal respiratory effort and able to speak in complete sentences Auscultation: clear to auscultation bilaterally P ercussion: percussion normal Cardio: Jugular venous distension: no JVD Rate: regular rate Rhythm: r egular rhythm Heart sounds: S1 normal heart sound present and S2 normal heart sound present Peripheral pulses: Peripheral pulses 2+ throughout GI: Inspection: normal to inspection GI Palp: Yes Soft to palpation, Yes Tenderness to palpation present (GI) (Mild right upper quadrant and right lateral), No Guarding due to palpation present (GI) and No Rebound tenderness present Auscultation: normal bowel sounds : General: Yes no CVA tenderness Back/Spine/Pelvis: Back: no CVA tenderness Skin: General skin exam: normal color and dry skin Neuro: General: patient oriented x3, gait normal, moves all extremities, no focal motor deficits and CN's II-XI intact bilaterally Cranial nerves: Yes Equal, round and reactive pupils present Speech: normal speech Extrem: General: normal to inspection and capillary refill normal Results Labs 08/31/24 03:33 08/31/24 07:11 Labs: Abnormal lab results 08/30/24 08/30/24 08/30/24 Range/Units 17:25 19:02 20:31 WBC 13.9 H (4.5-10.0) K/mm3 RBC 4.53 L (4.6-6.20) M/mm3 Hgb (14.0-18.0) g/dL Hct (42.0-52.0) % Plt Count 122 L D (150-375) k/mm3 MPV 12.0 H (7.4-10.4) fl Immature Gran % (Auto) (0-0.5) % Neut % (Auto) (45.5-73.1) % Lymph % (Auto) (18.3-44.2) % Sandoval % (Auto) (2.6-8.5) % Lymph # (Auto) (0.9-3.2) K/mm3 Sandoval # (Auto) (0.1-0.6) K/mm3 Abs Immat Gran (auto) (0.00-0.031) K/mm3 Absolute Neuts (auto) (1.3-6.7) K/mm3 Neutrophils % (Manual) 81 H (46-73) % Band Neutrophils % 8 H (0-6) % Lymphocytes % (Manual) 3.0 L (18-44) % Abs Neuts (Manual) 12.37 H (1.3-6.7) K/mm3 Abs Lymphs (Manual) 0.41 L (1.1-4.5) K/mm3 Abs Monocytes (Manual) 1.11 H (0.1-0.90) K/mm3 PT 15.8 H (11.1-14.7) Seconds D-Dimer 5.16 H (<0.48) ug/mL Sodium 129 L (137-145) mmol/L Chloride 96 L (98-107) mmol/L Carbon Dioxide (22-30) mmol/L Anion Gap (4-12) mmol/L BUN 55 H D (9-20) mg/dL Creatinine 1.74 H (0.7-1.3) mg/dL Estimated GFR 39 L (59 - ) Glucose 190 H (65-110) mg/dL POC Capillary Glucose (65-105) mg/dl Hemoglobin A1c (<5.7) % Lactic Acid 2.5 H (0.7-2.0) mmol/L Calcium (8.4-10.2) mg/dL Total Bilirubin 2.4 H (0.2-1.3) mg/dL ALT 216 H (6-50) U/L Alkaline Phosphatase 174 H (38-126) U/L Urine Appearance Cloudy H (Clear) Urine Protein 3+ H (Negative) mg/dL Urine Ketones Trace H (Negative) mg/dL Ur Blood (Man) 3+ H (Negative) Leukocyte Esterase Rfl 2+ H (Negative) KACEY/UL Urine RBC 3-5 H (0-2) /hpf Urine WBC >100 H (0-3) /hpf Urine Bacteria 4+ H /hpf 08/30/24 08/30/24 08/30/24 Range/Units 21:41 23:07 23:30 WBC (4.5-10.0) K/mm3 RBC (4.6-6.20) M/mm3 Hgb (14.0-18.0) g/dL Hct (42.0-52.0) % Plt Count (150-375) k/mm3 MPV (7.4-10.4) fl Immature Gran % (Auto) (0-0.5) % Neut % (Auto) (45.5-73.1) % Lymph % (Auto) (18.3-44.2) % Sandoval % (Auto) (2.6-8.5) % Lymph # (Auto) (0.9-3.2) K/mm3 Sandoval # (Auto) (0.1-0.6) K/mm3 Abs Immat Gran (auto) (0.00-0.031) K/mm3 Absolute Neuts (auto) (1.3-6.7) K/mm3 Neutrophils % (Manual) (46-73) % Band Neutrophils % (0-6) % Lymphocytes % (Manual) (18-44) % Abs Neuts (Manual) (1.3-6.7) K/mm3 Abs Lymphs (Manual) (1.1-4.5) K/mm3 Abs Monocytes (Manual) (0.1-0.90) K/mm3 PT (11.1-14.7) Seconds D-Dimer (<0.48) ug/mL Sodium 131 L (137-145) mmol/L Chloride (98-107) mmol/L Carbon Dioxide 19 L (22-30) mmol/L Anion Gap 13 H (4-12) mmol/L BUN 50 H (9-20) mg/dL Creatinine 1.36 H (0.7-1.3) mg/dL Estimated GFR 52 L (59 - ) Glucose 115 H (65-110) mg/dL POC Capillary Glucose 117 H (65-105) mg/dl Hemoglobin A1c (<5.7) % Lactic Acid 2.1 H (0.7-2.0) mmol/L Calcium 8.0 L (8.4-10.2) mg/dL Total Bilirubin (0.2-1.3) mg/dL ALT (6-50) U/L Alkaline Phosphatase (38-126) U/L Urine Appearance (Clear) Urine Protein (Negative) mg/dL Urine Ketones (Negative) mg/dL Ur Blood (Man) (Negative) Leukocyte Esterase Rfl (Negative) KACEY/UL Urine RBC (0-2) /hpf Urine WBC (0-3) /hpf Urine Bacteria /hpf 08/31/24 08/31/24 Range/Units 03:33 07:11 WBC 11.5 H (4.5-10.0) K/mm3 RBC 3.90 L (4.6-6.20) M/mm3 Hgb 12.3 L (14.0-18.0) g/dL Hct 36.3 L (42.0-52.0) % Plt Count 113 L (150-375) k/mm3 MPV 11.5 H (7.4-10.4) fl Immature Gran % (Auto) 1.0 H (0-0.5) % Neut % (Auto) 85.3 H (45.5-73.1) % Lymph % (Auto) 3.4 L (18.3-44.2) % Sandoval % (Auto) 9.7 H (2.6-8.5) % Lymph # (Auto) 0.39 L (0.9-3.2) K/mm3 Sandoval # (Auto) 1.1 H (0.1-0.6) K/mm3 Abs Immat Gran (auto) 0.12 H (0.00-0.031) K/mm3 Absolute Neuts (auto) 9.8 H (1.3-6.7) K/mm3 Neutrophils % (Manual) (46-73) % Band Neutrophils % (0-6) % Lymphocytes % (Manual) (18-44) % Abs Neuts (Manual) (1.3-6.7) K/mm3 Abs Lymphs (Manual) (1.1-4.5) K/mm3 Abs Monocytes (Manual) (0.1-0.90) K/mm3 PT (11.1-14.7) Seconds D-Dimer (<0.48) ug/mL Sodium 132 L 133 L (137-145) mmol/L Chloride (98-107) mmol/L Carbon Dioxide (22-30) mmol/L Anion Gap (4-12) mmol/L BUN 48 H 45 H (9-20) mg/dL Creatinine 1.47 H 1.51 H (0.7-1.3) mg/dL Estimated GFR 47 L 46 L (59 - ) Glucose (65-110) mg/dL POC Capillary Glucose (65-105) mg/dl Hemoglobin A1c 6.3 H (<5.7) % Lactic Acid (0.7-2.0) mmol/L Calcium 8.1 L 8.2 L (8.4-10.2) mg/dL Total Bilirubin (0.2-1.3) mg/dL ALT (6-50) U/L Alkaline Phosphatase (38-126) U/L Urine Appearance (Clear) Urine Protein (Negative) mg/dL Urine Ketones (Negative) mg/dL Ur Blood (Man) (Negative) Leukocyte Esterase Rfl (Negative) KACEY/UL Urine RBC (0-2) /hpf Urine WBC (0-3) /hpf Urine Bacteria /hpf Diabetes panel 08/30/24 08/30/24 08/31/24 Range/Units 17: 23:30 03:33 Sodium 129 L 131 L 132 L (137-145) mmol/L Potassium 4.0 3.6 3.5 (3.4-5.0) mmol/L Chloride 96 L 99 102 (98-107) mmol/L Carbon Dioxide 22 19 L 22 (22-30) mmol/L BUN 55 H D 50 H 48 H (9-20) mg/dL Creatinine 1.74 H 1.36 H 1.47 H (0.7-1.3) mg/dL Glucose 190 H 115 H 89 (65-110) mg/dL Hemoglobin A1c 6.3 H (<5.7) % Calcium 9.0 8.0 L 8.1 L (8.4-10.2) mg/dL AST 36 (17-59) U/L ALT 216 H (6-50) U/L Alkaline Phosphatase 174 H (38-126) U/L Total Protein 7.0 (6.3-8.2) g/dL Albumin 3.8 (3.5-5.1) g/dL 08/31/24 Range/Units 07:11 Sodium 133 L (137-145) mmol/L Potassium 3.7 (3.4-5.0) mmol/L Chloride 102 (98-107) mmol/L Carbon Dioxide 23 (22-30) mmol/L BUN 45 H (9-20) mg/dL Creatinine 1.51 H (0.7-1.3) mg/dL Glucose 85 (65-110) mg/dL Hemoglobin A1c (<5.7) % Calcium 8.2 L (8.4-10.2) mg/dL AST (17-59) U/L ALT (6-50) U/L Alkaline Phosphatase (38-126) U/L Total Protein (6.3-8.2) g/dL Albumin (3.5-5.1) g/dL Calcium panel 08/30/24 08/30/24 08/31/24 Range/Units : 23:30 03:33 Calcium 9.0 8.0 L 8.1 L (8.4-10.2) mg/dL Phosphorus 3.4 (2.5-4.5) mg/dL Albumin 3.8 (3.5-5.1) g/dL 08/31/24 Range/Units 07:11 Calcium 8.2 L (8.4-10.2) mg/dL Phosphorus (2.5-4.5) mg/dL Albumin (3.5-5.1) g/dL Pituitary panel 08/30/24 08/30/24 08/31/24 Range/Units : 23:30 03:33 Sodium 129 L 131 L 132 L (137-145) mmol/L Potassium 4.0 3.6 3.5 (3.4-5.0) mmol/L Chloride 96 L 99 102 (98-107) mmol/L Carbon Dioxide 22 19 L 22 (22-30) mmol/L BUN 55 H D 50 H 48 H (9-20) mg/dL Creatinine 1.74 H 1.36 H 1.47 H (0.7-1.3) mg/dL Glucose 190 H 115 H 89 (65-110) mg/dL Calcium 9.0 8.0 L 8.1 L (8.4-10.2) mg/dL 08/31/24 Range/Units 07:11 Sodium 133 L (137-145) mmol/L Potassium 3.7 (3.4-5.0) mmol/L Chloride 102 (98-107) mmol/L Carbon Dioxide 23 (22-30) mmol/L BUN 45 H (9-20) mg/dL Creatinine 1.51 H (0.7-1.3) mg/dL Glucose 85 (65-110) mg/dL Calcium 8.2 L (8.4-10.2) mg/dL Adrenal panel 08/30/24 08/30/24 08/31/24 Range/Units : 23:30 03:33 Sodium 129 L 131 L 132 L (137-145) mmol/L Potassium 4.0 3.6 3.5 (3.4-5.0) mmol/L Chloride 96 L 99 102 (98-107) mmol/L Carbon Dioxide 22 19 L 22 (22-30) mmol/L BUN 55 H D 50 H 48 H (9-20) mg/dL Creatinine 1.74 H 1.36 H 1.47 H (0.7-1.3) mg/dL Glucose 190 H 115 H 89 (65-110) mg/dL Calcium 9.0 8.0 L 8.1 L (8.4-10.2) mg/dL Total Bilirubin 2.4 H (0.2-1.3) mg/dL AST 36 (17-59) U/L ALT 216 H (6-50) U/L Alkaline Phosphatase 174 H (38-126) U/L Total Protein 7.0 (6.3-8.2) g/dL Albumin 3.8 (3.5-5.1) g/dL 08/31/24 Range/Units 07:11 Sodium 133 L (137-145) mmol/L Potassium 3.7 (3.4-5.0) mmol/L Chloride 102 (98-107) mmol/L Carbon Dioxide 23 (22-30) mmol/L BUN 45 H (9-20) mg/dL Creatinine 1.51 H (0.7-1.3) mg/dL Glucose 85 (65-110) mg/dL Calcium 8.2 L (8.4-10.2) mg/dL Total Bilirubin (0.2-1.3) mg/dL AST (17-59) U/L ALT (6-50) U/L Alkaline Phosphatase (38-126) U/L Total Protein (6.3-8.2) g/dL Albumin (3.5-5.1) g/dL All other labs normal. Imaging Additional studies: ITS Impressions Chest X-Ray 08/30/24 17:56 IMPRESSION: No acute cardiopulmonary pathology. Head CT 08/30/24 18:31 IMPRESSION: No acute intracranial findings. Chest/Abdomen/Pelvis CTA 08/30/24 19:21 IMPRESSION: CHEST: 1. No pulmonary embolism. 2. No acute cardiopulmonary pathology. 3. Nodule in the right lower lobe measuring 5 mm. 6 months follow-up CT is advised. ABDOMEN/PELVIS: 1. Fat stranding in the right lower quadrant surrounding the appendix which appeared not enlarged. Possibility of appendicitis cannot be excluded. The fat stranding also may be due to the right kidney changes. Clinical correlation advised. 2. Pyelonephritis bilaterally more on the right side. Infiltrative process is less likely. Follow-up advised. 3. Cholelithiasis. 4. Hepatomegaly. Upper Quadrant Ultrasound 08/30/24 21:51 IMPRESSION: Cholelithiasis with sludge. Slightly thickened wall of the gallbladder. Cholecystitis cannot be excluded. Clinical correlation advised. Otherwise, normal right upper quadrant ultrasound.
[2024-08-31 11:57] LABS: Anion Gap 8 mmol/L (4-12); Blood Urea Nitrogen 45 mg/dL (9-20); Calcium 8.2 mg/dL (8.4-10.2); Carbon Dioxide 22 mmol/L (22-30); Chloride 103 mmol/L (98-107); Estimated CRCL calculation 51 ml/min; Estimated Glomerular Filt Rate 56; Glucose 135 mg/dL (65-110); Potassium 4.1 mmol/L (3.4-5.0); Sodium 133 mmol/L (137-145)
[2024-08-31] MEDS: SODIUM CHLORIDE 0.9% IV 1,000 ML 100 ML IV CONT (12:04)
[2024-08-31 12:05] LABS: Glucose Point of Care 124 mg/dl (65-105)
[2024-08-31 16:55] LABS: Anion Gap 9 mmol/L (4-12); Blood Urea Nitrogen 41 mg/dL (9-20); Calcium 8.1 mg/dL (8.4-10.2); Carbon Dioxide 23 mmol/L (22-30); Chloride 101 mmol/L (98-107); Estimated CRCL calculation 46 ml/min; Estimated Glomerular Filt Rate 50; Glucose 124 mg/dL (65-110); Potassium 3.5 mmol/L (3.4-5.0); Sodium 133 mmol/L (137-145)
[2024-08-31 17:20] LABS: Glucose Point of Care 112 mg/dl (65-105)
[2024-08-31] MEDS: MEMANTINE 10 MG TABLET PO (17:42)
[2024-08-31] MEDS: APIXABAN 5 MG TABLET PO (17:42)
[2024-08-31] MEDS: ACETAMINOPHEN 325 MG TABLET 650 MG PO (17:42)
[2024-08-31 19:56] LABS: Anion Gap 9 mmol/L (4-12); Blood Urea Nitrogen 38 mg/dL (9-20); Calcium 7.8 mg/dL (8.4-10.2); Carbon Dioxide 20 mmol/L (22-30); Chloride 101 mmol/L (98-107); Estimated CRCL calculation 51 ml/min; Estimated Glomerular Filt Rate 57; Glucose 162 mg/dL (65-110); Potassium 3.2 mmol/L (3.4-5.0); Sodium 130 mmol/L (137-145)
[2024-08-31] MEDS: DONEPEZIL HCL 10 MG TABLET PO (20:12)
[2024-08-31] MEDS: cefTRIAXone 2 GM/NS 100 ML 2 GM/100 ML BAG IVPB (20:13)
[2024-08-31 20:16] LABS: Glucose Point of Care 186 mg/dl (65-105)
[2024-09-01] VITALS: BP 119/65; PULSE 68; RESP 16; TEMP 37.2; O2SAT 97
[2024-09-01] MEDS: metroNIDAZOLE 500 MG/ISO 100ML 500 MG/100 ML BAG 100 MG IVPB ×3 (00:18→21:16)
[2024-09-01] MEDS: SODIUM CHLORIDE 0.9% IV 1,000 ML 100 ML IV CONT ×2 (02:18→12:10)
[2024-09-01 04:44] VITALS: BP 112/64; PULSE 64; RESP 16; TEMP 36.8; O2SAT 99
[2024-09-01 05:15] LABS: Hematocrit 36.8 % (42.0-52.0); Hemoglobin 12.3 g/dL (14.0-18.0); Immature Platelet Fraction Pct 10.6 % (0.9-11.2); Mean Corpuscular HGB Conc 33.4 g/dl (32-36); Mean Corpuscular Hemoglobin 31.7 pg (26-34); Mean Corpuscular Volume 94.8 fl (80-100); Mean Platelet Volume 12.1 fl (7.4-10.4); Platelet Count Result 99 k/mm3 (150-375); Red Blood Count 3.88 M/mm3 (4.6-6.20); Red Cell Distribution Width 14.5 % (11.5-14.5); White Blood Count 8.4 K/mm3 (4.5-10.0)
[2024-09-01 05:17] LABS: Alanine Aminotransferase 112 U/L (6-50); Albumin Level 2.7 g/dL (3.5-5.1); Alkaline Phosphatase 228 U/L (38-126); Anion Gap 8 mmol/L (4-12); Aspartate Amino Transferase 35 U/L (17-59); Bilirubin,Total 0.8 mg/dL (0.2-1.3); Blood Urea Nitrogen 31 mg/dL (9-20); Calcium 7.7 mg/dL (8.4-10.2); Carbon Dioxide 22 mmol/L (22-30); Chloride 102 mmol/L (98-107); Estimated CRCL calculation 53 ml/min; Estimated Glomerular Filt Rate 59; Glucose 224 mg/dL (65-110); Potassium 3.5 mmol/L (3.4-5.0); Sodium 132 mmol/L (137-145)
--- NOTE | 2024-09-01 07:41 | PM.IMPN ---
Progress Note: A&P Assessment and Plan (1) Acute pyelonephritis: Code(s): N10 - Acute pyelonephritis Status: Acute Assessment and Plan: - Chest/abdomen/pelvis CTA showed pyelonephritis bilaterally more on tigre right side - UA: cloudy appearance with 3+ protein, trace ketones, 3+ blood, 2+ leukocytes, 3-5 RBC, > 100 WBC, 4+ bacteria, and a few epithelial cells - UC obtained on 08/30: Ecoli sensitivities pending - Blood cultures obtained on 08/30: Ecoli sensitivities pending - No previous micro to be reviewed - started on Rocephin and flagyl for cocurrent cholelithiasis, Rocephin dose increased to 2g daily for blood stream infection (2) Acute kidney injury: Code(s): N17.9 - Acute kidney failure, unspecified Status: Acute Assessment and Plan: Likely due to dehydration and underlying infection with possible obstructive uropathy at patient is unsure of BPH history. Received 2L IV fluids in the ED BUN/Cr 55/1.74 on admission, previously WNL in 2022, no recent records - BUN/Cr 31/1.21 on am labs - Avoid nephrotoxic medications - Renally dose medications - Monitor I/O, salter cather discontinued. Attempt voiding trial. If unsuccessful consider urology consult. - Started on flomax for possible BPH - Discontinued IV fluids as patient is having better oral intake. Resolved. (3) Dehydration with hyponatremia: Code(s): E86.0 - Dehydration; E87.1 - Hypo-osmolality and hyponatremia Status: Acute Assessment and Plan: Patient reports decreased oral intake for past 4 days. Na 129 on admission, improved with IV fluids. Now 132 on am Continue to monitor (4) Abnormal findings on diagnostic imaging of gallbladder: Code(s): R93.2 - Abnormal findings on diagnostic imaging of liver and biliary tract Status: Acute Assessment and Plan: Stopped eating 4 days ago due to nausea. Significant pain noted to the right upper quadrant with significant voluntary guarding. - LFTs on admission: Tot bili 2.4, AST 36, ALT 216, alk phos 174 - Antibiotics: rocephin and flagyl started on 08/31 - Chest/abdomen/pelvis CTA showed fat stranding in the right lower quadrant surrounding the appendix which appeared not enlarged. Possibility of appendicitis cannot be excluded. The fat stranding also may be due to the right kidney changes and cholelithiasis. - Upper quadrant US showed cholelithiasis with sludge and slightly thickened wall of the gallbladder. Cholecystitis cannot be excluded. - Diet: diabetic diet - Monitor vital signs, I and O's, check stool output, neuro status and patient is a fall risk - Monitor serum electrolytes and CBC - IV pain management - Gentle IV fluid resuscitation - Consult general surgery for further evaluation, appreciate assistance and recommendation Symptoms seem more consistent with UTI and pyelo, however cholecystitis or appendicitis could still be ddx. No surgical intervention recommended at this time given ongoing UTI and atypical presentation, continue current IV abx If there is any change in condition, could get repeat CT and possibly consider HIDA scan. (5) Hyperbilirubinemia: Code(s): E80.6 - Other disorders of bilirubin metabolism Status: Acute Assessment and Plan: - LFTs on admission: Tot bili 2.4, AST 36, ALT 216, alk phos 174. Improving. Continue to monitor. - See plan above (6) Thrombocytopenia: Code(s): D69.6 - Thrombocytopenia, unspecified Status: Acute Assessment and Plan: New thrombocytopenia possibly due to acute underlying infection vs elevated LFTs vs drug induced (on allopurinol, eliquis, plavix, and memantine) Patient is on eliquis for afib, allopurinol for gout, plavix for PCI and likely stent placement in 2020 given cardiology note about transfer to [facility], [place] with LAD stenosis, and memantine for dementia. Cardiology consulted for medication review, possibly able to stop plavix given length of time since intervention Per cardiology, DC plavix and continue eliquis No signs of active bleeding, continue to monitor (7) Diabetes mellitus: Onset Date: Unknown Qualifiers: Diabetes mellitus complication status: without complication Diabetes mellitus ocean transportation intermediary insulin use: without ocean transportation intermediary use Diabetes mellitus type: type 2 Qualified Code(s): E11.9 - Type 2 diabetes mellitus without complications Code(s): E11.9 - Type 2 diabetes mellitus without complications Status: Chronic Assessment and Plan: - hypoglycemia protocol - POC blood glucose ACHS - home medication - glipizide 10 mg BID, metformin 1500 mg am and 1000 mg pm - correct regimen ordered - low dose TIDWM - A1C 6.3 (8) Hypertension: Code(s): I10 - Essential (primary) hypertension Status: Acute Assessment and Plan: Chronic, blood pressures currently stable. - Lisinopril remains on hold as bp remains stable - Continue to monitor and resume medication as appropriate (9) Elevated d-dimer: Code(s): R79.89 - Other specified abnormal findings of blood chemistry Status: Acute Assessment and Plan: D dimer elevated on admission at 5.16. CTA of the chest abdomen pelvis obtained and no pulmonary embolism noted. Possibly elevated secondary to acute infection and inflammation. (10) Pulmonary nodule: Code(s): R91.1 - Solitary pulmonary nodule Status: Acute Assessment and Plan: Chest/abdomen/pelvis CTA showed Nodule in the right lower lobe measuring 5 mm. Follow up in the outpatient setting (11) Dementia: Qualifiers: Dementia behavioral or psychological symptom: without behavioral, psychotic, or mood disturbance or anxiety Dementia severity: unspecified severity Dementia type: unspecified type Qualified Code(s): F03.90 - Unspecified dementia, unspecified severity, without behavioral disturbance, psychotic disturbance, mood disturbance, and anxiety Code(s): F03.90 - Unspecified dementia, unspecified severity, without behavioral disturbance, psychotic disturbance, mood disturbance, and anxiety Status: Acute Assessment and Plan: Continue patient's home Aricept and Namenda Time Spent With Patient Time with patient: 25 - 35 minutes Subjective Date/time seen: 09/01/24 07:41 Interval history: 74-year-old male with a past medical history dementia, HLD, HTN, type 2 diabetes mellitus, coronary artery disease, atrial fibrillation on chronic anticoagulation with Eliquis, alcohol dependence in remission and gout who presented to the hospital when he was dropped off by family members for evaluation of decreased oral intake for 4 days. Patient is pleasant sitting up comfortably in his chair. He has no complaints denies chest pain, shortness a breath, palpitations, nausea/vomiting, and abdominal/flank pain. He states that he is having better oral intake this will DC his IV fluids as patient is NIC has also resolved and his hyponatremia has improved. Patient had salter catheter placed in the ED for concern of retention causing the NIC. Discussed patients salter catheter with RN and will attempt a voiding trial , if unable to void will replace catheter and consider a urology consult. Review of Systems Review of Systems: All systems reviewed & are unremarkable except as noted in HPI and below Exam Narrative: AF HR 61 RR 16 Spo2 98 BP 119/65 General: male in no acute respiratory distress who is nontoxic appearing,up to chair . HEENT: Normocephalic. Atraumatic. Extraocular movement intact. Sclera clear and anicteric. No facial asymmetry. Chest: Lungs are clear to auscultation bilaterally. No wheezes or crackles. CV: Heart was regular rate and rhythm. S1/S2. No murmurs, gallops, or rubs. Abd: Abdomen was soft. Nontender. Nondistended. Positive bowel sounds. Ext: No clubbing, cyanosis, or edema. DP pulses bilaterally. Neuro: Patient is alert and oriented x3. Speech is clear. Objective Data Vital Signs Vital Signs: Vital Signs - 24 hr 08/31/24 08:00 08/31/24 09:10 08/31/24 12:00 Temperature 98.1 F 98.3 F Pulse Rate 96 90 90 Respiratory Rate 18 16 16 Blood Pressure 133/67 131/72 Pulse Oximetry 96 98 98 Oxygen Delivery Room Air 08/31/24 16:00 08/31/24 17:42 08/31/24 18:40 Temperature 97.9 F 100.6 F H 99.4 F Pulse Rate 96 Respiratory Rate 16 Blood Pressure 128/83 Pulse Oximetry 100 Oxygen Delivery 08/31/24 20:00 08/31/24 20:00 09/01/24 00:00 Temperature 99.8 F H 98.9 F Pulse Rate 67 67 68 Respiratory Rate 16 16 16 Blood Pressure 95/60 L 119/65 Pulse Oximetry 96 96 97 Oxygen Delivery Room Air 09/01/24 04:44 Temperature 98.2 F Pulse Rate 64 Respiratory Rate 16 Blood Pressure 112/64 Pulse Oximetry 99 Oxygen Delivery Intake/Output Intake/Output: Intake & Output 08/29/24 08/30/24 08/31/24 09/01/24 23:59 23:59 23:59 23:59 Intake Total 3150 3320 200 Output Total 500 1665 350 Balance 2650 1655 -150 Meds/Results Medications: Active Medications Generic Name Dose Route Start Last Admin Trade Name Freq PRN Reason Stop Dose Admin Acetaminophen 650 mg 08/30/24 22:25 08/31/24 17:42 Acetaminophen 325 Mg Tablet PO 650 mg Q4H PRN Administration Mild Pain (1-3) or Fever Allopurinol 300 mg 09/01/24 09:00 Allopurinol 300 Mg Tablet PO DAILY BALTAZAR Alprazolam 1 mg 08/31/24 15:58 Alprazolam (*Crx) 0.5 Mg Tablet PO HS PRN Anxiety Apixaban 5 mg 08/31/24 17:00 08/31/24 17:42 Apixaban 5 Mg Tablet PO 5 mg BID BALTAZAR Administration Clopidogrel Bisulfate 75 mg 09/01/24 09:00 Clopidogrel Bisulfate 75 Mg Tablet PO DAILY BALTAZAR Cyanocobalamin 1,000 mcg 09/01/24 09:00 Cyanocobalamin 1,000 Mcg Tablet PO DAILY BALTAZAR Dextrose 12.5 gm 08/31/24 08:25 Dextrose 50% 25 Gm/50 Ml Syringe IV PUSH PRN PRN Hypoglycemia Protocol Donepezil HCl 10 mg 08/31/24 21:00 08/31/24 20:12 Donepezil Hcl 10 Mg Tablet PO 10 mg HS BALTAZAR Administration Glucagon 1 mg 08/31/24 08:25 Glucagon For Inj 1 Mg Vial IM PRN PRN Hypoglycemia Protocol Glucose 15 gm 08/31/24 08:25 Glucose Oral Gel 15 Gm Of Glucse In 37.5 Gm Tube PO PRN PRN Hypoglycemia Protocol Sodium Chloride 1,000 mls @ 100 mls/hr 08/30/24 20:40 09/01/24 02:18 Normal Saline Iv IV CONT 100 mls/hr .Q10H BLATAZAR Administration Metronidazole 500 mg in 100 mls @ 100 mls/hr 08/31/24 06:00 09/01/24 01:20 Flagyl 500 Mg/Iso Soln 100 Ml IVPB Infused Q8H BALTAZAR Infusion Dextrose 1,000 mls @ 100 mls/hr 08/31/24 08:25 Dextrose 5% 1,000 Ml IVPB PRN PRN Hypoglycemia Protocol Ceftriaxone Sodium 2 gm in 100 mls @ 200 mls/hr 08/31/24 21:00 08/31/24 20:45 Rocephin 2 Gm/Ns 100 Ml IVPB Infused Q24H BALTAZAR Infusion Insulin Aspart 2 - 5 units 08/31/24 08:00 08/31/24 16:57 Insulin Aspart (*Bkc) 100 Units/Ml SUB-Q Not Given TIDWM BALTAZAR Protocol Memantine 10 mg 08/31/24 17:00 08/31/24 17:42 Memantine 10 Mg Tablet PO 10 mg BID BALTAZAR Administration Ondansetron HCl 4 mg 08/30/24 22:25 Ondansetron Inj 4 Mg/2 Ml Vial IV PUSH Q6H PRN Nausea And Vomiting Tamsulosin HCl 0.4 mg 08/31/24 09:00 08/31/24 09:10 Tamsulosin Hcl 0.4 Mg Capsule PO 0.4 mg QAM BALTAZAR Administration Radiology Results: ITS Impressions Chest X-Ray 08/30/24 17:56 IMPRESSION: No acute cardiopulmonary pathology. Head CT 08/30/24 18:31 IMPRESSION: No acute intracranial findings. Chest/Abdomen/Pelvis CTA 08/30/24 19:21 IMPRESSION: CHEST: 1. No pulmonary embolism. 2. No acute cardiopulmonary pathology. 3. Nodule in the right lower lobe measuring 5 mm. 6 months follow-up CT is advised. ABDOMEN/PELVIS: 1. Fat stranding in the right lower quadrant surrounding the appendix which appeared not enlarged. Possibility of appendicitis cannot be excluded. The fat stranding also may be due to the right kidney changes. Clinical correlation advised. 2. Pyelonephritis bilaterally more on the right side. Infiltrative process is less likely. Follow-up advised. 3. Cholelithiasis. 4. Hepatomegaly. Upper Quadrant Ultrasound 08/30/24 21:51 IMPRESSION: Cholelithiasis with sludge. Slightly thickened wall of the gallbladder. Cholecystitis cannot be excluded. Clinical correlation advised. Otherwise, normal right upper quadrant ultrasound. Labs Labs: Laboratory Results - last 24 hr 08/31/24 08/31/24 08/31/24 03:33 08:21 11:36 WBC RBC Hgb Hct MCV MCH MCHC RDW Plt Count MPV % Immature Plt Fraction Sodium 133 L Potassium 4.1 Chloride 103 Carbon Dioxide 22 Anion Gap 8 BUN 45 H Creatinine 1.26 Estim Creat Clear Calc 51 Estimated GFR 56 L Glucose 135 H POC Capillary Glucose 88 Hemoglobin A1c 6.3 H Calcium 8.2 L Total Bilirubin AST ALT Alkaline Phosphatase Total Protein Albumin 08/31/24 08/31/24 08/31/24 11:58 16:31 17:17 WBC RBC Hgb Hct MCV MCH MCHC RDW Plt Count MPV % Immature Plt Fraction Sodium 133 L Potassium 3.5 Chloride 101 Carbon Dioxide 23 Anion Gap 9 BUN 41 H Creatinine 1.40 H Estim Creat Clear Calc 46 Estimated GFR 50 L Glucose 124 H POC Capillary Glucose 124 H 112 H Hemoglobin A1c Calcium 8.1 L Total Bilirubin AST ALT Alkaline Phosphatase Total Protein Albumin 08/31/24 08/31/24 09/01/24 19:36 20:07 04:50 WBC 8.4 RBC 3.88 L Hgb 12.3 L Hct 36.8 L MCV 94.8 MCH 31.7 MCHC 33.4 RDW 14.5 Plt Count 99 L MPV 12.1 H % Immature Plt Fraction 10.6 Sodium 130 L 132 L Potassium 3.2 L 3.5 Chloride 101 102 Carbon Dioxide 20 L 22 Anion Gap 9 8 BUN 38 H 31 H Creatinine 1.25 1.21 Estim Creat Clear Calc 51 53 Estimated GFR 57 L 59 Glucose 162 H 224 H POC Capillary Glucose 186 H Hemoglobin A1c Calcium 7.8 L 7.7 L Total Bilirubin 0.8 AST 35 ALT 112 H Alkaline Phosphatase 228 H Total Protein 5.0 L Albumin 2.7 L Quality VTE Prophylaxis VTE prophylaxis: pharmacologic ordered (Continue home Eliquis.)
[2024-09-01 08:00] VITALS: O2SAT 99
[2024-09-01 08:03] LABS: Glucose Point of Care 203 mg/dl (65-105)
[2024-09-01] MEDS: APIXABAN 5 MG TABLET PO ×2 (08:39→16:43)
[2024-09-01] MEDS: MEMANTINE 10 MG TABLET PO ×2 (08:39→16:43)
[2024-09-01] MEDS: CYANOCOBALAMIN 1,000 MCG TABLET 1000 MCG PO (08:39)
[2024-09-01] MEDS: TAMSULOSIN HCL 0.4 MG CAPSULE PO (08:39)
[2024-09-01] MEDS: allopurinoL 300 MG TABLET PO (08:39)
[2024-09-01] MEDS: CLOPIDOGREL BISULFATE 75 MG TABLET PO (08:39)
[2024-09-01] MEDS: INSULIN ASPART (*BKC) 100 UNITS/ML SUB-Q ×3 (08:46→16:44)
[2024-09-01 09:31] LABS: Hepatitis B Surface Antigen Negative (Negative)
[2024-09-01 09:37] LABS: HAV RESULT Negative (Negative); Hepatitis B Core IgM Result Negative (Negative)
[2024-09-01 09:48] LABS: Hepatitis C Virus Antibody Negative (Negative)
--- NOTE | 2024-09-01 11:36 | P.PNGS_ITS ---
Progress Note: A&P Assessment and Plan (1) Acute pyelonephritis: Code(s): N10 - Acute pyelonephritis Status: Acute Assessment and Plan: * E. coli cultures in blood and urine. Not likely a gallbladder source. Would continue current treatment per Hospitalist. No surgical recommendations at this time. Will sign off. (2) Acute hyponatremia: Code(s): E87.1 - Hypo-osmolality and hyponatremia Status: Acute (3) Abnormal findings on diagnostic imaging of gallbladder: Code(s): R93.2 - Abnormal findings on diagnostic imaging of liver and biliary tract Status: Acute (4) Dementia: Qualifiers: Dementia type: unspecified type Dementia severity: unspecified severity Dementia behavioral or psychological symptom: without behavioral, psychotic, or mood disturbance or anxiety Qualified Code(s): F03.90 - Unspecified dementia, unspecified severity, without behavioral disturbance, psychotic disturbance, mood disturbance, and anxiety Code(s): F03.90 - Unspecified dementia, unspecified severity, without behavioral disturbance, psychotic disturbance, mood disturbance, and anxiety Status: Acute (5) Diabetes mellitus: Onset Date: Unknown Qualifiers: Diabetes mellitus type: type 2 Diabetes mellitus terminal operations supervisor insulin use: without terminal operations supervisor use Diabetes mellitus complication status: without complication Qualified Code(s): E11.9 - Type 2 diabetes mellitus without complications Code(s): E11.9 - Type 2 diabetes mellitus without complications Status: Chronic Subjective Subjective Date/Time Seen: 09/01/24 11:36 Interval history: No significant abd pain. Tolerating diet. Confused at times. Exam GI: Inspection: non-distended GI Palp: Yes Soft to palpation, No Tenderness to palpation present (GI), No Guarding due to palpation present (GI), No Palpable mass present and No Rebound tenderness present Auscultation: normal bowel sounds Objective Data Vital Signs Vital Signs: Vital Signs - 24 hr 08/31/24 12:00 08/31/24 16:00 08/31/24 17:42 Temperature 98.3 F 97.9 F 100.6 F H Pulse Rate 90 96 Respiratory Rate 16 16 Blood Pressure 131/72 128/83 Pulse Oximetry 98 100 Oxygen Delivery 08/31/24 18:40 08/31/24 20:00 08/31/24 20:00 Temperature 99.4 F 99.8 F H Pulse Rate 67 67 Respiratory Rate 16 16 Blood Pressure 95/60 L Pulse Oximetry 96 96 Oxygen Delivery Room Air 09/01/24 00:00 09/01/24 04:44 09/01/24 08:00 Temperature 98.9 F 98.2 F Pulse Rate 68 64 Respiratory Rate 16 16 Blood Pressure 119/65 112/64 Pulse Oximetry 97 99 99 Oxygen Delivery Room Air 09/01/24 09:55 Temperature Pulse Rate Respiratory Rate Blood Pressure Pulse Oximetry Oxygen Delivery Room Air Intake/Output Intake/Output: Intake & Output 08/29/24 08/30/24 08/31/24 09/01/24 23:59 23:59 23:59 23:59 Intake Total 3150 3320 680 Output Total 500 1665 350 Balance 2650 1655 330 Meds/Results Medications: Active Medications Generic Name Dose Route Start Last Admin Trade Name Freq PRN Reason Stop Dose Admin Acetaminophen 650 mg 08/30/24 22:25 08/31/24 17:42 Acetaminophen 325 Mg Tablet PO 650 mg Q4H PRN Administration Mild Pain (1-3) or Fever Allopurinol 300 mg 09/01/24 09:00 09/01/24 08:39 Allopurinol 300 Mg Tablet PO 300 mg DAILY BALTAZAR Administration Alprazolam 1 mg 08/31/24 15:58 Alprazolam (*Crx) 0.5 Mg Tablet PO HS PRN Anxiety Apixaban 5 mg 08/31/24 17:00 09/01/24 08:39 Apixaban 5 Mg Tablet PO 5 mg BID BALTAZAR Administration Clopidogrel Bisulfate 75 mg 09/01/24 09:00 09/01/24 08:39 Clopidogrel Bisulfate 75 Mg Tablet PO 75 mg DAILY BALTAZAR Administration Cyanocobalamin 1,000 mcg 09/01/24 09:00 09/01/24 08:39 Cyanocobalamin 1,000 Mcg Tablet PO 1,000 mcg DAILY BALTAZAR Administration Dextrose 12.5 gm 08/31/24 08:25 Dextrose 50% 25 Gm/50 Ml Syringe IV PUSH PRN PRN Hypoglycemia Protocol Donepezil HCl 10 mg 08/31/24 21:00 08/31/24 20:12 Donepezil Hcl 10 Mg Tablet PO 10 mg HS BALTAZAR Administration Glucagon 1 mg 08/31/24 08:25 Glucagon For Inj 1 Mg Vial IM PRN PRN Hypoglycemia Protocol Glucose 15 gm 08/31/24 08:25 Glucose Oral Gel 15 Gm Of Glucse In 37.5 Gm Tube PO PRN PRN Hypoglycemia Protocol Sodium Chloride 1,000 mls @ 100 mls/hr 08/30/24 20:40 09/01/24 02:18 Normal Saline Iv IV CONT 100 mls/hr .Q10H BALTAZAR Administration Metronidazole 500 mg in 100 mls @ 100 mls/hr 08/31/24 06:00 09/01/24 01:20 Flagyl 500 Mg/Iso Soln 100 Ml IVPB Infused Q8H BALTAZAR Infusion Dextrose 1,000 mls @ 100 mls/hr 08/31/24 08:25 Dextrose 5% 1,000 Ml IVPB PRN PRN Hypoglycemia Protocol Ceftriaxone Sodium 2 gm in 100 mls @ 200 mls/hr 08/31/24 21:00 08/31/24 20:45 Rocephin 2 Gm/Ns 100 Ml IVPB Infused Q24H BALTAZAR Infusion Insulin Aspart 2 - 5 units 08/31/24 08:00 09/01/24 08:46 Insulin Aspart (*Bkc) 100 Units/Ml SUB-Q 2 units TIDWM BALTAZAR Administration Protocol Memantine 10 mg 08/31/24 17:00 09/01/24 08:39 Memantine 10 Mg Tablet PO 10 mg BID BALTAZAR Administration Ondansetron HCl 4 mg 08/30/24 22:25 Ondansetron Inj 4 Mg/2 Ml Vial IV PUSH Q6H PRN Nausea And Vomiting Tamsulosin HCl 0.4 mg 08/31/24 09:00 09/01/24 08:39 Tamsulosin Hcl 0.4 Mg Capsule PO 0.4 mg QAM BALTAZAR Administration Radiology Results: ITS Impressions Chest X-Ray 08/30/24 17:56 IMPRESSION: No acute cardiopulmonary pathology. Head CT 08/30/24 18:31 IMPRESSION: No acute intracranial findings. Chest/Abdomen/Pelvis CTA 08/30/24 19:21 IMPRESSION: CHEST: 1. No pulmonary embolism. 2. No acute cardiopulmonary pathology. 3. Nodule in the right lower lobe measuring 5 mm. 6 months follow-up CT is advised. ABDOMEN/PELVIS: 1. Fat stranding in the right lower quadrant surrounding the appendix which appeared not enlarged. Possibility of appendicitis cannot be excluded. The fat stranding also may be due to the right kidney changes. Clinical correlation advised. 2. Pyelonephritis bilaterally more on the right side. Infiltrative process is less likely. Follow-up advised. 3. Cholelithiasis. 4. Hepatomegaly. Upper Quadrant Ultrasound 08/30/24 21:51 IMPRESSION: Cholelithiasis with sludge. Slightly thickened wall of the gallbladder. Cholecystitis cannot be excluded. Clinical correlation advised. Otherwise, normal right upper quadrant ultrasound. Labs Labs: Laboratory Results - last 24 hr 08/31/24 08/31/24 08/31/24 11:36 11:58 16:31 WBC RBC Hgb Hct MCV MCH MCHC RDW Plt Count MPV % Immature Plt Fraction Sodium 133 L 133 L Potassium 4.1 3.5 Chloride 103 101 Carbon Dioxide 22 23 Anion Gap 8 9 BUN 45 H 41 H Creatinine 1.26 1.40 H Estim Creat Clear Calc 51 46 Estimated GFR 56 L 50 L Glucose 135 H 124 H POC Capillary Glucose 124 H Calcium 8.2 L 8.1 L Total Bilirubin AST ALT Alkaline Phosphatase Total Protein Albumin Hepatitis A IgM Ab Hep Bs Antigen Hep B Core IgM Ab Hepatitis C Ab Screen 08/31/24 08/31/24 08/31/24 17:17 19:36 20:07 WBC RBC Hgb Hct MCV MCH MCHC RDW Plt Count MPV % Immature Plt Fraction Sodium 130 L Potassium 3.2 L Chloride 101 Carbon Dioxide 20 L Anion Gap 9 BUN 38 H Creatinine 1.25 Estim Creat Clear Calc 51 Estimated GFR 57 L Glucose 162 H POC Capillary Glucose 112 H 186 H Calcium 7.8 L Total Bilirubin AST ALT Alkaline Phosphatase Total Protein Albumin Hepatitis A IgM Ab Hep Bs Antigen Hep B Core IgM Ab Hepatitis C Ab Screen 09/01/24 09/01/24 09/01/24 04:46 04:50 07:59 WBC 8.4 RBC 3.88 L Hgb 12.3 L Hct 36.8 L MCV 94.8 MCH 31.7 MCHC 33.4 RDW 14.5 Plt Count 99 L MPV 12.1 H % Immature Plt Fraction 10.6 Sodium 132 L Potassium 3.5 Chloride 102 Carbon Dioxide 22 Anion Gap 8 BUN 31 H Creatinine 1.21 Estim Creat Clear Calc 53 Estimated GFR 59 Glucose 224 H POC Capillary Glucose 203 H Calcium 7.7 L Total Bilirubin 0.8 AST 35 ALT 112 H Alkaline Phosphatase 228 H Total Protein 5.0 L Albumin 2.7 L Hepatitis A IgM Ab Negative Hep Bs Antigen Negative Hep B Core IgM Ab Negative Hepatitis C Ab Screen Negative
--- NOTE | 2024-09-01 11:48 | P.CONCA_ITS ---
Assessment and Plan Assessment and plan (1) Hypertension: Code(s): I10 - Essential (primary) hypertension Status: Acute Plan Coronary artery disease history of PCI to the LAD with FIFI 2020 no evidence of ACS Peripheral vascular disease asymptomatic on medical management Proximal atrial fibrillation history of AFib ablation 2020 Possible pyelonephritis currently thrombocytopenia Plan DC Plavix Resume apixaban as there is no indication for other procedures History of Present Illness History of Present Illness Consult date/time: 09/01/24 11:48 Reason For Visit: pyelonephritis, acute kidney injury Narrative: 72-year-old male patient with history of coronary artery disease peripheral arterial disease atrial fibrillation with history of a radiofrequency ablation 2020, history of arrhythmia status post Bi V pacemaker, hypertension and diabetes mellitus type 2. Patient has been on Plavix and Eliquis. He was admitted to the hospital decrease his oral intake. Patient has no ability to provide any history. History was obtained from the chart. Per chart patient has acute on take for 4 days in brought by the family for this reason. He is admitted for workup possible pyelonephritis. During his admission he was noted to have low platelet count. Cardiology was consulted for management of anticoagulation antiplatelet therapy. Patient has history of coronary disease last PCI was 2020. Peripheral vascular disease that was treated medically. [facility] Past Medical History Medical History (Updated 08/31/24 @ 07:46 by Janel Dobbins PA-C) Alcohol abuse Dementia HSV (herpes simplex virus) infection Pulmonary nodule CAD (coronary artery disease) dx from cath on 12/21/20. Ischemic cardiomyopathy With combined systolic and diastolic dysfunction with EF ranging between 45- 55% on various echoes, moderate biatrial enlargement Paroxysmal atrial flutter Shingles Gout Arthritis Kidney stones History of rectal polyps Hypertension A-fib With history of kaz with cardioversion April 2020 with subsequent recurrence Hyperlipidemia Intra-abdominal abscess (~09/04/19) Diabetes mellitus (Unknown) Surgical History Surgical History (Updated 08/30/24 @ 22:35 by Sanjuana Pringle DO) History of cardiac catheterization 12/2020 demonstrated 2 vessel severe obstructive coronary disease with complete total occlusion of right posterior lateral branch distribution with modest feeling via [id number] collaterals of the LAD and circumflex with 99% mid LAD stenosis with diffuse calcification of the LAD and circumflex with mild left ventricular systolic dysfunction with EF of 45-50% with akinesis of the posterior lateral and hypokinesis of the apical segment patient was transferred to [facility] for advanced procedure History of colonoscopy with polypectomy Most recent February 2023 History of right knee joint replacement (~2012) H/O arthroscopy lt shoulder H/O repair of rotator cuff bilateral History of bilateral carpal tunnel release History of renal stent (~2014) Right H/O cystoscopy (~2014) History of penile implant Hx of tonsillectomy Family History Family History (Updated 08/30/24 @ 22:31 by Sanjuana Pringle DO) Sibling Diabetes mellitus Hypertension CHF (congestive heart failure) Mother Diabetes mellitus Father Cerebrovascular accident Social History Social History (Updated 08/31/24 @ 01:21 by Sanjuana Pringle DO) Social History: Currently lives alone in his home. He has 2 sons. He reports that his younger son occasionally comes over to help out around the house. He reports that he used to drink heavily but cut back on drinking about 5 years ago and stopped drinking alcohol altogether April 2024. Patient is still drives. Code Status: DNR, patient able to verbalize understanding of wishes. (03/01/23) Surrogate decision maker: Rajesh Chawla, addie. Smoking packs per day: 1 Smoking cigarettes per day: 20.0 Years smoked: 50 Smoking pack-years: 50.00 Smoking status: Former smoker Tobacco type: cigarettes Alcohol intake: former Substance use: never Substance use type: does not use Do You Feel Safe in your Home?: Yes Lack of Transportation: No Lack of Food: Never True Current Housing: I Have Housing Concerned About Future Housing: No Difficulty Paying Gas/Electric Bills: No Difficulty Paying for Meds: No Currently Unemployed: No Education: High School Diploma/GED Difficulty w/ Childcare or Family Care: No Living arrangements: alone Gender identity (if verbalized by the patient): Male Spiritual care concerns: No Agree to blood products: Yes Meds Home Medications and Allergies Home Medications ?Medication ?Instructions ?Recorded ?Confirmed ?Type alprazolam 1 mg tablet 1 mg PO HS PRN Anxiety 06/19/19 08/31/24 History allopurinol 300 mg tablet 300 mg PO DAILY ##0 09/10/19 08/31/24 History cholecalciferol (vitamin D3) 25 25 mcg PO DAILY 09/10/19 08/31/24 History mcg (1,000 unit) capsule (Vitamin D3) metformin 500 mg tablet See Rx Instructions .Route .COMPLEX 09/10/19 08/31/24 History glipizide 10 mg tablet 10 mg PO BID 10/11/19 08/31/24 History apixaban 5 mg tablet (Eliquis) 5 mg PO BID 04/14/20 08/31/24 History lisinopril 5 mg tablet 12.5 mg PO DAILY 12/18/20 08/31/24 History cyanocobalamin (vitamin B-12) 1,000 mcg PO DAILY 02/01/21 08/31/24 History 1,000 mcg tablet (Vitamin B-12) docusate sodium 100 mg tablet 100 mg PO BID 02/01/21 08/31/24 History donepezil 10 mg tablet 10 mg PO HS 02/01/21 08/31/24 History evolocumab 140 mg/mL subcutaneous 140 mg subcut MONTHLY 02/01/21 08/31/24 History syringe (Repatha Syringe) blood sugar diagnostic (OneTouch 08/31/24 08/31/24 History Verio test strips) clopidogrel 75 mg tablet 75 mg PO DAILY 08/31/24 08/31/24 History memantine 10 mg tablet 10 mg PO BID 08/31/24 08/31/24 History Allergies Allergy/AdvReac Type Severity Reaction Status Date / Time oxycodone Allergy Unknown Other Verified 03/06/23 13:30 Vital Signs Vital Signs - 24 hr 08/31/24 12:00 08/31/24 16:00 08/31/24 17:42 Temperature 36.8 C 36.6 C 38.1 C H Pulse Rate 90 96 Respiratory Rate 16 16 Blood Pressure 131/72 128/83 Pulse Oximetry 98 100 Oxygen Delivery 08/31/24 18:40 08/31/24 20:00 08/31/24 20:00 Temperature 37.4 C 37.7 C H Pulse Rate 67 67 Respiratory Rate 16 16 Blood Pressure 95/60 L Pulse Oximetry 96 96 Oxygen Delivery Room Air 09/01/24 00:00 09/01/24 04:44 09/01/24 08:00 Temperature 37.2 C 36.8 C Pulse Rate 68 64 Respiratory Rate 16 16 Blood Pressure 119/65 112/64 Pulse Oximetry 97 99 99 Oxygen Delivery Room Air 09/01/24 09:55 Temperature Pulse Rate Respiratory Rate Blood Pressure Pulse Oximetry Oxygen Delivery Room Air Exam 2 Narrative: Coronary artery disease history PCI to the LAD 2020 was no evidence of ACS or unstable coronary disease History proximal atrial fibrillation and radiofrequency ablation Cardiac admitted with pyelonephritis decreased oral intake and low platelet count Const: General: comfortable and no acute distress Other: Able to lie flat HENMT: Face/Nose/Sinus: Normal nares present and no epistaxis Mouth: Yes moist mucous membranes Eyes: Sclera: sclerae normal Pupils: Equal, round and reactive pupils present Neck: Neck: supple and no JVD Carotids: no bruits Resp: Auscultation: clear to auscultation bilaterally and lung sounds not diminished Other: No chest wall tenderness Cardio: Rate: regular rate Rhythm: regular rhythm Heart sounds: no gallops, no murmurs and no rubs GI: GI Palp: Yes Soft to palpation and No Tenderness to palpation present (GI) Auscultation: normal bowel sounds Skin: General skin exam: normal color, rashes and/or lesions noted and no erythema Other: Warm Neuro: Cranial nerves: Yes Equal, round and reactive pupils present Speech: normal speech Other: No obvious focal deficit or facial asymmetry Extrem: General: no edema Other: Normal capillary refills Intact distal pulses. Results Labs and Meds 09/01/24 04:50 09/01/24 04:50 Lab results: Cardiac Enzymes 09/01/24 Range/Units 04:50 AST 35 (17-59) U/L CBC 09/01/24 Range/Units 04:50 WBC 8.4 (4.5-10.0) K/mm3 RBC 3.88 L (4.6-6.20) M/mm3 Hgb 12.3 L (14.0-18.0) g/dL Hct 36.8 L (42.0-52.0) % Plt Count 99 L (150-375) k/mm3 Comprehensive Metabolic Panel 08/31/24 08/31/24 08/31/24 Range/Units 11:36 16:31 19:36 Sodium 133 L 133 L 130 L (137-145) mmol/L Potassium 4.1 3.5 3.2 L (3.4-5.0) mmol/L Chloride 103 101 101 (98-107) mmol/L Carbon Dioxide 22 23 20 L (22-30) mmol/L BUN 45 H 41 H 38 H (9-20) mg/dL Creatinine 1.26 1.40 H 1.25 (0.7-1.3) mg/dL Glucose 135 H 124 H 162 H (65-110) mg/dL Calcium 8.2 L 8.1 L 7.8 L (8.4-10.2) mg/dL AST (17-59) U/L ALT (6-50) U/L Alkaline Phosphatase (38-126) U/L Total Protein (6.3-8.2) g/dL Albumin (3.5-5.1) g/dL 09/01/24 Range/Units 04:50 Sodium 132 L (137-145) mmol/L Potassium 3.5 (3.4-5.0) mmol/L Chloride 102 (98-107) mmol/L Carbon Dioxide 22 (22-30) mmol/L BUN 31 H (9-20) mg/dL Creatinine 1.21 (0.7-1.3) mg/dL Glucose 224 H (65-110) mg/dL Calcium 7.7 L (8.4-10.2) mg/dL AST 35 (17-59) U/L ALT 112 H (6-50) U/L Alkaline Phosphatase 228 H (38-126) U/L Total Protein 5.0 L (6.3-8.2) g/dL Albumin 2.7 L (3.5-5.1) g/dL Intake and Output 08/31/24 09/01/24 09/01/24 23:59 07:59 15:59 Intake Total 1640 200 480 Output Total 425 350 Balance 1215 -150 480 Intake: IV 1100 200 Sodium Chloride 0.9% IV 1,000 1000 ml @ 100 mls/hr IV CONT .Q10H BALTAZAR Rx#:[id number] cefTRIAXone 2 GM/NS 100 ML 2 gm 100 In 100 ml @ 200 mls/hr IVPB Q24H BALTAZAR Rx#:[id number] metroNIDAZOLE 500 MG/ISO 100ML 200 500 mg In 100 ml @ 100 mls/hr IVPB Q8H BALTAZAR Rx#:[id number] Oral 540 480 Output: Urine 200 Catheter Urine 225 350 Urethral Catheter 225 350
[2024-09-01 12:00] VITALS: BP 119/65; PULSE 61; RESP 16; O2SAT 98
[2024-09-01 12:01] LABS: Glucose Point of Care 285 mg/dl (65-105)
[2024-09-01 16:00] VITALS: BP 113/68; PULSE 69; RESP 16; O2SAT 99
[2024-09-01 16:38] LABS: Glucose Point of Care 207 mg/dl (65-105)
[2024-09-01 20:00] VITALS: BP 117/69; PULSE 67; RESP 16; TEMP 36.7; O2SAT 98
[2024-09-01] MEDS: ALPRAZolam (*CRX) 0.5 MG TABLET 1 MG PO (20:15)
[2024-09-01] MEDS: DONEPEZIL HCL 10 MG TABLET PO (20:15)
[2024-09-01] MEDS: cefTRIAXone 2 GM/NS 100 ML 2 GM/100 ML BAG IVPB (20:15)
[2024-09-01 20:16] LABS: Glucose Point of Care 247 mg/dl (65-105)
[2024-09-02 00:58] VITALS: BP 118/72; PULSE 66; RESP 16; TEMP 36.6; O2SAT 97
[2024-09-02 04:00] VITALS: RESP 18
[2024-09-02 05:11] LABS: Hemoglobin 12.9 g/dL (14.0-18.0); Mean Corpuscular HGB Conc 33.9 g/dl (32-36); Mean Corpuscular Hemoglobin 31.9 pg (26-34); Mean Corpuscular Volume 94.1 fl (80-100); Mean Platelet Volume 12.3 fl (7.4-10.4); Platelet Count Result 120 k/mm3 (150-375); Red Blood Count 4.04 M/mm3 (4.6-6.20); Red Cell Distribution Width 14.5 % (11.5-14.5); White Blood Count 9.2 K/mm3 (4.5-10.0)
[2024-09-02 05:16] LABS: Alanine Aminotransferase 84 U/L (6-50); Albumin Level 2.8 g/dL (3.5-5.1); Alkaline Phosphatase 218 U/L (38-126); Anion Gap 11 mmol/L (4-12); Aspartate Amino Transferase 23 U/L (17-59); Bilirubin,Total 0.5 mg/dL (0.2-1.3); Blood Urea Nitrogen 21 mg/dL (9-20); Calcium 8.1 mg/dL (8.4-10.2); Carbon Dioxide 19 mmol/L (22-30); Chloride 105 mmol/L (98-107); Estimated CRCL calculation 71 ml/min; Estimated Glomerular Filt Rate > 60; Glucose 198 mg/dL (65-110); Potassium 3.3 mmol/L (3.4-5.0); Sodium 135 mmol/L (137-145)
[2024-09-02] MEDS: metroNIDAZOLE 500 MG/ISO 100ML 500 MG/100 ML BAG 100 MG IVPB ×2 (05:30→14:51)
--- NOTE | 2024-09-02 07:16 | PM.IMPN ---
Progress Note: A&P Assessment and Plan (1) Acute pyelonephritis: Code(s): N10 - Acute pyelonephritis Status: Acute Assessment and Plan: - Chest/abdomen/pelvis CTA showed pyelonephritis bilaterally more on tigre right side - UA: cloudy appearance with 3+ protein, trace ketones, 3+ blood, 2+ leukocytes, 3-5 RBC, > 100 WBC, 4+ bacteria, and a few epithelial cells - UC obtained on 08/30: Ecoli sensitivities pending - Blood cultures obtained on 08/30: Ecoli sensitivities pending - No previous micro to be reviewed - started on Rocephin and flagyl for cocurrent cholelithiasis, Rocephin dose increased to 2g daily for blood stream infection Spoke with ID pharm and transitioned to PO flagyl and levaquin on 09/02, course to be completed on 09/09 (2) Acute kidney injury: Code(s): N17.9 - Acute kidney failure, unspecified Status: Acute Assessment and Plan: Likely due to dehydration and underlying infection with possible obstructive uropathy at patient is unsure of BPH history. Received 2L IV fluids in the ED BUN/Cr 55/1.74 on admission, previously WNL in 2022, no recent records - BUN/Cr 21/0.89 on am labs - Avoid nephrotoxic medications - Renally dose medications - Monitor I/O, salter cather discontinued. Attempt voiding trial. If unsuccessful consider urology consult. - Started on flomax for possible BPH - Discontinued IV fluids as patient is having better oral intake. Resolved. (3) Dehydration with hyponatremia: Code(s): E86.0 - Dehydration; E87.1 - Hypo-osmolality and hyponatremia Status: Acute Assessment and Plan: Patient reports decreased oral intake for past 4 days. Na 129 on admission, improved with IV fluids. Now 135 on am Continue to monitor (4) Abnormal findings on diagnostic imaging of gallbladder: Code(s): R93.2 - Abnormal findings on diagnostic imaging of liver and biliary tract Status: Acute Assessment and Plan: Stopped eating 4 days ago due to nausea. Significant pain noted to the right upper quadrant with significant voluntary guarding. - LFTs on admission: Tot bili 2.4, AST 36, ALT 216, alk phos 174 - Started on Rocephin and flagyl for cocurrent pyelonephritis, Rocephin dose increased to 2g daily for blood stream infection Spoke with ID pharm and transitioned to PO flagyl and levaquin on 09/02, course to be completed on 09/09 - Chest/abdomen/pelvis CTA showed fat stranding in the right lower quadrant surrounding the appendix which appeared not enlarged. Possibility of appendicitis cannot be excluded. The fat stranding also may be due to the right kidney changes and cholelithiasis. - Upper quadrant US showed cholelithiasis with sludge and slightly thickened wall of the gallbladder. Cholecystitis cannot be excluded. - Diet: diabetic diet - Monitor vital signs, I and O's, check stool output, neuro status and patient is a fall risk - Monitor serum electrolytes and CBC - Consult general surgery for further evaluation, appreciate assistance and recommendation Symptoms seem more consistent with UTI and pyelo, however cholecystitis or appendicitis could still be ddx. No surgical intervention recommended at this time given ongoing UTI and atypical presentation, continue current IV abx If there is any change in condition, could get repeat CT and possibly consider HIDA scan. (5) Hyperbilirubinemia: Code(s): E80.6 - Other disorders of bilirubin metabolism Status: Acute Assessment and Plan: - LFTs on admission: Tot bili 2.4, AST 36, ALT 216, alk phos 174. Improving. Continue to monitor. - See plan above (6) Thrombocytopenia: Code(s): D69.6 - Thrombocytopenia, unspecified Status: Acute Assessment and Plan: New thrombocytopenia possibly due to acute underlying infection vs elevated LFTs vs drug induced (on allopurinol, eliquis, plavix, and memantine) Patient is on eliquis for afib, allopurinol for gout, plavix for PCI and likely stent placement in 2020 given cardiology note about transfer to [facility] with LAD stenosis, and memantine for dementia. 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 - Lisinopril remains on hold as bp remains stable, will likely hold at discharge and have patient follow up with PCP - Continue to monitor and resume medication as appropriate (9) Elevated d-dimer: Code(s): R79.89 - Other specified abnormal findings of blood chemistry Status: Acute Assessment and Plan: D dimer elevated on admission at 5.16. CTA of the chest abdomen pelvis obtained and no pulmonary embolism noted. Possibly elevated secondary to acute infection and inflammation. (10) Pulmonary nodule: Code(s): R91.1 - Solitary pulmonary nodule Status: Acute Assessment and Plan: Chest/abdomen/pelvis CTA showed Nodule in the right lower lobe measuring 5 mm. Follow up in the outpatient setting (11) Dementia: Qualifiers: Dementia behavioral or psychological symptom: without behavioral, psychotic, or mood disturbance or anxiety Dementia severity: unspecified severity Dementia type: unspecified type Qualified Code(s): F03.90 - Unspecified dementia, unspecified severity, without behavioral disturbance, psychotic disturbance, mood disturbance, and anxiety Code(s): F03.90 - Unspecified dementia, unspecified severity, without behavioral disturbance, psychotic disturbance, mood disturbance, and anxiety Status: Acute Assessment and Plan: Continue patient's home Aricept and Namenda Time Spent With Patient Time with patient: 25 - 35 minutes Subjective Date/time seen: 09/02/24 07:16 Interval history: 74-year-old male with a past medical history dementia, HLD, HTN, type 2 diabetes mellitus, coronary artery disease, atrial fibrillation on chronic anticoagulation with Eliquis, alcohol dependence in remission and gout who presented to the hospital when he was dropped off by family members for evaluation of decreased oral intake for 4 days. Patient is pleasant lying comfortably bed. He has no complaints at this time denying chest pain, shortness a breath, palpitations, nausea/vomiting, and abdominal pain. Care coordination spoke with patient's son and they wish to have him come home with home health. Son is out of town, returning home tomorrow. Patient likely to be discharged tomorrow with son as then someone is able to care for him at home. Review of Systems Review of Systems: All systems reviewed & are unremarkable except as noted in HPI and below Exam Narrative: AF HR 65 RR 20 SPO2 98 BP 113/80 General: male in no acute respiratory distress who is nontoxic appearing, sitting up in bed HEENT: Normocephalic. Atraumatic. Extraocular movement intact. Sclera clear and anicteric. No facial asymmetry. Chest: Lungs are clear to auscultation bilaterally. No wheezes or crackles. CV: Heart was regular rate and rhythm. S1/S2. No murmurs, gallops, or rubs. Abd: Abdomen was soft. Nontender. Nondistended. Positive bowel sounds. Ext: No clubbing, cyanosis, or edema. DP pulses bilaterally. Neuro: Patient is alert and oriented x3 (person, place, month). Speech is clear. Objective Data Vital Signs Vital Signs: Vital Signs - 24 hr 09/01/24 08:00 09/01/24 09:55 09/01/24 12:00 Temperature Pulse Rate 61 Respiratory Rate 16 Blood Pressure 119/65 Pulse Oximetry 99 98 Oxygen Delivery Room Air Room Air 09/01/24 16:00 09/01/24 20:00 09/01/24 20:00 Temperature 98.1 F Pulse Rate 69 67 Respiratory Rate 16 16 Blood Pressure 113/68 117/69 Pulse Oximetry 99 98 Oxygen Delivery Room Air 09/02/24 00:58 Temperature 97.9 F Pulse Rate 66 Respiratory Rate 16 Blood Pressure 118/72 Pulse Oximetry 97 Oxygen Delivery Intake/Output Intake/Output: Intake & Output 08/30/24 08/31/24 09/01/24 09/02/24 23:59 23:59 23:59 23:59 Intake Total 3150 3320 2996.7 500 Output Total 500 1665 1051 1 Balance 2650 1655 1945.7 499 Meds/Results Medications: Active Medications Generic Name Dose Route Start Last Admin Trade Name Freq PRN Reason Stop Dose Admin Acetaminophen 650 mg 08/30/24 22:25 08/31/24 17:42 Acetaminophen 325 Mg Tablet PO 650 mg Q4H PRN Administration Mild Pain (1-3) or Fever Allopurinol 300 mg 09/01/24 09:00 09/01/24 08:39 Allopurinol 300 Mg Tablet PO 300 mg DAILY BALTAZAR Administration Alprazolam 1 mg 08/31/24 15:58 09/01/24 20:15 Alprazolam (*Crx) 0.5 Mg Tablet PO 1 mg HS PRN Administration Anxiety Apixaban 5 mg 08/31/24 17:00 09/01/24 16:43 Apixaban 5 Mg Tablet PO 5 mg BID BALTAZAR Administration Cyanocobalamin 1,000 mcg 09/01/24 09:00 09/01/24 08:39 Cyanocobalamin 1,000 Mcg Tablet PO 1,000 mcg DAILY BALTAZAR Administration Dextrose 12.5 gm 08/31/24 08:25 Dextrose 50% 25 Gm/50 Ml Syringe IV PUSH PRN PRN Hypoglycemia Protocol Donepezil HCl 10 mg 08/31/24 21:00 09/01/24 20:15 Donepezil Hcl 10 Mg Tablet PO 10 mg HS BALTAZAR Administration Glucagon 1 mg 08/31/24 08:25 Glucagon For Inj 1 Mg Vial IM PRN PRN Hypoglycemia Protocol Glucose 15 gm 08/31/24 08:25 Glucose Oral Gel 15 Gm Of Glucse In 37.5 Gm Tube PO PRN PRN Hypoglycemia Protocol Metronidazole 500 mg in 100 mls @ 100 mls/hr 08/31/24 06:00 09/02/24 05:30 Flagyl 500 Mg/Iso Soln 100 Ml IVPB 100 mls/hr Q8H BALTAZAR Administration Dextrose 1,000 mls @ 100 mls/hr 08/31/24 08:25 Dextrose 5% 1,000 Ml IVPB PRN PRN Hypoglycemia Protocol Ceftriaxone Sodium 2 gm in 100 mls @ 200 mls/hr 08/31/24 21:00 09/01/24 21:16 Rocephin 2 Gm/Ns 100 Ml IVPB Infused Q24H BALTAZAR Infusion Insulin Aspart 2 - 5 units 08/31/24 08:00 09/01/24 16:44 Insulin Aspart (*Bkc) 100 Units/Ml SUB-Q 2 units TIDWM BALTAZAR Administration Protocol Memantine 10 mg 08/31/24 17:00 09/01/24 16:43 Memantine 10 Mg Tablet PO 10 mg BID BALTAZAR Administration Ondansetron HCl 4 mg 08/30/24 22:25 Ondansetron Inj 4 Mg/2 Ml Vial IV PUSH Q6H PRN Nausea And Vomiting Tamsulosin HCl 0.4 mg 08/31/24 09:00 09/01/24 08:39 Tamsulosin Hcl 0.4 Mg Capsule PO 0.4 mg QAM BALTAZAR Administration Radiology Results: ITS Impressions Chest X-Ray 08/30/24 17:56 IMPRESSION: No acute cardiopulmonary pathology. Head CT 08/30/24 18:31 IMPRESSION: No acute intracranial findings. Chest/Abdomen/Pelvis CTA 08/30/24 19:21 IMPRESSION: CHEST: 1. No pulmonary embolism. 2. No acute cardiopulmonary pathology. 3. Nodule in the right lower lobe measuring 5 mm. 6 months follow-up CT is advised. ABDOMEN/PELVIS: 1. Fat stranding in the right lower quadrant surrounding the appendix which appeared not enlarged. Possibility of appendicitis cannot be excluded. The fat stranding also may be due to the right kidney changes. Clinical correlation advised. 2. Pyelonephritis bilaterally more on the right side. Infiltrative process is less likely. Follow-up advised. 3. Cholelithiasis. 4. Hepatomegaly. Upper Quadrant Ultrasound 08/30/24 21:51 IMPRESSION: Cholelithiasis with sludge. Slightly thickened wall of the gallbladder. Cholecystitis cannot be excluded. Clinical correlation advised. Otherwise, normal right upper quadrant ultrasound. Labs Labs: Laboratory Results - last 24 hr 09/01/24 09/01/24 09/01/24 04:46 07:59 11:51 WBC RBC Hgb Hct MCV MCH MCHC RDW Plt Count MPV Sodium Potassium Chloride Carbon Dioxide Anion Gap BUN Creatinine Estim Creat Clear Calc Estimated GFR Glucose POC Capillary Glucose 203 H 285 H Calcium Total Bilirubin AST ALT Alkaline Phosphatase Total Protein Albumin Hepatitis A IgM Ab Negative Hep Bs Antigen Negative Hep B Core IgM Ab Negative Hepatitis C Ab Screen Negative 09/01/24 09/01/24 09/02/24 16:36 20:07 04:32 WBC 9.2 RBC 4.04 L Hgb 12.9 L Hct 38.0 L MCV 94.1 MCH 31.9 MCHC 33.9 RDW 14.5 Plt Count 120 L MPV 12.3 H Sodium 135 L Potassium 3.3 L Chloride 105 Carbon Dioxide 19 L Anion Gap 11 BUN 21 H D Creatinine 0.89 Estim Creat Clear Calc 71 Estimated GFR > 60 Glucose 198 H POC Capillary Glucose 207 H 247 H Calcium 8.1 L Total Bilirubin 0.5 AST 23 ALT 84 H Alkaline Phosphatase 218 H Total Protein 5.0 L Albumin 2.8 L Hepatitis A IgM Ab Hep Bs Antigen Hep B Core IgM Ab Hepatitis C Ab Screen Quality VTE Prophylaxis VTE prophylaxis: pharmacologic ordered (Continue home Eliquis.)
[2024-09-02 08:00] VITALS: BP 113/80; PULSE 65; RESP 20; TEMP 36.5; O2SAT 98
[2024-09-02 08:29] LABS: Glucose Point of Care 185 mg/dl (65-105)
[2024-09-02] MEDS: allopurinoL 300 MG TABLET PO (08:42)
[2024-09-02] MEDS: MEMANTINE 10 MG TABLET PO ×2 (08:42→17:31)
[2024-09-02] MEDS: APIXABAN 5 MG TABLET PO ×2 (08:42→17:31)
[2024-09-02] MEDS: CYANOCOBALAMIN 1,000 MCG TABLET 1000 MCG PO (08:42)
[2024-09-02] MEDS: POTASSIUM CHLORIDE 20 MEQ ER TABLET 40 MEQ PO (08:42)
[2024-09-02] MEDS: TAMSULOSIN HCL 0.4 MG CAPSULE PO (08:42)
[2024-09-02 12:00] VITALS: BP 110/72; PULSE 62; RESP 20; TEMP 36.4; O2SAT 98
[2024-09-02 12:07] LABS: Glucose Point of Care 248 mg/dl (65-105)
[2024-09-02] MEDS: INSULIN ASPART (*BKC) 100 UNITS/ML SUB-Q ×2 (12:24→17:31)
[2024-09-02 16:00] VITALS: BP 113/67; PULSE 75; RESP 18; TEMP 37.2; O2SAT 97
[2024-09-02 17:16] LABS: Glucose Point of Care 318 mg/dl (65-105)
[2024-09-02 20:00] VITALS: BP 124/68; PULSE 63; RESP 16; TEMP 36.9; O2SAT 99
[2024-09-02 20:52] LABS: Glucose Point of Care 259 mg/dl (65-105)
[2024-09-02] MEDS: DONEPEZIL HCL 10 MG TABLET PO (21:02)
[2024-09-02] MEDS: metroNIDAZOLE 500 MG TABLET PO (21:02)
[2024-09-02] MEDS: ALPRAZolam (*CRX) 0.5 MG TABLET 1 MG PO (21:02)
[2024-09-02] MEDS: levoFLOXacin 750 MG TABLET PO (21:02)
[2024-09-03] VITALS: PULSE 64; RESP 16; O2SAT 96
[2024-09-03 04:00] VITALS: BP 113/79; PULSE 64; RESP 16; TEMP 36.8; O2SAT 96
[2024-09-03 04:42] LABS: Hematocrit 39.6 % (42.0-52.0); Hemoglobin 13.5 g/dL (14.0-18.0); Mean Corpuscular HGB Conc 34.1 g/dl (32-36); Mean Corpuscular Hemoglobin 31.8 pg (26-34); Mean Corpuscular Volume 93.2 fl (80-100); Mean Platelet Volume 12.1 fl (7.4-10.4); Platelet Count Result 145 k/mm3 (150-375); Red Blood Count 4.25 M/mm3 (4.6-6.20); Red Cell Distribution Width 14.6 % (11.5-14.5); White Blood Count 8.6 K/mm3 (4.5-10.0)
[2024-09-03 04:59] LABS: Alanine Aminotransferase 72 U/L (6-50); Albumin Level 2.7 g/dL (3.5-5.1); Alkaline Phosphatase 180 U/L (38-126); Anion Gap 8 mmol/L (4-12); Aspartate Amino Transferase 35 U/L (17-59); Bilirubin,Total 0.5 mg/dL (0.2-1.3); Blood Urea Nitrogen 18 mg/dL (9-20); Calcium 8.2 mg/dL (8.4-10.2); Carbon Dioxide 21 mmol/L (22-30); Chloride 106 mmol/L (98-107); Estimated CRCL calculation 79 ml/min; Estimated Glomerular Filt Rate > 60; Glucose 195 mg/dL (65-110); Potassium 3.7 mmol/L (3.4-5.0); Sodium 135 mmol/L (137-145)
[2024-09-03] MEDS: metroNIDAZOLE 500 MG TABLET PO ×2 (05:49→13:32)
[2024-09-03 08:00] VITALS: BP 119/85; PULSE 67; RESP 20; TEMP 36.2; O2SAT 99
[2024-09-03 08:00] LABS: Glucose Point of Care 181 mg/dl (65-105)
[2024-09-03] MEDS: CYANOCOBALAMIN 1,000 MCG TABLET 1000 MCG PO (08:15)
[2024-09-03] MEDS: allopurinoL 300 MG TABLET PO (08:15)
[2024-09-03] MEDS: MEMANTINE 10 MG TABLET PO (08:15)
[2024-09-03] MEDS: TAMSULOSIN HCL 0.4 MG CAPSULE PO (08:15)
[2024-09-03] MEDS: APIXABAN 5 MG TABLET PO (08:15)
--- NOTE | 2024-09-03 08:54 | PCPTNOTE ---
Attempted to see patient for PT, however patient was eating breakfast.
[2024-09-03 12:00] VITALS: BP 115/71; PULSE 66; RESP 16; TEMP 36.4; O2SAT 96
--- NOTE | 2024-09-03 12:06 | P.DS_ITS ---
DS: Admitting Diagnosis Discharge Date 09/03/2024 Admitting Diagnosis acute pyelonephritis nic dehydration with hyponatremia abnormal findings on diagnostic imaging of liver and biliary tract hyperbilirubinemia thrombocytopenia diabetes hypertension elevated d dimer pulmonary nodule dementia DS: Discharge Diagnosis Discharge Diagnosis (1) Acute pyelonephritis: Code(s): N10 - Acute pyelonephritis Status: Acute (2) Acute kidney injury: Code(s): N17.9 - Acute kidney failure, unspecified Status: Acute (3) Dehydration with hyponatremia: Code(s): E86.0 - Dehydration; E87.1 - Hypo-osmolality and hyponatremia Status: Acute (4) Abnormal findings on diagnostic imaging of gallbladder: Code(s): R93.2 - Abnormal findings on diagnostic imaging of liver and biliary tract Status: Acute (5) Hyperbilirubinemia: Code(s): E80.6 - Other disorders of bilirubin metabolism Status: Acute (6) Thrombocytopenia: Code(s): D69.6 - Thrombocytopenia, unspecified Status: Acute (7) Diabetes mellitus: Onset Date: Unknown Qualifiers: Diabetes mellitus complication status: without complication 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 insulin use: without group home use Diabetes mellitus type: type 2 Qualified Code(s): E11.9 - Type 2 diabetes mellitus without complications Code(s): E11.9 - Type 2 diabetes mellitus without complications Status: Chronic (8) Hypertension: Code(s): I10 - Essential (primary) hypertension Status: Acute (9) Elevated d-dimer: Code(s): R79.89 - Other specified abnormal findings of blood chemistry Status: Acute (10) Pulmonary nodule: Code(s): R91.1 - Solitary pulmonary nodule Status: Acute (11) Dementia: Qualifiers: Dementia behavioral or psychological symptom: without behavioral, psychotic, or mood disturbance or anxiety Dementia severity: unspecified severity Dementia type: unspecified type Qualified Code(s): F03.90 - Unspecified dementia, unspecified severity, without behavioral disturbance, psychotic disturbance, mood disturbance, and anxiety Code(s): F03.90 - Unspecified dementia, unspecified severity, without behavioral disturbance, psychotic disturbance, mood disturbance, and anxiety Status: Acute DS: Summary Hospital Course Reason for hospitalization: acute pyelonephritis nic dehydration with hyponatremia abnormal findings on diagnostic imaging of liver and biliary tract hyperbilirubinemia thrombocytopenia diabetes hypertension elevated d dimer pulmonary nodule dementia Hospital Course: 74-year-old male with a past medical history dementia, HLD, HTN, type 2 diabetes mellitus, coronary artery disease, atrial fibrillation on chronic anticoagulation with Eliquis, alcohol dependence in remission and gout who presented to the hospital when he was dropped off by family members for evaluation of confusion and decreased oral intake for 4 days. Vitals stable on admission, not meeting sepsis criteria. Throughout admission patients blood pressure remains stable despite holding antihypertensive medication. Patient is to continuing holding until follow up with PCP. Head CT showed no acute intracranial findings. Chest XR unremarkable. Labs showing NIC and mild hyponatremia which both resolved with fluids. D dimer elevated. Chest/abdomen/pelvis CTA showed no PE, nodule in the right lower lobe measuring 5 mm. Patient to have follow up outpatient with PCP about the nodule. CTA also showed pyelonephritis bilaterally more on the right side. UA concerning for infection. Started on antibiotics. Urine culture and blood culture grew ecoli. Transitioned to oral antibiotics at time of discharge to complete the course. LFTs elevated on admission. CTA also showed fat stranding in the right lower quadrant surrounding the appendix which appeared not enlarged. Possibility of appendicitis cannot be excluded. The fat stranding also may be due to the right kidney changes and cholelithiasis. Upper quadrant US showed cholelithiasis with sludge and slightly thickened wall of the gallbladder. Cholecystitis cannot be excluded. General surgery consulted and states symptoms seem more consistent with UTI and pyelo, however cholecystitis or appendicitis could still be ddx. No surgical intervention recommended at this time given ongoing UTI and atypical presentation. New thrombocytopenia noted possibly due to acute underlying infection vs elevated LFTs vs drug induced (on allopurinol, eliquis, plavix, and memantine). Plavix for PCI and likely stent placement in 2020 given cardiology note about transfer to [facility] with LAD stenosis. Cardiology consulted for medication review and plavix discontinued. Platelets improving. No signs of active bleeding. Patient has no complaints denying chest pain, shortness a breath, palpitations, nausea/vomiting, abdominal pain, and dizziness/lightheadedness. Patient discharged home with home health in a stable condition. He states that his sons will be staying and helping him throughout the house. Patient is to follow up with his primary care provider in 1 week and Cardiology as scheduled. Status at Discharge Functional status at discharge: independent ambulation Time Spent with Patient Time attestation: Total time spent providing and/or coordinating discharge services: Time spent: Greater than 30 minutes Exam Narrative: AF HR 67 RR 20 SPO2 99 BP 119/85 General: male in no acute respiratory distress who is nontoxic appearing, sitting up in chair HEENT: Normocephalic. Atraumatic. Extraocular movement intact. Sclera clear and anicteric. No facial asymmetry. Chest: Lungs are clear to auscultation bilaterally. No wheezes or crackles. CV: Heart was regular rate and rhythm. S1/S2. No murmurs, gallops, or rubs. Abd: Abdomen was soft. Nontender. Nondistended. Positive bowel sounds. Ext: No clubbing, cyanosis, or edema. DP pulses bilaterally. Neuro: Patient is alert and oriented x3 (person, place, month). Speech is clear. DS: Data Data Completed and Pending Completed studies during hospitalization: Upper quadrant ultrasound Chest abdomen pelvis CTA Head CT Chest x-ray Labs on day of discharge: Labs from last 24 hours 09/03/24 09/03/24 09/02/24 07:56 04:08 20:43 WBC 8.6 RBC 4.25 L Hgb 13.5 L Hct 39.6 L MCV 93.2 MCH 31.8 MCHC 34.1 RDW 14.6 H Plt Count 145 L MPV 12.1 H Sodium 135 L Potassium 3.7 Chloride 106 Carbon Dioxide 21 L Anion Gap 8 BUN 18 Creatinine 0.79 Estim Creat Clear Calc 79 Estimated GFR > 60 Glucose 195 H POC Capillary Glucose 181 H 259 H Calcium 8.2 L Total Bilirubin 0.5 AST 35 ALT 72 H Alkaline Phosphatase 180 H Total Protein 5.0 L Albumin 2.7 L 09/02/24 09/02/24 17:10 11:58 WBC RBC Hgb Hct MCV MCH MCHC RDW Plt Count MPV Sodium Potassium Chloride Carbon Dioxide Anion Gap BUN Creatinine Estim Creat Clear Calc Estimated GFR Glucose POC Capillary Glucose 318 H 248 H Calcium Total Bilirubin AST ALT Alkaline Phosphatase Total Protein Albumin Discharge Plan Discharge Attending physician on discharge: Diana Loya Consulting providers: Yomi Deras Discharging Clinician: Janel Dobbins Anticipated Discharge Date/Time: 09/03/24 11:00 Patient Disposition: Home with Home Health Service Activity: as tolerated Diet: as tolerated, heart healthy and diabetic Discharge Instructions: LDischarge disposition: Patient admitted to the hospital for decreased oral intake and increased urinary frequency Diagnosed with a kidney injury/infection and urinary tract infection Take all medications as prescribed even if feeling better Levaquin daily and flagyl every 8 hours, course to be completed on 09/09 Attached is information on this medication Eat well balanced meals and stay hydrated Can use ensures for supplements Keep active to remain strong Avoid use of diapers or pads Good christie Care every 2 hours Trend urine output Patient has low platelet levels Evaluated by cardiology and plavix has been discontinued Continue eliquis as prescribed Strict bleeding precautions since you are on eliquis including shaving with an electric razor, holding pressure for greater than 20 minutes for injury, protection of had with any falls, etc. Patient has a right lower lobe lung nodule Follow up in the outpatient setting Monitor blood pressures Continue holding lisinopril until follow up with primary care provider Take caution while standing, rising, or moving Change positions slowly taking a break between each position change If you standing feel dizzy sit back down and take a break Encouraged to continue with yearly vaccinations Return to the emergency department if he developed sudden shortness of breath, chest pain, nausea, vomiting, upset stomach or intractable diarrhea Return to the emergency department if you develop fever greater than 101.5 Follow-up with the primary care physician within 1-2 weeks Per Care Coordination, patient to discharge with [facility] ([phone]) for PT/OT and fci services. Agency will call to arrange initial visit. Thank you for choosing [facility] for your healthcare needs Patient Instructions: Antibiotic Form, Metronidazole (By mouth), Levofloxacin (By mouth), Urinary Tract Infection in Men (DC), Kidney Infection (DC), Safe Use of Anticoagulants (DC), Bacteremia (DC) Patient Language: Yi Stand Alone Forms: General Discharge Information Follow-up/Referrals: Yomi Deras MD [Physician] - Van Buren,Lenin Peterson MD [Primary Care Provider] - 1 Week Discharge Medications: New metronidazole 500 mg Tablet 500 mg PO Q8HR Qty: 20 0RF tamsulosin 0.4 mg Capsule 0.4 mg PO QAM Qty: 30 0RF levofloxacin 750 mg tablet 750 mg PO DAILY 7 Days Qty: 7 0RF Continued alprazolam 1 mg tablet 1 mg PO HS PRN (Reason: Anxiety) Patient Comments: pt states rarely used metformin 500 mg Tablet See Rx Instructions .ROUTE .COMPLEX Rx Instructions: 1500 mg 3 tabs orally in am , 2 tabs pm = 1000 mg allopurinol 300 mg Tablet 300 mg PO DAILY Qty: 0 cholecalciferol (vitamin D3) [Vitamin D3] 25 mcg (1,000 unit) Capsule 25 mcg PO DAILY glipizide 10 mg tablet 10 mg PO BID Eliquis 5 mg Tablet 5 mg PO BID donepezil 10 mg Tablet 10 mg PO HS cyanocobalamin (vitamin B-12) [Vitamin B-12] 1,000 mcg Tablet 1,000 mcg PO DAILY Repatha Syringe 140 mg/mL Syringe 140 mg SUBCUT MONTHLY Rx Instructions: Pt states he takes on the 10th of every month docusate sodium 100 mg Tablet 100 mg PO BID memantine 10 mg tablet 10 mg PO BID (DME) OneTouch Verio test strips Strip MISCELLANEOUS Held lisinopril 5 mg tablet 12.5 mg PO DAILY Hold Instructions: Resume on 09/11/24. Hold until follow up with PCP. Rx Instructions: recently decreased dose Discontinued clopidogrel 75 mg tablet 75 mg PO DAILY Date of admission: 08/31/24 09:02 Primary Care Provider: Vinh,Lenin Peterson Admitting Provider: Sanjuana Pringle Attending physician on admission: Janel Dobbins Condition: Stable Hospitalist MIPS Heart Failure (Exclusion) Patient has history of Heart Transplant or Left Ventricular Assistive Device?: No IF YES, STOP HERE Heart Failure (Qualifier) Patient has current or prior documentation of LVEF less than or equal to 40%, or mod/servere depressed LVSF?: No IF NO, STOP HERE
[2024-09-03 12:13] LABS: Glucose Point of Care 264 mg/dl (65-105)
[2024-09-03] MEDS: INSULIN ASPART (*BKC) 100 UNITS/ML SUB-Q (12:40)
== END 2024-09-03 14:25 | disposition home health service (06) | DRG 690 ==
LOC: ANHED 17:56 → ANH2MED 20:59
PROVIDERS: Admitting Provider Internal Medicine; Emergency Provider Physician Assistant; PCP Internal Medicine Geriatric Medicine; Visit Provider Student in an Organized Health Care Education/Training Program
DX: N10 Acute pyelonephritis (principal); E87.1 Hypo-osmolality and hyponatremia; B96.20 Unspecified Escherichia coli [E. coli] as the cause of diseases classified elsewhere; E78.5 Hyperlipidemia, unspecified; E11.9 Type 2 diabetes mellitus without complications; E86.0 Dehydration; F10.21 Alcohol dependence, in remission; F03.90 Unspecified dementia, unspecified severity, without behavioral disturbance, psychotic disturbance, mood disturbance, and anxiety; I25.10 Atherosclerotic heart disease of native coronary artery without angina pectoris; I10 Essential (primary) hypertension; I48.0 Paroxysmal atrial fibrillation; I73.9 Peripheral vascular disease, unspecified; I25.5 Ischemic cardiomyopathy; K80.20 Calculus of gallbladder without cholecystitis without obstruction; M10.9 Gout, unspecified; N17.9 Acute kidney failure, unspecified; R93.2 Abnormal findings on diagnostic imaging of liver and biliary tract; R91.1 Solitary pulmonary nodule; Z86.711 Personal history of pulmonary embolism; Z96.651 Presence of right artificial knee joint; Z66 Do not resuscitate; Z87.891 Personal history of nicotine dependence; Z79.84 Long term (current) use of oral hypoglycemic drugs; Z79.85 Long-term (current) use of injectable non-insulin antidiabetic drugs; Z95.5 Presence of coronary angioplasty implant and graft; Z79.01 Long term (current) use of anticoagulants
CPT/HCPCS: 36415; 70450; 71046; 71275; 74177; 76705; 80048; 80053; 80074; 81001; 82550; 82948; 83036; 83605; 83690; 83735; 84100; 84145; 85025; 85027; 85055; 85380; 85610; 85730; 87040; 87086; 87186; 93005; 96361; 96365; 96366; 96367; 97110; 97161; 97165; 97530; 99285; A9270; G0378; J0696; J1815; J1836; J7030; Q9967